=== PATIENT | male | born 1940 | race Caucasian/White ===

== ENCOUNTER → 2016-06-28 | Outpatient (CLI) | payer MEDICARE ==
--- NOTE | 2016-06-28 16:58 | MR ---
EXAMINATION TYPE: MR brain wo con DATE OF EXAM: 06/28/2016 4:06 PM COMPARISON: NONE HISTORY: memory loss, urinary incontinence, unsteady gate T1-weighted sagittal, T2, FLAIR, and diffusion axial, and T2 coronal coronal views of the brain are s ubmitted. Findings: There is no evidence of acute ischemia. There is moderate to severe dilation of the ventricular syste m. There is a degree of surrounding atrophic changes however there is a greater central component. Co rrelate for normal pressure hydrocephalus. No cerebellopontine angle mass. Partially empty sella turcica noted. Craniocervical junction maintain ed. Arthritic change involving the atlantoaxial joint suggested. WHITE MATTER: There is a faint periventricular confluent abnormal signal as well as approximately 20-25 areas of pu nctate abnormal signal throughout the white matter. No callosal lesions. No lesions perpendicular to the ventricular system. There are a couple subcortical lesions. Abnormal signal within the ion likel y in the basis of remote ischemia. IMPRESSION: 1. No acute intracranial process. 2. Degenerative change with a greater central ventricular dilation. This raises the question of neil l pressure hydrocephalus correlate clinically. 3. Nonspecific white matter changes. Differential diagnosis includes hypertension and remote microvas cular ischemia. Demyelinating process not excluded. 4 spot focal area of abnormal signal within the p ons suggestive of remote ischemia.
== END | disposition home or self-care (01) ==
LOC: RADMRIMAIN 15:32
PROVIDERS: ATTEND Psychiatry & Neurology Neurology
DX: R90.82 White matter disease, unspecified (principal)
CPT/HCPCS: 70551

== ENCOUNTER → 2016-07-11 | Outpatient (CLI) | payer MEDICARE ==
[2016-07-11 09:59] LABS: INR 1.3 (<1.1); Prothrombin Time 12.8 sec (9.0-12.0)
== END | disposition home or self-care (01) ==
LOC: LABWHC1 09:33
PROVIDERS: ATTEND Psychiatry & Neurology Neurology
DX: Z51.81 Encounter for therapeutic drug level monitoring (principal); Z79.01 Long term (current) use of anticoagulants
CPT/HCPCS: 36415; 85610

== ENCOUNTER → 2017-06-07 | Outpatient (CLI) | payer MEDICARE ==
--- NOTE | 2017-06-08 13:53 | MR ---
EXAMINATION TYPE: MR brain wo con DATE OF EXAM: 06/07/2017 COMPARISON: Prior MRI brain June 28, 2016 HISTORY: Normal pressure hydrocephalus, compare to prior MRI. Symptoms of bilateral hearing loss per patient. TECHNIQUE: Multiplanar, multisequence imaging of the brain and brainstem is performed without IV cont rast. FINDINGS: Diffusion weighted images demonstrate no evidence of a recent infarct or other diffusion abnormality. There is no worrisome extra-axial fluid collection. There is ventricular and sulcal prominence consis tent with diffuse cerebral atrophy. Similar to the prior study degree of ventricular dilatation sligh tly out of proportion to degree of sulcal effacement in the normal pressure hydrocephalus cannot be e xcluded. The Lott Ratio is calculated 4.6 cm/ 13.1 cm or 0.35 on current study axial image 19 versus 4.5 cm/ 13.0 cm or 0.35 on prior exam axial image 19. A few scattered foci of T2 hyperintensity thro ughout the white matter remain present. Midline structures demonstrate normal morphology. The craniocervical junction appears within normal limits. Normal vascular flow voids are present. The visualized sinuses are clear and the globes are i ntact. IMPRESSION: 1. There is moderate diffuse cerebral atrophy and mild to moderate chronic small vessel ischemic pepper ge. Normal pressure hydrocephalus is not excluded. No significant change from prior.
== END | disposition home or self-care (01) ==
LOC: RADMRIMAIN 14:34
PROVIDERS: ATTEND Internal Medicine
DX: G31.9 Degenerative disease of nervous system, unspecified (principal); I67.82 Cerebral ischemia
CPT/HCPCS: 70551

== ENCOUNTER → 2017-07-18 | Outpatient (CLI) | payer MEDICARE ==
[2017-07-18 15:41] LABS: T4, Free (Free Thyroxine) 0.89 ng/dL (0.78-2.19)
[2017-07-18 19:11] LABS: Protein, Total 6.6 g/dL (6.2-8.2)
[2017-07-19 12:15] LABS: Immunoglobulin M 61.6 mg/dL (40.0-280.0)
[2017-07-22 12:20] LABS: Gamma Globulin 0.73 g/dL (0.70-1.50)
== END | disposition home or self-care (01) ==
LOC: LABWHC1 14:38
PROVIDERS: ATTEND Psychiatry & Neurology Neurology
DX: E11.40 Type 2 diabetes mellitus with diabetic neuropathy, unspecified (principal)
CPT/HCPCS: 36415; 82140; 82784; 84165; 84439; 84443; 86780

== ENCOUNTER 2017-09-01 08:05 | Day surgery (SDC) | payer MEDICARE ==
[2017-09-01 08:56] LABS: Mean Platelet Volume 7.1; Platelet Count 228 k/uL (150-450)
[2017-09-01 09:04] LABS: INR 1.2 (<1.2); Prothrombin Time 11.4 sec (9.0-12.0)
[2017-09-01] MEDS ORDERED: Acetaminophen-Codeine 300-30mg TAB PO PRN (10:04)
[2017-09-01 10:42] VITALS: RESP 16
--- NOTE | 2017-09-01 11:08 | FL ---
EXAMINATION TYPE: FL guided lumbar puncture LP DATE OF EXAM: 09/01/2017 CLINICAL HISTORY: Concern for CSF leak and administration of 578 mCi of indium 111 DTPA for cisternog floridalma COMPLICATIONS: None TECHNIQUE: The procedure and potential risks were explained to patient and an informed consent was obtained with teach back. Preprocedural time out was performed. The patient was placed prone on the fluoroscopy table and the L4-L5 level was localized and the skin was marked and was prepped and draped in the usual sterile fashion. Lidocaine was used for local anesthesia (5 cc). Utilizing fluoroscopic guidance a 22-gauge spinal nee dle was placed through the skin and into the subarachnoid space. After clear colorless cerebrospinal fluid was identified 578 mCi of indium 111 DTPA was administered intrathecally for nuclear medicine cisternogram. The patient tolerated the procedure well and was sent back to a recovery room in satisfactory conditi on. The estimated blood loss was minimal. The patient's condition was unchanged following the procedure. Fluoroscopy time: 29 seconds with 1 image saved. IMPRESSION: Successful intrathecal administration of 578 mCi of indium 111 DTPA for nuclear medicine cisternogram .
[2017-09-01 12:48] VITALS: TEMP 98.1
[2017-09-01 14:55] VITALS: BP 143/93; PULSE 100
== END 2017-09-01 15:25 | disposition home or self-care (01) ==
LOC: RADPROMAIN 08:05 → EDSTATUS 14:00 → RADPROMAIN 15:25
PROVIDERS: ATTEND Psychiatry & Neurology Neurology
DX: R41.3 Other amnesia (principal)
CPT/HCPCS: 82947; 85049; 85610; 62270; 36415; J2001

== ENCOUNTER → 2017-09-18 | Outpatient (CLI) | payer MEDICARE ==
--- NOTE | 2017-09-18 17:01 | CONS ---
CONSULTATION DATE OF SERVICE: 09/18/2017 76-year-old gentleman who has been evaluated in the [facility] for obstructive sleep apnea-hypopnea syndrome. Recently patient was diagnosed with sleep apnea, according to him about 30 years ago, in different institution. Since that time he is on treatment with CPAP. He continued to use his BiPAP which was adjusted to CPAP according to patient every night for the whole night, but he still has problems with his sleep. He has problem with his mask. There is some in discomfort with the mask and probably leak. The patient does not feel that his CPAP worked well now. His sleep schedule fluctuating from 10 p.m. until morning. He sleeps until morning and then he will nap for long hours. The patient snores, has episodes of stopped breathing, awakenings with dry mouth, nocturia. Again, he does have problem with the falling asleep, has TV set in bedroom, sleeps in different positions. During the day, he feels sleepy, wakes up tired, has problem with memory, concentration, debility, depression. [place] Sleepiness Scale is 8. PAST MEDICAL HISTORY: Positive for hypertension, diabetes mellitus, atrial fibrillation, hyperlipidemia, depression. PAST SURGICAL HISTORY: Total left knee replacement, UPPP with tonsillectomy, status post nasal surgery for sinusitis and possible nasal septum deviation. MEDICATIONS: Atenolol, bupropion, digoxin, DuoNeb, doxazosin, furosemide, glimepiride, isosorbide, metformin, sertraline, simvastatin, warfarin, vitamins, vitamin D3, . SOCIAL HISTORY: Smoking, quit more than 40 years ago. Alcohol consumption very rarely. FAMILY HISTORY: Hypertension, heart problems, hyperlipidemia, stroke, arthritis, asthma, sleep apnea, cancer, insomnia, narcolepsy, ulcers, diabetes. REVIEW OF SYSTEMS: Difficulties to initiate sleep, awakenings from sleep, sleepiness during the day. PHYSICAL EXAM: GENERAL gentleman without distress. VITAL SIGNS BP 118/63, HR 94, RR 16, height 5 feet 10 inches, weight 240, BMI 34.4, temperature 97.3, oxygen saturation room air 97%. HEENT PERRLA, EOMI, evaluation of oropharynx showed moderately low position of soft palate. No uvula. No tonsils. Slight restriction of nasal breathing. Wide neck 17- 1/2 inches in circumference. NECK Supple, no JVD. Thyroid is not palpable. LUNGS Clear to percussion and to auscultation. Good air exchange. No wheezing or rhonchi. HEART S1, S2 irregularly irregular. ABDOMEN Obese. Soft and nontender. Bowel sounds are present. No organomegaly appreciated. EXTREMITIES 1+ ankle edema. No clubbing or cyanosis. GRINDER AND PLATER Awake, alert, and oriented X3. Cranial nerves 2 to 7 intact. There is no fasciculation or atrophy. noted. No focal deficits observed. IMPRESSION: 1. Obstructive sleep apnea-hypopnea syndrome for 30 years. Patient continued to use his BiPAP equipment. According to him, it is now on regimen of CPAP. He still wakes up from sleep, feels sleepy during the day and also has difficulties to initiate sleep. Wide neck, obstructive sleep apnea syndrome. 2. Obesity, BMI 34.4. 3. Diabetes mellitus. 4. Hypertension. 5. Atrial fibrillation. 6. Hyperlipidemia. 7. Depression. 8. Status post left knee replacement. 9. Status post uvulopalatopharyngoplasty, tonsillectomy and nasal surgery for possible nasal septum deviation and also for sinus problems. 10.History of peptic ulcer disease in the past. PLAN: 1. We will repeat CPAP titration if necessary BiPAP for evaluation of effective CPAP pressure at the present time. Also to check and fine corrected mask for treatment. The patient may need to get new CPAP or as necessary BiPAP equipment. 2. Sleep hygiene with regular time in bed for 8 hours. 3. Light exposure in the morning and less if possible light exposure in the evening. 4. No driving if feeling any sleepiness. 5. Losing weight. Thank you very much for referring this patient for consultations. Sincerely, Usman Jiménez MD, PhD, FAASM Diplomat of [employer] Reimbursement Coordinator of [facility] [place] MMODL / IJN: [id number] /
== END | disposition home or self-care (01) ==
LOC: SLEEP 14:44
PROVIDERS: ATTEND Internal Medicine
DX: G47.33 Obstructive sleep apnea (adult) (pediatric) (principal); E66.9 Obesity, unspecified; E11.9 Type 2 diabetes mellitus without complications; I10 Essential (primary) hypertension; I48.91 Unspecified atrial fibrillation; E78.5 Hyperlipidemia, unspecified; F32.9 Major depressive disorder, single episode, unspecified; Z96.652 Presence of left artificial knee joint; Z98.890 Other specified postprocedural states; Z87.11 Personal history of peptic ulcer disease; Z68.34 Body mass index [BMI] 34.0-34.9, adult; Z99.89 Dependence on other enabling machines and devices; Z87.891 Personal history of nicotine dependence; Z79.899 Other long term (current) drug therapy; Z79.84 Long term (current) use of oral hypoglycemic drugs; Z79.01 Long term (current) use of anticoagulants
CPT/HCPCS: 99211

== ENCOUNTER → 2017-12-11 | Outpatient (CLI) | payer MEDICARE ==
--- NOTE | 2017-12-11 15:57 | PN ---
PROGRESS NOTE . DATE OF SERVICE: 12/11/2017 77-year-old gentleman has been followed in [facility] Center for treatment of obstructive sleep apnea-hypopnea syndrome. Recently patient had CPAP titration and after that he received new CPAP unit. Today is his first visit with a new CPAP unit. I explained the results of the titration to the patient. He is able to use his new CPAP unit every night without significant problems. Usually he uses a nasal mask. Presently he is using nasal pillow mask and he likes it. Sometimes he may see an indication that possibly he may have some leak from his mask, but he sleeps well and [place] Sleepiness Scale today is in normal range 8. I checked patient's CPAP unit. Usage is 100% of the time more than 4 hours. Average usage is 7.2 hours per night. CPAP pressure is 9 cm of water. Leak is up to 40 L/minute average, which is above normal range, border usually around 35 L/minute. Apnea-hypopnea index for the last month 7.6 for the last night, 4.1. MEDICATIONS: Atenolol, Bupropion, digoxin, DuoNeb, , furosemide, glimepiride, isosorbide, Metformin, Sertraline, Simvastatin, Warfarin, Vitamin D3, other vitamin supplements. PHYSICAL EXAM: Patient in no distress. BP 91/75, HR 91, RR 18, weight is 239.4, temp is 98.1. Oropharynx extremely low position of soft palate. HEART: S1, S2. Irregular. ABDOMEN: Obese. Extremities 1+ ankle edema. Neck: Supple, no JVD. Thyroid is not palpable. LUNGS: Clear to percussion and to auscultation. Good air exchange. No wheezing or rhonchi. HEART S1, S2 irregular. No murmurs, gallops, or rubs. ABDOMEN: Obese. Soft and nontender. Bowel sounds are present. No organomegaly appreciated. EXTREMITIES: 1+ ankle edema. CATERPILLAR TRACTOR OPERATOR Awake, alert, and oriented X3. Cranial nerves 2 to 7 intact. There is no fasciculation or atrophy. noted. No focal deficits observed. IMPRESSION: 1. Obstructive sleep apnea-hypopnea syndrome. The patient demonstrated 100% compliance with treatment benefitting from treatment. 2. Some indication of leak from the mask. Possibly patient to open his mouth, although he usually does not feel that and does not feel dryness in the mouth. 3. Atrial fibrillation. 4. Hypertension. 5. Diabetes mellitus. 6. Obesity. 7. Depression. 8. Status post left knee replacement. 9. Status post Uvulopalatopharyngoplasty, tonsillectomy and nasal surgery for nasal septum deviation for sinus problem. 10.History of peptic ulcer disease in the past. PLAN: 1. Patient will continue to use CPAP equipment every night for the whole night. 2. Watching and losing weight. 3. Sleep hygiene with regular time in bed for at least 8 hours. 4. Prescription for chin strap. 5. We will follow with prescription for all necessary CPAP supplies. Thank you very much for allowing me to participate in management of your patient. Sincerely, Usman Jiménez MD, PhD, FAASM Diplomat of [place] [employer] [employer] Web Press Operator Helper Offset of [facility] [place] MMODL / PEGGYN: [id number] /
== END | disposition home or self-care (01) ==
LOC: SLEEP 14:37
PROVIDERS: ATTEND Internal Medicine
DX: G47.33 Obstructive sleep apnea (adult) (pediatric) (principal); J34.2 Deviated nasal septum; E66.9 Obesity, unspecified; I10 Essential (primary) hypertension; I48.91 Unspecified atrial fibrillation; E11.9 Type 2 diabetes mellitus without complications; F32.9 Major depressive disorder, single episode, unspecified; Z99.89 Dependence on other enabling machines and devices; Z79.899 Other long term (current) drug therapy; Z79.51 Long term (current) use of inhaled steroids; Z79.84 Long term (current) use of oral hypoglycemic drugs; Z96.651 Presence of right artificial knee joint; Z90.89 Acquired absence of other organs; Z87.11 Personal history of peptic ulcer disease; Z98.890 Other specified postprocedural states

== ENCOUNTER → 2018-03-23 | Outpatient (CLI) | payer MEDICARE ==
[2018-03-24 14:05] LABS: Alt. alternata IgE Class CLASS 0; Alternaria alternata IgE <0.35 kU/L (<0.35); Asperg. fumagatus IgE <0.35 kU/L (<0.35); Asperg. fumagatus IgE Class CLASS 0; Bermuda Grass IgE <0.35 kU/L (<0.35); Birch(Com.Silvr) IgE <0.35 kU/L (<0.35); Birch(Com.Silvr) IgE Class CLASS 0; Cat Epith & Dander IgE <0.35 kU/L (<0.35); Cat Epith & Dander IgE Class CLASS 0; Clad herbarum IgE <0.35 kU/L (<0.35); Cockroach IgE <0.35 kU/L (<0.35); Cottonwood IgE <0.35 kU/L (<0.35); Dermato. Pteronyssinus IgE <0.35 kU/L (<0.35); Dermato. farinae IgE <0.35 kU/L (<0.35); Dermato. farinae IgE Class CLASS 0; Dog Dander IgE <0.35 kU/L (<0.35); Elm IgE <0.35 kU/L (<0.35); Maple (Box Elder) IgE <0.35 kU/L (<0.35); Maple (Box Elder) IgE Class CLASS 0; Mountain Cedar IgE <0.35 kU/L (<0.35); Mountain Cedar IgE Class CLASS 0; Mouse Urine IgE Class CLASS 0; Nettle IgE <0.35 kU/L (<0.35); Nettle IgE Class CLASS 0; Oak IgE <0.35 kU/L (<0.35); Penicillium notatum IgE Class CLASS 0; Rough Marshelder IgE <0.35 kU/L (<0.35); Rough Marshelder IgE Class CLASS 0; Timothy Grass IgE <0.35 kU/L (<0.35); White Ash IgE Class CLASS 0
== END | disposition home or self-care (01) ==
LOC: LABWHC1 15:51
PROVIDERS: ATTEND Internal Medicine Sleep Medicine
DX: B44.1 Other pulmonary aspergillosis (principal)
CPT/HCPCS: 36415; 82785; 86001; 86003; 86606; 86609

== ENCOUNTER → 2018-03-26 | Outpatient (CLI) | payer MEDICARE ==
--- NOTE | 2018-03-26 16:30 | CT ---
EXAMINATION TYPE: CT chest wo con DATE OF EXAM: 03/26/2018 COMPARISON: None HISTORY: Interstitial lung disease. CT DLP: 506.[address] of the chest was performed with lung and mediastinal window settings submitted. The la ck of contrast limits evaluation of the vascular, mediastinal and parenchymal structures including th e upper abdomen. LUNGS: The lungs are clear and free of infiltrate. No atelectasis. No pulmonary nodule or mass is de tected. No pleural effusion. Mild scattered subpleural fibrosis noted. MEDIASTINUM/JOSE EDUARDO: Thoracic aorta is of normal caliber with limited evaluation given lack of contrast . The heart is enlarged. No evidence for mediastinal mass. No lymph nodes greater than 1cm. UPPER ABDOMEN: No significant abnormality is seen. OTHER: No significant other abnormality. IMPRESSION: 1. Mild scattered subpleural fibrosis.
== END | disposition home or self-care (01) ==
LOC: RADCTMAIN 15:16
PROVIDERS: ATTEND Internal Medicine Sleep Medicine
DX: J94.1 Fibrothorax (principal)
CPT/HCPCS: 71250

== ENCOUNTER 2018-05-19 22:18 | Inpatient (IN) | payer MEDICARE ==
[2018-05-19] MEDS ORDERED: DILTIAZEM DRIP BOLUS FROM BAG 1 MG SOLN IV ONE (22:36)
[2018-05-19] MEDS ORDERED: FUROSEMIDE 10 MG/ML 4 ML VIAL IV STA (22:36)
--- NOTE | 2018-05-19 22:42 | ED ---
General Adult HPI - General Chief complaint: Shortness of Breath Stated complaint: BELTRAN Time Seen by Provider: 05/19/18 22:20 Source: patient, RN notes reviewed Mode of arrival: wheelchair Limitations: physical limitation - History of Present Illness Initial comments: This is a 77-year-old male with a past medical history significant for atrial fibrillation at a heart failure. Patient states he's been battling intermittent episodes of atrial fibrillation however couple hours ago at home he started becoming very short of breath and felt as though his A. fib must be going really fast. Patient states she did not feel any palpitations patient denied any chest pain. Patient denied any lightheadedness or dizziness. Patient states he just becomes extremely short of breath when he tripped fibrillation kicks in and he believes that is what happened. Patient also has bilateral pedal edema but he has not noted it increasing lately. Patient denies any abdominal pain patient denies nausea vomiting diarrhea. Patient denies any recent fever chills or cough. Patient was recently started on some albuterol treatments and steroids but the albuterol treatments were stopped and he continues to be on the steroid. This was prescribed by his transport technician. - Related Data Home Medications Medication Instructions Recorded Confirmed Atenolol [Tenormin] 25 mg PO BID 06/24/14 09/01/17 Cholecalciferol [Vitamin D3] 2,000 unit PO DAILY 06/24/14 09/01/17 Digoxin [Lanoxin] 125 mcg PO SUTUTHSA 06/24/14 09/01/17 Digoxin [Lanoxin] 250 mcg PO MOWEFR 06/24/14 09/01/17 Donepezil HCl [Aricept Odt] 10 mg PO HS 06/24/14 09/01/17 Furosemide [Lasix] 20 mg PO QAM 06/24/14 09/01/17 Glimepiride [Amaryl] 4 mg PO HS 06/24/14 09/01/17 Glimepiride [Amaryl] 6 mg PO QAM 06/24/14 09/01/17 Isosorbide Mononitrate ER [Imdur] 30 mg PO HS 06/24/14 09/01/17 Lisinopril [Prinivil] 20 mg PO BID 06/24/14 09/01/17 Cardinal-3 Fatty Acids/Fish Oil [Fish 1,000 mg PO DAILY 06/24/14 09/01/17 Oil 1,000 mg Softgel] Sertraline HCl [Zoloft] 100 mg PO BID 06/24/14 09/01/17 Simvastatin [Zocor] 40 mg PO HS 06/24/14 09/01/17 Warfarin [Coumadin] 5 mg PO SUMOTUTHFR 06/24/14 07/15/17 Warfarin [Coumadin] 7.5 mg PO WESA 06/24/14 07/15/17 buPROPion [Wellbutrin] 100 mg PO HS 06/24/14 09/01/17 metFORMIN HCL [Glucophage] 500 mg PO DAILY 06/24/14 09/01/17 L.acidoph,Paracasei, B.lactis 1 each PO DAILY 07/20/15 09/01/17 [Probiotic] Multivitamins, Thera [Multivitamin] 1 tab PO DAILY 07/20/15 09/01/17 metFORMIN HCL 1,000 mg PO DAILY 07/15/17 09/01/17 Allergies Allergy/AdvReac Type Severity Reaction Status Date / Time No Known Allergies Allergy Verified 09/01/17 08:33 Review of Systems ROS Statement: Those systems with pertinent positive or pertinent negative responses have been documented in the HPI. ROS Other: All systems not noted in ROS Statement are negative. Past Medical History Past Medical History: Atrial Fibrillation, CVA/TIA, Diabetes Mellitus, Hyperlipidemia, Hypertension, Osteoarthritis (OA), Sleep Apnea/CPAP/BIPAP Additional Past Medical History / Comment(s): ?CVA IN THE PAST (NO WEAKNESS OR PARALYSIS) , USES C-PAP MACHINE, RENAL CYST, HX OF ULCER, ENVIRONMENTAL ALLERGIES, STATES HE HOLDS HIS BREATH AT TIMES WHICH CAUSES DIZZINESS AND HE IS UNAWARE HE IS DOING THIS., STATES HX OF A "HOLE IN HIS STOMACH " History of Any Multi-Drug Resistant Organisms: None Reported Past Surgical History: Appendectomy, Hernia Repair, Tonsillectomy Additional Past Surgical History / Comment(s): JAYY INGUINAL HERNIA REPAIR X2 Past Anesthesia/Blood Transfusion Reactions: No Reported Reaction Past Psychological History: Anxiety, Depression Smoking Status: Former smoker Past Alcohol Use History: Rare Past Drug Use History: None Reported - Past Family History Father Family Medical History: Cancer Additional Family Medical History / Comment(s): HODGKIN'S General Exam - General Exam Comments Initial Comments: GENERAL: Patient is well-developed and well-nourished. Patient is nontoxic and well- hydrated and is in mild distress. ENT: Neck is soft and supple. No significant lymphadenopathy is noted. Neck has full range of motion without eliciting any pain. EYES: The sclera were anicteric and conjunctiva were pink and moist. Extraocular movements were intact and pupils were equal round and reactive to light. Eyelids were unremarkable. PULMONARY: Patient has crackles in bilateral bases more on the right than the left. CARDIOVASCULAR: Patient has an irregular heartbeat it's states that about 120 -130 however when he sits up and moves up to 150 to 160s ABDOMEN: Soft and nontender with normal bowel sounds. No palpable organomegaly was noted. There is no palpable pulsatile mass. SKIN: Skin is clear with no lesions or rashes and otherwise unremarkable. NEUROLOGIC: Patient is alert and oriented 3 cranial nerves II through XII are grossly intact. MUSCULOSKELETAL: Normal extremities with adequate strength and full range of motion. Patient is 2+ pedal edema bilaterally. LYMPHATICS: No significant lymphadenopathy is noted PSYCHIATRIC: Normal psychiatric evaluation. Limitations: physical limitation Course Vital Signs 05/19/18 05/19/18 05/19/18 22:23 22:26 22:30 Temperature 98.4 F Pulse Rate 124 H 138 H Respiratory 28 H Rate Blood Pressure 172/102 O2 Sat by Pulse 88 L 94 L 94 L Oximetry 05/19/18 05/19/18 05/19/18 22:40 23:00 23:10 Temperature Pulse Rate 135 H 101 H 110 H Respiratory 20 Rate Blood Pressure 194/152 194/152 177/94 O2 Sat by Pulse 94 L 92 L 92 L Oximetry Medical Decision Making - Medical Decision Making EKG shows atrial fibrillation at a rate of 122 bpm with multiple PVCs. QRS 110 Q-T intervals 316 QTC is 450. Patient's EKG shows no significant ST segment elevation Chest x-ray shows pulmonary edema. I started the patient on a Cardizem drip after 5 mg Cardizem bolus. Patient's heart rate came down nicely into the 90s. I also gave the patient Lasix for the edema in the legs and the crackles in the bases of both lungs. I spoke with Dr. Chapa he agreed to admit the patient admitted the patient wrote admitting orders. I consult to cardiology. I continued Lasix and Cardizem drip on the floor. - Lab Data Result diagrams: 05/19/18 22:26 05/19/18 22:26 Lab Results 05/19/18 05/19/18 05/19/18 Range/Units 22:26 22:26 22:26 WBC 7.9 (3.8-10.6) k/uL RBC 4.30 (4.30-5.90) m/uL Hgb 12.3 L (13.0-17.5) gm/dL Hct 39.1 (39.0-53.0) % MCV 90.8 (80.0-100.0) fL MCH 28.7 (25.0-35.0) pg MCHC 31.6 (31.0-37.0) g/dL RDW 15.8 H (11.5-15.5) % Plt Count 198 (150-450) k/uL Neutrophils % 83 % Lymphocytes % 8 % Monocytes % 5 % Eosinophils % 3 % Basophils % 0 % Neutrophils # 6.6 (1.3-7.7) k/uL Lymphocytes # 0.6 L (1.0-4.8) k/uL Monocytes # 0.4 (0-1.0) k/uL Eosinophils # 0.2 (0-0.7) k/uL Basophils # 0.0 (0-0.2) k/uL PT (9.0-12.0) sec INR (<1.2) APTT (22.0-30.0) sec Sodium 138 (137-145) mmol/L Potassium 4.8 (3.5-5.1) mmol/L Chloride 108 H (98-107) mmol/L Carbon Dioxide 21 L (22-30) mmol/L Anion Gap 9 mmol/L BUN 34 H (9-20) mg/dL Creatinine 1.34 H (0.66-1.25) mg/dL Est GFR (CKD-EPI)AfAm 59 (>60 ml/min/1.73 sqM) Est GFR (CKD-EPI)NonAf 51 (>60 ml/min/1.73 sqM) Glucose 338 H (74-99) mg/dL Calcium 8.8 (8.4-10.2) mg/dL Magnesium 2.1 (1.6-2.3) mg/dL Total Bilirubin 0.7 (0.2-1.3) mg/dL AST 51 (17-59) U/L ALT 36 (21-72) U/L Alkaline Phosphatase 71 (38-126) U/L Total Creatine Kinase 83 (55-170) U/L CK-MB (CK-2) 1.4 (0.0-2.4) ng/mL CK-MB (CK-2) Rel Index 1.7 Troponin I 0.056 H* (0.000-0.034) ng/mL NT-Pro-B Natriuret Pep pg/mL Total Protein 6.2 L (6.3-8.2) g/dL Albumin 3.9 (3.5-5.0) g/dL 05/19/18 05/19/18 Range/Units 22:26 22:26 WBC (3.8-10.6) k/uL RBC (4.30-5.90) m/uL Hgb (13.0-17.5) gm/dL Hct (39.0-53.0) % MCV (80.0-100.0) fL MCH (25.0-35.0) pg MCHC (31.0-37.0) g/dL RDW (11.5-15.5) % Plt Count (150-450) k/uL Neutrophils % % Lymphocytes % % Monocytes % % Eosinophils % % Basophils % % Neutrophils # (1.3-7.7) k/uL Lymphocytes # (1.0-4.8) k/uL Monocytes # (0-1.0) k/uL Eosinophils # (0-0.7) k/uL Basophils # (0-0.2) k/uL PT 17.3 H (9.0-12.0) sec INR 1.7 H (<1.2) APTT 27.4 (22.0-30.0) sec Sodium (137-145) mmol/L Potassium (3.5-5.1) mmol/L Chloride (98-107) mmol/L Carbon Dioxide (22-30) mmol/L Anion Gap mmol/L BUN (9-20) mg/dL Creatinine (0.66-1.25) mg/dL Est GFR (CKD-EPI)AfAm (>60 ml/min/1.73 sqM) Est GFR (CKD-EPI)NonAf (>60 ml/min/1.73 sqM) Glucose (74-99) mg/dL Calcium (8.4-10.2) mg/dL Magnesium (1.6-2.3) mg/dL Total Bilirubin (0.2-1.3) mg/dL AST (17-59) U/L ALT (21-72) U/L Alkaline Phosphatase (38-126) U/L Total Creatine Kinase (55-170) U/L CK-MB (CK-2) (0.0-2.4) ng/mL CK-MB (CK-2) Rel Index Troponin I (0.000-0.034) ng/mL NT-Pro-B Natriuret Pep 1080 pg/mL Total Protein (6.3-8.2) g/dL Albumin (3.5-5.0) g/dL Critical Care Time Critical Care Time: Yes Total Critical Care Time: 35 Disposition Clinical Impression: Atrial fibrillation with rapid ventricular response, Pulmonary edema Disposition: ADMITTED IP TO THIS HOSP Referrals: Filipe Mckinney MD [Primary Care Provider] - 1-2 days Time of Disposition: 00:10
[2018-05-19] MEDS: DILTIAZEM 50 MG in SODIUM CHLORIDE 0.9% 40 ML IV SCH (22:51)
[2018-05-19 23:03] LABS: INR 1.7 (<1.2); Partial Thromboplastin Time 27.4 sec (22.0-30.0); Prothrombin Time 17.3 sec (9.0-12.0)
[2018-05-19 23:04] LABS: Basophils % (A) 0 %; Eosinophils # (A) 0.2 k/uL (0-0.7); Eosinophils % (A) 3 %; HCT 39.1 % (39.0-53.0); HGB 12.3 gm/dL (13.0-17.5); Lymphocytes # (A) 0.6 k/uL (1.0-4.8); Lymphocytes % (A) 8 %; MCH 28.7 pg (25.0-35.0); MCHC 31.6 g/dL (31.0-37.0); MCV 90.8 fL (80.0-100.0); Monocytes # (A) 0.4 k/uL (0-1.0); Monocytes % (A) 5 %; Neutrophils # (A) 6.6 k/uL (1.3-7.7); Neutrophils % (A) 83 %; Platelet Count 198 k/uL (150-450); RDW 15.8 % (11.5-15.5); WBC 7.9 k/uL (3.8-10.6)
[2018-05-19 23:09] LABS: Albumin 3.9 g/dL (3.5-5.0); Calcium 8.8 mg/dL (8.4-10.2); Magnesium 2.1 mg/dL (1.6-2.3); Potassium 4.8 mmol/L (3.5-5.1); Total Bilirubin 0.7 mg/dL (0.2-1.3); Total Protein 6.2 g/dL (6.3-8.2)
[2018-05-19 23:21] LABS: Creatine Kinase MB 1.4 ng/mL (0.0-2.4)
[2018-05-19 23:46] LABS: Troponin I 0.056 ng/mL (0.000-0.034)
--- NOTE | 2018-05-20 00:19 | XR ---
EXAMINATION TYPE: XR chest 2V DATE OF EXAM: 05/19/2018 COMPARISON: NONE HISTORY: Difficulty breathing TECHNIQUE: Frontal and lateral views of the chest are obtained. FINDINGS: There is pulmonary interstitial edema. Heart is enlarged. There is some blunting of costop hrenic angles. There is spurring in the thoracic spine. Thoracic aorta is atheromatous. There are lucretia st leads. IMPRESSION: Congestive heart failure. Small pleural effusions.
[2018-05-20] MEDS: FUROSEMIDE 10 MG/ML 4 ML VIAL IV SCH ×3 (01:03→17:33)
[2018-05-20 06:14] LABS: Glucose,Whole Blood 470 mg/dL (75-99)
[2018-05-20] MEDS: INSULIN ASPART 100 UNIT/ML 1 ML 10 ML VIAL SQ SCH ×4 (06:25→20:21)
[2018-05-20 06:51] LABS: HCT 35.5 % (39.0-53.0); HGB 10.9 gm/dL (13.0-17.5); MCH 27.9 pg (25.0-35.0); MCHC 30.7 g/dL (31.0-37.0); MCV 90.8 fL (80.0-100.0); Mean Platelet Volume 7.2; Platelet Count 178 k/uL (150-450); RBC 3.91 m/uL (4.30-5.90); RDW 15.7 % (11.5-15.5); WBC 6.7 k/uL (3.8-10.6)
[2018-05-20 06:54] LABS: INR 1.7 (<1.2); Prothrombin Time 17.2 sec (9.0-12.0)
[2018-05-20 07:03] LABS: Calcium 8.7 mg/dL (8.4-10.2); Potassium 4.1 mmol/L (3.5-5.1)
[2018-05-20 07:09] LABS: Glucose,Whole Blood 235 mg/dL (75-99)
[2018-05-20] MEDS: DILTIAZEM 50 MG in SODIUM CHLORIDE 0.9% 40 ML IV SCH (07:55)
[2018-05-20] MEDS ORDERED: LOPERAMIDE 2 MG CAP PO PRN (08:57)
[2018-05-20] MEDS ORDERED: diphenhydrAMINE 50 MG CAP PO PRN (08:57)
[2018-05-20] MEDS ORDERED: DIGOXIN 250 MCG TAB PO SCH (09:00)
[2018-05-20] MEDS: Dapagliflozin Propanediol [Farxiga] PO SCH (09:22)
[2018-05-20] MEDS: LISINOPRIL 20 MG TAB PO SCH ×2 (09:36→20:21)
[2018-05-20] MEDS: CHOLECALCIFEROL 1,000 UNIT TAB PO SCH (09:36)
[2018-05-20] MEDS: GLIMEPIRIDE 4 MG TAB PO SCH ×2 (09:36→20:20)
[2018-05-20] MEDS: DOXAZOSIN 4 MG TAB PO SCH (09:36)
[2018-05-20] MEDS: SERTRALINE 100 MG TAB PO SCH ×2 (09:36→20:22)
[2018-05-20] MEDS: hydrALAZINE HCL 25 MG TAB PO SCH ×2 (09:36→20:20)
[2018-05-20 11:59] LABS: Glucose,Whole Blood 158 mg/dL (75-99)
[2018-05-20] MEDS: MULTIVITAMINS, THERA 1 EACH TAB PO SCH (12:25)
[2018-05-20] MEDS: metFORMIN 500 MG TAB PO SCH ×2 (12:26→18:08)
--- NOTE | 2018-05-20 13:12 | P.CRDCN ---
History of Present Illness Consult date: 05/20/18 Requesting physician: Khanh Chapa Consult reason: atrial fibrillation Chief complaint: Palpitations and shortness of breath History of present illness: This is a 77-year-old gentleman who follows with Dr. Morales in the office. He has a past medical history significant for paroxysmal atrial fibrillation for which she takes Coumadin, prior CVA, diabetes, hypertension, hyperlipidemia, sleep apnea, osteoarthritis, he presented to the hospital with symptoms of feeling his heart racing fast and irregular with associated shortness of breath. He also states that over the past number of days he has noticed a significant increase in his peripheral edema. EKG on presentation here showed atrial fibrillation with a rapid ventricular response, occasional PVCs, left anterior fascicular block. Chest x-ray shows congestive heart failure with small bilateral pleural effusions. Blood pressure 137/80, heart rate in the 80s, 95% on 2 L of oxygen. White blood cell count 6.7, hemoglobin on admission 12.3, 10.9 this morning. Platelet count on admission 198, 178 this morning. INR 1.7. Sodium 142, potassium 4.1, BUN 32, creatinine 1.5, 1.3 on admission. BNP level 1080., troponin 0.056. Patient was initiated on Cardizem in the emergency room and continues to be on a Cardizem drip at 5 mg per hour, he is not on IV heparin at this time. Patient was also given IV Lasix 40 mg hourly. He continues to have 2+ bilateral peripheral edema with evidence of reddened areas on both of his bilateral lower legs. According to the patient these ulcerated areas are significantly improved from prior. He states that he had put on some copper socks and after that developed severe ulcerations to his lower extremities. Past Medical History Past Medical History: Atrial Fibrillation, Heart Failure, CVA/TIA, Diabetes Mellitus, Hearing Disorder / Deafness, Hyperlipidemia, Hypertension, Osteoarthritis (OA), Sleep Apnea/CPAP/BIPAP Additional Past Medical History / Comment(s): ?CVA IN THE PAST (NO WEAKNESS OR PARALYSIS) , USES C-PAP MACHINE, RENAL CYST, HX OF ULCER, ENVIRONMENTAL ALLERGIES, STATES HE HOLDS HIS BREATH AT TIMES WHICH CAUSES DIZZINESS AND HE IS UNAWARE HE IS DOING THIS., STATES HX OF A "HOLE IN HIS STOMACH " History of Any Multi-Drug Resistant Organisms: None Reported Past Surgical History: Appendectomy, Hernia Repair, Tonsillectomy Additional Past Surgical History / Comment(s): JAYY INGUINAL HERNIA REPAIR X2 Past Anesthesia/Blood Transfusion Reactions: No Reported Reaction Past Psychological History: Anxiety, Depression Additional Psychological History / Comment(s): MEMORY LOSS Smoking Status: Former smoker Past Alcohol Use History: Rare Additional Past Alcohol Use History / Comment(s): SMOKED FOR 14 YEARS OVER 1PPD. QUIT SMOKING 1972 Past Drug Use History: None Reported - Past Family History Father Family Medical History: Cancer Additional Family Medical History / Comment(s): HODGKIN'S Medications and Allergies Home Medications Medication Instructions Recorded Confirmed Type Cholecalciferol [Vitamin D3] 2,000 unit PO DAILY 06/24/14 05/20/18 History Furosemide [Lasix] 20 mg PO QAM 06/24/14 05/20/18 History Glimepiride [Amaryl] 4 mg PO BID 06/24/14 05/20/18 History Isosorbide Mononitrate ER [Imdur] 30 mg PO HS 06/24/14 05/20/18 History Lisinopril [Prinivil] 20 mg PO BID 06/24/14 05/20/18 History [place]-3 Fatty Acids/Fish Oil [Fish 1,000 mg PO DAILY 06/24/14 05/20/18 History Oil 1,000 mg Softgel] Sertraline HCl [Zoloft] 100 mg PO BID 06/24/14 05/20/18 History Simvastatin [Zocor] 40 mg PO HS 06/24/14 05/20/18 History Warfarin [Coumadin] 5 mg PO SUMOTUTHFR 06/24/14 05/20/18 History Warfarin [Coumadin] 7.5 mg PO WESA 06/24/14 05/20/18 History buPROPion [Wellbutrin] 100 mg PO HS 06/24/14 05/20/18 History Multivitamins, Thera [Multivitamin] 1 tab PO DAILY 07/20/15 05/20/18 History Albuterol Nebulized [Ventolin 2.5 mg INHALATION RT-Q4H PRN 05/20/18 05/20/18 History Nebulized] Budesonide [Pulmicort] 0.5 mg INHALATION RT-BID 05/20/18 05/20/18 History Dapagliflozin Propanediol [Farxiga] 5 mg PO DAILY 05/20/18 05/20/18 History Digoxin 125 mcg PO SUTUTHSA 05/20/18 05/20/18 History Digoxin 250 mcg PO MOWEFR 05/20/18 05/20/18 History Donepezil [Aricept] 10 mg PO HS 05/20/18 05/20/18 History Doxazosin Mesylate 8 mg PO DAILY 05/20/18 05/20/18 History Loperamide HCl [Imodium A-D] 2 mg PO Q2H PRN 05/20/18 05/20/18 History Mirtazapine [Remeron] 45 mg PO HS 05/20/18 05/20/18 History Montelukast [Singulair] 10 mg PO HS 05/20/18 05/20/18 History diphenhydrAMINE [Benadryl] 50 mg PO HS PRN 05/20/18 05/20/18 History hydrALAZINE HCL [Apresoline] 25 mg PO BID 05/20/18 05/20/18 History metFORMIN HCL [Glucophage] 500 mg PO TID 05/20/18 05/20/18 History Allergies Allergy/AdvReac Type Severity Reaction Status Date / Time No Known Allergies Allergy Verified 09/01/17 08:33 Physical Exam Vitals: Vital Signs Temp Pulse Pulse Resp BP BP Pulse Ox 05/20/18 11:09 94 L 05/20/18 08:00 98.4 F 80 22 137/82 95 05/20/18 04:00 87 22 132/73 96 05/20/18 01:18 111 H 22 153/106 95 05/20/18 00:50 105 H 110/68 94 L 05/20/18 00:20 92 137/88 94 L 05/20/18 00:10 94 16 137/88 94 L 05/19/18 23:10 110 H 20 177/94 92 L 05/19/18 23:00 101 H 194/152 92 L 05/19/18 22:40 135 H 194/152 94 L 05/19/18 22:30 138 H 94 L 05/19/18 22:26 94 L 05/19/18 22:23 98.4 F 124 H 28 H 172/102 88 L Intake and Output 05/19/18 05/20/18 05/20/18 22:59 06:59 14:59 Intake Total 45.333 Output Total 2350 800 Balance -0380 -903.708 Intake: Intake, IV Titration 45.333 Amount Diltiazem 50 mg In Sodium 45.333 Chloride 0.9% 40 ml @ 5 MG/HR 5 mls/hr IV .Q10H [facility] Rx#:[id number] Output: Urine 2350 800 Other: Weight 113.398 kg 113.398 kg PHYSICAL EXAMINATION: GENERAL: 77-year-old gentleman in no acute distress at the time of my examination HEENT: Head is atraumatic, normocephalic. Pupils equal, round. Sclera anicteric. Conjunctiva are clear. Mucous membranes of the mouth are moist. Neck is supple. There is elevated jugular venous pressure. No carotid bruit is heard. HEART EXAMINATION: Heart S1 and S2 irregularly irregular a systolic murmur is heard. CHEST EXAMINATION: Lungs reveal diminished air entry to bilateral bases. ABDOMEN: [ Soft, nontender. Bowel sounds are heard. No organomegaly noted]. EXTREMITIES:[ 2+ peripheral pulses with 2+ evidence of peripheral edema . Bilateral ground reddened areas noted to both bilateral lower extremities]. NEUROLOGIC [patient is awake, alert and oriented 3 .] . Results 05/20/18 06:19 05/20/18 06:19 Cardiac Enzymes 18 1818 Range/Units 22:26 22:26 AST 51 (17-59) U/L CK-MB (CK-2) 1.4 (0.0-2.4) ng/mL Troponin I 0.056 H* (0.000-0.034) ng/mL Coagulation 18 18 Range/Units 22:26 06:19 PT 17.3 H 17.2 H (9.0-12.0) sec APTT 27.4 (22.0-30.0) sec CBC 05/19/18 05/20/18 Range/Units 22:26 06:19 WBC 7.9 6.7 (3.8-10.6) k/uL RBC 4.30 3.91 L (4.30-5.90) m/uL Hgb 12.3 L 10.9 L (13.0-17.5) gm/dL Hct 39.1 35.5 L (39.0-53.0) % Plt Count 198 178 (150-450) k/uL Comprehensive Metabolic Panel 05/19/18 05/20/18 Range/Units 22:26 06:19 Sodium 138 142 (137-145) mmol/L Potassium 4.8 4.1 (3.5-5.1) mmol/L Chloride 108 H 107 (98-107) mmol/L Carbon Dioxide 21 L 27 (22-30) mmol/L BUN 34 H 32 H (9-20) mg/dL Creatinine 1.34 H 1.50 H (0.66-1.25) mg/dL Glucose 338 H 227 H (74-99) mg/dL Calcium 8.8 8.7 (8.4-10.2) mg/dL AST 51 (17-59) U/L ALT 36 (21-72) U/L Alkaline Phosphatase 71 (38-126) U/L Total Protein 6.2 L (6.3-8.2) g/dL Albumin 3.9 (3.5-5.0) g/dL Current Medications Generic Name Dose Route Start Last Admin Trade Name Freq PRN Reason Stop Dose Admin Albuterol Sulfate 2.5 mg 05/20/18 08:57 Ventolin Nebulized INHALATION RT-Q4H PRN Shortness Of Breath Atorvastatin Calcium 20 mg 05/20/18 21:00 Lipitor PO HS [facility] Budesonide 0.5 mg 05/20/18 20:00 Pulmicort INHALATION RT-BID TREVA Bupropion HCl 100 mg 05/20/18 21:00 Wellbutrin PO HS [facility] Cholecalciferol 2,000 unit 05/20/18 09:00 05/20/18 09:36 Vitamin D3 PO 2,000 unit DAILY [facility] Administration Digoxin 125 mcg 05/21/18 09:00 Lanoxin PO SUTUTHSA [facility] Digoxin 250 mcg 05/20/18 09:00 05/20/18 09:36 Lanoxin PO 250 mcg MOWEFR [facility] Administration Diphenhydramine HCl 50 mg 05/20/18 08:57 Benadryl PO HS PRN Insomnia Donepezil HCl 10 mg 05/20/18 21:00 Aricept PO HS [facility] Doxazosin Mesylate 8 mg 05/20/18 09:00 05/20/18 09:36 Cardura PO 8 mg DAILY TREAV Administration Furosemide 40 mg 05/20/18 00:15 12/19/18 07:55 Lasix IV 40 mg Q8H [facility] Administration Glimepiride 4 mg 05/20/18 09:00 05/20/18 09:36 Amaryl PO 4 mg BID [facility] Administration Hydralazine HCl 25 mg 05/20/18 09:00 05/20/18 09:36 Apresoline PO 25 mg BID [facility] Administration Diltiazem HCl 50 mg/ Sodium 50 mls @ 5 mls/hr 05/19/18 22:45 05/20/18 07:55 Chloride IV 5 mg/hr .Q10H [facility] 5 mls/hr Administration 5 MG/HR Insulin Aspart 0 unit 05/20/18 07:30 05/20/18 06:25 Novolog SQ 12 unit ACHS [facility] Administration Protocol Isosorbide Mononitrate 30 mg 05/20/18 21:00 Imdur PO HS [facility] Lisinopril 20 mg 05/20/18 09:00 05/20/18 09:36 Zestril PO 20 mg BID [facility] Administration Loperamide HCl 2 mg 05/20/18 08:57 Imodium PO Q2H PRN Loose Stool Metformin HCl 500 mg 05/20/18 12:30 Glucophage PO AC-TID [facility] Mirtazapine 45 mg 05/20/18 21:00 Remeron PO HS [facility] Montelukast Sodium 10 mg 05/20/18 21:00 Singulair PO HS [facility] Multivitamins 1 each 05/20/18 12:00 Theragran PO DAILY@1200 [facility] Dapagliflozin 5 mg 05/20/18 09:00 05/20/18 09:22 Propanediol [Farxiga PO Not Given ] DAILY [facility] Sertraline HCl 100 mg 05/20/18 09:00 05/20/18 09:36 Zoloft PO 100 mg BID [facility] Administration Warfarin Sodium 5 mg 05/21/18 18:00 Coumadin PO SuMoTuThFr@1800 [facility] Warfarin Sodium 7.5 mg 05/20/18 18:00 Coumadin PO WeSa@1800 [facility] Intake and Output 05/19/18 05/20/18 05/20/18 22:59 06:59 14:59 Intake Total 45.333 Output Total 2350 800 Balance -2350 -754.667 Intake: Intake, IV Titration 45.333 Amount Diltiazem 50 mg In Sodium 45.333 Chloride 0.9% 40 ml @ 5 MG/HR 5 mls/hr IV .Q10H [facility] Rx#:[id number] Output: Urine 2350 800 Other: Weight 113.398 kg 113.398 kg 05/20/18 06:19 18 06:19 EKG Interpretations (text) EKG shows atrial fibrillation with rapid ventricular response Assessment and Plan Plan: Assessment and plan #1 atrial fibrillation with rapid ventricular response, patient has history of chronic persistent A. fib, on Coumadin for anticoagulation #2 congestive heart failure, diastolic acute on chronic, could be secondary to A. fib with RVR. Most recent echo performed in the office in November 2017 revealed an ejection fraction of 50%, mild TR, mild MR. #3 chronic persistent atrial fibrillation, on Coumadin for anticoagulation #4 hyperlipidemia #5 nicotine dependence #6 hypertension #7 diabetes, blood sugar 338 on admission #8 anemia # 9 acute on chronic renal insufficiency Plan INR today is 1.7, we'll give the patient 10 mg of Coumadin today. Discontinue IV Cardizem and start the patient on a low-dose of beta ju. Check daily PT /INRs, daily lytes BUN and creatinine. Continue current dose of IV Lasix. Obtain echocardiogram with Doppler study. DNP note has been reviewed, I agree with a documented findings and plan of care. Patient was seen and examined.
[2018-05-20] MEDS: METOPROLOL TARTRATE 25 MG TAB PO SCH ×2 (13:35→20:24)
[2018-05-20 16:13] LABS: Hemoglobin A1C 9.8 % (4.0-6.0)
[2018-05-20 16:36] LABS: Glucose,Whole Blood 186 mg/dL (75-99)
[2018-05-20] MEDS ORDERED: WARFARIN 10 MG TAB PO ONE (18:00)
[2018-05-20 18:24] LABS: Glucose,Whole Blood 329 mg/dL (75-99)
[2018-05-20] MEDS: BUDESONIDE 0.5 MG/2 ML NEBU INHALATION SCH (19:28)
[2018-05-20 20:03] LABS: Glucose,Whole Blood 268 mg/dL (75-99)
[2018-05-20] MEDS: ATORVASTATIN 20 MG TAB PO SCH (20:19)
[2018-05-20] MEDS: DONEPEZIL 10 MG TAB PO SCH (20:20)
[2018-05-20] MEDS: buPROPion 100 MG TAB PO SCH (20:20)
[2018-05-20] MEDS: ISOSORBIDE MONONITRATE ER 30 MG TAB.ER.24H PO SCH (20:21)
[2018-05-20] MEDS: MIRTAZAPINE 45 MG TABLET PO SCH (20:22)
[2018-05-20] MEDS: MONTELUKAST 10 MG TAB PO SCH (20:22)
[2018-05-20 20:50] LABS: Glucose,Whole Blood 236 mg/dL (75-99)
--- NOTE | 2018-05-20 22:06 | HP ---
HISTORY AND PHYSICAL DATE OF ADMISSION: 05/20/2018 DATE OF SERVICE: 05/20/2018 PRESENTING COMPLAINT: Short of breath. HISTORY OF PRESENTING COMPLAINT: This is a pleasant 77-year-old patient of Dr. Mckinney with a rather extensive medical history. Chronic stable medical conditions include diabetes mellitus, type 2, hard of hearing, hyperlipidemia, hypertension, osteoarthritis, obstructive sleep apnea, does use CPAP, environmental allergies. The patient was here with his in the ER when I saw the patient. The patient has been progressively getting short of breath for close to 2 months. It was mild to start with but was progressively getting worse, especially in the last 10 days, getting much worse with minimal activities. Patient in the last few days also developed edema in the lower extremities and has been using one pillow at night. The patient has got a cough with very small hemoptysis sometimes. No fever. No chills. Appetite has been fair. Patient also when presented had atrial fibrillation; rate was rather high. Patient was put on IV Cardizem drip. He was also started on IV Lasix after the chest x-ray showed him to be in pulmonary edema. Patient feels rather tired and exhausted. REVIEW OF SYSTEMS: CONSTITUTIONAL: Tired. HEENT: Decreased hearing. RESPIRATORY: As above. CARDIOVASCULAR: As above. GASTROINTESTINAL: Constipation. GENITOURINARY: None. MUSCULOSKELETAL: Arthritis pain in joints. DERMATOLOGICAL: None. HEMATOLOGICAL: None. LYMPHATICS: None. PSYCHIATRY: None. NEUROLOGICAL: None. PAST MEDICAL HISTORY: 1. Atrial fibrillation. 2. Congestive heart failure. 3. Questionable stroke in remote past. 4. Diabetes, type 2. 5. Hard of hearing. 6. Hyperlipidemia. 7. Hypertension. 8. Osteoarthritis. 9. Obstructive sleep apnea. Uses CPAP. 10.History of ulcer. 11.Environmental allergies. PAST SURGICAL HISTORY: 1. Appendectomy. 2. Hernia repair. 3. Tonsillectomy. 4. Bilateral inguinal hernia repair. PSYCH HISTORY: Anxiety and depression. SOCIAL HISTORY: Smoked about a pack a day for 14 years, stopped in 1971. Alcohol rarely. . FAMILY HISTORY: Hodgkin's disease. HOME MEDICATIONS: 1. Glucophage 500 mg p.o. t.i.d. 2. Hydralazine 25 mg b.i.d. 3. Benadryl 50 mg at bedtime p.r.n. 4. Wellbutrin 100 mg at bedtime. 5. Coumadin 7.5 mg on Friday and Friday and 5 mg on Friday, Friday, Friday, , Friday. 6. Zocor 40 mg at bedtime. 7. Zoloft 100 mg b.i.d. 8. Fish oil 1000 mg p.o. daily. 9. Multivitamin 1 tablet p.o. daily. 10.Singulair 10 mg at bedtime. 11.Remeron 45 mg at bedtime. 12.Imodium A-D p.r.n. 13.Prinivil 20 mg b.i.d. 14.Imdur ER 30 mg at bedtime. 15.Amaryl 4 mg p.o. b.i.d. 16.Lasix 20 mg p.o. daily. 17.Doxazosin 8 mg p.o. daily. 18.Aricept 10 mg p.o. at bedtime. 19.Digoxin 125 mcg Friday, Friday, , Friday and 250 mcg Friday, Friday and Friday. 20.Farxiga 5 mg p.o. daily. 21.Vitamin D3 2000 units p.o. daily. 22.Pulmicort 0.5 mg inhalation b.i.d. 23.Ventolin 2.5 q.4 p.r.n. ALLERGIES: NONE. PHYSICAL EXAMINATION: VITAL SIGNS ON PRESENTATION: Temperature 98.4, pulse 124, respiration 28, blood pressure 172/102, pulse ox 88% on room air. GENERAL APPEARANCE: Well built; BMI 35.9. Lying in bed, tired, a bit short of breath. EYES: Pupils equal. Conjunctivae normal. HEENT: External appearance of nose and ears normal. Oral cavity normal. Decreased hearing. NECK: Neck veins are prominent. Mass not palpable. RESPIRATORY: Effort increased. LUNGS: Decreased breath sounds. Bilateral basal expiratory crackles. CARDIOVASCULAR: Heart sounds irregular. Edema present. ABDOMEN: Distended, soft. Liver and spleen not palpable. LYMPHATIC: No lymph node palpable in neck or axillae. PSYCHIATRY: Alert and oriented x3. Mood and affect normal. NEUROLOGICAL: Pupils equal. Cranial nerves grossly intact. Power and sensation grossly intact. MUSCULOSKELETAL: Evidence of osteoarthritis, especially in the hands and knees. INVESTIGATIONS: White count 7.9, hemoglobin 12.3, repeat 10.9. Potassium 4.8, BUN 34, creatinine 1.34. Troponin 0.056. ProBNP 1080. EKG tracing, personally reviewed by me, shows atrial fibrillation with PVCs with a rate up to 122. Chest x-ray film, personally reviewed by me, shows cardiomegaly with florid pulmonary edema. ASSESSMENT: 1. Acute on chronic congestive heart failure exacerbation, severe. EF not known. 2. Persistent atrial fibrillation. Patient is chronically on Coumadin. 3. Coumadin monitoring. 4. Diabetes mellitus, type 2, on oral hypoglycemic. 5. Hyperlipidemia. 6. Essential hypertension. 7. Primary osteoarthritis in multiple joints, bilateral. 8. Obstructive sleep apnea. Uses CPAP machine. 9. Obesity; body mass index 35.9. 10.Possibly chronic kidney disease from diabetic nephropathy and hypertensive nephrosclerosis. 11.Troponin leak in a setting of acute congestive heart failure. No obvious clinical evidence of acute coronary syndrome. PLAN: Cardiology was consulted. Patient initially was on IV Lasix. Will switch the patient to IV Lasix drip. Monitor electrolytes closely. Will send off a UA and a renal ultrasound to assess for chronic kidney disease. MMODL / IJN: [id number] /
[2018-05-21] MEDS: FUROSEMIDE 250 MG in SODIUM CHLORIDE 0.9% 225 ML IVP SCH ×2 (03:05→21:05)
[2018-05-21 05:52] LABS: Calcium 8.4 mg/dL (8.4-10.2); Potassium 4.1 mmol/L (3.5-5.1)
[2018-05-21 06:26] LABS: Glucose,Whole Blood 159 mg/dL (75-99)
[2018-05-21] MEDS: INSULIN ASPART 100 UNIT/ML 1 ML 10 ML VIAL SQ SCH ×4 (08:44→20:54)
[2018-05-21] MEDS: metFORMIN 500 MG TAB PO SCH ×3 (08:44→17:45)
[2018-05-21] MEDS: BUDESONIDE 0.5 MG/2 ML NEBU INHALATION SCH ×2 (08:50→22:27)
[2018-05-21] MEDS: ALBUTEROL NEBULIZED 2.5 MG/3 ML INHALATION PRN (08:50)
[2018-05-21] MEDS ORDERED: DIGOXIN 125 MCG TAB PO SCH (09:00)
[2018-05-21] MEDS: DOXAZOSIN 4 MG TAB PO SCH (09:57)
[2018-05-21] MEDS: hydrALAZINE HCL 25 MG TAB PO SCH ×2 (09:58→23:09)
[2018-05-21] MEDS: LISINOPRIL 20 MG TAB PO SCH ×2 (09:58→20:54)
[2018-05-21] MEDS: METOPROLOL TARTRATE 25 MG TAB PO SCH ×3 (09:58→23:07)
[2018-05-21] MEDS: GLIMEPIRIDE 4 MG TAB PO SCH ×2 (09:58→20:53)
[2018-05-21] MEDS: CHOLECALCIFEROL 1,000 UNIT TAB PO SCH (09:58)
[2018-05-21 10:40] VITALS: BMI 37.8
[2018-05-21] MEDS: Dapagliflozin Propanediol [Farxiga] PO SCH (11:18)
[2018-05-21] MEDS: SERTRALINE 100 MG TAB PO SCH ×2 (11:19→20:54)
[2018-05-21 11:23] LABS: INR 1.6 (<1.2); Prothrombin Time 15.6 sec (9.0-12.0)
--- NOTE | 2018-05-21 11:51 | CDI ---
Documentation Clarification Form Date: 05/21/2018 11:39:20 AM From: Caitlyn Diehl RN, CCDS Admit Date: 05/20/2018 12:13:00 AM Patient Name: Nabil Carpenter Visit Number: [id number] ATTENTION: The Clinical Documentation Specialists (CDI) and [facility] Coding Staff appreciate your assistance in clarifying documentation. Please respond to the clarification below the line at the bottom and electronically sign. The CDI & [facility] Coding staff will review the response and follow-up if needed. Please note: Queries are made part of the Legal Health Record. If you have any questions, please contact the author of this message via ITS. Dr. Khanh Chapa History/Risk Factors: Chronic paroxysmal Atrial fib, CHF, DM2, [place], hyperlipidemia, oa, CEM, hx of ulcer, environmental allergies Clinical Indicators: 05/20 Cardiology: A/C renal insufficiency 05/20 H&P: "Possibly chronic kidney disease from diabetic nephropathy and hypertensive nephrosclerosis. PLAN: Will send off a UA and a renal ultrasound to assess for chronic kidney disease." Current BUN: 34/32/31 CR: 1.34/1.5/1.38 GFR: 51/44/49 Patients Baseline 2/3/15 BUN/CR/GFR: 19/1.1/>60 Treatment: Lasix gtt No IVF Ordered In order to capture the severity of condition, please clarify if the condition signifies: CKD Stage 1 (GFR > 90) CKD Stage 2 (GFR 60-89) CKD Stage 3 (GFR 30-59) CKD Stage 4 (GFR 15-29) CKD Stage 5 (GFR <15) ESRD Other, please specify Unable to determine (Last Revision: August 2017) CKD stage 3 MTDD
[2018-05-21] MEDS ORDERED: WARFARIN 10 MG TAB PO ONE (12:00)
[2018-05-21] MEDS: MULTIVITAMINS, THERA 1 EACH TAB PO SCH (12:14)
[2018-05-21 12:58] LABS: Glucose,Whole Blood 217 mg/dL (75-99)
--- NOTE | 2018-05-21 13:08 | ECHOF ---
Referral Reason:chf, afib MEASUREMENTS -------- HEIGHT: 177.8 cm WEIGHT: 113.4 kg BP: 137/82 RVIDd: 3.4 cm (< 3.3) IVSd: 1.4 cm (0.6 - 1.1) LVIDd: 5.7 cm (3.9 - 5.3) LVPWd: 1.4 cm (0.6 - 1.1) IVSs: 1.6 cm LVIDs: 4.7 cm LVPWs: 2.0 cm LA Diam: 5.3 cm (2.7 - 3.8) LAESV Index (A-L): 50.48 ml/m Ao Diam: 3.8 cm (2.0 - 3.7) AV Cusp: 2.0 cm (1.5 - 2.6) EPSS: 1.6 cm AV maxP.68 mmHg AV meanP.65 mmHg RAP: 5.00 mmHg RVSP: 34.90 mmHg MV EF SLOPE: 67.06 mm/s (70 - 150) MV EXCURSION: 1.73 cm (> 18.000) FINDINGS -------- Atrial fibrillation. This was a technically good study. The left ventricular size is normal. There is moderate concentric left ventricular hypertrophy. O verall left ventricular systolic function is moderate-severely impaired with, an EF between 30 - 35 % . The right ventricle is mildly enlarged. LA is severely dilated >40 ml/m2 The right atrium is normal in size. There is mild aortic valve sclerosis. Peak/mean gradient across the Aortic Valve is 12.68mmHg / 7.6 5mmHg. The mitral valve leaflets are mildly thickened. Mild mitral regurgitation is present. Mild tricuspid regurgitation present. There is mild pulmonary hypertension. The right ventricular systolic pressure, as measured by Doppler, is 34.90mmHg. Trace/mild (physiologic) pulmonic regurgitation. The aortic root is dilated measuring 3.8cm. Normal inferior vena cava with normal inspiratory collapse consistent with estimated right atrial pre ssure of 5 mmHg. The inferior vena cava is mildly dilated. There is a trivial pericardial effusion present. CONCLUSIONS -------- 1. Atrial fibrillation. 2. This was a technically good study. 3. The left ventricular size is normal. 4. There is moderate concentric left ventricular hypertrophy. 5. Overall left ventricular systolic function is moderate-severely impaired with, an EF between 30 - 35 %. 6. The right ventricle is mildly enlarged. 7. LA is severely dilated >40 ml/m2 8. The right atrium is normal in size. 9. There is mild aortic valve sclerosis. 10. Peak/mean gradient across the Aortic Valve is 12.68mmHg / 7.65mmHg. 11. The mitral valve leaflets are mildly thickened. 12. Mild mitral regurgitation is present. 13. Mild tricuspid regurgitation present. 14. There is mild pulmonary hypertension. 15. The right ventricular systolic pressure, as measured by Doppler, is 34.90mmHg. 16. Trace/mild (physiologic) pulmonic regurgitation. 17. The aortic root is dilated measuring 3.8cm. 18. Normal inferior vena cava with normal inspiratory collapse consistent with estimated right atrial pressure of 5 mmHg. 19. The inferior vena cava is mildly dilated. 20. There is a trivial pericardial effusion present. HOME SERVICE CONSULTANT: KWASI Vargas
--- NOTE | 2018-05-21 14:40 | PN ---
PROGRESS NOTE Mr. Carpenter is breathing much better. He has history of chronic atrial fibrillation and came in with exacerbation of congestive heart failure. He is breathing much easier. His weight is down. He has a negative fluid balance, although weight was not recorded correctly. His INR is 1.6. I am giving a 10 mg of Coumadin p.o. now and we should keep the INR in the therapeutic range. Will discontinue Lasix drip and place him on IV push Lasix at q.12 hours 40 mg. I will also discontinue the digoxin and increase the Lopressor to 25 mg t.i.d. Vitals are stable. There is no JVD. S1-S2 heard normally. Irregular rhythm noted. Short systolic murmur noted. Lungs reveal improved air entry. Abdomen is soft and lower extremity reveals improved edema. Pulses are diminished. Rest of physical examination is unchanged. MMODL / IJN: [id number] /
[2018-05-21 16:43] LABS: Glucose,Whole Blood 270 mg/dL (75-99)
[2018-05-21 20:15] LABS: Glucose,Whole Blood 185 mg/dL (75-99)
[2018-05-21] MEDS: ATORVASTATIN 20 MG TAB PO SCH (20:52)
[2018-05-21] MEDS: buPROPion 100 MG TAB PO SCH (20:53)
[2018-05-21] MEDS: DONEPEZIL 10 MG TAB PO SCH (20:53)
[2018-05-21] MEDS: ISOSORBIDE MONONITRATE ER 30 MG TAB.ER.24H PO SCH (20:54)
[2018-05-21] MEDS: MONTELUKAST 10 MG TAB PO SCH (20:54)
[2018-05-21] MEDS: MIRTAZAPINE 45 MG TABLET PO SCH (20:54)
[2018-05-21] MEDS ORDERED: FUROSEMIDE 10 MG/ML 4 ML VIAL IV SCH (21:00)
--- NOTE | 2018-05-21 23:55 | PN ---
PROGRESS NOTE DATE OF SERVICE: 05/21/2018. PRESENTING COMPLAINT: Short of breath. INTERVAL HISTORY: This patient presented with CHF exacerbation and also in atrial fibrillation. The patient had been put on a Lasix drip. The patient put out close to 3 liters. Breathing is better this afternoon. Sitting up in a chair. No more shortness of breath. Did tolerate some diet. REVIEW OF SYSTEMS: Done for constitutional, cardiovascular, GI, pulmonary; relevant findings as above. CURRENT MEDICATIONS: Reviewed, that include IV push 40 mg twice a day, started by Cardiology. PHYSICAL EXAMINATION: Temperature 97.7, pulse 52, respiratory rate 18, blood pressure 140/73, pulse ox 94 percent on room air. GENERAL APPEARANCE: Sitting up on a chair, tired, more awake. EYES: Pupils equal. Conjunctivae normal. NECK: Neck veins are prominent. Mass not palpable. Respiratory effort increased. LUNGS: Decreased breath sounds, some basilar crackles but improved. CARDIOVASCULAR: Heart is irregular. Edema present. ABDOMEN: Distended, soft. Liver and spleen not palpable. PSYCHIATRY: Alert and oriented x3. Mood and affect normal. INVESTIGATIONS: Potassium 4.1, BUN 31, creatinine 1.38. ASSESSMENT: 1. Acute on chronic congestive heart failure exacerbation from systolic dysfunction, ejection fraction 30% to 35%, slow to respond. 2. Persistent atrial fibrillation. Patient chronically on Coumadin. 3. Coumadin monitoring. 4. Diabetes mellitus type 2 on oral hypoglycemic. 5. Hyperlipidemia. 6. Essential hypertension. 7. Primary osteoarthritis of multiple joints bilateral. 8. Obstructive sleep apnea uses CPAP machine. 9. Obesity; BMI 35. 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 11.Troponin leak in setting of acute congestive heart failure. No evidence of acute coronary syndrome. PLAN: Care was discussed with the patient. The patient was switched to IV Lasix bolus. Follow electrolytes closely. Care was discussed with the patient. Will follow. MMODL / IJN: [id number] /
[2018-05-22 06:06] LABS: Glucose,Whole Blood 148 mg/dL (75-99)
[2018-05-22 06:26] LABS: INR 2.2 (<1.2); Prothrombin Time 21.9 sec (9.0-12.0)
[2018-05-22 06:39] LABS: Calcium 8.5 mg/dL (8.4-10.2); Potassium 3.7 mmol/L (3.5-5.1)
[2018-05-22] MEDS: INSULIN ASPART 100 UNIT/ML 1 ML 10 ML VIAL SQ SCH ×3 (06:56→17:40)
[2018-05-22] MEDS: metFORMIN 500 MG TAB PO SCH ×3 (06:57→17:40)
[2018-05-22] MEDS ORDERED: POTASSIUM CHLORIDE ER 20 MEQ TAB.ER PO STA (08:20)
[2018-05-22] MEDS: CHOLECALCIFEROL 1,000 UNIT TAB PO SCH (08:51)
[2018-05-22] MEDS: Dapagliflozin Propanediol [Farxiga] PO SCH (08:52)
[2018-05-22] MEDS: DOXAZOSIN 4 MG TAB PO SCH (08:52)
[2018-05-22] MEDS: hydrALAZINE HCL 25 MG TAB PO SCH (08:53)
[2018-05-22] MEDS: GLIMEPIRIDE 4 MG TAB PO SCH (08:53)
[2018-05-22] MEDS: LISINOPRIL 20 MG TAB PO SCH (08:53)
[2018-05-22] MEDS: SERTRALINE 100 MG TAB PO SCH (08:54)
[2018-05-22] MEDS: METOPROLOL TARTRATE 25 MG TAB PO SCH ×2 (08:54→17:15)
[2018-05-22] MEDS: MULTIVITAMINS, THERA 1 EACH TAB PO SCH (08:54)
[2018-05-22] MEDS: BUDESONIDE 0.5 MG/2 ML NEBU INHALATION SCH (08:55)
[2018-05-22] MEDS: ALBUTEROL NEBULIZED 2.5 MG/3 ML INHALATION PRN (08:55)
[2018-05-22] MEDS ORDERED: SPIRONOLACTONE 25 MG TAB PO SCH (09:00)
[2018-05-22] MEDS ORDERED: FUROSEMIDE 40 MG TAB PO SCH (09:00)
[2018-05-22 12:00] LABS: Glucose,Whole Blood 245 mg/dL (75-99)
--- NOTE | 2018-05-22 15:05 | P.CNPUL ---
History of Present Illness Consult date: 05/20/18 (late entry note) Reason for consult: dyspnea, cough, COPD, hypoxemia, obstructive sleep apnea Chief complaint: Shortness of breath and palpitation History of present illness: 77-year-old morbidly obese male history of sleep disorder breathing and sleep apnea also has a history of COPD recently evaluated in the office for his problems associated with ongoing shortness of breath patient has been placed on nebulizer therapy was seems to be helping however when he uses more than 3 or 4 times a day and developed anxiety palpitation and soreness in throat would recommended to stop the nebulizer machine and use as needed patient cannot do MDIs very well, patient has been using his CPAP machine a regular basis, does have a history of paroxysmal atrial fibrillation has been on anticoagulation with Coumadin, on the day admission patient has a" with increasing shortness of breath was found to be in A. fib with rapid ventricular response and some PVCs, patient admitted into the ICU where he was seen evaluated examined patient initially treated with continuation of Coumadin heparin as well as Cardizem and subsequently Cardizem has been stopped at time of evaluation, Review of Systems All systems: negative Past Medical History Past Medical History: Atrial Fibrillation, Heart Failure, CVA/TIA, Diabetes Mellitus, Hearing Disorder / Deafness, Hyperlipidemia, Hypertension, Osteoarthritis (OA), Sleep Apnea/CPAP/BIPAP Additional Past Medical History / Comment(s): ?CVA IN THE PAST (NO WEAKNESS OR PARALYSIS) , USES C-PAP MACHINE, RENAL CYST, HX OF ULCER, ENVIRONMENTAL ALLERGIES, STATES HE HOLDS HIS BREATH AT TIMES WHICH CAUSES DIZZINESS AND HE IS UNAWARE HE IS DOING THIS., STATES HX OF A "HOLE IN HIS STOMACH " History of Any Multi-Drug Resistant Organisms: None Reported Past Surgical History: Appendectomy, Hernia Repair, Tonsillectomy Additional Past Surgical History / Comment(s): JAYY INGUINAL HERNIA REPAIR X2 Past Anesthesia/Blood Transfusion Reactions: No Reported Reaction Past Psychological History: Anxiety, Depression Additional Psychological History / Comment(s): MEMORY LOSS Smoking Status: Former smoker Past Alcohol Use History: Rare Additional Past Alcohol Use History / Comment(s): SMOKED FOR 14 YEARS OVER 1PPD. QUIT SMOKING 1971 Past Drug Use History: None Reported - Past Family History Father Family Medical History: Cancer Additional Family Medical History / Comment(s): HODGKIN'S Medications and Allergies Home Medications Medication Instructions Recorded Confirmed Type Cholecalciferol [Vitamin D3] 2,000 unit PO DAILY 06/24/14 05/20/18 History Furosemide [Lasix] 20 mg PO QAM 06/24/14 05/20/18 History Glimepiride [Amaryl] 4 mg PO BID 06/24/14 05/20/18 History Isosorbide Mononitrate ER [Imdur] 30 mg PO HS 06/24/14 05/20/18 History Lisinopril [Prinivil] 20 mg PO BID 06/24/14 05/20/18 History [place]-3 Fatty Acids/Fish Oil [Fish 1,000 mg PO DAILY 06/24/14 05/20/18 History Oil 1,000 mg Softgel] Sertraline HCl [Zoloft] 100 mg PO BID 06/24/14 05/20/18 History Simvastatin [Zocor] 40 mg PO HS 06/24/14 05/20/18 History Warfarin [Coumadin] 5 mg PO SUMOTUTHFR 06/24/14 05/20/18 History Warfarin [Coumadin] 7.5 mg PO WESA 06/24/14 05/20/18 History buPROPion [Wellbutrin] 100 mg PO HS 06/24/14 05/20/18 History Multivitamins, Thera [Multivitamin] 1 tab PO DAILY 07/20/15 05/20/18 History Albuterol Nebulized [Ventolin 2.5 mg INHALATION RT-Q4H PRN 05/20/18 05/20/18 History Nebulized] Budesonide [Pulmicort] 0.5 mg INHALATION RT-BID 05/20/18 05/20/18 History Dapagliflozin Propanediol [Farxiga] 5 mg PO DAILY 05/20/18 05/20/18 History Digoxin 125 mcg PO SUTUTHSA 05/20/18 05/20/18 History Digoxin 250 mcg PO MOWEFR 05/20/18 05/20/18 History Donepezil [Aricept] 10 mg PO HS 05/20/18 05/20/18 History Doxazosin Mesylate 8 mg PO DAILY 05/20/18 05/20/18 History Loperamide HCl [Imodium A-D] 2 mg PO Q2H PRN 05/20/18 05/20/18 History Mirtazapine [Remeron] 45 mg PO HS 05/20/18 05/20/18 History Montelukast [Singulair] 10 mg PO HS 05/20/18 05/20/18 History diphenhydrAMINE [Benadryl] 50 mg PO HS PRN 05/20/18 05/20/18 History hydrALAZINE HCL [Apresoline] 25 mg PO BID 05/20/18 05/20/18 History metFORMIN HCL [Glucophage] 500 mg PO TID 05/20/18 05/20/18 History Allergies Allergy/AdvReac Type Severity Reaction Status Date / Time No Known Allergies Allergy Verified 09/01/17 08:33 Physical Exam Vitals: Vitals include blood pressure is 150/106, heart rate in 110 temperature is 90.8 respiratory rate 22 GENERAL: 77-year-old gentleman in no acute distress at the time of my examination HEENT: Head is atraumatic, normocephalic. Pupils equal, round. Sclera anicteric. Conjunctiva are clear. Mucous membranes of the mouth are moist. Neck is supple. There is elevated jugular venous pressure. No carotid bruit is heard. HEART EXAMINATION: Heart S1 and S2 irregularly irregular a systolic murmur is heard. CHEST EXAMINATION: Lungs reveal diminished air entry to bilateral bases. ABDOMEN: [ Soft, nontender. Bowel sounds are heard. No organomegaly noted]. EXTREMITIES:[ 2+ peripheral pulses with 2+ evidence of peripheral edema . Bilateral ground reddened areas noted to both bilateral lower extremities]. NEUROLOGIC [patient is awake, alert and oriented 3 .] Results - Laboratory Findings CBC and BMP: 05/20/18 06:19 05/22/18 05:35 PT/INR, D-dimer PT 21.9 sec (9.0-12.0) H 05/22/18 05:35 INR 2.2 (<1.2) H 05/22/18 05:35 Abnormal lab findings: Abnormal Labs 05/19/18 05/19/18 05/19/18 22:26 22:26 22:26 RBC Hgb 12.3 L Hct MCHC RDW 15.8 H Lymphocytes # 0.6 L PT INR Chloride 108 H Carbon Dioxide 21 L BUN 34 H Creatinine 1.34 H Glucose 338 H POC Glucose (mg/dL) Hemoglobin A1c Troponin I 0.056 H* Total Protein 6.2 L TSH 05/19/18 05/20/18 05/20/18 22:26 06:09 06:19 RBC 3.91 L Hgb 10.9 L Hct 35.5 L MCHC 30.7 L RDW 15.7 H Lymphocytes # PT 17.3 H INR 1.7 H Chloride Carbon Dioxide BUN Creatinine Glucose POC Glucose (mg/dL) 470 H Hemoglobin A1c Troponin I Total Protein TSH 05/20/18 05/20/18 05/20/18 06:19 06:19 06:19 RBC Hgb Hct MCHC RDW Lymphocytes # PT 17.2 H INR 1.7 H Chloride Carbon Dioxide BUN 32 H Creatinine 1.50 H Glucose 227 H POC Glucose (mg/dL) Hemoglobin A1c 9.8 H Troponin I Total Protein TSH 05/20/18 05/20/18 05/20/18 06:19 07:03 11:36 RBC Hgb Hct MCHC RDW Lymphocytes # PT INR Chloride Carbon Dioxide BUN Creatinine Glucose POC Glucose (mg/dL) 235 H 158 H Hemoglobin A1c Troponin I Total Protein TSH 7.730 H 05/20/18 05/20/18 05/20/18 16:32 18:20 20:01 RBC Hgb Hct MCHC RDW Lymphocytes # PT INR Chloride Carbon Dioxide BUN Creatinine Glucose POC Glucose (mg/dL) 186 H 329 H 268 H Hemoglobin A1c Troponin I Total Protein TSH 05/20/18 05/21/18 05/21/18 20:47 05:00 06:13 RBC Hgb Hct MCHC RDW Lymphocytes # PT INR Chloride Carbon Dioxide BUN 31 H Creatinine 1.38 H Glucose 174 H POC Glucose (mg/dL) 236 H 159 H Hemoglobin A1c Troponin I Total Protein TSH 05/21/18 05/21/18 05/21/18 10:57 10:57 12:09 RBC Hgb Hct MCHC RDW Lymphocytes # PT 15.6 H INR 1.6 H Chloride Carbon Dioxide BUN Creatinine Glucose POC Glucose (mg/dL) 217 H Hemoglobin A1c Troponin I 0.057 H* Total Protein TSH 05/21/18 05/21/18 05/22/18 16:41 20:14 05:35 RBC Hgb Hct MCHC RDW Lymphocytes # PT INR Chloride Carbon Dioxide BUN 38 H Creatinine 1.73 H Glucose 156 H POC Glucose (mg/dL) 270 H 185 H Hemoglobin A1c Troponin I Total Protein TSH 12/05/22/18 05/22/18 05:35 06:05 11:33 RBC Hgb Hct MCHC RDW Lymphocytes # PT 21.9 H INR 2.2 H Chloride Carbon Dioxide BUN Creatinine Glucose POC Glucose (mg/dL) 148 H 245 H Hemoglobin A1c Troponin I Total Protein TSH - Diagnostic Findings Chest x-ray: report reviewed, image reviewed Assessment and Plan Assessment: Atrial fibrillation with rapid ventricular response Hypertensive urgency in emergency Pulmonary edema related to above Acute exacerbation of CHF likely acute on chronic diastolic heart failure related to above Severe degree of sleep disorder breathing and sleep apnea COPD Orbit obesity Plan: Continue anticoagulation Continue meds to control heart rate bronchodilator as needed Continue CPAP machine each night and when necessary during the day Gentle diuresis, patient has been placed on Lasix drip Time with Patient: Greater than 30
--- NOTE | 2018-05-22 15:09 | P.PN ---
Subjective Progress Note Date: 05/21/18 (late entry note) Principal diagnosis: Acute exacerbation of CHF related to acute on chronic diastolic heart failure related to atrial fibrillation and rapid ventricular response, pulmonary edema, hypertensive urgency in emergency, sleep disorder breathing and sleep apnea, morbid obesity 05/21/2018 patient seen eval examined during rounds clinically slightly better more awake and alert sitting upright in chair breathing comfortably, labs reviewed medications reviewed care plan discussed with the RN at bedside at length, respiratory status stable heart rate is better under control, we'll continue bronchodilators and inhaled steroid Ammann continue anticoagulation and INR around 2 77-year-old morbidly obese male history of sleep disorder breathing and sleep apnea also has a history of COPD recently evaluated in the office for his problems associated with ongoing shortness of breath patient has been placed on nebulizer therapy was seems to be helping however when he uses more than 3 or 4 times a day and developed anxiety palpitation and soreness in throat would recommended to stop the nebulizer machine and use as needed patient cannot do MDIs very well, patient has been using his CPAP machine a regular basis, does have a history of paroxysmal atrial fibrillation has been on anticoagulation with Coumadin, on the day admission patient has a" with increasing shortness of breath was found to be in A. fib with rapid ventricular response and some PVCs, patient admitted into the ICU where he was seen evaluated examined patient initially treated with continuation of Coumadin heparin as well as Cardizem and subsequently Cardizem has been stopped at time of evaluation, Objective - Vital Signs Vital signs: Vital Signs Temp 97.8 F 05/22/18 08:00 Pulse 96 05/22/18 12:00 Resp 19 05/22/18 12:00 BP 106/55 05/22/18 12:00 Pulse Ox 97 05/22/18 12:00 Intake & Output 05/21/18 05/22/18 05/22/18 18:59 06:59 18:59 Intake Total 240 240 480 Output Total 1100 Balance 240 -860 480 Weight 119.6 kg 109.2 kg Intake: Oral 240 240 480 Output: Urine 1100 Other: Voiding Method Toilet Toilet Toilet Urinal Urinal Urinal - Exam GENERAL: 77-year-old gentleman in no acute distress at the time of my examination HEENT: Head is atraumatic, normocephalic. Pupils equal, round. Sclera anicteric. Conjunctiva are clear. Mucous membranes of the mouth are moist. Neck is supple. There is elevated jugular venous pressure. No carotid bruit is heard. HEART EXAMINATION: Heart S1 and S2 irregularly irregular a systolic murmur is heard. CHEST EXAMINATION: Lungs reveal diminished air entry to bilateral bases. ABDOMEN: [ Soft, nontender. Bowel sounds are heard. No organomegaly noted]. EXTREMITIES:[ 2+ peripheral pulses with 2+ evidence of peripheral edema . Bilateral ground reddened areas noted to both bilateral lower extremities]. NEUROLOGIC [patient is awake, alert and oriented 3 .] - Labs CBC & Chem 7: 05/20/18 06:19 05/22/18 05:35 Labs: Abnormal Lab Results - Last 24 Hours (Table) 05/21/18 05/21/18 05/22/18 Range/Units 16:41 20:14 05:35 PT (9.0-12.0) sec INR (<1.2) BUN 38 H (9-20) mg/dL Creatinine 1.73 H (0.66-1.25) mg/dL Glucose 156 H (74-99) mg/dL POC Glucose (mg/dL) 270 H 185 H (75-99) mg/dL 05/22/18 05/22/18 05/22/18 Range/Units 05:35 06:05 11:33 PT 21.9 H (9.0-12.0) sec INR 2.2 H (<1.2) BUN (9-20) mg/dL Creatinine (0.66-1.25) mg/dL Glucose (74-99) mg/dL POC Glucose (mg/dL) 148 H 245 H (75-99) mg/dL Assessment and Plan Assessment: Atrial fibrillation with rapid ventricular response Hypertensive urgency in emergency Pulmonary edema related to above Acute exacerbation of CHF likely acute on chronic diastolic heart failure related to above Severe degree of sleep disorder breathing and sleep apnea COPD Orbit obesity Plan: Continue anticoagulation Continue bronchodilator in the form of inhaled steroid as well as b2 agonist Continue meds to control heart rate bronchodilator as needed Continue CPAP machine each night and when necessary during the day Gentle diuresis, patient has been placed on Lasix drip Time with Patient: Greater than 30
[2018-05-22 16:49] LABS: Glucose,Whole Blood 177 mg/dL (75-99)
[2018-05-22 16:52] VITALS: BP 116/75; PULSE 62; RESP 18; TEMP 98
--- NOTE | 2018-05-22 17:07 | PN ---
PROGRESS NOTE Mr. Carpenter came in with atrial fibrillation, rapid ventricular rate. He is doing much better. He is resting comfortably. The rate, in fact, has been slow, and I have discontinued the digoxin, reduced the beta ju. His vitals are stable, his breathing better. His weight is down. There is JVD of 1 cm. No carotid bruit. S1-S2 heard normally. Short systolic murmur noted. Irregular rate and rhythm noted. Lungs reveal improved air entry. Abdomen is soft. Lower extremity edema has improved. This gentleman had what seems to be a heart failure related with atrial fibrillation, rapid ventricular rate, and he has shown improvement. This was a combination of systolic and diastolic heart failure. I am recommending that we switch him from IV to oral Lasix, supplement potassium 20 mEq daily, and he will take 40 mg of Lasix every morning along with Aldactone. Discussed my thoughts in detail with the patient. MMODL / IJN: [id number] /
[2018-05-22] MEDS ORDERED: WARFARIN 5 MG TAB PO SCH (18:00)
[2018-05-23] MEDS ORDERED: WARFARIN 7.5 MG TAB PO SCH (18:00)
--- NOTE | 2018-05-27 10:36 | DS ---
DISCHARGE SUMMARY DATE OF ADMISSION: May 20, 2018. DATE OF DISCHARGE: May 22, 2018. FINAL DIAGNOSES: 1. Acute on chronic congestive heart failure exacerbation from systolic dysfunction, ejection fraction 30 to 35%. 2. Persistent atrial fibrillation chronically on Coumadin. 3. Coumadin monitoring. 4. Diabetes mellitus type 2 on oral hypoglycemics. 5. Hyperlipidemia. 6. Essential hypertension. 7. Primary osteoarthritis of multiple joints bilateral. 8. Obstructive sleep apnea uses CPAP machine. 9. Obesity; BMI 35. 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 11.Troponin leak in the setting of acute congestive heart failure. No evidence of acute coronary syndrome. HOSPITAL COURSE: The patient presented with shortness of breath progressively coming on for some time, swelling, orthopnea. He was put on a Cardizem drip and IV Lasix drip. Did diurese rather well. Doing much better at the time of discharge. On examination temperature, pulse 62, respiratory 18, blood pressure 116/75, pulse ox 96 percent on room air. Lungs improved air entry. Edema greatly gone down. Labs: BUN 38, creatinine 1.73. INR 2.2. A 2D echocardiogram showed moderate concentric left ventricular hypertrophy. EF was 30 to 35%. CONSULTATION: Dr. Brooke Melara from Pulmonary; Dr. Karen Dubose from cardiology. DISCHARGE MEDICATIONS: 1. Vitamin D3 2000 units p.o. daily. 2. Amaryl 4 mg b.i.d. 3. Imdur ER 30 mg q.h.s. 4. Prinivil 20 mg b.i.d. 5. Fish oil 1000 mg daily. 6. Zoloft 100 mg p.o. b.i.d. 7. Zocor 40 mg q.h.s. 8. Coumadin 5 mg daily except 7.5 on Friday and Friday. 9. Wellbutrin 100 mg q.h.s. 10.Multivitamin 1 tablet p.o. daily. 11.Ventolin 2.5 q.4h p.r.n. 12.Pulmicort 0.5 mg nebulizer b.i.d. 13.Farxiga 5 mg p.o. daily. 14.Digoxin 125 mcg Friday, Friday, , Friday and 250 mcg on Friday, Friday and Friday. 15.Aricept 10 mg q.h.s. 16.Doxazosin 8 mg p.o. daily. 17.Imodium AD 2 mg q.2h p.r.n. 18.Remeron 45 mg p.o. q.h.s. 19.Singulair 10 mg q.h.s. 20.Hydralazine 25 mg b.i.d. 21.Glucophage 100 mg p.o. t.i.d. 22.Lasix 40 mg p.o. daily. 23.Lopressor 25 mg b.i.d. 24.Aldactone 25 mg p.o. daily. FOLLOWUP: Follow up with Dr. Morales 06/03/2018. Follow with Dr. Mckinney in 3 days. [facility] for home care. BMP on May 25, 2018. Copy to Dr. Mckinney. MMMERCYL / IJN: [id number] /
== END 2018-05-22 19:00 | disposition home health service (06) | DRG 291 ==
LOC: EC 22:18 → 3SCARD 05-20 00:13 → 2SICU 05-20 17:17 → 3SCARD 05-21 12:26
PROVIDERS: ADMIT Hospitalist; ATTEND Hospitalist
DX: I13.0 Hypertensive heart and chronic kidney disease with heart failure and stage 1 through stage 4 chronic kidney disease, or unspecified chronic kidney disease (principal); I50.43 Acute on chronic combined systolic (congestive) and diastolic (congestive) heart failure; I48.1 Persistent atrial fibrillation; F17.200 Nicotine dependence, unspecified, uncomplicated; G47.33 Obstructive sleep apnea (adult) (pediatric); H91.90 Unspecified hearing loss, unspecified ear; I16.0 Hypertensive urgency; I44.4 Left anterior fascicular block; I48.0 Paroxysmal atrial fibrillation; I48.2 Chronic atrial fibrillation; J44.9 Chronic obstructive pulmonary disease, unspecified; M15.9 Polyosteoarthritis, unspecified; E78.5 Hyperlipidemia, unspecified; D64.9 Anemia, unspecified; E11.21 Type 2 diabetes mellitus with diabetic nephropathy; E11.22 Type 2 diabetes mellitus with diabetic chronic kidney disease; E66.01 Morbid (severe) obesity due to excess calories; R09.02 Hypoxemia; Z68.35 Body mass index [BMI] 35.0-35.9, adult; Z79.01 Long term (current) use of anticoagulants; Z79.84 Long term (current) use of oral hypoglycemic drugs; Z79.899 Other long term (current) drug therapy; Z80.7 Family history of other malignant neoplasms of lymphoid, hematopoietic and related tissues; Z86.73 Personal history of transient ischemic attack (TIA), and cerebral infarction without residual deficits; N18.3 Chronic kidney disease, stage 3 (moderate); F32.9 Major depressive disorder, single episode, unspecified; F41.9 Anxiety disorder, unspecified
CPT/HCPCS: 36415; 71046; 80048; 80053; 82550; 82553; 83036; 83735; 83880; 84443; 84484; 85025; 85027; 85610; 85730; 93005; 93306; 94640; 96365; 96366; 96375; 96376; 99291

== ENCOUNTER 2019-02-05 07:35 | Inpatient (IN) | payer MEDICARE ==
[2019-02-05] MEDS ORDERED: DILTIAZEM DRIP BOLUS FROM BAG 1 MG SOLN IV ONE ×2 (07:55→10:38)
[2019-02-05] MEDS ORDERED: FUROSEMIDE 10 MG/ML 4 ML VIAL IV STA (07:55)
[2019-02-05] MEDS ORDERED: DILTIAZEM 125 MG in SODIUM CHLORIDE 0.9% 100 ML IV SCH ×2 (08:00→10:45)
--- NOTE | 2019-02-05 08:01 | ED ---
General Adult HPI - General Chief complaint: Shortness of Breath Stated complaint: BELTRAN Time Seen by Provider: 02/05/19 07:35 Source: patient, RN notes reviewed Mode of arrival: wheelchair Limitations: no limitations - History of Present Illness Initial comments: This is a 78-year-old male who presents emergency Department with a past medical history significant for hypertension diabetes atrial fibrillation for which she is on Coumadin. Patient comes in today because he noted throughout the night that has been very short of breath. Patient states he is much more short of breath with exertion. Patient denies any chest pain. Patient denies feeling any palpitations. Patient denies any recent fever chills or cough. Patient denies any back pain. Patient denies abdominal pain. Patient has nausea vomiting diarrhea. Patient denies any headache patient denies lightheadedness dizziness or near syncopal episode. Patient states he has swelling in his legs but he always has swelling is likely hasn't noticed to be any worse. Patient denies any calf tenderness. - Related Data Home Medications Medication Instructions Recorded Confirmed Glimepiride [Amaryl] 4 mg PO BID 06/24/14 02/05/19 Isosorbide Mononitrate ER [Imdur] 30 mg PO HS 06/24/14 02/05/19 Lisinopril [Prinivil] 20 mg PO BID 06/24/14 02/05/19 [place]-3 Fatty Acids/Fish Oil [Fish 1 cap PO DAILY 06/24/14 02/05/19 Oil 1,000 mg Softgel] Sertraline HCl [Zoloft] 100 mg PO BID 06/24/14 02/05/19 Simvastatin [Zocor] 40 mg PO HS 06/24/14 02/05/19 Warfarin [Coumadin] 5 mg PO SUMOTUTHFR 06/24/14 02/05/19 Warfarin [Coumadin] 7.5 mg PO WESA 06/24/14 02/05/19 buPROPion [Wellbutrin] 100 mg PO HS 06/24/14 02/05/19 Multivitamins, Thera [Multivitamin 1 tab PO DAILY 07/20/15 02/05/19 (formulary)] Albuterol Nebulized [Ventolin 2.5 mg INHALATION RT-TID 05/20/18 02/05/19 Nebulized] Digoxin 125 mcg PO SUTUTHSA 05/20/18 02/05/19 Digoxin 250 mcg PO MOWEFR 05/20/18 02/05/19 Donepezil [Aricept] 10 mg PO HS 05/20/18 02/05/19 Doxazosin Mesylate 8 mg PO DAILY 05/20/18 02/05/19 Loperamide HCl [Imodium A-D] 2 mg PO Q2H PRN 05/20/18 02/05/19 Mirtazapine [Remeron] 45 mg PO HS 05/20/18 02/05/19 Montelukast [Singulair] 10 mg PO HS 05/20/18 02/05/19 hydrALAZINE HCL [Apresoline] 25 mg PO BID 05/20/18 02/05/19 Amantadine HCl [Amantadine] 100 mg PO BID 02/05/19 02/05/19 Cholecalciferol (Vitamin D3) 2,000 unit PO DAILY 02/05/19 02/05/19 [Vitamin D3] diphenhydrAMINE [Benadryl] 50 mg PO HS PRN 02/05/19 02/05/19 metFORMIN HCL ER [Glucophage Xr] 1,000 mg PO BID 02/05/19 02/05/19 Previous Rx's Medication Instructions Recorded Furosemide [Lasix] 40 mg PO DAILY #30 tab 05/22/18 Metoprolol Tartrate [Lopressor] 25 mg PO BID #60 tab 05/22/18 Spironolactone [Aldactone] 25 mg PO DAILY #30 tab 05/22/18 Allergies Allergy/AdvReac Type Severity Reaction Status Date / Time No Known Allergies Allergy Verified 02/05/19 08:43 Review of Systems ROS Statement: Those systems with pertinent positive or pertinent negative responses have been documented in the HPI. ROS Other: All systems not noted in ROS Statement are negative. Past Medical History Past Medical History: Atrial Fibrillation, Heart Failure, CVA/TIA, Diabetes Mellitus, Hearing Disorder / Deafness, Hyperlipidemia, Hypertension, Osteoarthritis (OA), Sleep Apnea/CPAP/BIPAP Additional Past Medical History / Comment(s): ?CVA IN THE PAST (NO WEAKNESS OR PARALYSIS) , USES C-PAP MACHINE, RENAL CYST, HX OF ULCER, ENVIRONMENTAL ALLERGIES, STATES HE HOLDS HIS BREATH AT TIMES WHICH CAUSES DIZZINESS AND HE IS UNAWARE HE IS DOING THIS., STATES HX OF A "HOLE IN HIS STOMACH " History of Any Multi-Drug Resistant Organisms: None Reported Past Surgical History: Appendectomy, Hernia Repair, Tonsillectomy Additional Past Surgical History / Comment(s): JAYY INGUINAL HERNIA REPAIR X2 Past Anesthesia/Blood Transfusion Reactions: No Reported Reaction Past Psychological History: Anxiety, Depression Smoking Status: Former smoker Past Alcohol Use History: Rare Past Drug Use History: None Reported - Past Family History Father Family Medical History: Cancer Additional Family Medical History / Comment(s): HODGKIN'S General Exam - General Exam Comments Initial Comments: GENERAL: Patient is well-developed and well-nourished. Patient is nontoxic and well- hydrated and is in mild distress. ENT: Neck is soft and supple. No significant lymphadenopathy is noted. Oropharynx is clear. Moist mucous membranes. Neck has full range of motion without eliciting any pain. EYES: The sclera were anicteric and conjunctiva were pink and moist. Extraocular movements were intact and pupils were equal round and reactive to light. Eyelids were unremarkable. PULMONARY: Unlabored respirations. Good breath sounds bilaterally. Crackles bilateral bases CARDIOVASCULAR: There is a regular rate and rhythm without any murmurs gallops or rubs. ABDOMEN: Soft and nontender with normal bowel sounds. SKIN: Skin is clear with no lesions or rashes and otherwise unremarkable. NEUROLOGIC: Patient is alert and oriented x3. Cranial nerves II through XII are grossly intact. Motor and sensory are also intact. Normal speech, volume and content. Symmetrical smile. MUSCULOSKELETAL: Normal extremities with adequate strength and full range of motion. 2+ edema bilaterally LYMPHATICS: No significant lymphadenopathy is noted PSYCHIATRIC: Normal psychiatric evaluation. Limitations: no limitations Course Vital Signs 02/05/19 07:40 Temperature 98 F Pulse Rate 131 H Respiratory 20 Rate Blood Pressure 145/81 O2 Sat by Pulse 90 L Oximetry Medical Decision Making - Medical Decision Making EKG shows atrial fibrillation with rapid ventricular response at 127 bpm QRS is 124 QT interval 3:30 QTC is 491. Patient had a rate of up to 160 at times. I started the patient on Cardizem after Cardizem bolus. I also gave the patient 40 of Lasix because of crackles in the edema on the legs. Chest x-ray shows pulmonary edema. I talked to Dr. Chapa agreed to admit the patient admitted the patient I wrote admitting orders. I continued Lasix and Cardizem on the floor. Patient did not get heparin because he is oriented Coumadin. I consult to cardiology. - Lab Data Result diagrams: 02/05/19 08:05 02/05/19 08:05 Lab Results 02/05/19 02/05/19 02/05/19 Range/Units 08:05 08:05 08:05 WBC 8.9 (3.8-10.6) k/uL RBC 4.23 L (4.30-5.90) m/uL Hgb 12.5 L (13.0-17.5) gm/dL Hct 37.9 L (39.0-53.0) % MCV 89.6 (80.0-100.0) fL MCH 29.5 (25.0-35.0) pg MCHC 33.0 (31.0-37.0) g/dL RDW 16.1 H (11.5-15.5) % Plt Count 236 (150-450) k/uL Neutrophils % 85 % Lymphocytes % 5 % Monocytes % 5 % Eosinophils % 4 % Basophils % 1 % Neutrophils # 7.5 (1.3-7.7) k/uL Lymphocytes # 0.5 L (1.0-4.8) k/uL Monocytes # 0.4 (0-1.0) k/uL Eosinophils # 0.3 (0-0.7) k/uL Basophils # 0.1 (0-0.2) k/uL Anisocytosis Slight PT (9.0-12.0) sec INR (<1.2) APTT (22.0-30.0) sec Sodium 143 (137-145) mmol/L Potassium 4.1 (3.5-5.1) mmol/L Chloride 110 H (98-107) mmol/L Carbon Dioxide 21 L (22-30) mmol/L Anion Gap 12 mmol/L BUN 30 H (9-20) mg/dL Creatinine 1.48 H (0.66-1.25) mg/dL Est GFR (CKD-EPI)AfAm 51 (>60 ml/min/1.73 sqM) Est GFR (CKD-EPI)NonAf 45 (>60 ml/min/1.73 sqM) Glucose 181 H (74-99) mg/dL Calcium 8.7 (8.4-10.2) mg/dL Magnesium 2.1 (1.6-2.3) mg/dL Total Bilirubin 0.9 (0.2-1.3) mg/dL AST 27 (17-59) U/L ALT 19 L (21-72) U/L Alkaline Phosphatase 96 (38-126) U/L Troponin I (0.000-0.034) ng/mL NT-Pro-B Natriuret Pep 2050 pg/mL Total Protein 6.9 (6.3-8.2) g/dL Albumin 4.4 (3.5-5.0) g/dL 02/05/19 02/05/19 Range/Units 08:05 08:05 WBC (3.8-10.6) k/uL RBC (4.30-5.90) m/uL Hgb (13.0-17.5) gm/dL Hct (39.0-53.0) % MCV (80.0-100.0) fL MCH (25.0-35.0) pg MCHC (31.0-37.0) g/dL RDW (11.5-15.5) % Plt Count (150-450) k/uL Neutrophils % % Lymphocytes % % Monocytes % % Eosinophils % % Basophils % % Neutrophils # (1.3-7.7) k/uL Lymphocytes # (1.0-4.8) k/uL Monocytes # (0-1.0) k/uL Eosinophils # (0-0.7) k/uL Basophils # (0-0.2) k/uL Anisocytosis PT 19.5 H (9.0-12.0) sec INR 2.0 H (<1.2) APTT 30.9 H (22.0-30.0) sec Sodium (137-145) mmol/L Potassium (3.5-5.1) mmol/L Chloride (98-107) mmol/L Carbon Dioxide (22-30) mmol/L Anion Gap mmol/L BUN (9-20) mg/dL Creatinine (0.66-1.25) mg/dL Est GFR (CKD-EPI)AfAm (>60 ml/min/1.73 sqM) Est GFR (CKD-EPI)NonAf (>60 ml/min/1.73 sqM) Glucose (74-99) mg/dL Calcium (8.4-10.2) mg/dL Magnesium (1.6-2.3) mg/dL Total Bilirubin (0.2-1.3) mg/dL AST (17-59) U/L ALT (21-72) U/L Alkaline Phosphatase (38-126) U/L Troponin I 0.043 H* (0.000-0.034) ng/mL NT-Pro-B Natriuret Pep pg/mL Total Protein (6.3-8.2) g/dL Albumin (3.5-5.0) g/dL Critical Care Time Critical Care Time: Yes Total Critical Care Time: 35 Disposition Clinical Impression: Acute pulmonary edema, Atrial fibrillation with rapid ventricular response Disposition: ADMITTED IP TO THIS HOSP Referrals: Filipe Mckinney MD [Primary Care Provider] - 1-2 days Time of Disposition: 09:21
[2019-02-05 08:24] LABS: Anisocytosis Slight; Basophils # (A) 0.1 k/uL (0-0.2); Basophils % (A) 1 %; Eosinophils # (A) 0.3 k/uL (0-0.7); Eosinophils % (A) 4 %; HCT 37.9 % (39.0-53.0); HGB 12.5 gm/dL (13.0-17.5); Lymphocytes # (A) 0.5 k/uL (1.0-4.8); Lymphocytes % (A) 5 %; MCH 29.5 pg (25.0-35.0); MCV 89.6 fL (80.0-100.0); Mean Platelet Volume 7.5; Monocytes # (A) 0.4 k/uL (0-1.0); Monocytes % (A) 5 %; Neutrophils # (A) 7.5 k/uL (1.3-7.7); Neutrophils % (A) 85 %; Platelet Count 236 k/uL (150-450); RBC 4.23 m/uL (4.30-5.90); RDW 16.1 % (11.5-15.5); WBC 8.9 k/uL (3.8-10.6)
[2019-02-05 08:33] LABS: Albumin 4.4 g/dL (3.5-5.0); Calcium 8.7 mg/dL (8.4-10.2); Magnesium 2.1 mg/dL (1.6-2.3); Potassium 4.1 mmol/L (3.5-5.1); Total Bilirubin 0.9 mg/dL (0.2-1.3); Total Protein 6.9 g/dL (6.3-8.2)
[2019-02-05 08:34] LABS: Partial Thromboplastin Time 30.9 sec (22.0-30.0); Prothrombin Time 19.5 sec (9.0-12.0)
[2019-02-05] MEDS ORDERED: DIGOXIN 250 MCG TAB PO SCH (09:00)
--- NOTE | 2019-02-05 09:03 | XR ---
EXAMINATION TYPE: XR chest 2V DATE OF EXAM: 02/05/2019 COMPARISON: 05/19/2018 HISTORY: Difficulty breathing TECHNIQUE: Frontal and lateral views of the chest are obtained. FINDINGS: There are confluent multifocal opacities most pronounced in the lung bases with moderate i nterstitial pulmonary edema and enlarged cardiomediastinal silhouette is seen on the prior. Mild dege nerative changes of the spine. Trace pleural effusion blunts the costophrenic angle on the left. Find ings are similar to the prior. IMPRESSION: Stable findings of fluid overload, likely cardiogenic with moderate interstitial pulmona ry edema, bibasilar opacities and trace left pleural effusion.
[2019-02-05] MEDS ORDERED: ASPIRIN 81 MG PO STA (09:21)
[2019-02-05] MEDS ORDERED: NITROGLYCERIN SL TABS 0.4 MG TAB SUBLINGUAL PRN (09:21)
[2019-02-05] MEDS ORDERED: GLIMEPIRIDE 4 MG TAB PO SCH (10:45)
[2019-02-05] MEDS ORDERED: LISINOPRIL 20 MG TAB PO SCH (10:45)
[2019-02-05] MEDS ORDERED: METOPROLOL TARTRATE 25 MG TAB PO SCH (10:45)
[2019-02-05 11:39] LABS: Glucose,Whole Blood 252 mg/dL (75-99)
[2019-02-05] MEDS ORDERED: METOPROLOL TARTRATE 25 MG TAB PO STA (11:56)
[2019-02-05] MEDS: DOXAZOSIN 4 MG TAB PO SCH (12:01)
[2019-02-05] MEDS: metFORMIN 500 MG TAB PO SCH ×2 (12:01→16:55)
[2019-02-05] MEDS: NITROGLYCERIN OINT 1 INCH/GM PACKET TOPICAL SCH ×3 (12:01→16:55)
[2019-02-05] MEDS: AMANTADINE HCL 100 MG CAP PO SCH ×2 (12:01→20:08)
[2019-02-05] MEDS: SERTRALINE 100 MG TAB PO SCH ×2 (12:02→20:08)
[2019-02-05] MEDS: hydrALAZINE HCL 25 MG TAB PO SCH ×2 (12:02→20:08)
[2019-02-05] MEDS: ALBUTEROL NEBULIZED 2.5 MG/3 ML INHALATION SCH ×2 (12:10→19:42)
--- NOTE | 2019-02-05 12:45 | ECHOF ---
Referral Reason:Lv fxn MEASUREMENTS -------- HEIGHT: 177.8 cm WEIGHT: 108.9 kg BP: 112/95 RVIDd: 3.9 cm (< 3.3) IVSd: 1.3 cm (0.6 - 1.1) LVIDd: 5.2 cm (3.9 - 5.3) LVPWd: 1.2 cm (0.6 - 1.1) IVSs: 1.6 cm LVIDs: 4.8 cm LVPWs: 1.6 cm LA Diam: 4.7 cm (2.7 - 3.8) LAESV Index (A-L): 47.28 ml/m Ao Diam: 3.8 cm (2.0 - 3.7) AV Cusp: 2.1 cm (1.5 - 2.6) MV EXCURSION: 20.130 mm (> 18.000) MV EF SLOPE: 148 mm/s (70 - 150) EPSS: 1.6 cm RAP: 15.00 mmHg RVSP: 39.15 mmHg FINDINGS -------- Atrial fibrillation. This was a technically good study. The left ventricular size is normal. There is mild concentric left ventricular hypertrophy. Overa ll left ventricular systolic function is severely impaired with, an EF < 20%. The right ventricle is moderately enlarged. LA is severely dilated >40 ml/m2 The right atrium is normal in size. Interatrial and interventricular septum intact. The aortic valve is trileaflet and appears structurally normal. Moderate mitral regurgitation is present. Mild tricuspid regurgitation present. There is mild pulmonary hypertension. The right ventricular systolic pressure, as measured by Doppler, is 39.15mmHg. Trace/mild (physiologic) pulmonic regurgitation. The aortic root is dilated measuring 3.8cm. The inferior vena cava is dilated with poor inspiratory collapse which is consistent with estimated r ight atrial pressure of 15 mmHg. There is no pericardial effusion. CONCLUSIONS -------- 1. Atrial fibrillation. 2. This was a technically good study. 3. The left ventricular size is normal. 4. There is mild concentric left ventricular hypertrophy. 5. Overall left ventricular systolic function is severely impaired with, an EF < 20%. 6. The right ventricle is moderately enlarged. 7. LA is severely dilated >40 ml/m2 8. The right atrium is normal in size. 9. Interatrial and interventricular septum intact. 10. The aortic valve is trileaflet and appears structurally normal. 11. Moderate mitral regurgitation is present. 12. Mild tricuspid regurgitation present. 13. There is mild pulmonary hypertension. 14. The right ventricular systolic pressure, as measured by Doppler, is 39.15mmHg. 15. Trace/mild (physiologic) pulmonic regurgitation. 16. The aortic root is dilated measuring 3.8cm. 17. The inferior vena cava is dilated with poor inspiratory collapse which is consistent with estimat ed right atrial pressure of 15 mmHg. 18. There is no pericardial effusion. SCRAP CRUSHER: Taylor Juárez RDCS
[2019-02-05 13:11] LABS: T4, Free (Free Thyroxine) 1.36 ng/dL (0.78-2.19)
--- NOTE | 2019-02-05 13:19 | P.CRDCN ---
History of Present Illness Consult date: 02/05/19 Requesting physician: Khanh Chapa Consult reason: shortness of breath Chief complaint: Shortness of breath History of present illness: This is a pleasant 78-year-old gentleman who follows regularly with Dr. Morales in the office. He has a past medical history significant for paroxysmal atrial fibrillation for which he is anticoagulated with Coumadin, history of prior CVA, diabetes, hypertension, hyperlipidemia, sleep apnea, osteoarthritis, he presented to the hospital on this occasion with symptoms of shortness of breath. Patient states when the symptoms started he felt as though he may , he was having extreme difficulty in catching his breath. His most recent hospitalization was in May of last year, prior to that he states it had been several years before he was admitted to the hospital with any difficulty and is breathing. Chest x-ray on presentation here showed fluid overload, likely cardiogenic with moderate interstitial pulmonary edema. EKG on presentation here showed atrial fibrillation with a rapid ventricular response. Echocardiogram with Doppler study was performed which revealed an ejection fraction of less than 20%, moderate mitral regurgitation was present, patient's most recent echocardiogram with Doppler study was performed in May 2018, at that time his LV function was documented to be 30-35%. Blood pressure 112/90, heart rate in the 140 range, 95% on 2 L of oxygen. Patient was initiated on IV Cardizem in the emergency room, he is now up on the cardiac unit continues to feel short of breath but he states his breathing is already significantly improved from presentation here. Blood cell count 8.9, hemoglobin 12.5, platelet count 236. INR is 2.0, sodium 143, potassium 4.1, BUN 30 and creatinine 1.4. BNP level 2050, troponin 0.043, TSH level 9.1. Past Medical History Past Medical History: Atrial Fibrillation, Heart Failure, CVA/TIA, Diabetes Mellitus, Hearing Disorder / Deafness, Hyperlipidemia, Hypertension, Osteoarthritis (OA), Sleep Apnea/CPAP/BIPAP Additional Past Medical History / Comment(s): ?CVA IN THE PAST (NO WEAKNESS OR PARALYSIS) , USES C-PAP MACHINE, RENAL CYST, HX OF ULCER, ENVIRONMENTAL ALLERGIES, STATES HE HOLDS HIS BREATH AT TIMES WHICH CAUSES DIZZINESS AND HE IS UNAWARE HE IS DOING THIS., STATES HX OF A "HOLE IN HIS STOMACH " History of Any Multi-Drug Resistant Organisms: None Reported Past Surgical History: Appendectomy, Hernia Repair, Tonsillectomy Additional Past Surgical History / Comment(s): JAYY INGUINAL HERNIA REPAIR X2 Past Anesthesia/Blood Transfusion Reactions: No Reported Reaction Past Psychological History: Anxiety, Depression Additional Psychological History / Comment(s): MEMORY LOSS Smoking Status: Former smoker Past Alcohol Use History: Rare Additional Past Alcohol Use History / Comment(s): SMOKED FOR 14 YEARS OVER 1PPD. QUIT SMOKING 1972 Past Drug Use History: None Reported - Past Family History Father Family Medical History: Cancer Additional Family Medical History / Comment(s): HODGKIN'S Medications and Allergies Home Medications Medication Instructions Recorded Confirmed Type Glimepiride [Amaryl] 4 mg PO BID 06/24/14 02/05/19 History Isosorbide Mononitrate ER [Imdur] 30 mg PO HS 06/24/14 02/05/19 History Lisinopril [Prinivil] 20 mg PO BID 06/24/14 02/05/19 History [place]-3 Fatty Acids/Fish Oil [Fish 1 cap PO DAILY 06/24/14 02/05/19 History Oil 1,000 mg Softgel] Sertraline HCl [Zoloft] 100 mg PO BID 06/24/14 02/05/19 History Simvastatin [Zocor] 40 mg PO HS 06/24/14 02/05/19 History Warfarin [Coumadin] 5 mg PO SUMOTUTHFR 06/24/14 02/05/19 History Warfarin [Coumadin] 7.5 mg PO WESA 06/24/14 02/05/19 History buPROPion [Wellbutrin] 100 mg PO HS 06/24/14 02/05/19 History Multivitamins, Thera [Multivitamin 1 tab PO DAILY 07/20/15 02/05/19 History (formulary)] Albuterol Nebulized [Ventolin 2.5 mg INHALATION RT-TID 05/20/18 02/05/19 History Nebulized] Digoxin 125 mcg PO SUTUTHSA 05/20/18 02/05/19 History Digoxin 250 mcg PO MOWEFR 05/20/18 02/05/19 History Donepezil [Aricept] 10 mg PO HS 05/20/18 02/05/19 History Doxazosin Mesylate 8 mg PO DAILY 05/20/18 02/05/19 History Loperamide HCl [Imodium A-D] 2 mg PO Q2H PRN 05/20/18 02/05/19 History Mirtazapine [Remeron] 45 mg PO HS 05/20/18 02/05/19 History Montelukast [Singulair] 10 mg PO HS 05/20/18 02/05/19 History hydrALAZINE HCL [Apresoline] 25 mg PO BID 05/20/18 02/05/19 History Furosemide [Lasix] 40 mg PO DAILY #30 tab 05/22/18 02/05/19 Rx Metoprolol Tartrate [Lopressor] 25 mg PO BID #60 tab 05/22/18 02/05/19 Rx Spironolactone [Aldactone] 25 mg PO DAILY #30 tab 05/22/18 02/05/19 Rx Amantadine HCl [Amantadine] 100 mg PO BID 02/05/19 02/05/19 History Cholecalciferol (Vitamin D3) 2,000 unit PO DAILY 02/05/19 02/05/19 History [Vitamin D3] diphenhydrAMINE [Benadryl] 50 mg PO HS PRN 02/05/19 02/05/19 History metFORMIN HCL ER [Glucophage Xr] 1,000 mg PO BID 02/05/19 02/05/19 History Allergies Allergy/AdvReac Type Severity Reaction Status Date / Time No Known Allergies Allergy Verified 02/05/19 08:43 Physical Exam Vitals: Vital Signs Temp Pulse Pulse Resp BP Pulse Ox 02/05/19 12:21 88 02/05/19 12:10 84 02/05/19 09:50 144 H 16 112/95 95 02/05/19 09:38 85 20 95 02/05/19 07:40 98 F 131 H 20 145/81 90 L Intake and Output 02/04/19 02/05/19 02/05/19 22:59 06:59 14:59 Output Total 0 Balance 0 Output: Urine 0 Other: Weight 108.862 kg PHYSICAL EXAMINATION: GENERAL: 78-year-old gentleman in no acute distress at the time of my examination HEENT: Head is atraumatic, normocephalic. Pupils equal, round. Sclera anicteric. Conjunctiva are clear. Mucous membranes of the mouth are moist. Neck is supple. There is elevated jugular venous pressure. No carotid bruit is heard. HEART EXAMINATION: Heart S1 and S2 irregularly irregular a systolic murmur is heard CHEST EXAMINATION: Lungs reveal diminished air entry bilaterally to the bases ABDOMEN: Soft, nontender. Bowel sounds are heard. No organomegaly noted. EXTREMITIES: 2+ peripheral pulses with 2+ evidence of peripheral edema, bilateral reddened areas suggesting erythema noted to lower extremities . NEUROLOGIC patient is awake, alert and oriented 3 . . Results 02/05/19 08:05 02/05/19 08:05 Cardiac Enzymes 02/05/19 02/05/19 Range/Units 08:05 08:05 AST 27 (17-59) U/L Troponin I 0.043 H* (0.000-0.034) ng/mL Coagulation 02/05/19 Range/Units 08:05 PT 19.5 H (9.0-12.0) sec APTT 30.9 H (22.0-30.0) sec CBC 02/05/19 Range/Units 08:05 WBC 8.9 (3.8-10.6) k/uL RBC 4.23 L (4.30-5.90) m/uL Hgb 12.5 L (13.0-17.5) gm/dL Hct 37.9 L (39.0-53.0) % Plt Count 236 (150-450) k/uL Comprehensive Metabolic Panel 02/05/19 Range/Units 08:05 Sodium 143 (137-145) mmol/L Potassium 4.1 (3.5-5.1) mmol/L Chloride 110 H (98-107) mmol/L Carbon Dioxide 21 L (22-30) mmol/L BUN 30 H (9-20) mg/dL Creatinine 1.48 H (0.66-1.25) mg/dL Glucose 181 H (74-99) mg/dL Calcium 8.7 (8.4-10.2) mg/dL AST 27 (17-59) U/L ALT 19 L (21-72) U/L Alkaline Phosphatase 96 (38-126) U/L Total Protein 6.9 (6.3-8.2) g/dL Albumin 4.4 (3.5-5.0) g/dL Current Medications Generic Name Dose Route Start Last Admin Trade Name Freq PRN Reason Stop Dose Admin Albuterol Sulfate 2.5 mg 02/05/19 13:00 02/05/19 12:10 Ventolin Nebulized INHALATION 2.5 mg RT-TID TREVA Administration Amantadine HCl 100 mg 02/05/19 10:45 02/05/19 12:01 Symmetrel PO 100 mg BID TREVA Administration Aspirin 81 mg 02/06/19 09:00 Aspirin PO DAILY [facility] Atorvastatin Calcium 20 mg 02/05/19 21:00 Lipitor PO HS [facility] Bupropion HCl 100 mg 02/05/19 21:00 Wellbutrin PO HS [facility] Digoxin 125 mcg 02/06/19 09:00 Lanoxin PO SUTUTHSA [facility] Digoxin 250 mcg 02/05/19 09:00 02/05/19 12:01 Lanoxin PO 250 mcg MOWEFR TREVA Administration Donepezil HCl 10 mg 02/05/19 21:00 Aricept PO HS [facility] Doxazosin Mesylate 8 mg 02/05/19 10:45 02/05/19 12:01 Cardura PO 8 mg DAILY TREVA Administration Furosemide 40 mg 02/05/19 16:00 Lasix IV Q8HR [facility] Glimepiride 4 mg 02/05/19 10:45 02/05/19 12:02 Amaryl PO 4 mg BID TREVA Administration Hydralazine HCl 25 mg 02/05/19 10:45 02/05/19 12:02 Apresoline PO 25 mg BID [facility] Administration Isosorbide Mononitrate 30 mg 02/05/19 21:00 Imdur PO HS [facility] Lisinopril 20 mg 02/05/19 10:45 02/05/19 12:02 Zestril PO 20 mg BID TREVA Administration Loperamide HCl 2 mg 02/05/19 10:36 Imodium PO Q2H PRN Loose Stool Metformin HCl 1,000 mg 02/05/19 10:45 02/05/19 12:01 Glucophage PO 1,000 mg BID-W/MEALS [facility] Administration Metoprolol Tartrate 50 mg 02/05/19 21:00 Lopressor PO BID [facility] Mirtazapine 45 mg 02/05/19 21:00 Remeron PO HS [facility] Montelukast Sodium 10 mg 02/05/19 21:00 Singulair PO HS [facility] Multivitamins 1 each 02/06/19 09:00 Theragran PO DAILY [facility] Nitroglycerin 0.4 mg 02/05/19 09:21 Nitrostat SUBLINGUAL Q5M PRN Chest Pain Nitroglycerin 1 inch 02/05/19 12:00 02/05/19 12:07 Nitro-Bid Oint TOPICAL Not Given Q6HR [facility] Sertraline HCl 100 mg 02/05/19 10:45 02/05/19 12:02 Zoloft PO 100 mg BID TREVA Administration Spironolactone 25 mg 02/06/19 09:00 Aldactone PO DAILY TREVA Warfarin Sodium 7.5 mg 02/06/19 18:00 Coumadin PO WESA TREVA Warfarin Sodium 5 mg 02/05/19 18:00 Coumadin PO SUMOTUTHFR [facility] Intake and Output 02/04/19 02/05/19 02/05/19 22:59 06:59 14:59 Output Total 0 Balance 0 Output: Urine 0 Other: Weight 108.862 kg Patient Weight 02/06/19 06:59 Weight 108.862 kg 02/05/19 08:05 02/05/19 08:05 EKG Interpretations (text) EKG shows atrial fibrillation with moderately rapid ventricular response Assessment and Plan Plan: Assessment and plan #1 atrial fibrillation with rapid ventricular response, paroxysmal, on Coumadin for anticoagulation, INR 2.0. #2 systolic congestive heart failure acute on chronic, echocardiogram with Doppler study revealed an ejection fraction of less than 20% #3 prior CVA #4 diabetes #5 hyperlipidemia #6 hypertension #7 sleep apnea Plan We will discontinue the IV Cardizem. Increase beta ju to 50 mg by mouth twice a day, continue current dose of IV Lasix. Continue Lanoxin, Lipitor. We will discontinue the lisinopril, and initiate Entresto 48 hours. Discontinue Nitropaste, continue Aldactone. Continue to monitor intake and output along with daily weights and daily lytes BUN and creatinine. DNP note has been reviewed, I agree with a documented findings and plan of care. Patient was seen and examined.
[2019-02-05] MEDS ORDERED: FUROSEMIDE 10 MG/ML 4 ML VIAL IV SCH (16:00)
[2019-02-05 16:51] LABS: Glucose,Whole Blood 148 mg/dL (75-99)
[2019-02-05] MEDS ORDERED: WARFARIN 5 MG TAB PO SCH (18:00)
[2019-02-05] MEDS: ISOSORBIDE MONONITRATE ER 30 MG TAB.ER.24H PO SCH (20:07)
[2019-02-05] MEDS: MONTELUKAST 10 MG TAB PO SCH (20:07)
[2019-02-05] MEDS: DONEPEZIL 10 MG TAB PO SCH (20:07)
[2019-02-05] MEDS: buPROPion 100 MG TAB PO SCH (20:07)
[2019-02-05] MEDS: ATORVASTATIN 20 MG TAB PO SCH (20:08)
[2019-02-05] MEDS: METOPROLOL TARTRATE 50 MG TAB PO SCH (20:08)
[2019-02-05] MEDS: MIRTAZAPINE 45 MG TABLET PO SCH (20:08)
[2019-02-05 20:24] LABS: Glucose,Whole Blood 101 mg/dL (75-99)
--- NOTE | 2019-02-05 22:06 | P.HPIM ---
History of Present Illness H&P Date: 02/05/19 Chief Complaint: Short of breath History of presenting complaint: This is a 78-year-old patient of Dr. Mckinney. Chronic stable medical conditions include atrial fibrillation, diabetes, hard of hearing, hypertension, hyperlipidemia, osteoarthritis, CPAP uses for sleep apnea. Patient presents with one-day of increasing shortness of breath. Very slight cough. Increasing edema. Patient uses one to 2 pillows at night. No chest pain or pressure. No fever no chills. Admitting diagnoses CHF was made.'s started on Lasix. Patient does feel tired at baseline uses a walker. Review of systems: GEN.: Tired EYES: None HEENT: Decreased hearing NECK: None RESPIRATORY: As above CARDIOVASCULAR: [As above GASTROINTESTINAL: None GENITOURINARY: None MUSCULOSKELETAL: Pain in joints LYMPHATICS: None HEMATOLOGICAL: None PSYCHIATRY: Slightly forgetful NEUROLOGICAL: Uses a cane Social history: Lives with his . Patient stopped smoking in 1971 was. Smoked a pack a day for 14 years. Alcohol rarely. Family history: Hodgkin's lymphoma Physical examination: VITAL SIGNS: 98, 131, 20, 1 4581, 90% room air GENERAL: BMI 34.4, laying in bed, short of breath tired. EYES: [Pupils equal. Conjunctiva pale l. HEENT: External appearance of nose and ears normal, oral cavity grossly normal, decreased hearing. NECK: JVD unable to assess; masses not palpable. HEART: Heart sounds irregular, significant edema. LUNGS: Respiratory rate increased, accessory muscles are working, not able to speak in full sentences bilateral basal crackles. ABDOMEN: Soft, nontender, liver spleen not palpable, no masses palpable. PSYCH: Alert and oriented x3; mood and affect normal. NEUROLOGICAL: Cranial nerves grossly intact; no facial asymmetry, power and sensation grossly intact. LYMPHATICS: No lymph nodes palpable in the axilla and neck MUSCULAR schedule: Evidence of OA especially in the hands INVESTIGATIONS, reviewed in the clinical context: White count 8.9 kg discharged on 5 platelets 236 INR 2 potassium 4.1 UA and 30 creatinine 1.48 Troponin I 0.04, 0.05, 0.06 TSH 9.1 free T4 1 0.36 to BNP 2050 2-D echo EF less than 20%, moderate mitral regurgitation EKG tracing personally reviewed by me shows atrial fibrillation rate uncontrolled Chest x-ray film personally reviewed by me-pulmonary edema, cardiomegaly Assessment: -Acute on chronic congestive heart failure from systolic dysfunction EF less than 20% -Possible acute non-Q-wave CT with chest pain and positive troponin -Persistent atrial fibrillation now with heart rate uncontrolled -Coronary artery disease -Diabetes mellitus type 2 -Essential hypertension -Hyperlipidemia -Primary osteoarthritis -Obstructive sleep apnea uses CPAP -Mild cognitive impairment Plan: We'll switch the patient to Lasix drip. Follow strict I's and O's. Electrolytes closely. Currently has been consulted. Home medications resumed. Care was discussed with the patient. Questions were answered. Prognosis guarded Past Medical History Past Medical History: Atrial Fibrillation, Heart Failure, CVA/TIA, Diabetes Mellitus, Hearing Disorder / Deafness, Hyperlipidemia, Hypertension, Oste oarthritis (OA), Sleep Apnea/CPAP/BIPAP Additional Past Medical History / Comment(s): ?CVA IN THE PAST (NO WEAKNESS OR PARALYSIS) , USES C-PAP MACHINE, RENAL CYST, HX OF ULCER, ENVIRONMENTAL ALLERGIES, STATES HE HOLDS HIS BREATH AT TIMES WHICH CAUSES DIZZINESS AND HE IS UNAWARE HE IS DOING THIS., STATES HX OF A "HOLE IN HIS STOMACH " History of Any Multi-Drug Resistant Organisms: None Reported Past Surgical History: Appendectomy, Hernia Repair, Tonsillectomy Additional Past Surgical History / Comment(s): JAYY INGUINAL HERNIA REPAIR X2 Past Anesthesia/Blood Transfusion Reactions: No Reported Reaction Past Psychological History: Anxiety, Depression Additional Psychological History / Comment(s): MEMORY LOSS Smoking Status: Former smoker Past Alcohol Use History: Rare Additional Past Alcohol Use History / Comment(s): SMOKED FOR 14 YEARS OVER 1PPD. QUIT SMOKING 1972 Past Drug Use History: None Reported - Past Family History Father Family Medical History: Cancer Additional Family Medical History / Comment(s): HODGKIN'S Medications and Allergies Home Medications Medication Instructions Recorded Confirmed Type Glimepiride [Amaryl] 4 mg PO BID 06/24/14 02/05/19 History Isosorbide Mononitrate ER [Imdur] 30 mg PO HS 06/24/14 02/05/19 History Lisinopril [Prinivil] 20 mg PO BID 06/24/14 02/05/19 History [place]-3 Fatty Acids/Fish Oil [Fish 1 cap PO DAILY 06/24/14 02/05/19 History Oil 1,000 mg Softgel] Sertraline HCl [Zoloft] 100 mg PO BID 06/24/14 02/05/19 History Simvastatin [Zocor] 40 mg PO HS 06/24/14 02/05/19 History Warfarin [Coumadin] 5 mg PO SUMOTUTHFR 06/24/14 02/05/19 History Warfarin [Coumadin] 7.5 mg PO WESA 06/24/14 02/05/19 History buPROPion [Wellbutrin] 100 mg PO HS 06/24/14 02/05/19 History Multivitamins, Thera [Multivitamin 1 tab PO DAILY 07/20/15 02/05/19 History (formulary)] Albuterol Nebulized [Ventolin 2.5 mg INHALATION RT-TID 05/20/18 02/05/19 History Nebulized] Digoxin 125 mcg PO SUTUTHSA 05/20/18 02/05/19 History Digoxin 250 mcg PO MOWEFR 05/20/18 02/05/19 History Donepezil [Aricept] 10 mg PO HS 05/20/18 02/05/19 History Doxazosin Mesylate 8 mg PO DAILY 05/20/18 02/05/19 History Loperamide HCl [Imodium A-D] 2 mg PO Q2H PRN 05/20/18 02/05/19 History Mirtazapine [Remeron] 45 mg PO HS 05/20/18 02/05/19 History Montelukast [Singulair] 10 mg PO HS 05/20/18 02/05/19 History hydrALAZINE HCL [Apresoline] 25 mg PO BID 05/20/18 02/05/19 History Furosemide [Lasix] 40 mg PO DAILY #30 tab 05/22/18 02/05/19 Rx Metoprolol Tartrate [Lopressor] 25 mg PO BID #60 tab 05/22/18 02/05/19 Rx Spironolactone [Aldactone] 25 mg PO DAILY #30 tab 05/22/18 02/05/19 Rx Amantadine HCl [Amantadine] 100 mg PO BID 02/05/19 02/05/19 History Cholecalciferol (Vitamin D3) 2,000 unit PO DAILY 02/05/19 02/05/19 History [Vitamin D3] diphenhydrAMINE [Benadryl] 50 mg PO HS PRN 02/05/19 02/05/19 History metFORMIN HCL ER [Glucophage Xr] 1,000 mg PO BID 02/05/19 02/05/19 History Allergies Allergy/AdvReac Type Severity Reaction Status Date / Time No Known Allergies Allergy Verified 02/05/19 08:43 Physical Exam Vitals: Vital Signs Temp Pulse Pulse Resp BP BP Pulse Ox 02/05/19 19:53 86 02/05/19 19:43 85 02/05/19 19:10 20 02/05/19 19:00 98.4 F 80 20 111/77 92 L 02/05/19 15:10 97.6 F 68 20 102/70 94 L 02/05/19 12:21 88 02/05/19 12:10 84 02/05/19 09:50 144 H 16 112/95 95 02/05/19 09:38 85 20 95 02/05/19 07:40 98 F 131 H 20 145/81 90 L Intake and Output 02/05/19 02/05/19 02/05/19 06:59 14:59 22:59 Intake Total 400 Output Total 0 Balance 400 Intake: Oral 400 Output: Urine 0 Other: Voiding Method Urinal Weight 108.862 kg Results CBC & Chem 7: 02/05/19 08:05 02/05/19 08:05 Labs: Abnormal Lab Results - Last 24 Hours (Table) 02/05/19 02/05/19 02/05/19 Range/Units 08:05 08:05 08:05 RBC 4.23 L (4.30-5.90) m/uL Hgb 12.5 L (13.0-17.5) gm/dL Hct 37.9 L (39.0-53.0) % RDW 16.1 H (11.5-15.5) % Lymphocytes # 0.5 L (1.0-4.8) k/uL PT 19.5 H (9.0-12.0) sec INR 2.0 H (<1.2) APTT 30.9 H (22.0-30.0) sec Chloride 110 H (98-107) mmol/L Carbon Dioxide 21 L (22-30) mmol/L BUN 30 H (9-20) mg/dL Creatinine 1.48 H (0.66-1.25) mg/dL Glucose 181 H (74-99) mg/dL POC Glucose (mg/dL) (75-99) mg/dL ALT 19 L (21-72) U/L Troponin I (0.000-0.034) ng/mL TSH (0.465-4.680) mIU/L 02/05/19 02/05/19 02/05/19 Range/Units 08:05 08:05 11:37 RBC (4.30-5.90) m/uL Hgb (13.0-17.5) gm/dL Hct (39.0-53.0) % RDW (11.5-15.5) % Lymphocytes # (1.0-4.8) k/uL PT (9.0-12.0) sec INR (<1.2) APTT (22.0-30.0) sec Chloride (98-107) mmol/L Carbon Dioxide (22-30) mmol/L BUN (9-20) mg/dL Creatinine (0.66-1.25) mg/dL Glucose (74-99) mg/dL POC Glucose (mg/dL) 252 H (75-99) mg/dL ALT (21-72) U/L Troponin I 0.043 H* (0.000-0.034) ng/mL TSH 9.120 H (0.465-4.680) mIU/L 02/05/19 02/05/19 02/05/19 Range/Units 13:58 16:50 20:10 RBC (4.30-5.90) m/uL Hgb (13.0-17.5) gm/dL Hct (39.0-53.0) % RDW (11.5-15.5) % Lymphocytes # (1.0-4.8) k/uL PT (9.0-12.0) sec INR (<1.2) APTT (22.0-30.0) sec Chloride (98-107) mmol/L Carbon Dioxide (22-30) mmol/L BUN (9-20) mg/dL Creatinine (0.66-1.25) mg/dL Glucose (74-99) mg/dL POC Glucose (mg/dL) 148 H (75-99) mg/dL ALT (21-72) U/L Troponin I 0.052 H* 0.063 H* (0.000-0.034) ng/mL TSH (0.465-4.680) mIU/L 02/05/19 Range/Units 20:22 RBC (4.30-5.90) m/uL Hgb (13.0-17.5) gm/dL Hct (39.0-53.0) % RDW (11.5-15.5) % Lymphocytes # (1.0-4.8) k/uL PT (9.0-12.0) sec INR (<1.2) APTT (22.0-30.0) sec Chloride (98-107) mmol/L Carbon Dioxide (22-30) mmol/L BUN (9-20) mg/dL Creatinine (0.66-1.25) mg/dL Glucose (74-99) mg/dL POC Glucose (mg/dL) 101 H (75-99) mg/dL ALT (21-72) U/L Troponin I (0.000-0.034) ng/mL TSH (0.465-4.680) mIU/L Thrombosis Risk Factor Assmnt - Choose All That Apply Each Factor Represents 1 point: Heart failure (<1month), Swollen legs (current) Each Risk Factor Represents 3 Points: Age 75 years or older Other congenital or acquired thrombophilia - If yes, enter type in comment: No Thrombosis Risk Factor Assessment Total Risk Factor Score: 5 Thrombosis Risk Factor Assessment Level: High Risk
[2019-02-05] MEDS: FUROSEMIDE 100 MG in SODIUM CHLORIDE 0.9% 90 ML IV SCH (22:27)
[2019-02-06 06:20] LABS: Glucose,Whole Blood 128 mg/dL (75-99)
[2019-02-06] MEDS: metFORMIN 500 MG TAB PO SCH ×2 (06:47→17:53)
[2019-02-06] MEDS: GLIMEPIRIDE 4 MG TAB PO SCH ×2 (06:47→17:53)
[2019-02-06 06:58] LABS: INR 2.4 (<1.2)
[2019-02-06 06:59] LABS: Prothrombin Time 23.5 sec (9.0-12.0)
[2019-02-06 07:00] LABS: Calcium 8.6 mg/dL (8.4-10.2); Potassium 3.9 mmol/L (3.5-5.1)
[2019-02-06] MEDS: FUROSEMIDE 100 MG in SODIUM CHLORIDE 0.9% 90 ML IV SCH (07:30)
[2019-02-06] MEDS: AMANTADINE HCL 100 MG CAP PO SCH ×2 (07:36→20:18)
[2019-02-06] MEDS: DOXAZOSIN 4 MG TAB PO SCH (07:36)
[2019-02-06] MEDS: SPIRONOLACTONE 25 MG TAB PO SCH (07:37)
[2019-02-06] MEDS: METOPROLOL TARTRATE 50 MG TAB PO SCH ×2 (07:37→20:17)
[2019-02-06] MEDS: SERTRALINE 100 MG TAB PO SCH ×2 (07:37→20:18)
[2019-02-06] MEDS: hydrALAZINE HCL 25 MG TAB PO SCH ×2 (07:37→20:17)
[2019-02-06] MEDS: MULTIVITAMINS, THERA 1 EACH TAB PO SCH (07:37)
[2019-02-06] MEDS: ALBUTEROL NEBULIZED 2.5 MG/3 ML INHALATION SCH ×3 (07:52→20:14)
[2019-02-06] MEDS: LOPERAMIDE 2 MG CAP PO PRN ×2 (07:53→12:03)
[2019-02-06] MEDS ORDERED: ASPIRIN 81 MG PO SCH (09:00)
[2019-02-06] MEDS ORDERED: ASPIRIN 325 MG TAB PO SCH (09:00)
[2019-02-06] MEDS ORDERED: DIGOXIN 125 MCG TAB PO SCH (09:00)
[2019-02-06 12:35] LABS: Glucose,Whole Blood 148 mg/dL (75-99)
--- NOTE | 2019-02-06 13:12 | P.PN ---
Subjective Progress Note Date: 02/06/19 This is a pleasant 78-year-old gentleman who follows regularly with Dr. Morales in the office. He has a past medical history significant for paroxysmal atrial fibrillation for which he is anticoagulated with Coumadin, history of prior CVA, diabetes, hypertension, hyperlipidemia, sleep apnea, ost eoarthritis, he presented to the hospital on this occasion with symptoms of shortness of breath. Patient states when the symptoms started he felt as though he may , he was having extreme difficulty in catching his breath. His most recent hospitalization was in May of last year, prior to that he states it had been several years before he was admitted to the hospital with any difficulty and is breathing. Chest x-ray on presentation here showed fluid overload, likely cardiogenic with moderate interstitial pulmonary edema. EKG on presentation here showed atrial fibrillation with a rapid ventricular response. Echocardiogram with Doppler study was performed which revealed an ejection fraction of less than 20%, moderate mitral regurgitation was present, patient's most recent echocardiogram with Doppler study was performed in May 2018, at that time his LV function was documented to be 30-35%. Blood pressure 112/90, heart rate in the 140 range, 95% on 2 L of oxygen. Patient was initiated on IV Cardizem in the emergency room, he is now up on the cardiac unit continues to fe el short of breath but he states his breathing is already significantly improved from presentation here. Blood cell count 8.9, hemoglobin 12.5, platelet count 236. INR is 2.0, sodium 143, potassium 4.1, BUN 30 and creatinine 1.4. BNP level 2050, troponin 0.043, TSH level 9.1. 02/06/2019 Patient was seen and examined this morning, he states his breathing is improving significantly, heart rate under much better control staining in the 80s today, blood pressure 108/70 94% on 2 L of oxygen. I did have a lengthy discussion with the patient as well as his today regarding anticoagulation, they wish to start taking Eliquis, we did check into coverage for Eliquis it will cost the patient $40 a month and he is okay with that. We will also discontinue his Lanoxin. Patient had been initiated on IV Lasix drip yesterday, his weight is down 3 kg today, BUN 38 and creatinine 1.2. We will hold the Coumadin today and once the INR is 2 we will initiate Eliquis. We will discontinue the IV Lasix drip, give the patient one day of IV push Lasix and then changed to oral. Objective - Vital Signs Vital signs: Vital Signs Temp 97.8 F 02/06/19 11:17 Pulse 84 02/06/19 12:31 Resp 18 02/06/19 11:17 BP 108/70 02/06/19 11:17 Pulse Ox 94 L 02/06/19 11:17 Intake & Output 02/05/19 02/06/19 02/06/19 18:59 06:59 18:59 Intake Total 400 250.5 Output Total 0 2100 500 Balance 400 -2100 -249.5 Weight 108.862 kg 105.6 kg Intake: Intake, IV Titration 90.5 Amount Furosemide 100 mg In 90.5 Sodium Chloride 0.9% 90 ml @ 10 MG/HR 10 mls/hr IV .Q10H TREVA Rx#: [id number] Oral 400 160 Output: Urine 0 2100 500 Other: Voiding Method Urinal Toilet Urinal - Exam PHYSICAL EXAMINATION: GENERAL: 78-year-old gentleman in no acute distress at the time of my examination HEENT: Head is atraumatic, normocephalic. Pupils equal, round. Sclera anicteric. Conjunctiva are clear. Mucous membranes of the mouth are moist. Neck is supple. There is elevated jugular venous pressure. No carotid bruit is heard. HEART EXAMINATION: Heart S1 and S2 irregularly irregular a systolic murmur is heard CHEST EXAMINATION: Lungs reveal diminished air entry bilaterally to the bases ABDOMEN: Soft, nontender. Bowel sounds are heard. No organomegaly noted. EXTREMITIES: 2+ peripheral pulses with 1+ evidence of peripheral edema, bilateral reddened areas suggesting erythema noted to lower extremities . NEUROLOGIC patient is awake, alert and oriented 3 . - Labs CBC & Chem 7: 02/05/19 08:05 02/06/19 06:08 Labs: Abnormal Lab Results - Last 24 Hours (Table) 02/05/19 02/05/19 02/05/19 Range/Units 13:58 16:50 20:10 PT (9.0-12.0) sec INR (<1.2) BUN (9-20) mg/dL Creatinine (0.66-1.25) mg/dL Glucose (74-99) mg/dL POC Glucose (mg/dL) 148 H (75-99) mg/dL Troponin I 0.052 H* 0.063 H* (0.000-0.034) ng/mL HDL Cholesterol (40-60) mg/dL 02/05/19 02/06/19 02/06/19 Range/Units 20:22 06:08 06:08 PT 23.5 H (9.0-12.0) sec INR 2.4 H (<1.2) BUN 38 H (9-20) mg/dL Creatinine 1.84 H (0.66-1.25) mg/dL Glucose 126 H (74-99) mg/dL POC Glucose (mg/dL) 101 H (75-99) mg/dL Troponin I (0.000-0.034) ng/mL HDL Cholesterol 35 L (40-60) mg/dL 02/06/19 02/06/19 Range/Units 06:18 11:29 PT (9.0-12.0) sec INR (<1.2) BUN (9-20) mg/dL Creatinine (0.66-1.25) mg/dL Glucose (74-99) mg/dL POC Glucose (mg/dL) 128 H 148 H (75-99) mg/dL Troponin I (0.000-0.034) ng/mL HDL Cholesterol (40-60) mg/dL Assessment and Plan Plan: Assessment and plan #1 atrial fibrillation with rapid ventricular response, paroxysmal, on Coumadin for anticoagulation, INR 2.0. #2 systolic congestive heart failure acute on chronic, echocardiogram with Doppler study revealed an ejection fraction of less than 20% #3 prior CVA #4 diabetes #5 hyperlipidemia #6 hypertension #7 sleep apnea Plan Echocardiogram with Doppler study revealed an ejection fraction of less than 20%. We will discontinue the Coumadin and once the INR is 2 we will start the patient on Eliquis 5 mg one tablet by mouth twice a day. Discontinue Lasix drip and for one day give the patient IV push, and then we'll pack changer to oral. DNP note has been reviewed, I agree with a documented findings and plan of care. Patient was seen and examined.
--- NOTE | 2019-02-06 15:36 | P.PN ---
Progress Note - Text Progress Note Date: 02/06/19 Chief Complaint: Short of breath History of presenting complaint: This is a 78-year-old patient of Dr. Mckinney. Chronic stable medical conditions include atrial fibrillation, diabetes, hard of hearing, hypertension, hyperlipidemia, osteoarthritis, CPAP uses for sleep apnea. Patient presents with one-day of increasing shortness of breath. Very slight cough. Increasing edema. Patient uses one to 2 pillows at night. No chest pain or pressure. No fever no chills. Admitting diagnoses CHF was made.'s started on Lasix. Patient does feel tired at baseline uses a walker. Admitted with CHF exacerbation. Was started on Lasix drip. Today-Breathing improved. On Lasix drip. Close to 2 L in negative fluid balance. Breathing better. Review of systems: Was done for constitutional, cardiovascular, GI, pulmonary. relevant finding as above Active Medications Albuterol Sulfate (Ventolin Nebulized) 2.5 mg INHALATION RT-TID [facility] Last Admin: 02/06/19 12:22 Dose: 2.5 mg Documented by: Amantadine HCl (Symmetrel) 100 mg PO BID [facility] Last Admin: 02/06/19 07:36 Dose: 100 mg Documented by: Atorvastatin Calcium (Lipitor) 20 mg PO [facility] Last Admin: 02/05/19 20:08 Dose: 20 mg Documented by: Bupropion HCl (Wellbutrin) 100 mg PO [facility] Last Admin: 02/05/19 20:07 Dose: 100 mg Documented by: Donepezil HCl (Aricept) 10 mg PO [facility] Last Admin: 02/05/19 20:07 Dose: 10 mg Documented by: Doxazosin Mesylate (Cardura) 8 mg PO DAILY [facility] Last Admin: 02/06/19 07:36 Dose: 8 mg Documented by: Furosemide (Lasix) 40 mg IV DAILY [facility] Glimepiride (Amaryl) 4 mg PO BID-W/MEALS [facility] Last Admin: 02/06/19 06:47 Dose: 4 mg Documented by: Hydralazine HCl (Apresoline) 25 mg PO BID [facility] Last Admin: 02/06/19 07:37 Dose: 25 mg Documented by: Isosorbide Mononitrate (Imdur) 30 mg PO [facility] Last Admin: 02/05/19 20:07 Dose: 30 mg Documented by: Loperamide HCl (Imodium) 2 mg PO Q2H PRN PRN Reason: Loose Stool Last Admin: 02/06/19 12:03 Dose: 2 mg Documented by: Metformin HCl (Glucophage) 1,000 mg PO BID-W/MEALS [facility] Last Admin: 02/06/19 06:47 Dose: 1,000 mg Documented by: Metoprolol Tartrate (Lopressor) 50 mg PO BID [facility] Last Admin: 02/06/19 07:37 Dose: 50 mg Documented by: Mirtazapine (Remeron) 45 mg PO [facility] Last Admin: 02/05/19 20:08 Dose: 45 mg Documented by: Montelukast Sodium (Singulair) 10 mg PO [facility] Last Admin: 02/05/19 20:07 Dose: 10 mg Documented by: Multivitamins (Theragran) 1 each PO DAILY [facility] Last Admin: 02/06/19 07:37 Dose: 1 each Documented by: Nitroglycerin (Nitrostat) 0.4 mg SUBLINGUAL Q5M PRN PRN Reason: Chest Pain Sacubitril/Valsartan (Entresto 24 Mg-26 Mg Tablet) 1 each PO BID [facility] Sertraline HCl (Zoloft) 100 mg PO BID [facility] Last Admin: 02/06/19 07:37 Dose: 100 mg Documented by: Spironolactone (Aldactone) 25 mg PO DAILY [facility] Last Admin: 02/06/19 07:37 Dose: 25 mg Documented by: Physical examination: VITAL SIGNS: 97.8, 84, 18, 108/70, 94% on 2 L GENERAL: Propped up in bed, short of breath EYES: [Pupils equal. Conjunctiva pale . HEENT: External appearance of nose and ears normal, oral cavity grossly normal, decreased hearing. NECK: JVD unable to assess; masses not palpable. HEART: Heart sounds irregular, significant edema. LUNGS: Respiratory rate increased,, bilateral basal crackles. ABDOMEN: Soft, nontender, liver spleen not palpable, no masses palpable. PSYCH: Alert and oriented x3; mood and affect normal. INVESTIGATIONS, reviewed in the clinical context: Sodium 143 bun 38 creatinine 1.84 Previous testing: Troponin I 0.04, 0.05, 0.06 TSH 9.1 free T4 1 0.36 to BNP 2050 2-D echo EF less than 20%, moderate mitral regurgitation EKG tracing personally reviewed by me shows atrial fibrillation rate uncontrolled Chest x-ray film personally reviewed by me-pulmonary edema, cardiomegaly Assessment: -Acute on chronic congestive heart failure from systolic dysfunction EF less than 20%, improving -Possible acute non-Q-wave [place] with chest pain and positive troponin -Persistent atrial fibrillation now with heart rate uncontrolled -Coronary artery disease -Diabetes mellitus type 2 -Essential hypertension -Hyperlipidemia -Primary osteoarthritis -Obstructive sleep apnea uses CPAP -Mild cognitive impairment Plan: Patient been making good urine. Improvement from before. Seen by cardiology earlier today. Switch to Lasix IV push. Follow closely
[2019-02-06 16:37] LABS: Glucose,Whole Blood 127 mg/dL (75-99)
[2019-02-06] MEDS ORDERED: WARFARIN 7.5 MG TAB PO SCH (18:00)
[2019-02-06 20:05] LABS: Glucose,Whole Blood 144 mg/dL (75-99)
[2019-02-06] MEDS: LOPERAMIDE 2 MG CAP PO SCH (20:17)
[2019-02-06] MEDS: buPROPion 100 MG TAB PO SCH (20:18)
[2019-02-06] MEDS: DONEPEZIL 10 MG TAB PO SCH (20:18)
[2019-02-06] MEDS: MONTELUKAST 10 MG TAB PO SCH (20:18)
[2019-02-06] MEDS: ATORVASTATIN 20 MG TAB PO SCH (20:18)
[2019-02-06] MEDS: MIRTAZAPINE 45 MG TABLET PO SCH (20:18)
[2019-02-06] MEDS: ISOSORBIDE MONONITRATE ER 30 MG TAB.ER.24H PO SCH (20:18)
[2019-02-07 06:13] LABS: Glucose,Whole Blood 215 mg/dL (75-99)
[2019-02-07] MEDS: metFORMIN 500 MG TAB PO SCH ×2 (06:21→17:18)
[2019-02-07] MEDS: GLIMEPIRIDE 4 MG TAB PO SCH ×2 (06:21→17:19)
[2019-02-07 07:15] LABS: INR 1.9 (<1.2); Prothrombin Time 18.9 sec (9.0-12.0)
[2019-02-07 07:18] LABS: Calcium 8.6 mg/dL (8.4-10.2)
[2019-02-07] MEDS: MULTIVITAMINS, THERA 1 EACH TAB PO SCH (08:08)
[2019-02-07] MEDS: SERTRALINE 100 MG TAB PO SCH ×2 (08:08→20:10)
[2019-02-07] MEDS: hydrALAZINE HCL 25 MG TAB PO SCH ×2 (08:08→20:10)
[2019-02-07] MEDS: METOPROLOL TARTRATE 50 MG TAB PO SCH ×2 (08:08→20:12)
[2019-02-07] MEDS: ALBUTEROL NEBULIZED 2.5 MG/3 ML INHALATION SCH ×3 (08:09→16:03)
[2019-02-07] MEDS: DOXAZOSIN 4 MG TAB PO SCH (08:09)
[2019-02-07] MEDS: SPIRONOLACTONE 25 MG TAB PO SCH (08:09)
[2019-02-07] MEDS: FUROSEMIDE 10 MG/ML 4 ML VIAL IV SCH (08:09)
[2019-02-07] MEDS: AMANTADINE HCL 100 MG CAP PO SCH ×2 (08:09→20:13)
[2019-02-07 11:43] LABS: Glucose,Whole Blood 109 mg/dL (75-99)
[2019-02-07] MEDS: APIXABAN 5 MG TAB PO SCH ×2 (12:07→20:10)
--- NOTE | 2019-02-07 13:25 | P.PN ---
Subjective Progress Note Date: 02/07/19 This is a pleasant 78-year-old gentleman who follows regularly with Dr. Morales in the office. He has a past medical history significant for paroxysmal atrial fibrillation for which he is anticoagulated with Coumadin, history of prior CVA, diabetes, hypertension, hyperlipidemia, sleep apnea, ost eoarthritis, he presented to the hospital on this occasion with symptoms of shortness of breath. Patient states when the symptoms started he felt as though he may , he was having extreme difficulty in catching his breath. His most recent hospitalization was in May of last year, prior to that he states it had been several years before he was admitted to the hospital with any difficulty and is breathing. Chest x-ray on presentation here showed fluid overload, likely cardiogenic with moderate interstitial pulmonary edema. EKG on presentation here showed atrial fibrillation with a rapid ventricular response. Echocardiogram with Doppler study was performed which revealed an ejection fraction of less than 20%, moderate mitral regurgitation was present, patient's most recent echocardiogram with Doppler study was performed in May 2018, at that time his LV function was documented to be 30-35%. Blood pressure 112/90, heart rate in the 140 range, 95% on 2 L of oxygen. Patient was initiated on IV Cardizem in the emergency room, he is now up on the cardiac unit continues to fe el short of breath but he states his breathing is already significantly improved from presentation here. Blood cell count 8.9, hemoglobin 12.5, platelet count 236. INR is 2.0, sodium 143, potassium 4.1, BUN 30 and creatinine 1.4. BNP level 2050, troponin 0.043, TSH level 9.1. 02/06/2019 Patient was seen and examined this morning, he states his breathing is improving significantly, heart rate under much better control staining in the 80s today, blood pressure 108/70 94% on 2 L of oxygen. I did have a lengthy discussion with the patient as well as his today regarding anticoagulation, they wish to start taking Eliquis, we did check into coverage for Eliquis it will cost the patient $40 a month and he is okay with that. We will also discontinue his Lanoxin. Patient had been initiated on IV Lasix drip yesterday, his weight is down 3 kg today, BUN 38 and creatinine 1.2. We will hold the Coumadin today and once the INR is 2 we will initiate Eliquis. We will discontinue the IV Lasix drip, give the patient one day of IV push Lasix and then changed to oral. 02/07/2019 Patient was seen and examined this morning, he didn't sleep well through the night last night and feels a little tired today. His breathing is stable, denies any chest discomfort dizziness or palpitations. He did cough up some sputum earlier today that was clear with slight blood tinge to it. His heart rate is controlled today, weight is down 2 kg creatinine is 1.6. INR 1.9. Objective - Vital Signs Vital signs: Vital Signs Temp 98.8 F 02/07/19 11:44 Pulse 86 02/07/19 12:03 Resp 18 02/07/19 11:44 BP 131/75 02/07/19 11:44 Pulse Ox 92 L 02/07/19 11:44 Intake & Output 02/06/19 02/07/19 02/07/19 18:59 06:59 18:59 Intake Total 490.5 Output Total 800 450 200 Balance -309.5 -450 -200 Weight 103.8 kg Intake: Intake, IV Titration 90.5 Amount Furosemide 100 mg In 90.5 Sodium Chloride 0.9% 90 ml @ 10 MG/HR 10 mls/hr IV .Q10H [facility] Rx#: [id number] Oral 400 Output: Urine 800 450 200 Other: Voiding Method Diaper Urinal Urinal Diaper Diaper - Exam PHYSICAL EXAMINATION: GENERAL: 78-year-old gentleman in no acute distress at the time of my examination HEENT: Head is atraumatic, normocephalic. Pupils equal, round. Sclera anicteric. Conjunctiva are clear. Mucous membranes of the mouth are moist. Neck is supple. There is elevated jugular venous pressure. No carotid bruit is heard. HEART EXAMINATION: Heart S1 and S2 irregularly irregular a systolic murmur is heard CHEST EXAMINATION: Lungs reveal diminished air entry bilaterally to the bases ABDOMEN: Soft, nontender. Bowel sounds are heard. No organomegaly noted. EXTREMITIES: 2+ peripheral pulses with 1+ evidence of peripheral edema, bilateral reddened areas suggesting erythema noted to lower extremities . NEUROLOGIC patient is awake, alert and oriented 3 . - Labs CBC & Chem 7: 02/05/19 08:05 02/07/19 06:13 Labs: Abnormal Lab Results - Last 24 Hours (Table) 02/06/19 02/06/19 02/07/19 Range/Units 16:36 20:01 06:11 PT (9.0-12.0) sec INR (<1.2) BUN (9-20) mg/dL Creatinine (0.66-1.25) mg/dL Glucose (74-99) mg/dL POC Glucose (mg/dL) 127 H 144 H 215 H (75-99) mg/dL 02/07/19 02/07/19 02/07/19 Range/Units 06:13 06:13 11:42 PT 18.9 H (9.0-12.0) sec INR 1.9 H (<1.2) BUN 42 H (9-20) mg/dL Creatinine 1.69 H (0.66-1.25) mg/dL Glucose 212 H (74-99) mg/dL POC Glucose (mg/dL) 109 H (75-99) mg/dL Assessment and Plan Plan: Assessment and plan #1 atrial fibrillation with rapid ventricular response, paroxysmal, on Coumadin for anticoagulation, INR 2.0. #2 systolic congestive heart failure acute on chronic, echocardiogram with Doppler study revealed an ejection fraction of less than 20% #3 prior CVA #4 diabetes #5 hyperlipidemia #6 hypertension #7 sleep apnea Plan We will continue current dose of IV Lasix. Start the patient on Eliquis 5 mg one tablet by mouth twice a day today , repeat chest x-ray in the morning. DNP note has been reviewed, I agree with a documented findings and plan of care. Patient was seen and examined.
--- NOTE | 2019-02-07 14:09 | XR ---
EXAMINATION TYPE: XR chest 2V DATE OF EXAM: 02/07/2019 COMPARISON: 02/05/2019 HISTORY: Heart failure TECHNIQUE: Frontal and lateral views of the chest are obtained. FINDINGS: Heart is enlarged. There is blunting of costophrenic angles. Thoracic aorta is atheromatou s. There are chest leads. There is some pulmonary vascular congestion. IMPRESSION: Mild congestive heart failure improved compared to last exam. Small pleural effusions.
[2019-02-07 16:50] LABS: Glucose,Whole Blood 178 mg/dL (75-99)
[2019-02-07] MEDS: DONEPEZIL 10 MG TAB PO SCH (20:10)
[2019-02-07] MEDS: ISOSORBIDE MONONITRATE ER 30 MG TAB.ER.24H PO SCH (20:10)
[2019-02-07] MEDS: LOPERAMIDE 2 MG CAP PO SCH (20:10)
[2019-02-07] MEDS: MONTELUKAST 10 MG TAB PO SCH (20:10)
[2019-02-07] MEDS: ATORVASTATIN 20 MG TAB PO SCH (20:10)
[2019-02-07] MEDS: MIRTAZAPINE 45 MG TABLET PO SCH (20:13)
[2019-02-07] MEDS: buPROPion 100 MG TAB PO SCH (20:13)
--- NOTE | 2019-02-07 20:13 | P.PN ---
Progress Note - Text Progress Note Date: 02/07/19 Chief Complaint: Short of breath Interval history: This is a 78-year-old patient of Dr. Mckinney. Chronic stable medical conditions include atrial fibrillation, diabetes, hard of hearing, hypertension, hyperlipidemia, osteoarthritis, CPAP uses for sleep apnea. Patient presents with one-day of increasing shortness of breath. Very slight cough. Increasing edema. Patient uses one to 2 pillows at night. No chest pain or pressure. No fever no chills. Admitting diagnoses CHF was made.'s started on Lasix. Patient does feel tired at baseline uses a walker. Admitted with CHF exacerbation. Was started on Lasix drip. Today-breathing getting better. Patient was switched to IV Lasix bolus 40 mg daily. Edema coming down. Feeling better. Review of systems: Was done for constitutional, cardiovascular, GI, pulmonary. relevant finding as above Active Medications Albuterol Sulfate (Ventolin Nebulized) 2.5 mg INHALATION RT-TID [facility] Last Admin: 02/07/19 16:03 Dose: 2.5 mg Documented by: Amantadine HCl (Symmetrel) 100 mg PO BID [facility] Last Admin: 02/07/19 08:09 Dose: 100 mg Documented by: Apixaban (Eliquis) 5 mg PO BID [facility] Last Admin: 02/07/19 12:07 Dose: 5 mg Documented by: Atorvastatin Calcium (Lipitor) 20 mg PO [facility] Last Admin: 02/06/19 20:18 Dose: 20 mg Documented by: Bupropion HCl (Wellbutrin) 100 mg PO [facility] Last Admin: 02/06/19 20:18 Dose: 100 mg Documented by: Donepezil HCl (Aricept) 10 mg PO [facility] Last Admin: 02/06/19 20:18 Dose: 10 mg Documented by: Doxazosin Mesylate (Cardura) 8 mg PO DAILY [facility] Last Admin: 02/07/19 08:09 Dose: 8 mg Documented by: Furosemide (Lasix) 40 mg IV DAILY [facility] Last Admin: 02/07/19 08:09 Dose: 40 mg Documented by: Glimepiride (Amaryl) 4 mg PO BID-W/MEALS [facility] Last Admin: 02/07/19 17:19 Dose: 4 mg Documented by: Hydralazine HCl (Apresoline) 25 mg PO BID [facility] Last Admin: 02/07/19 08:08 Dose: 25 mg Documented by: Isosorbide Mononitrate (Imdur) 30 mg PO [facility] Last Admin: 02/06/19 20:18 Dose: 30 mg Documented by: Loperamide HCl (Imodium) 2 mg PO Q2H PRN PRN Reason: Loose Stool Last Admin: 02/06/19 12:03 Dose: 2 mg Documented by: Loperamide HCl (Imodium) 4 mg PO [facility] Last Admin: 02/06/19 20:17 Dose: 4 mg Documented by: Metformin HCl (Glucophage) 1,000 mg PO BID-W/MEALS [facility] Last Admin: 02/07/19 17:18 Dose: 1,000 mg Documented by: Metoprolol Tartrate (Lopressor) 50 mg PO BID [facility] Last Admin: 02/07/19 08:08 Dose: 50 mg Documented by: Mirtazapine (Remeron) 45 mg PO [facility] Last Admin: 02/06/19 20:18 Dose: 45 mg Documented by: Montelukast Sodium (Singulair) 10 mg PO [facility] Last Admin: 02/06/19 20:18 Dose: 10 mg Documented by: Multivitamins (Theragran) 1 each PO DAILY [facility] Last Admin: 02/07/19 08:08 Dose: 1 each Documented by: Nitroglycerin (Nitrostat) 0.4 mg SUBLINGUAL Q5M PRN PRN Reason: Chest Pain Razadyne 4mg 1 each PO [facility] Sacubitril/Valsartan (Entresto 24 Mg-26 Mg Tablet) 1 each PO BID [facility] Sertraline HCl (Zoloft) 100 mg PO BID [facility] Last Admin: 02/07/19 08:08 Dose: 100 mg Documented by: Spironolactone (Aldactone) 25 mg PO DAILY [facility] Last Admin: 02/07/19 08:09 Dose: 25 mg Documented by: Physical examination: VITAL SIGNS: 97.8, 79, 16, 06/26/1982, 95% room air GENERAL: Propped up in bed, less short of breath EYES: [Pupils equal. Conjunctiva pale . HEENT: External appearance of nose and ears normal, oral cavity grossly normal, decreased hearing. NECK: JVD unable to assess; masses not palpable. HEART: Heart sounds irregular, significant edema. LUNGS: Respiratory rate increased,, bilateral basal crackles. ABDOMEN: Soft, nontender, liver spleen not palpable, no masses palpable. PSYCH: Alert and oriented x3; mood and affect normal. INVESTIGATIONS, reviewed in the clinical context: INR 1.9 bun 42 creatinine 1.69 Previous testing: Troponin I 0.04, 0.05, 0.06 TSH 9.1 free T4 1 0.36 to BNP 2049 2-D echo EF less than 20%, moderate mitral regurgitation EKG tracing personally reviewed by me shows atrial fibrillation rate uncontrolled Chest x-ray film personally reviewed by me-pulmonary edema, cardiomegaly Assessment: -Acute on chronic congestive heart failure from systolic dysfunction EF less than 20%, improving -Possible acute non-Q-wave SD with chest pain and positive troponin -Persistent atrial fibrillation now with heart rate uncontrolled -Coronary artery disease -Diabetes mellitus type 2 -Essential hypertension -Hyperlipidemia -Primary osteoarthritis -Obstructive sleep apnea uses CPAP -Mild cognitive impairment Plan: Patient been making good urine. Improvement from before. Seen by cardiology earlier today. On Lasix IV push. Follow closely. Improving
[2019-02-07 20:39] LABS: Glucose,Whole Blood 166 mg/dL (75-99)
[2019-02-07] MEDS ORDERED: RAZADYNE PO SCH (21:00)
[2019-02-08 06:00] LABS: Glucose,Whole Blood 214 mg/dL (75-99)
[2019-02-08] MEDS: metFORMIN 500 MG TAB PO SCH (06:17)
[2019-02-08] MEDS: GLIMEPIRIDE 4 MG TAB PO SCH (06:17)
[2019-02-08 06:40] LABS: INR 1.6 (<1.2); Prothrombin Time 15.7 sec (9.0-12.0)
[2019-02-08 07:07] LABS: Calcium 8.8 mg/dL (8.4-10.2); Potassium 4.3 mmol/L (3.5-5.1)
[2019-02-08] MEDS: ALBUTEROL NEBULIZED 2.5 MG/3 ML INHALATION SCH ×2 (08:40→13:06)
[2019-02-08] MEDS: MULTIVITAMINS, THERA 1 EACH TAB PO SCH (08:50)
[2019-02-08] MEDS: SERTRALINE 100 MG TAB PO SCH (08:50)
[2019-02-08] MEDS: hydrALAZINE HCL 25 MG TAB PO SCH (08:50)
[2019-02-08] MEDS: METOPROLOL TARTRATE 50 MG TAB PO SCH (08:50)
[2019-02-08] MEDS: SPIRONOLACTONE 25 MG TAB PO SCH (08:50)
[2019-02-08] MEDS: APIXABAN 5 MG TAB PO SCH (08:51)
[2019-02-08] MEDS: FUROSEMIDE 10 MG/ML 4 ML VIAL IV SCH (08:51)
[2019-02-08] MEDS: DOXAZOSIN 4 MG TAB PO SCH (08:51)
[2019-02-08] MEDS: AMANTADINE HCL 100 MG CAP PO SCH ×2 (08:52→08:57)
[2019-02-08] MEDS ORDERED: SACUBITRIL/VALSARTAN 24 MG-26 MG TABLET PO SCH (09:00)
[2019-02-08 10:08] VITALS: RESP 20
--- NOTE | 2019-02-08 10:46 | CDI ---
Documentation Clarification Form Date: 02/08/2019 10:24:22 AM From: Cynthia Galvan RN CCDS Admit Date: 02/05/2019 9:21:00 AM Patient Name: Nabil Carpenter Visit Number: [id number] Discharge Date: ATTENTION: The Clinical Documentation Specialists (CDI) and [facility] Coding Staff appreciate your assistance in clarifying documentation. Please respond to the clarification below the line at the bottom and electronically sign. The CDI & [facility] Coding staff will review the response and follow-up if needed. Please note: Queries are made part of the Legal Health Record. If you have any questions, please contact the author of this message via ITS. Dr. Khanh Chapa "Possible acute Non Q wave VT with chest pain and positive Troponin " is documented in your progress note Patient History/Risk Factors: 78 year old male presents to the ED with difficulty catching his breath. Medical Hx of Atrial fibrillation ; Heart Failure DM; HTN Clinical Indicators: Troponin: 0.043 ; 0.052 ; 0.063 EKG Results: atrial fibrillation with RVR response. Left anterior fascicular block . Septal infract, age undetermined. Treatment: Nitrostat Consult: Cardiology for Atrial Fib In order to capture the severity of condition and necessary documentation specificity, please clarify: Type of Infarction: VT Type 1 VT Type 2 VT Ruled Out Unable to determine Other Condition, please specify (Last Revision: March 2017) VT type 1 MTDD
[2019-02-08 11:31] VITALS: TEMP 98.3
[2019-02-08 12:18] LABS: Glucose,Whole Blood 137 mg/dL (75-99)
--- NOTE | 2019-02-08 13:18 | P.PN ---
Subjective Progress Note Date: 02/08/19 This is a pleasant 78-year-old gentleman who follows regularly with Dr. Morales in the office. He has a past medical history significant for paroxysmal atrial fibrillation for which he is anticoagulated with Coumadin, history of prior CVA, diabetes, hypertension, hyperlipidemia, sleep apnea, ost eoarthritis, he presented to the hospital on this occasion with symptoms of shortness of breath. Patient states when the symptoms started he felt as though he may , he was having extreme difficulty in catching his breath. His most recent hospitalization was in May of last year, prior to that he states it had been several years before he was admitted to the hospital with any difficulty and is breathing. Chest x-ray on presentation here showed fluid overload, likely cardiogenic with moderate interstitial pulmonary edema. EKG on presentation here showed atrial fibrillation with a rapid ventricular response. Echocardiogram with Doppler study was performed which revealed an ejection fraction of less than 20%, moderate mitral regurgitation was present, patient's most recent echocardiogram with Doppler study was performed in May 2018, at that time his LV function was documented to be 30-35%. Blood pressure 112/90, heart rate in the 140 range, 95% on 2 L of oxygen. Patient was initiated on IV Cardizem in the emergency room, he is now up on the cardiac unit continues to fe el short of breath but he states his breathing is already significantly improved from presentation here. Blood cell count 8.9, hemoglobin 12.5, platelet count 236. INR is 2.0, sodium 143, potassium 4.1, BUN 30 and creatinine 1.4. BNP level 2050, troponin 0.043, TSH level 9.1. 02/06/2019 Patient was seen and examined this morning, he states his breathing is improving significantly, heart rate under much better control staining in the 80s today, blood pressure 108/70 94% on 2 L of oxygen. I did have a lengthy discussion with the patient as well as his today regarding anticoagulation, they wish to start taking Eliquis, we did check into coverage for Eliquis it will cost the patient $40 a month and he is okay with that. We will also discontinue his Lanoxin. Patient had been initiated on IV Lasix drip yesterday, his weight is down 3 kg today, BUN 38 and creatinine 1.2. We will hold the Coumadin today and once the INR is 2 we will initiate Eliquis. We will discontinue the IV Lasix drip, give the patient one day of IV push Lasix and then changed to oral. 02/07/2019 Patient was seen and examined this morning, he didn't sleep well through the night last night and feels a little tired today. His breathing is stable, denies any chest discomfort dizziness or palpitations. He did cough up some sputum earlier today that was clear with slight blood tinge to it. His heart rate is controlled today, weight is down 2 kg creatinine is 1.6. INR 1.9. 02/08/2019 A shunt seen and examined this morning, sitting up in the chair at bedside. Blood pressure 107/70 with a heart rate in the 70s, creatinine remains stable. Good urine output through the night. Chest x-ray was reviewed and showed significant improvement. Objective - Vital Signs Vital signs: Vital Signs Temp 98.3 F 02/08/19 11:30 Pulse 72 02/08/19 13:08 Resp 20 02/08/19 11:30 BP 107/70 02/08/19 11:30 Pulse Ox 95 02/08/19 11:30 Intake & Output 02/07/19 02/08/19 02/08/19 18:59 06:59 18:59 Intake Total 240 Output Total 597 500 9529 Balance -739 -326 -707 Weight 103.9 kg Intake: Oral 240 Output: Urine 534 569 8034 Other: Voiding Method Urinal Urinal Diaper Diaper - Exam PHYSICAL EXAMINATION: GENERAL: 78-year-old gentleman in no acute distress at the time of my examination HEENT: Head is atraumatic, normocephalic. Pupils equal, round. Sclera anicteric. Conjunctiva are clear. Mucous membranes of the mouth are moist. Neck is supple. There is elevated jugular venous pressure. No carotid bruit is heard. HEART EXAMINATION: Heart S1 and S2 irregularly irregular a systolic murmur is heard CHEST EXAMINATION: Lungs clear to auscultation ABDOMEN: Soft, nontender. Bowel sounds are heard. No organomegaly noted. EXTREMITIES: 2+ peripheral pulses with trace evidence of peripheral edema, bilateral reddened areas suggesting erythema noted to lower extremities . NEUROLOGIC patient is awake, alert and oriented 3 . - Labs CBC & Chem 7: 02/05/19 08:05 02/08/19 05:54 Labs: Abnormal Lab Results - Last 24 Hours (Table) 02/07/19 02/07/19 02/08/19 Range/Units 16:49 20:38 05:54 PT 15.7 H (9.0-12.0) sec INR 1.6 H (<1.2) BUN (9-20) mg/dL Creatinine (0.66-1.25) mg/dL Glucose (74-99) mg/dL POC Glucose (mg/dL) 178 H 166 H (75-99) mg/dL 02/08/19 02/08/19 02/08/19 Range/Units 05:54 05:59 11:50 PT (9.0-12.0) sec INR (<1.2) BUN 39 H (9-20) mg/dL Creatinine 1.65 H (0.66-1.25) mg/dL Glucose 214 H (74-99) mg/dL POC Glucose (mg/dL) 214 H 137 H (75-99) mg/dL Assessment and Plan Plan: Assessment and plan #1 atrial fibrillation with rapid ventricular response, paroxysmal, on Coumadin for anticoagulation, INR 2.0. #2 systolic congestive heart failure acute on chronic, echocardiogram with Doppler study revealed an ejection fraction of less than 20% #3 prior CVA #4 diabetes #5 hyperlipidemia #6 hypertension #7 sleep apnea Plan Discontinue the IV Lasix today and start the patient on Lasix 40 mg one tablet by mouth twice a day. He may be able to be discharged home from our perspective to follow-up in the office post discharge. He will be discharged home on the current medications he is on here at this time. DNP note has been reviewed, I agree with a documented findings and plan of care. Patient was seen and examined.
[2019-02-08 15:48] VITALS: BP 139/70; PULSE 52
[2019-02-08] MEDS ORDERED: FUROSEMIDE 40 MG TAB PO SCH (16:00)
--- NOTE | 2019-02-12 09:35 | P.DS ---
Providers Date of admission: 02/05/19 09:21 Expected date of discharge: 02/08/19 Attending physician: Khanh Chapa Consults: 02/05/19 09:21 Consult Physician Urgent Consulting Provider: [facility] Consult Reason/Comments: A. fib with rapid ventricular response, pulmonary edema Do you want consulting provider notified?: Yes Primary care physician: Johnson Mckinney [facility] Course: Chief Complaint: Short of breath Hospital course: This is a 78-year-old patient of Dr. Mckinney. Chronic stable medical conditions include atrial fibrillation, diabetes, hard of hearing, hypertension, hyperlipidemia, osteoarthritis, CPAP uses for sleep apnea. Patient presents with one-day of increasing shortness of breath. Very slight cough. Increasing edema. Patient uses one to 2 pillows at night. No chest pain or pressure. No fever no chills. Admitting diagnoses CHF was made. started on Lasix. Patient does feel tired at baseline uses a walker. Admitted with CHF exacerbation. Was started on Lasix drip. Doing much better by the time of discharge. Breathing better. Consultation: Dr. VC Ortiz from cardiology. Physical examination: VITAL SIGNS: 98.3, 73, 20, 139/70, 92% room air GENERAL: Sitting up, breathing better EYES: Pupils equal. Conjunctiva pale . HEENT: External appearance of nose and ears normal, oral cavity grossly normal, decreased hearing. NECK: JVD unable to assess; masses not palpable. HEART: Heart sounds irregular, significant edema. LUNGS: Respiratory rate increased,, bilateral basal crackles. ABDOMEN: Soft, nontender, liver spleen not palpable, no masses palpable. PSYCH: Alert and oriented x3; mood and affect normal. INVESTIGATIONS, reviewed in the clinical context: INR 1.6 bun 39 creatinine 1.65 Previous testing: Troponin I 0.04, 0.05, 0.06 TSH 9.1 free T4 1 0.36 to BNP 2049 2-D echo EF less than 20%, moderate mitral regurgitation EKG tracing personally reviewed by me shows atrial fibrillation rate uncontrol led Chest x-ray film personally reviewed by me-pulmonary edema, cardiomegaly Assessment: -Acute on chronic congestive heart failure from systolic dysfunction EF less than 20% -Possible acute non-Q-wave NE-type I -Persistent atrial fibrillation now with heart rate uncontrolled -Coronary artery disease -Diabetes mellitus type 2, on oral hypoglycemics -Essential hypertension -Hyperlipidemia -Primary osteoarthritis -Obstructive sleep apnea uses CPAP -Mild cognitive impairment Disposition: Home Patient Condition at Discharge: Stable Plan - Discharge Summary Discharge Rx Participant: Yes New Discharge Prescriptions: New Donepezil [Aricept] 10 mg PO HS tab Apixaban [Eliquis] 5 mg PO BID #60 tab Sacubitril/Valsartan [Entresto 24 mg-26 mg Tablet] 1 each PO BID #60 tablet Metoprolol Tartrate [Lopressor] 50 mg PO BID #60 tab Melatonin 3 mg PO HS #1 tablet Nitroglycerin Sl Tabs [Nitrostat] 0.4 mg SUBLINGUAL Q5M PRN tab PRN Reason: Chest Pain Continue Glimepiride [Amaryl] 4 mg PO BID Simvastatin [Zocor] 40 mg PO HS Sertraline HCl [Zoloft] 100 mg PO BID [place]-3 Fatty Acids/Fish Oil [Fish Oil 1,000 mg Softgel] 1 cap PO DAILY buPROPion [Wellbutrin] 100 mg PO HS Isosorbide Mononitrate ER [Imdur] 30 mg PO HS Multivitamins, Thera [Multivitamin (formulary)] 1 tab PO DAILY hydrALAZINE HCL [Apresoline] 25 mg PO BID Loperamide HCl [Imodium A-D] 2 mg PO Q2H PRN PRN Reason: Loose Stool Montelukast [Singulair] 10 mg PO HS Mirtazapine [Remeron] 45 mg PO HS Doxazosin Mesylate 8 mg PO DAILY Albuterol Nebulized [Ventolin Nebulized] 2.5 mg INHALATION RT-TID Spironolactone [Aldactone] 25 mg PO DAILY #30 tab Cholecalciferol (Vitamin D3) [Vitamin D3] 2,000 unit PO DAILY metFORMIN HCL ER [Glucophage Xr] 1,000 mg PO BID Amantadine HCl [Amantadine] 100 mg PO BID Galantamine [Razadyne] 4 mg PO HS Changed Furosemide [Lasix] 40 mg PO BID #60 tab Discontinued Warfarin [Coumadin] 5 mg PO SUMOTUTHFR Warfarin [Coumadin] 7.5 mg PO WESA Lisinopril [Prinivil] 20 mg PO BID Digoxin 250 mcg PO MOWEFR Digoxin 125 mcg PO SUTUTHSA Metoprolol Tartrate [Lopressor] 25 mg PO BID #60 tab diphenhydrAMINE [Benadryl] 50 mg PO HS PRN PRN Reason: Insomnia Discharge Medication List Glimepiride [Amaryl] 4 mg PO BID 06/24/14 [History] Isosorbide Mononitrate ER [Imdur] 30 mg PO HS 06/24/14 [History] [place]-3 Fatty Acids/Fish Oil [Fish Oil 1,000 mg Softgel] 1 cap PO DAILY 06/24/14 [History] Sertraline HCl [Zoloft] 100 mg PO BID 06/24/14 [History] Simvastatin [Zocor] 40 mg PO HS 06/24/14 [History] buPROPion [Wellbutrin] 100 mg PO HS 06/24/14 [History] Multivitamins, Thera [Multivitamin (formulary)] 1 tab PO DAILY 07/20/15 [History] Albuterol Nebulized [Ventolin Nebulized] 2.5 mg INHALATION RT-TID 05/20/18 [H istory] Doxazosin Mesylate 8 mg PO DAILY 05/20/18 [History] Loperamide HCl [Imodium A-D] 2 mg PO Q2H PRN 05/20/18 [History] Mirtazapine [Remeron] 45 mg PO HS 05/20/18 [History] Montelukast [Singulair] 10 mg PO HS 05/20/18 [History] hydrALAZINE HCL [Apresoline] 25 mg PO BID 05/20/18 [History] Spironolactone [Aldactone] 25 mg PO DAILY #30 tab 05/22/18 [Rx] Amantadine HCl [Amantadine] 100 mg PO BID 02/05/19 [History] Cholecalciferol (Vitamin D3) [Vitamin D3] 2,000 unit PO DAILY 02/05/19 [History] metFORMIN HCL ER [Glucophage Xr] 1,000 mg PO BID 02/05/19 [History] Galantamine [Razadyne] 4 mg PO HS 02/06/19 [History] Apixaban [Eliquis] 5 mg PO BID #60 tab 02/08/19 [Rx] Donepezil [Aricept] 10 mg PO HS tab 02/08/19 [Rx] Furosemide [Lasix] 40 mg PO BID #60 tab 02/08/19 [Rx] Melatonin 3 mg PO HS #1 tablet 02/08/19 [Rx] Metoprolol Tartrate [Lopressor] 50 mg PO BID #60 tab 02/08/19 [Rx] Nitroglycerin Sl Tabs [Nitrostat] 0.4 mg SUBLINGUAL Q5M PRN tab 02/08/19 [Rx] Sacubitril/Valsartan [Entresto 24 mg-26 mg Tablet] 1 each PO BID #60 tablet 02/08/19 [Rx] Follow up Appointment(s)/Referral(s): Meghana Morales MD [STAFF PHYSICIAN] - 02/22/19 9:00 am (Friday with [facility] [employer]) Filipe Mckinney MD [Primary Care Provider] - 02/19/19 1:00 pm (Friday -previously scheduled appointment. Earlier appointment is not available) [facility], [NON-STAFF] - Patient Instructions/Handouts: Heart Failure (DC), A-fib (Atrial Fibrillation) (DC), Safe Use of Anticoagulants (DC) Activity/Diet/Wound Care/Special Instructions: bmp - 1 week Discharge Disposition: HOME WITH HOME HEALTH SERVICES
== END 2019-02-08 17:04 | disposition home health service (06) | DRG 280 ==
LOC: EC 07:35 → 3SCARD 09:21
PROVIDERS: ADMIT Hospitalist; ATTEND Hospitalist
DX: I48.0 Paroxysmal atrial fibrillation (principal); I21.4 Non-ST elevation (NSTEMI) myocardial infarction; I50.23 Acute on chronic systolic (congestive) heart failure; I11.0 Hypertensive heart disease with heart failure; E11.9 Type 2 diabetes mellitus without complications; I34.0 Nonrheumatic mitral (valve) insufficiency; E78.5 Hyperlipidemia, unspecified; F32.9 Major depressive disorder, single episode, unspecified; F41.9 Anxiety disorder, unspecified; G31.84 Mild cognitive impairment of uncertain or unknown etiology; G47.33 Obstructive sleep apnea (adult) (pediatric); H91.90 Unspecified hearing loss, unspecified ear; I25.10 Atherosclerotic heart disease of native coronary artery without angina pectoris; M19.91 Primary osteoarthritis, unspecified site; Z86.73 Personal history of transient ischemic attack (TIA), and cerebral infarction without residual deficits; Z79.01 Long term (current) use of anticoagulants; Z79.84 Long term (current) use of oral hypoglycemic drugs; Z79.899 Other long term (current) drug therapy; Z87.891 Personal history of nicotine dependence; Z90.49 Acquired absence of other specified parts of digestive tract; Z80.7 Family history of other malignant neoplasms of lymphoid, hematopoietic and related tissues
CPT/HCPCS: 36415; 71046; 80048; 80053; 80061; 83735; 83880; 84439; 84443; 84484; 85025; 85610; 85730; 93005; 93306; 94640; 94760; 96365; 96366; 96375; 96376; 99291

== ENCOUNTER → 2019-02-24 | Outpatient (CLI) | payer MEDICARE ==
[2019-02-25 05:21] LABS: African American GFR (CKD) 33.7 (60.0-200.0); Anion Gap 13.8 mmol/L (4.00-12.00); BUN/Creat Ratio 23.33 Ratio (12.00-20.00); Calcium 8.8 mg/dL (8.7-10.3); Carbon Dioxide 20.2 mmol/L (21.6-31.8); Potassium 4.4 mmol/L (3.5-5.5)
== END | disposition home or self-care (01) ==
LOC: LABWHC1 17:27
PROVIDERS: ATTEND Nurse Practitioner Adult Health
DX: I42.8 Other cardiomyopathies (principal); N18.9 Chronic kidney disease, unspecified
CPT/HCPCS: 36415; 80048

== ENCOUNTER → 2019-03-08 | Outpatient (CLI) | payer MEDICARE ==
[2019-03-08 20:09] LABS: African American GFR (CKD) 35.7 (60.0-200.0); Anion Gap 14.5 mmol/L (4.00-12.00); BUN/Creat Ratio 17.5 Ratio (12.00-20.00); Calcium 8.7 mg/dL (8.7-10.3); Carbon Dioxide 21.5 mmol/L (21.6-31.8); Potassium 4.2 mmol/L (3.5-5.5)
== END ==
LOC: LABWHC1 14:42
PROVIDERS: ATTEND Nurse Practitioner Adult Health
DX: N18.9 Chronic kidney disease, unspecified (principal)
CPT/HCPCS: 36415; 80048

== ENCOUNTER → 2019-06-07 | Outpatient (CLI) | payer MEDICARE ==
[2019-06-07 17:06] LABS: HCT 41.5 % (39.0-53.0); HGB 13.3 gm/dL (13.0-17.5); MCH 29.2 pg (25.0-35.0); MCV 91.4 fL (80.0-100.0); Mean Platelet Volume 7.6; Platelet Count 203 k/uL (150-450); RBC 4.54 m/uL (4.30-5.90); RDW 15.2 % (11.5-15.5); WBC 5.8 k/uL (3.8-10.6)
[2019-06-07 17:21] LABS: Potassium 4.3 mmol/L (3.5-5.1)
== END | disposition home or self-care (01) ==
LOC: LABPAT 15:10
PROVIDERS: ATTEND Internal Medicine Clinical Cardiac Electrophysiology
DX: Z01.812 Encounter for preprocedural laboratory examination (principal); I25.10 Atherosclerotic heart disease of native coronary artery without angina pectoris; I48.19 Other persistent atrial fibrillation
CPT/HCPCS: 80051; 82565; 82947; 84520; 85027

== ENCOUNTER 2019-06-15 14:48 | Day surgery (SDC) | payer MEDICARE ==
[2019-06-10 13:56] VITALS: BMI 32.7
[~2019-06-15 14:48] MED LIST: SODIUM CHLORIDE 0.9% 1,000 ML IV SCH; ceFAZolin 1,000 MG in SODIUM CHLORIDE 0.9% IRRIGATIO 250 ML IRRIGATION ONE
[2019-06-15 15:26] LABS: Glucose,Whole Blood 139 mg/dL (75-99)
[2019-06-15] MEDS ORDERED: MIDAZOLAM 2 MG/2 ML VIAL ONE (18:21)
[2019-06-15] MEDS ORDERED: PROPOFOL 10 MG/ML 20 ML VIAL IV ONE (18:21)
[2019-06-15] MEDS ORDERED: LIDOCAINE 1% INJ 10MG/ML (20 ML MDV) ONE (18:21)
[2019-06-15] MEDS ORDERED: IOPAMIDOL-370 50ML BTL INJ ONE (18:37)
[2019-06-15] MEDS ORDERED: LIDOCAINE 1% INJ 10MG/ML (20 ML MDV) SQ ONE ×3 (19:01→19:35)
[2019-06-15] MEDS ORDERED: ACETAMINOPHEN TAB 325 MG TAB PO PRN (20:12)
[2019-06-15] MEDS ORDERED: HYDROcodone/APAP 5-325MG 1 EACH TAB PO PRN (20:12)
[2019-06-15] MEDS ORDERED: ISOSORBIDE MONONITRATE ER 30 MG TAB.ER.24H PO SCH (21:00)
[2019-06-15] MEDS ORDERED: LOPERAMIDE 2 MG CAP PO SCH (21:00)
[2019-06-15] MEDS ORDERED: ATORVASTATIN 20 MG TAB PO SCH (21:00)
[2019-06-15] MEDS ORDERED: MONTELUKAST 10 MG TAB PO SCH (21:00)
[2019-06-15] MEDS ORDERED: MELATONIN 5 MG TABLET PO SCH (21:00)
[2019-06-15] MEDS ORDERED: MIRTAZAPINE 45 MG TABLET PO SCH (21:00)
[2019-06-15] MEDS ORDERED: ACETAMINOPHEN IV (For NPO) 1,000 MG in EMPTY BAG 1 BAG IVPB ONE (21:00)
[2019-06-15] MEDS: ALBUTEROL NEBULIZED 2.5 MG/3 ML INHALATION SCH (21:20)
[2019-06-15] MEDS: APIXABAN 5 MG TAB PO SCH (21:54)
[2019-06-15] MEDS: GLIMEPIRIDE 4 MG TAB PO SCH (21:55)
[2019-06-15] MEDS: buPROPion 100 MG TAB PO SCH (21:55)
[2019-06-15] MEDS: hydrALAZINE HCL 50 MG TAB PO SCH (21:56)
[2019-06-15] MEDS: METOPROLOL TARTRATE 50 MG TAB PO SCH (21:58)
[2019-06-15] MEDS: SACUBITRIL/VALSARTAN 24 MG-26 MG TABLET PO SCH (21:59)
[2019-06-15] MEDS: SERTRALINE 100 MG TAB PO SCH (21:59)
--- NOTE | 2019-06-16 05:49 | CE ---
CARDIAC ELECTROPHYSIOLOGY REPORT A 78-year-old male patient who nonischemic cardiomyopathy with progressive cardiomyopathy despite medical treatment and progressive heart failure symptoms, class 2 to 3 heart failure symptoms, QRS and severe LV dysfunction, EF reduced to 25%, chronic LV dysfunction, permanent atrial fibrillation, who was brought in for single- chamber ICD implantation. Patient was brought to the EP lab in a fasting state. Written informed consent was obtained prior to the procedure. The left shoulder area was prepped and draped as per protocol and 1% lidocaine was used for local anesthesia. A 4 cm incision was made parallel to the deltopectoral groove, about 1.5 cm medial to it. The incision was carried down to the level of the pectoralis muscle. A subfascial pocket was made. Hemostasis was assured. The left axillary vein was accessed at one point via an appropriately-sized introducer sheath. A single coil RV lead was positioned. This was a [employer] model #7122 Q, 58 cm in length and serial number [id number]. This was positioned and screwed in the RV septum. R-waves 9.1 mV, pacing impedance 640 ohms, pacing threshold 0.5 V at 0.5 milliseconds. Ten volt test was negative. The lead was secured to the underlying pectoralis fascia using 2 nonabsorbable sutures. Pocket was irrigated with antibiotic solution. Lead was connected to the generator ([employer] model [id number], serial #[id number]. Lead and generator were then placed in subfascial pocket. The wound was closed in 3 layers and dressed per protocol. RESULT: Successful single-chamber ICD implantation for primary prevention of sudden cardiac in this gentleman with progressive nonischemic cardiomyopathy despite medical treatment with progressive heart failure symptoms. PLAN: Plan is IV antibiotics and chest x-ray and device interrogation tomorrow. MMODL / IJN: [id number] /
--- NOTE | 2019-06-16 05:55 | LTR ---
June 15, 2019 Re: Nabil Carpenter Dear Daryl: I had the pleasure of seeing Nabil Carpenter in electrophysiology followup. Mr. Carpenter underwent single-chamber ICD implantation for primary prevention of sudden cardiac . He will continue to follow up with you and Dr. Morales as before and his medications remain unchanged. Thank you for entrusting us in the care of your patient. Warm regards. Sincerely, Bryon Madrid MD. LUIS E / MARI: [id number] /
[2019-06-16 06:49] LABS: Glucose,Whole Blood 96 mg/dL (75-99)
--- NOTE | 2019-06-16 07:00 | XR ---
EXAMINATION TYPE: XR chest 2V DATE OF EXAM: 06/16/2019 COMPARISON: 02/07/2019 INDICATION: Lead placement check TECHNIQUE: Frontal and lateral views of the chest are obtained. FINDINGS: The heart size is mildly prominent. The pulmonary vasculature is normal. Mild infiltrate may be at the right base. There is a single lead pacemaker over the left chest with the tip directed towards the left ventricul ar region. No pneumothorax is evident.. IMPRESSION: 1. No pneumothorax post pacemaker placement. 2. Mild developing right lower lobe infiltrate may be present.
[2019-06-16] MEDS: ALBUTEROL NEBULIZED 2.5 MG/3 ML INHALATION SCH (07:19)
--- NOTE | 2019-06-16 08:08 | P.DS ---
Providers Attending physician: Bryon Madrid Primary care physician: [facility] Course: Patient is resting comfortably in bed. He did get to the bathroom His ICD site is healed well there is no hematoma no swelling no bruising He has no chest discomfort dizziness lightheadedness he looks very comfortable On examination afebrile 90F pulse rate in the 60s blood pressure 120 707 5 mmHg normal respirations Breath sounds are clear no rhonchi no crackles Lungs sounds are clear no rhonchi no crackles Heart sounds S1 and S2 are normal no murmurs no gallops but rhythm is irregular Abdomen soft 70s warm ICD site is healing well no hematoma Impression Predominate nonischemic cardio myopathy Underlying CAD Progressive cardio myopathy despite medical treatment Class 2-3 CHF with chronic RV systolic dysfunction Permanent atrial fibrillation Plan Go home after completion of IV antibiotics and device interrogation follow-up in the device clinic No changes in medications Plan - Discharge Summary Discharge Rx Participant: Yes New Discharge Prescriptions: Continue Glimepiride [Amaryl] 4 mg PO BID Simvastatin [Zocor] 40 mg PO HS Sertraline HCl [Zoloft] 100 mg PO BID [place]-3 Fatty Acids/Fish Oil [Fish Oil 1,000 mg Softgel] 1 cap PO DAILY buPROPion [Wellbutrin] 100 mg PO BID Isosorbide Mononitrate ER [Imdur] 30 mg PO HS Multivitamins, Thera [Multivitamin (formulary)] 1 tab PO DAILY Loperamide HCl [Imodium A-D] 2 mg PO HS Montelukast [Singulair] 10 mg PO HS Mirtazapine [Remeron] 45 mg PO HS Doxazosin Mesylate 8 mg PO DAILY Albuterol Nebulized [Ventolin Nebulized] 2.5 mg INHALATION BID Cholecalciferol (Vitamin D3) [Vitamin D3] 5,000 unit PO DAILY metFORMIN HCL ER [Glucophage Xr] 1,000 mg PO BID Amantadine HCl [Amantadine] 100 mg PO QAM Galantamine [Razadyne] 8 mg PO HS Apixaban [Eliquis] 5 mg PO BID #60 tab Sacubitril/Valsartan [Entresto 24 mg-26 mg Tablet] 1 each PO BID #60 tablet Metoprolol Tartrate [Lopressor] 50 mg PO BID #60 tab Opti Fiber 1 tab PO QAM diphenhydrAMINE [Benadryl] 50 mg PO HS Furosemide [Lasix] 20 mg PO 1500 Furosemide [Lasix] 40 mg PO QAM hydrALAZINE HCL [Apresoline] 50 mg PO BID Melatonin 10 mg PO HS Discharge Medication List Glimepiride [Amaryl] 4 mg PO BID 06/24/14 [History] Isosorbide Mononitrate ER [Imdur] 30 mg PO HS 06/24/14 [History] [place]-3 Fatty Acids/Fish Oil [Fish Oil 1,000 mg Softgel] 1 cap PO DAILY 06/24/14 [History] Sertraline HCl [Zoloft] 100 mg PO BID 06/24/14 [History] Simvastatin [Zocor] 40 mg PO HS 06/24/14 [History] buPROPion [Wellbutrin] 100 mg PO BID 06/24/14 [History] Multivitamins, Thera [Multivitamin (formulary)] 1 tab PO DAILY 07/20/15 [History] Albuterol Nebulized [Ventolin Nebulized] 2.5 mg INHALATION BID 05/20/18 [History] Doxazosin Mesylate 8 mg PO DAILY 05/20/18 [History] Loperamide HCl [Imodium A-D] 2 mg PO HS 05/20/18 [History] Mirtazapine [Remeron] 45 mg PO HS 05/20/18 [History] Montelukast [Singulair] 10 mg PO HS 05/20/18 [History] Amantadine HCl [Amantadine] 100 mg PO QAM 02/05/19 [History] Cholecalciferol (Vitamin D3) [Vitamin D3] 5,000 unit PO DAILY 02/05/19 [History] metFORMIN HCL ER [Glucophage Xr] 1,000 mg PO BID 02/05/19 [History] Galantamine [Razadyne] 8 mg PO HS 02/06/19 [History] Apixaban [Eliquis] 5 mg PO BID #60 tab 02/08/19 [Rx] Metoprolol Tartrate [Lopressor] 50 mg PO BID #60 tab 02/08/19 [Rx] Sacubitril/Valsartan [Entresto 24 mg-26 mg Tablet] 1 each PO BID #60 tablet 02/08/19 [Rx] Furosemide [Lasix] 20 mg PO 1500 06/10/19 [History] Furosemide [Lasix] 40 mg PO QAM 06/10/19 [History] Melatonin 10 mg PO HS 06/10/19 [History] Opti Fiber 1 tab PO QAM 06/10/19 [History] diphenhydrAMINE [Benadryl] 50 mg PO HS 06/10/19 [History] hydrALAZINE HCL [Apresoline] 50 mg PO BID 06/10/19 [History] Follow up Appointment(s)/Referral(s): Meghana Morales MD [STAFF PHYSICIAN] - 1 Week (Device clinic follow-up within 1 week Follow-up Dr. Morales as previously scheduled) Activity/Diet/Wound Care/Special Instructions: PATIENT EDUCATION MATERIAL Instructions following a heart rhythm device implant. 1. Keep dressing DRY for 5 DAYS. You may cover the area with Saran or Cling Wrap, prior to a shower. 2. The dressing will be removed in the Device Clinic at [facility]. Absorbable sutures were used to close the wound. 3. Avoid raising the left arm above the shoulder level. 4 week restriction 4. Avoid arm movements, like backscratching, rubbing the head, or pulling on a cord. 4 weeks restriction 5. Gentle range of motion movements of the shoulder, closest to the incision should be performed to avoid a frozen shoulder. (Pendulum exercises of the shoulder) 6. The opposite arm may be used freely. 7. Avoid driving for 7 days. 8. Avoid activities such as golfing, swimming, weed whacking, lifting more than 10 pounds weight, bowling, gymnastics and weight training/lifting. (6 weeks restriction) 9. Activities such as wood chopping with an axe, pull-ups in the gymnasium, power lifting, arc-welding, being close to home induction cooktops will always be a problem. 10. Arm sling is only a reminder not to raise the arm above the head. You do not need to keep the arm completely immobilized. Your free to move the arm and use it and for normal activities. In case of any problems, please call [facility], Antoine Whyte, @ [phone], Attention: Device Clinic Device clinic follow-up in 5 days Follow-up with primary rectifying attendant in 2-3 months Discharge Disposition: HOME SELF-CARE
[2019-06-16] MEDS: buPROPion 100 MG TAB PO SCH (08:58)
[2019-06-16] MEDS: APIXABAN 5 MG TAB PO SCH (08:58)
[2019-06-16] MEDS: GLIMEPIRIDE 4 MG TAB PO SCH ×2 (08:58→16:56)
[2019-06-16] MEDS: SERTRALINE 100 MG TAB PO SCH (08:59)
[2019-06-16] MEDS: SACUBITRIL/VALSARTAN 24 MG-26 MG TABLET PO SCH (08:59)
[2019-06-16] MEDS: METOPROLOL TARTRATE 50 MG TAB PO SCH (08:59)
[2019-06-16] MEDS: hydrALAZINE HCL 50 MG TAB PO SCH (08:59)
[2019-06-16] MEDS ORDERED: DOXAZOSIN 4 MG TAB PO SCH (09:00)
[2019-06-16] MEDS ORDERED: AMANTADINE HCL 100 MG CAP PO SCH (09:00)
[2019-06-16 11:35] VITALS: BP 122/79; PULSE 87; RESP 18; TEMP 97.9
[2019-06-16 12:11] LABS: Glucose,Whole Blood 114 mg/dL (75-99)
[2019-06-16] MEDS ORDERED: FUROSEMIDE 40 MG TAB PO SCH (15:00)
[2019-06-16 16:55] LABS: Glucose,Whole Blood 169 mg/dL (75-99)
[2019-06-17] MEDS ORDERED: metFORMIN 500 MG TAB PO SCH (07:30)
== END 2019-06-16 18:50 | disposition home or self-care (01) ==
LOC: CATHEP 14:48 → 1SOBS 20:21 → CATHEP 06-16 18:50
PROVIDERS: ATTEND Internal Medicine Clinical Cardiac Electrophysiology
DX: I42.0 Dilated cardiomyopathy (principal); I25.10 Atherosclerotic heart disease of native coronary artery without angina pectoris; I11.0 Hypertensive heart disease with heart failure; I50.22 Chronic systolic (congestive) heart failure; I48.21 Permanent atrial fibrillation; E78.5 Hyperlipidemia, unspecified; E11.9 Type 2 diabetes mellitus without complications; Z87.891 Personal history of nicotine dependence; G47.33 Obstructive sleep apnea (adult) (pediatric); F41.9 Anxiety disorder, unspecified; F32.9 Major depressive disorder, single episode, unspecified; Z86.73 Personal history of transient ischemic attack (TIA), and cerebral infarction without residual deficits; Z87.19 Personal history of other diseases of the digestive system; Z79.01 Long term (current) use of anticoagulants; Z79.84 Long term (current) use of oral hypoglycemic drugs; Z79.899 Other long term (current) drug therapy
CPT/HCPCS: 94640 ×2; 33249; 71046; C1730; C1769; C1777; C1722; J2250; J0690 ×2; J2001; J2704; Q9967

== ENCOUNTER → 2019-12-03 | Outpatient (CLI) | payer MEDICARE ==
--- NOTE | 2019-12-03 14:28 | CT ---
EXAMINATION TYPE: CT brain wo con DATE OF EXAM: 12/03/2019 COMPARISON: MRI 06/21/1716 HISTORY: Abnormal gait. possible parkinsons disease CT DLP: 1317 mGycm Automated exposure control for dose reduction was used. FINDINGS: There is moderate to severe generalized degenerative change of the greater central component. Low-attenuation seen in the white matter is nonspecific but most typical remote microvascular ischemi a inconsistent with previous MRI. No acute hemorrhage or mass effect. Calvarium intact. Intracranial atherosclerotic changes are noted. Changes of chronic sinusitis are seen. Craniocervical junction maintained. Changes of partially empty sella turcica noted. IMPRESSION: DEGENERATIVE AND NONSPECIFIC WHITE MATTER CHANGES MOST TYPICAL REMOTE WHITE MATTER ISCHEMIA. SLIGHTLY GREATER COMPONENT TO THE VENTRICULAR DILATION CENTRALLY NOTED. A COMPONENT OF NORMAL PRESSURE HYDROC EPHALUS IN THE DIFFERENTIAL DIAGNOSIS. CORRELATE CLINICALLY.
== END | disposition home or self-care (01) ==
LOC: RADCTMAIN 13:58
PROVIDERS: ATTEND Psychiatry & Neurology Neurology
DX: G91.2 (Idiopathic) normal pressure hydrocephalus (principal); R26.9 Unspecified abnormalities of gait and mobility; I51.7 Cardiomegaly; R90.82 White matter disease, unspecified
CPT/HCPCS: 70450

== ENCOUNTER 2019-12-16 19:28 | Inpatient (IN) | payer MEDICARE ==
[2019-12-16] MEDS ORDERED: SODIUM CHLORIDE 0.9% 500 ML 500 ML IV STA (19:50)
--- NOTE | 2019-12-16 19:58 | ED ---
Weakness HPI - General Chief complaint: Weakness Stated complaint: Weakness,hallucinations Time Seen by Provider: 12/16/19 19:39 Source: patient, family Mode of arrival: wheelchair - History of Present Illness Initial comments: 79-year-old male patient with past medical history significant for A. fib, heart failure with defibrillator placement, CVA, diabetes, hyperlipidemia, hyp ertension presents to the emergency department today for evaluation of generalized weakness, unsteady gait, and hallucinations. Patient also is reporting frequent falls especially over the last couple of days. and patient state that his symptoms have been gradually worsening over the course of the last 5 years. States he has been seeing a neurologist and they are unable to figure out what is going on with him. They state they're coming in today due to an increase in the frequency of hallucinations. Examples are this morning he felt there were 100s of ants beneath his bed and wanted to spray them with bug spray, states nothing was there. On the drive over here that patient saw a man in the street that they ran over and then also children in the street which also states were not present. Patient states that his legs are very weak and he is having a lot of difficulty with ambulation. Patient denies headaches, blurred vision, or double vision. Denies chest pain, shortness of breath, abdominal pain, nausea, or vomiting. Denies any constipation or diarrhea. Denies any new medications. Patient does have some scrapes from his falls but denies any head injury. Denies any neck, back, or extremity pain. Denies any hip or pelvic pain. Patient denies any recent rash, fever, chills, cough, shortness of breath, chest pain, hematuria, dysuria, urinary urgency, or urinary frequency. - Related Data Home Medications Medication Instructions Recorded Confirmed Glimepiride [Amaryl] 4 mg PO BID 06/24/14 12/16/19 [place]-3 Fatty Acids/Fish Oil [Fish 1 cap PO DAILY 06/24/14 12/16/19 Oil 1,000 mg Softgel] Sertraline HCl [Zoloft] 100 mg PO BID 06/24/14 12/16/19 Simvastatin [Zocor] 40 mg PO HS 06/24/14 12/16/19 buPROPion [Wellbutrin] 100 mg PO BID@0900,1500 06/24/14 12/16/19 Multivitamins, Thera [Multivitamin 1 tab PO DAILY 07/20/15 12/16/19 (formulary)] Albuterol Nebulized [Ventolin 2.5 mg INHALATION RT-BID 05/20/18 12/16/19 Nebulized] Doxazosin Mesylate 8 mg PO DAILY 05/20/18 12/16/19 Loperamide HCl [Imodium A-D] 4 mg PO HS 05/20/18 12/16/19 Mirtazapine [Remeron] 45 mg PO HS 05/20/18 12/16/19 Montelukast [Singulair] 10 mg PO HS 05/20/18 12/16/19 Amantadine HCl [Amantadine] 200 mg PO DAILY@1500 02/05/19 12/16/19 Cholecalciferol (Vitamin D3) 2,000 unit PO DAILY 02/05/19 12/16/19 [Vitamin D3] Galantamine [Razadyne] 8 mg PO HS 02/06/19 12/16/19 Furosemide [Lasix] 40 mg PO DAILY 06/10/19 12/16/19 Melatonin 10 mg PO HS PRN 06/10/19 12/16/19 Opti Fiber 1 tab PO DAILY 06/10/19 12/16/19 Apixaban [Eliquis] 2.5 mg PO BID 12/16/19 12/16/19 Metoprolol Tartrate [Lopressor] 75 mg PO TID 12/16/19 12/16/19 Sacubitril/Valsartan [Entresto 24 1 tab PO BID 12/16/19 12/16/19 mg-26 mg Tablet] metFORMIN HCL [metFORMIN HCL ER 1,000 mg PO BID 12/16/19 12/16/19 Osmotic] Allergies Allergy/AdvReac Type Severity Reaction Status Date / Time No Known Allergies Allergy Verified 12/16/19 22:12 Review of Systems ROS Statement: Those systems with pertinent positive or pertinent negative responses have been documented in the HPI. ROS Other: All systems not noted in ROS Statement are negative. Past Medical History Past Medical History: Atrial Fibrillation, Heart Failure, CVA/TIA, Diabetes Mellitus, Hearing Disorder / Deafness, Hyperlipidemia, Hypertension, Osteoarthritis (OA), Sleep Apnea/CPAP/BIPAP Additional Past Medical History / Comment(s): see Dr Krishen H&P, ?CVA IN THE PAST (NO WEAKNESS OR PARALYSIS) , has unsteady gait but no assistive divice used, HX OF bleeding ULCER, dizziness-cause unknown, STATES HX OF A "HOLE IN HIS STOMACH ", diarrhea, "problem with liver-not sure what", Single chamber AICD 06/15/19 History of Any Multi-Drug Resistant Organisms: None Reported Past Surgical History: Appendectomy, Hernia Repair, Tonsillectomy Additional Past Surgical History / Comment(s): JAYY INGUINAL HERNIA REPAIR X2 Past Anesthesia/Blood Transfusion Reactions: No Reported Reaction Past Psychological History: Anxiety, Depression Smoking Status: Never smoker Past Alcohol Use History: Rare Past Drug Use History: None Reported - Past Family History Father Family Medical History: Cancer Additional Family Medical History / Comment(s): HODGKIN'S General Exam General appearance: alert, in no apparent distress, other (This is a well- developed, well-nourished elderly male patient in no acute distress. Vital signs upon presentation are temperature 98.3F, pulse 120, respirations 17, blood pressure 111/82, pulse ox 99% on room air.) Eye exam: Present: normal appearance, PERRL, EOMI. Absent: scleral icterus, conjunctival injection, periorbital swelling ENT exam: Present: normal exam, normal oropharynx, mucous membranes moist Respiratory exam: Present: normal lung sounds bilaterally. Absent: respiratory distress, wheezes, rales, rhonchi, stridor Cardiovascular Exam: Present: normal rhythm, tachycardia, normal heart sounds. Absent: systolic murmur, diastolic murmur, rubs, gallop, clicks GI/Abdominal exam: Present: soft, normal bowel sounds. Absent: distended, tenderness, guarding, rebound, rigid Neurological exam: Present: alert, oriented X3, CN II-XII intact, abnormal gait (weak gait) Expanded Speech: Present: fluid speech Cranial nerves: EOM's Intact: Normal, Tongue Deviation: Normal, Nystagmus: Normal Motor strength exam: RUE: 5, LUE: 5, RLE: 5, LLE: 5 Psychiatric exam: Present: normal affect, normal mood Skin exam: Present: warm, dry, intact, normal color. Absent: rash Course Vital Signs 12/16/19 12/16/19 19:31 20:00 Temperature 98.3 F Pulse Rate 120 H 110 H Respiratory 17 18 Rate Blood Pressure 111/82 132/96 O2 Sat by Pulse 99 96 Oximetry EKG Findings - EKG Comments: EKG Findings:: EKG obtained in 195 shows atrial fibrillation with a ventricular rate of 96, QRS duration 122, QT 358, QTC 452. No evidence of ST elevation or d epression. Medical Decision Making - Medical Decision Making 79-year-old male patient presents to the emergency department today for evaluation of weakness, hallucinations, and disturbed gait. states symptoms haven't present for the last several years, evaluated by neurology with no significant findings to account for his symptoms. She states hallucinations weakness of increased over the last few days. States that he has had multiple f alls. Physical examination did reveal good strength to the upper and lower extremities. Had no neurologic deficits. He is answering questions appropriately. Labs reviewed and did reveal increased BUN and creatinine mildly increased from baseline. No sign of urinary tract infection. Patient did have a CT of the brain at the beginning of November which showed some white matter changes. Given increase in symptoms we will admit patient to the hospital for evaluation by psychiatry and neurology. I did discuss findings, results, and plan with the patient and his , they are agreeable. - Lab Data Result diagrams: 12/16/19 19:58 12/16/19 19:58 Lab Results 12/16/19 12/16/19 12/16/19 Range/Units 19:58 19:58 19:58 WBC 5.9 (3.8-10.6) k/uL RBC 3.96 L (4.30-5.90) m/uL Hgb 12.4 L (13.0-17.5) gm/dL Hct 37.2 L (39.0-53.0) % MCV 94.1 (80.0-100.0) fL MCH 31.3 (25.0-35.0) pg MCHC 33.2 (31.0-37.0) g/dL RDW 14.1 (11.5-15.5) % Plt Count 180 (150-450) k/uL Neutrophils % 78 % Lymphocytes % 10 % Monocytes % 7 % Eosinophils % 3 % Basophils % 1 % Neutrophils # 4.7 (1.3-7.7) k/uL Lymphocytes # 0.6 L (1.0-4.8) k/uL Monocytes # 0.4 (0-1.0) k/uL Eosinophils # 0.2 (0-0.7) k/uL Basophils # 0.0 (0-0.2) k/uL PT 12.7 H (9.0-12.0) sec INR 1.3 H (<1.2) APTT 26.8 (22.0-30.0) sec Sodium 142 (137-145) mmol/L Potassium 4.2 (3.5-5.1) mmol/L Chloride 107 (98-107) mmol/L Carbon Dioxide 22 (22-30) mmol/L Anion Gap 13 mmol/L BUN 49 H (9-20) mg/dL Creatinine 3.03 H (0.66-1.25) mg/dL Est GFR (CKD-EPI)AfAm 21 (>60 ml/min/1.73 sqM) Est GFR (CKD-EPI)NonAf 19 (>60 ml/min/1.73 sqM) Glucose 169 H (74-99) mg/dL Lactic Ac Sepsis Rflx Plasma Lactic Acid Quique (0.7-2.0) mmol/L Calcium 9.4 (8.4-10.2) mg/dL Magnesium 1.9 (1.6-2.3) mg/dL Total Bilirubin 0.7 (0.2-1.3) mg/dL AST 41 (17-59) U/L ALT 22 (4-49) U/L Alkaline Phosphatase 80 (38-126) U/L Troponin I (0.000-0.034) ng/mL Total Protein 6.6 (6.3-8.2) g/dL Albumin 4.6 (3.5-5.0) g/dL TSH 4.200 (0.465-4.680) mIU/L Urine Color Urine Appearance (Clear) Urine pH (5.0-8.0) Ur Specific [place] (1.001-1.035) Urine Protein (Negative) Urine Glucose (UA) (Negative) Urine Ketones (Negative) Urine Blood (Negative) Urine Nitrite (Negative) Urine Bilirubin (Negative) Urine Urobilinogen (<2.0) mg/dL Ur Leukocyte Esterase (Negative) Urine RBC (0-5) /hpf Urine WBC (0-5) /hpf Ur Squamous Epith Cells (0-4) /hpf Hyaline Casts (0-2) /lpf Urine Mucus (None) /hpf 12/16/19 12/16/19 12/16/19 Range/Units 19:58 19:58 20:36 WBC (3.8-10.6) k/uL RBC (4.30-5.90) m/uL Hgb (13.0-17.5) gm/dL Hct (39.0-53.0) % MCV (80.0-100.0) fL MCH (25.0-35.0) pg MCHC (31.0-37.0) g/dL RDW (11.5-15.5) % Plt Count (150-450) k/uL Neutrophils % % Lymphocytes % % Monocytes % % Eosinophils % % Basophils % % Neutrophils # (1.3-7.7) k/uL Lymphocytes # (1.0-4.8) k/uL Monocytes # (0-1.0) k/uL Eosinophils # (0-0.7) k/uL Basophils # (0-0.2) k/uL PT (9.0-12.0) sec INR (<1.2) APTT (22.0-30.0) sec Sodium (137-145) mmol/L Potassium (3.5-5.1) mmol/L Chloride (98-107) mmol/L Carbon Dioxide (22-30) mmol/L Anion Gap mmol/L BUN (9-20) mg/dL Creatinine (0.66-1.25) mg/dL Est GFR (CKD-EPI)AfAm (>60 ml/min/1.73 sqM) Est GFR (CKD-EPI)NonAf (>60 ml/min/1.73 sqM) Glucose (74-99) mg/dL Lactic Ac Sepsis Rflx Y Plasma Lactic Acid Quique 2.2 H* (0.7-2.0) mmol/L Calcium (8.4-10.2) mg/dL Magnesium (1.6-2.3) mg/dL Total Bilirubin (0.2-1.3) mg/dL AST (17-59) U/L ALT (4-49) U/L Alkaline Phosphatase (38-126) U/L Troponin I 0.025 (0.000-0.034) ng/mL Total Protein (6.3-8.2) g/dL Albumin (3.5-5.0) g/dL TSH (0.465-4.680) mIU/L Urine Color Urine Appearance (Clear) Urine pH (5.0-8.0) Ur Specific [place] (1.001-1.035) Urine Protein (Negative) Urine Glucose (UA) (Negative) Urine Ketones (Negative) Urine Blood (Negative) Urine Nitrite (Negative) Urine Bilirubin (Negative) Urine Urobilinogen (<2.0) mg/dL Ur Leukocyte Esterase (Negative) Urine RBC (0-5) /hpf Urine WBC (0-5) /hpf Ur Squamous Epith Cells (0-4) /hpf Hyaline Casts (0-2) /lpf Urine Mucus (None) /hpf 12/16/19 Range/Units 21:25 WBC (3.8-10.6) k/uL RBC (4.30-5.90) m/uL Hgb (13.0-17.5) gm/dL Hct (39.0-53.0) % MCV (80.0-100.0) fL MCH (25.0-35.0) pg MCHC (31.0-37.0) g/dL RDW (11.5-15.5) % Plt Count (150-450) k/uL Neutrophils % % Lymphocytes % % Monocytes % % Eosinophils % % Basophils % % Neutrophils # (1.3-7.7) k/uL Lymphocytes # (1.0-4.8) k/uL Monocytes # (0-1.0) k/uL Eosinophils # (0-0.7) k/uL Basophils # (0-0.2) k/uL PT (9.0-12.0) sec INR (<1.2) APTT (22.0-30.0) sec Sodium (137-145) mmol/L Potassium (3.5-5.1) mmol/L Chloride (98-107) mmol/L Carbon Dioxide (22-30) mmol/L Anion Gap mmol/L BUN (9-20) mg/dL Creatinine (0.66-1.25) mg/dL Est GFR (CKD-EPI)AfAm (>60 ml/min/1.73 sqM) Est GFR (CKD-EPI)NonAf (>60 ml/min/1.73 sqM) Glucose (74-99) mg/dL Lactic Ac Sepsis Rflx Plasma Lactic Acid Quique (0.7-2.0) mmol/L Calcium (8.4-10.2) mg/dL Magnesium (1.6-2.3) mg/dL Total Bilirubin (0.2-1.3) mg/dL AST (17-59) U/L ALT (4-49) U/L Alkaline Phosphatase (38-126) U/L Troponin I (0.000-0.034) ng/mL Total Protein (6.3-8.2) g/dL Albumin (3.5-5.0) g/dL TSH (0.465-4.680) mIU/L Urine Color Yellow Urine Appearance Clear (Clear) Urine pH 5.0 (5.0-8.0) Ur Specific [place] 1.014 (1.001-1.035) Urine Protein Negative (Negative) Urine Glucose (UA) Negative (Negative) Urine Ketones Negative (Negative) Urine Blood Negative (Negative) Urine Nitrite Negative (Negative) Urine Bilirubin Negative (Negative) Urine Urobilinogen <2.0 (<2.0) mg/dL Ur Leukocyte Esterase Moderate H (Negative) Urine RBC 1 (0-5) /hpf Urine WBC 5 (0-5) /hpf Ur Squamous Epith Cells <1 (0-4) /hpf Hyaline Casts 12 H (0-2) /lpf Urine Mucus Rare H (None) /hpf - Radiology Data Radiology results: report reviewed, image reviewed Two-view x-ray of the chest is obtained. Report was reviewed in its entirety. Impression by Dr. Lynne shows no acute cardiopulmonary process. Disposition Clinical Impression: Hallucinations, Falls, Leg weakness Disposition: ADMITTED IP TO THIS [facility] Condition: Serious Decision to Admit Reason: Admit from EC Decision Date: 12/16/19 Decision Time: 22:01
[2019-12-16 20:09] LABS: Basophils % (A) 1 %; Eosinophils # (A) 0.2 k/uL (0-0.7); Eosinophils % (A) 3 %; HCT 37.2 % (39.0-53.0); HGB 12.4 gm/dL (13.0-17.5); Lymphocytes # (A) 0.6 k/uL (1.0-4.8); Lymphocytes % (A) 10 %; MCH 31.3 pg (25.0-35.0); MCHC 33.2 g/dL (31.0-37.0); MCV 94.1 fL (80.0-100.0); Mean Platelet Volume 8.7; Monocytes # (A) 0.4 k/uL (0-1.0); Monocytes % (A) 7 %; Neutrophils # (A) 4.7 k/uL (1.3-7.7); Neutrophils % (A) 78 %; Platelet Count 180 k/uL (150-450); RBC 3.96 m/uL (4.30-5.90); RDW 14.1 % (11.5-15.5); WBC 5.9 k/uL (3.8-10.6)
[2019-12-16 20:20] LABS: Albumin 4.6 g/dL (3.5-5.0); Calcium 9.4 mg/dL (8.4-10.2); Magnesium 1.9 mg/dL (1.6-2.3); Potassium 4.2 mmol/L (3.5-5.1); Total Bilirubin 0.7 mg/dL (0.2-1.3); Total Protein 6.6 g/dL (6.3-8.2)
[2019-12-16 20:23] LABS: INR 1.3 (<1.2); Partial Thromboplastin Time 26.8 sec (22.0-30.0); Prothrombin Time 12.7 sec (9.0-12.0)
--- NOTE | 2019-12-16 21:01 | XR ---
EXAMINATION TYPE: XR chest 2V DATE OF EXAM: 12/16/2019 COMPARISON: 2 view chest x-ray 06/16/2019 HISTORY: Weakness TECHNIQUE: Frontal and lateral views of the chest are obtained. FINDINGS: Similar to prior exam. No pneumothorax or pleural effusion. Heart is enlarged and stable. Generators present in the left pectoral region, there are is a lead in the right ventricle. No eviden t airspace disease. No focal pneumonia. IMPRESSION: No acute cardiopulmonary process.
[2019-12-16 21:39] LABS: Appearance,Urine Clear (Clear); Bilirubin,Urine Negative (Negative); Blood,Urine Negative (Negative); Color,Urine Yellow; Glucose,Urine (UA) Negative (Negative); Hyaline Casts,Urine 12 /lpf (0-2); Ketones,Urine Negative (Negative); Leukocyte Esterase,Urine Moderate (Negative); Mucus,Urine Rare /hpf; Nitrite,Urine Negative (Negative); Protein,Urine Negative (Negative); RBC,Urine 1 /hpf (0-5); Specific Gravity,Urine 1.014 (1.001-1.035); Squamous Epithelial Cell,Urine <1 /hpf (0-4); Urobilinogen,Urine <2.0 mg/dL (<2.0); WBC,Urine 5 /hpf (0-5)
[2019-12-16] MEDS ORDERED: NALOXONE 0.4 MG/ML 1 ML VIAL IV PRN (21:58)
[2019-12-16] MEDS: SODIUM CHLORIDE 0.9% 1,000 ML IV SCH (22:32)
--- NOTE | 2019-12-17 11:14 | P.CNNES ---
History of Present Illness Consult date: 12/17/19 Requesting physician: Sera Rider Reason for Consult: weakness and frequent falls History of Present Illness: This is an 79-year-old gentleman with a medical history of atrial fibrillation, heart failure on defibrillator, diabetes, hyperlipidemia, hypertension who presented emergency department on 12/16/2019 for generalized weakness, and unsteady gait and hallucination. He is reporting frequent falls the last couple days. Per the . She states that the patient's symptoms are gradually worsening over the course of last 5 years. He has been followed up with a neurologist as an outpatient but unable to carry out what's going on with him. So they are coming into the emergency department because of the hallucination. Example of visual hallucination is at the he was seeing 100 ants beneath his bed and wants spray them with the look spray and in reality there is no and stair. While in the car with , he felt he ran over someone and there were children in the street which the denies. Spoke with the over the phone and she states that the patient problem started about 5 years ago. She states that started with his gait she feels like shuffling gait. He also has been having Visual hallucination he had multiple episodes in the last 3 months. The first episode was about 2-3 month ago where he stated that chipmunk was in the house and the did not see anything. And then he had a few other episodes but the does not recall. And the last events of visual hallucination was yesterday stated earlier in the previous paragraph. The patient does not have any resting tremor. Patient does have tremor onto grabbing things. Regarding his memory the states that she does not feel his that he has a drastic memory loss. He is a good with numbers and he wasn't at a verbal person throughout his life. He still remembers long-term events remembers his the names of his kids grandchildren. During his ADLs: He is the one that taking care of the bills and for the most part the states that he does a good job with that. He feeds himself uses the restroom on his own without any assistance. He did he does have minimal urinary incontinence but very minimal ants usually at nighttime. It's been going on the last couple years. He uses a walker at home and he does have episodes of falls as follows 2 days ago and that he was going up the stairs and his felt like he fell backwards she's not sure if he hit his head or not she believes she did. Again the patient is on Eliquis. Mother had history of vascular dementia in her 80s. He as I stated he did see a neurologist and had workup by about 5 years ago, for the patient as well as he did have a lumbar puncture to take some of the CS fluid out of for consideration of normal pressure hydrocephalus but there is no improvement. He was told that he does not have Parkinson's. Patient is seeing and new neurologist at [facility] and next Friday he has an appointment. Patient is on melatonin but not sure of the dose. He uses CPAP machine for sleep apnea and that he's been using for 25 years sleep fluctuates. Patient denies headache, blurry vision, double vision, being on new medication. In the hospital the patient had EKG which is reported as left anterior fascicular block, septal infarct age undetermined. The ventricular rate was 96. Chest x-ray was done and was no acute cardiopulmonary process reported. Patient had a CT of the head last in our system on 12/03/2019 and shows degenera tive and nonspecific white matter changes most typical remote white matter ischemia slightly greater component to the ventricular dilation centrally noted. Component of normal pressure hydrocephalus is a differential diagnosis coronary clinically. I I personally reviewed the image and I do see atrophy but I agree that there is bilateral lateral ventricle third ventricle and fourth ventricle dilation that is a greater proportion to his atrophy. He had a prior MRI of the brain and the last was done on 06/07/2017 our system and the report as there is moderate diffuse cervical atrophy and mild to moderate chronic small vessel ischemic change. Normal pressure hydrocephalus is not excluded. No significant change from prior (as 06/28/2016). He had a vitamin B12 which was 708 (normal and the (on 05/09/2017). Last hemoglobin A1c was 9.8 on 05/20/2018. Per medical records Patient is on melatonin 10 mg as needed., He is on galantamine 8 mg daily amantadine 200 mg at 1500. Zoloft 100 mg twice a day. as well Eliques than 2.5 mg twice a day Review of Systems Review of system: The 12 point system was reviewed and apparent positive and negative per HPI. Past Medical History Past Medical History: Atrial Fibrillation, Heart Failure, CVA/TIA, Diabetes Mellitus, Hearing Disorder / Deafness, Hyperlipidemia, Hypertension, Osteoarthritis (OA), Sleep Apnea/CPAP/BIPAP Additional Past Medical History / Comment(s): see Dr Madrid H&P, ?CVA IN THE PAST (NO WEAKNESS OR PARALYSIS) , has unsteady gait but no assistive divice used, HX OF bleeding ULCER, dizziness-cause unknown, STATES HX OF A "HOLE IN HIS STOMACH ", diarrhea, "problem with liver-not sure what", Single chamber AICD 06/15/19 History of Any Multi-Drug Resistant Organisms: None Reported Past Surgical History: Appendectomy, Hernia Repair, Tonsillectomy Additional Past Surgical History / Comment(s): JAYY INGUINAL HERNIA REPAIR X2 Past Anesthesia/Blood Transfusion Reactions: No Reported Reaction Past Psychological History: Anxiety, Depression Additional Psychological History / Comment(s): MEMORY LOSS Smoking Status: Former smoker Past Alcohol Use History: Rare Additional Past Alcohol Use History / Comment(s): SMOKED FOR 14 YEARS OVER 1PPD. QUIT SMOKING 1972 Past Drug Use History: None Reported - Past Family History Father Family Medical History: Cancer Additional Family Medical History / Comment(s): HODGKIN'S Medications and Allergies Home Medications Medication Instructions Recorded Confirmed Type Glimepiride [Amaryl] 4 mg PO BID 06/24/14 12/16/19 History [place]-3 Fatty Acids/Fish Oil [Fish 1 cap PO DAILY 06/24/14 12/16/19 History Oil 1,000 mg Softgel] Sertraline HCl [Zoloft] 100 mg PO BID 06/24/14 12/16/19 History Simvastatin [Zocor] 40 mg PO HS 06/24/14 12/16/19 History buPROPion [Wellbutrin] 100 mg PO BID@0900,1500 06/24/14 12/16/19 History Multivitamins, Thera [Multivitamin 1 tab PO DAILY 07/20/15 12/16/19 History (formulary)] Albuterol Nebulized [Ventolin 2.5 mg INHALATION RT-BID 05/20/18 12/16/19 History Nebulized] Doxazosin Mesylate 8 mg PO DAILY 05/20/18 12/16/19 History Loperamide HCl [Imodium A-D] 4 mg PO HS 05/20/18 12/16/19 History Mirtazapine [Remeron] 45 mg PO HS 05/20/18 12/16/19 History Montelukast [Singulair] 10 mg PO HS 05/20/18 12/16/19 History Amantadine HCl [Amantadine] 200 mg PO DAILY@1500 02/05/19 12/16/19 History Cholecalciferol (Vitamin D3) 2,000 unit PO DAILY 02/05/19 12/16/19 History [Vitamin D3] Galantamine [Razadyne] 8 mg PO HS 02/06/19 12/16/19 History Furosemide [Lasix] 40 mg PO DAILY 06/10/19 12/16/19 History Melatonin 10 mg PO HS PRN 06/10/19 12/16/19 History Opti Fiber 1 tab PO DAILY 06/10/19 12/16/19 History Apixaban [Eliquis] 2.5 mg PO BID 12/16/19 12/16/19 History Metoprolol Tartrate [Lopressor] 75 mg PO TID 12/16/19 12/16/19 History Sacubitril/Valsartan [Entresto 24 1 tab PO BID 12/16/19 12/16/19 History mg-26 mg Tablet] metFORMIN HCL [metFORMIN HCL ER 1,000 mg PO BID 12/16/19 12/16/19 History Osmotic] Allergies Allergy/AdvReac Type Severity Reaction Status Date / Time No Known Allergies Allergy Verified 12/16/19 22:12 Physical Examination - Vital Signs Vital Signs: Vital Signs Temp Pulse Pulse Resp BP BP Pulse Ox 12/17/19 08:21 97.6 F 92 20 139/73 95 12/17/19 00:03 98.3 F 90 16 135/91 98 12/16/19 23:15 90 16 12/16/19 22:30 93 18 127/85 95 12/16/19 21:30 96 20 118/92 97 12/16/19 20:30 103 H 20 127/75 97 12/16/19 20:00 110 H 18 132/96 96 12/16/19 19:31 98.3 F 120 H 17 111/82 99 Intake and Output 12/16/19 12/17/19 12/17/19 22:59 06:59 14:59 Intake Total 2000 Output Total 200 Balance -200 2000 Intake: Oral 2000 Output: Urine 200 Other: Voiding Method Urinal Weight 95.254 kg 96 kg GENERAL: The patient is lying in bed and is not in acute distress. CHEST: The heart rate is regular rate rhythm. No murmurs to auscultation. LUNG: Clear to auscultation bilaterally no wheezing noted throughout. Not labored breathing. ABDOMEN/GI: Bowel sounds present in all 4 quadrants. No tenderness to palpation throughout. NEUROLOGICAL: Higher mental function: The patient is awake, alert, oriented to self, place and time. Patient is following commands. No aphasia and no neglect. Cranial nerves: The pupils are round, equal and reactive to light and accommodation. Visual whitehead are full to confrontation throughout. Extraocular movement is intact no nystagmus is noted. Facial sensation is normal to touch throughout. The facial strength is normal throughout. Hearing is normal bi laterally to hand rub. Tongue is midline and moved [id number] without any difficulty. No dysarthria is noted. Shoulder shrug is normal bilaterally. Motor: Gait: Using a walker he was caustious walking and not picking up his feet and had hard time turning. The strength is 5 over 5 throughout. Normal tone and bulk. Cerebellum: Normal finger to nose bilaterally. Sensation: Sensation is normal to touch throughout. Reflexes (right/left): 2+ in bilateral upper extremities and 1+ at bilatera patellar but 0 at ankle Plantars are downgoing bilaterally. Results - Laboratory Findings CBC and BMP: 12/16/19 19:58 12/16/19 19:58 Abnormal Lab Findings: Abnormal Labs 12/16/19 12/16/19 12/16/19 19:58 19:58 19:58 RBC 3.96 L Hgb 12.4 L Hct 37.2 L Lymphocytes # 0.6 L PT 12.7 H INR 1.3 H BUN 49 H Creatinine 3.03 H Glucose 169 H Plasma Lactic Acid Quique Ur Leukocyte Esterase Hyaline Casts Urine Mucus 12/16/19 12/16/19 19:58 21:25 RBC Hgb Hct Lymphocytes # PT INR BUN Creatinine Glucose Plasma Lactic Acid Quique 2.2 H* Ur Leukocyte Esterase Moderate H Hyaline Casts 12 H Urine Mucus Rare H Assessment and Plan Assessment: This is an 79-year-old gentleman with a medical history of atrial fibrillation, heart failure on defibrillator, diabetes, hyperlipidemia and hypertension who presented emergency department on 12/16/2019 for generalized weakness, and unsteady gait and visual hallucination and frequent falls the last couple days. Symptoms are gradually worsening over the course of last 5 years and has foll owed-up with a neurologist as an outpatient but unable to carry out what's going on with him. Previous CT head (12/03/2019) and MRI Brain (06/07/2017) showed dilated ventricles and there is suspicion of normal pressure hydrocephalus. Generalized weakness, unsteady gait and visual hallucination Diabetes Hypertension Atrial fibrillation Heart failure on defibrillator Plan: From the description and reviewing images I felt patient has possibly normal pressure hydrocephalus. -He has an appointment with a neurologist at [place] and will defer management to them. -Receommend detailed neuropsych test as outpatient. Regarding his visual hallucination not sure if related to possibly dementia vs REM sleep disorder -Recommend outpatient work-up with neurologist and notified to have his a repeat of sleep study again since last was about 2 years ago. -Consider adjustment of melatonin but will defer to his neurologist. Regarding to his recent fall and generalized weakness: -Ordered vitamin B12, methylmalonic acid, folic acid -Recommend PT/OT and possible rehab. Recommend strict control of his medical problems such as diabetes hypertension. Given the consultation Ulises Johnson MD Neurohospitalist Time with Patient: Greater than 30
--- NOTE | 2019-12-17 12:41 | P.HPIM ---
History of Present Illness this is a pleasant 7 years old male with past medical history of heart failure, atrial fibrillation, CVA/TIA, diabetes mellitus, hypertension, hyperlipidemia, osteoarthritis, sleep apnea on CPAP/BiPAP, anxiety and depression. He presents because he had unsteady gait and he fell. Patient states that he has an unsteady gait for about a year however get worse over the last 2 weeks, yesterday he was trying to get out of chair using his walker but he forgot the lock of the walker AND he tripped and fell on his back, he hit his back but not his head, he denies dizziness or syncope. No chest pain or dyspnea. No nausea vomiting. No abdominal pain. Patient states that he has alternating diarrhea and constipation for about 3-4 years, he would have no bowel movement for 3 days followed by a big bowel movement which he thinks is the area, however he had 1 week bowel movement with formed stool Patient denies dysuria however her bladder scan showed 600 mL of urinary retention also patient is complaining of from visual hallucination for 2 months, however he denies depression or suicidal ideation vital signs stable. Labs reviewed showing unremarkable CBC, INR,creatinine is elevated at 3.03, with baseline 1.6-2.0, elevated lactic acid at 2.2 came back to normal 1.6. Urinalysisshowing no blood or nitrites, no WBC some moderate leukocyte esterase. it is doubtful if patient has UTI EKG showing A. fib with a rate of 96, QTC 452chest x-ray showing no acute process. patient states that he follow-up with Dr. Mckinney his PCP. And Dr. Cali (! unknown spelling) neurologist at [facility] for minor things,patient states that he has an appointment with his neurologist in 2 weeks Review of Systems CONSTITUTIONAL: No fever, no malaise, no fatigue. HEENT: No recent visual problems or hearing problems. Denied any sore throat. CARDIOVASCULAR: No orthopnea, PND, no palpitations, no syncope. PULMONARY: No shortness of breath, no cough, no hemoptysis. GASTROINTESTINAL: No diarrhea, no nausea, no vomiting, no abdominal pain. Normoactive bowel sounds. NEUROLOGICAL: No headaches, no weakness, no numbness. HEMATOLOGICAL: Denies any bleeding or petechiae. GENITOURINARY: Denies any burning micturition, frequency, or urgency. MUSCULOSKELETAL/RHEUMATOLOGICAL: Denies any joint pain, swelling, or any muscle pain. ENDOCRINE: Denies any polyuria or polydipsia. Past Medical History Past Medical History: Atrial Fibrillation, Heart Failure, CVA/TIA, Diabetes Mellitus, Hearing Disorder / Deafness, Hyperlipidemia, Hypertension, Osteoarthritis (OA), Sleep Apnea/CPAP/BIPAP Additional Past Medical History / Comment(s): see Dr Madrid H&P, ?CVA IN THE PAST (NO WEAKNESS OR PARALYSIS) , has unsteady gait but no assistive divice used, HX OF bleeding ULCER, dizziness-cause unknown, STATES HX OF A "HOLE IN HIS STOMACH ", diarrhea, "problem with liver-not sure what", Single chamber AICD 06/15/19 History of Any Multi-Drug Resistant Organisms: None Reported Past Surgical History: Appendectomy, Hernia Repair, Tonsillectomy Additional Past Surgical History / Comment(s): JAYY INGUINAL HERNIA REPAIR X2 Past Anesthesia/Blood Transfusion Reactions: No Reported Reaction Past Psychological History: Anxiety, Depression Additional Psychological History / Comment(s): MEMORY LOSS Smoking Status: Former smoker Past Alcohol Use History: Rare Additional Past Alcohol Use History / Comment(s): SMOKED FOR 14 YEARS OVER 1PPD. QUIT SMOKING 1972 Past Drug Use History: None Reported - Past Family History Father Family Medical History: Cancer Additional Family Medical History / Comment(s): HODGKIN'S Medications and Allergies Home Medications Medication Instructions Recorded Confirmed Type Glimepiride [Amaryl] 4 mg PO BID 06/24/14 12/16/19 History [place]-3 Fatty Acids/Fish Oil [Fish 1 cap PO DAILY 06/24/14 12/16/19 History Oil 1,000 mg Softgel] Sertraline HCl [Zoloft] 100 mg PO BID 06/24/14 12/16/19 History Simvastatin [Zocor] 40 mg PO HS 06/24/14 12/16/19 History buPROPion [Wellbutrin] 100 mg PO BID@0900,1500 06/24/14 12/16/19 History Multivitamins, Thera [Multivitamin 1 tab PO DAILY 07/20/15 12/16/19 History (formulary)] Albuterol Nebulized [Ventolin 2.5 mg INHALATION RT-BID 05/20/18 12/16/19 History Nebulized] Doxazosin Mesylate 8 mg PO DAILY 05/20/18 12/16/19 History Loperamide HCl [Imodium A-D] 4 mg PO HS 05/20/18 12/16/19 History Mirtazapine [Remeron] 45 mg PO HS 05/20/18 12/16/19 History Montelukast [Singulair] 10 mg PO HS 05/20/18 12/16/19 History Amantadine HCl [Amantadine] 200 mg PO DAILY@1500 02/05/19 12/16/19 History Cholecalciferol (Vitamin D3) 2,000 unit PO DAILY 02/05/19 12/16/19 History [Vitamin D3] Galantamine [Razadyne] 8 mg PO HS 02/06/19 12/16/19 History Furosemide [Lasix] 40 mg PO DAILY 06/10/19 12/16/19 History Melatonin 10 mg PO HS PRN 06/10/19 12/16/19 History Opti Fiber 1 tab PO DAILY 06/10/19 12/16/19 History Apixaban [Eliquis] 2.5 mg PO BID 12/16/19 12/16/19 History Metoprolol Tartrate [Lopressor] 75 mg PO TID 12/16/19 12/16/19 History Sacubitril/Valsartan [Entresto 24 1 tab PO BID 12/16/19 12/16/19 History mg-26 mg Tablet] metFORMIN HCL [metFORMIN HCL ER 1,000 mg PO BID 12/16/19 12/16/19 History Osmotic] Allergies Allergy/AdvReac Type Severity Reaction Status Date / Time No Known Allergies Allergy Verified 12/16/19 22:12 Physical Exam Vitals: Vital Signs Temp Pulse Pulse Resp BP BP Pulse Ox 12/17/19 08:21 97.6 F 92 20 139/73 95 12/17/19 00:03 98.3 F 90 16 135/91 98 12/16/19 23:15 90 16 12/16/19 22:30 93 18 127/85 95 12/16/19 21:30 96 20 118/92 97 12/16/19 20:30 103 H 20 127/75 97 12/16/19 20:00 110 H 18 132/96 96 12/16/19 19:31 98.3 F 120 H 17 111/82 99 Intake and Output 12/16/19 12/17/19 12/17/19 22:59 06:59 14:59 Intake Total 200 Output Total 200 Balance -200 200 Intake: Oral 200 Output: Urine 200 Other: Voiding Method Urinal Weight 95.254 kg 96 kg -GENERAL: The patient is alert and oriented x3, not in any acute distress. Well developed, well nourished. generally weak HEENT: Pupils are round and equally reacting to light. EOMI. No scleral icterus. No conjunctival pallor. Normocephalic, atraumatic. No pharyngeal erythema. No thyromegaly. CARDIOVASCULAR: S1 and S2 present. No murmurs, rubs, or gallops. PULMONARY: Chest is clear to auscultation, no wheezing or crackles. ABDOMEN: Soft, nontender, nondistended, normoactive bowel sounds. No palpable organomegaly. MUSCULOSKELETAL: No joint swelling or deformity. EXTREMITIES: No cyanosis, clubbing, or pedal edema. -NEUROLOGICAL: Gross neurological examination did not reveal any focal deficits. tremor SKIN: No rashes. No petechiae Results CBC & Chem 7: 12/16/19 19:58 12/16/19 19:58 Labs: Abnormal Lab Results - Last 24 Hours (Table) 12/16/19 12/16/19 12/16/19 Range/Units 19:58 19:58 19:58 RBC 3.96 L (4.30-5.90) m/uL Hgb 12.4 L (13.0-17.5) gm/dL Hct 37.2 L (39.0-53.0) % Lymphocytes # 0.6 L (1.0-4.8) k/uL PT 12.7 H (9.0-12.0) sec INR 1.3 H (<1.2) BUN 49 H (9-20) mg/dL Creatinine 3.03 H (0.66-1.25) mg/dL Glucose 169 H (74-99) mg/dL Plasma Lactic Acid Quique (0.7-2.0) mmol/L Ur Leukocyte Esterase (Negative) Hyaline Casts (0-2) /lpf Urine Mucus (None) /hpf 12/16/19 12/16/19 Range/Units 19:58 21:25 RBC (4.30-5.90) m/uL Hgb (13.0-17.5) gm/dL Hct (39.0-53.0) % Lymphocytes # (1.0-4.8) k/uL PT (9.0-12.0) sec INR (<1.2) BUN (9-20) mg/dL Creatinine (0.66-1.25) mg/dL Glucose (74-99) mg/dL Plasma Lactic Acid Quique 2.2 H* (0.7-2.0) mmol/L Ur Leukocyte Esterase Moderate H (Negative) Hyaline Casts 12 H (0-2) /lpf Urine Mucus Rare H (None) /hpf Thrombosis Risk Factor Assmnt - Choose All That Apply Each Factor Represents 1 point: Obesity (BMI >25) Each Risk Factor Represents 3 Points: Age 75 years or older Thrombosis Risk Factor Assessment Total Risk Factor Score: 4 Thrombosis Risk Factor Assessment Level: Moderate Risk Assessment and Plan Assessment: fall, associated with generalized weakness unsteady gait Urinary retention acute kidney injury on chronic kidney disease elevated lactic acid, came back to normal chronic heart failure Atrial fibrillation on Eliquis History of CVA/TIA Diabetes mellitus Hypertension chronic kidney disease, stage III, mostly secondary to diabetic nephropathy Hyperlipidemia Primary osteoarthritis Sleep apnea on CPAP/BiPAP Anxiety and depression Plan: this is a pleasant 79 years old male who presents with fall, and hallucination associated with acute kidney injury from dehydration.continue with gentle hydration, check bladder scan. we will ask for neurology and psychiatry consult Labs and medication were reviewed.. Continue same treatment. Continue with symptomatic treatment. Resume home medication. Monitor lytes and vitals. DVT and GI prophylaxis. Further recommendations of the clinical course of the patient DVT prophylaxis: Subcutaneous heparin GI Prophylaxis: Pepcid PT/OT: Pending Prognosis is guarded
--- NOTE | 2019-12-17 13:06 | CT ---
EXAMINATION TYPE: CT brain wo con DATE OF EXAM: 12/17/2019 COMPARISON: 12/03/2019 HISTORY: Fall, head injury, on blood thinners. CT DLP: 1182.[address] of the brain was performed. The ventricles, basal cisterns and sulci overlying the cerebral convexities demonstrate mild enlargem ent. There is no evidence for intracranial hemorrhage or sulcal effacement. There is decreased attenuation about the periventricular white matter and deep white matter of both c erebral hemispheres, compatible with chronic small vessel ischemia. Differential diagnosis does inclu de demyelination. No mass effects are seen.No midline shift. Osseous calvarium is intact. Chronic maxillary sinusitis. If symptoms persist consider MRI. IMPRESSION: 1. Age related atrophic and chronic small vessel ischemic change without acute intracranial process s een at this time.
[2019-12-17 17:25] LABS: Folate, Serum >24.0 ng/mL
[2019-12-17] MEDS: SODIUM CHLORIDE 0.9% 1,000 ML IV SCH ×2 (18:27→21:51)
--- NOTE | 2019-12-17 18:44 | CONS ---
CONSULTATION DATE OF SERVICE: 12/17/2019 REASON FOR CONSULTATION: Visual hallucinations. HISTORY OF PRESENT ILLNESS: The patient is an 79-year-old male living with his of 55 years. He presented to the emergency room with weakness and frequent falls. The patient has a medical history of atrial fibrillation, diabetes, hyperlipidemia, hypertension. The patient stated that recently he has started having vivid dreams and visual hallucinations, as he was seeing people or ants and animals in the house. His visual hallucinations have been getting worse over the last 3 months. The patient stated that he had a complete neurological workup 5 years ago to rule out dementia, as his mother did have Alzheimer's dementia, but the neurologist did not find anything regarding dementia. PAST PSYCHIATRIC HISTORY: Patient denied any psychiatric hospitalization or outpatient treatment for mental illness. His current psychotropic medication has been prescribed by his primary care physician, and this is including Zoloft 100 mg twice a day, Wellbutrin SR 100 mg twice a day, and mirtazapine 45 mg at bedtime. According to him, he has been on this combination for the last 5 or 6 years. He stated that he started on this as he got very depressed after he invested a lot of money in the stock market and he lost most of his money. SUBSTANCE USE HISTORY: Patient denied any alcohol or illicit drug use. SOCIAL HISTORY: Patient is for 55 years and they have 3 grown-up children. 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 MENTAL STATUS EXAMINATION: The patient is a male dressed in [facility]. He looks his stated age. He made good eye contact. He was awake, alert and oriented to place, self and time. He stated that it is December 19, 2019. He was able to mention and recall the current president and the president before. He seems anxious when he is talking about the visual hallucinations that he did experience yesterday. However, he stated that today he did not have any visual hallucinations, but he did have a vivid dream, and he felt that the dream was like reality. His speech was spontaneous with normal rate and rhythm. He had no articulation difficulty. He denied suicidal ideation, denied homicidal ideation. He denied any paranoia or suspicious feeling. Denied auditory hallucinations or ideas of reference. His global impression of intellectual function is average. His insight and judgment are fair. DIAGNOSES: 1. Anxiety disorder. 2. Visual hallucinations that might be related to anticholinergic effect of Remeron or mirtazapine or it might be related to possible dementia. 3. Rule out neurocognitive disorder. PLAN: Please consult healthcare social worker to coordinate the referral to outpatient psychiatrist in addition to neurological referral. I do recommend discontinuing mirtazapine or Remeron to avoid the anticholinergic effect. Patient can continue on Zoloft 100 mg twice a day. Also I recommend cutting down the Wellbutrin; instead of 100 mg twice a day at only 100 mg daily, but I consider his adjustment of this medication to be done by his primary care physician who has been prescribing this medication for the last 8 years. Thank you for this consultation. LUIS E / MARI: [phone] /
[2019-12-17 20:37] LABS: Glucose,Whole Blood 167 mg/dL (75-99)
[2019-12-17] MEDS ORDERED: MELATONIN 5 MG TABLET PO PRN (20:49)
[2019-12-17] MEDS: MONTELUKAST 10 MG TAB PO SCH (21:44)
[2019-12-17] MEDS: ATORVASTATIN 20 MG TAB PO SCH (21:44)
[2019-12-17] MEDS: METOPROLOL TARTRATE 25 MG TAB PO SCH (21:44)
[2019-12-17] MEDS: APIXABAN 2.5 MG TABLET PO SCH (21:44)
[2019-12-17] MEDS: INSULIN ASPART (NovoLOG) 100 UNIT/ML VIAL SQ SCH (21:46)
[2019-12-17] MEDS: MIRTAZAPINE 45 MG TABLET PO SCH (21:57)
[2019-12-17] MEDS: SACUBITRIL/VALSARTAN 24 MG-26 MG TABLET PO SCH (21:57)
[2019-12-18 06:53] LABS: Glucose,Whole Blood 145 mg/dL (75-99)
[2019-12-18] MEDS: SACUBITRIL/VALSARTAN 24 MG-26 MG TABLET PO SCH ×2 (07:05→22:12)
[2019-12-18] MEDS: METOPROLOL TARTRATE 25 MG TAB PO SCH ×3 (07:05→21:28)
[2019-12-18] MEDS: APIXABAN 2.5 MG TABLET PO SCH ×2 (07:05→21:28)
[2019-12-18] MEDS: MULTIVITAMINS, THERA 1 EACH TAB PO SCH (07:05)
[2019-12-18] MEDS: INSULIN ASPART (NovoLOG) 100 UNIT/ML VIAL SQ SCH ×4 (07:06→20:40)
[2019-12-18] MEDS: ALBUTEROL NEBULIZED 2.5 MG/3 ML INHALATION SCH ×2 (07:10→20:44)
[2019-12-18] MEDS ORDERED: NON FORMULARY DRUG (Omega-3 Fatty Acids/Fish Oil [Fish Oil 1,000 Mg Softgel] 1 CAP) PO SCH (09:00)
[2019-12-18] MEDS: DOXAZOSIN 4 MG TAB PO SCH (09:45)
[2019-12-18 11:36] LABS: Glucose,Whole Blood 234 mg/dL (75-99)
[2019-12-18 16:42] LABS: Glucose,Whole Blood 154 mg/dL (75-99)
[2019-12-18] MEDS: SODIUM CHLORIDE 0.9% 1,000 ML IV SCH ×2 (17:20→21:29)
--- NOTE | 2019-12-18 18:06 | P.PN ---
Subjective Progress Note Date: 12/18/19 Principal diagnosis: Mr. Carpenter is an 79-year-old male with a past medical history of congestive heart failure, initially fibrillation, CVA/TIA, diverticulitis, hypertension, Osteopo rosis, obstructive sleep apnea, Anxiety and depression coming in for unsteady gait and frequent falls. Patient was also having hallucinations that have been going on for the past 2 months. Patient's states that his symptoms of unsteady gait and generalized weakness along with falls have been worse over the past couple of years. He was seen by neurologist as outpatient and they were unable to figure out what was going on with him. Patient was found to have elevated creatinine at the time of admission. Eventually he is admitted to the hospital with neurology and psychiatric consultants on board. he was evaluated by neurology, and possible etiologies normal pressure hydrocephalus. He was evaluated by psychiatric for visual hallucinations, and they suggested to stop mirtazapine and continued Zoloft and Wellbutrin. On 12/18/2019 - patient is lying in bed comfortably. His is at the bedside. As per nursing staff report patient has been having difficulty urinating. He has been retaining more than 350 mL couple of times today. Patient still continues to have visual hallucinations. On reviewing his vitals blood pressure is within normal limits, no fever over the past 24 hours. Heart rate is irregularly irregular. Patient states that he does not have any headaches or blurring of vision. Denies having any chest pain or palpitations. No cough or difficulty in breathing. No abdominal pain nausea vomiting or diarrhea. His only complaint is that he is not able to empty his bladder. He also complains of generalized weakness. No new labs from the past couple of days. Urine is showing leukocyte esterase but no nitrites and 5 wbc's. Coronavirus is negative. Active Medications Albuterol Sulfate (Ventolin Nebulized) 2.5 mg INHALATION RT-BID [facility] Last Admin: 12/18/19 07:10 Dose: 2.5 mg Documented by: Apixaban (Eliquis) 2.5 mg PO BID [facility] Last Admin: 12/18/19 07:05 Dose: 2.5 mg Documented by: Atorvastatin Calcium (Lipitor) 20 mg PO HS [facility] Last Admin: 12/17/19 21:44 Dose: 20 mg Documented by: Doxazosin Mesylate (Cardura) 8 mg PO DAILY [facility] Last Admin: 12/18/19 09:45 Dose: 8 mg Documented by: Sodium Chloride (Saline 0.9%) 1,000 mls @ 50 mls/hr IV .Q20H [facility] Last Admin: 12/18/19 17:20 Dose: 50 mls/hr Documented by: Insulin Aspart (Novolog) 0 unit SQ ACHS [facility]; Protocol Last Admin: 12/18/19 17:20 Dose: 1 unit Documented by: Melatonin (Melatonin) 10 mg PO HS PRN PRN Reason: Insomnia Metoprolol Tartrate (Lopressor) 75 mg PO TID [facility] Last Admin: 12/18/19 15:50 Dose: 75 mg Documented by: Mirtazapine (Remeron) 45 mg PO HS [facility] Last Admin: 12/17/19 21:57 Dose: 45 mg Documented by: Montelukast Sodium (Singulair) 10 mg PO HS [facility] Last Admin: 12/17/19 21:44 Dose: 10 mg Documented by: Multivitamins (Theragran) 1 each PO DAILY [facility] Last Admin: 12/18/19 07:05 Dose: 1 each Documented by: Naloxone HCl (Narcan) 0.2 mg IV Q2M PRN PRN Reason: Opioid Reversal Sacubitril/Valsartan (Entresto 24 Mg-26 Mg Tablet) 1 each PO BID [facility] Last Admin: 12/18/19 07:05 Dose: 1 each Documented by: Objective - Vital Signs Vital signs: Vital Signs Temp 97.8 F 12/18/19 15:00 Pulse 75 12/18/19 15:00 Resp 17 12/18/19 15:00 BP 136/79 12/18/19 15:00 Pulse Ox 98 12/18/19 15:00 Intake & Output 12/17/19 12/18/19 12/18/19 18:59 06:59 18:59 Intake Total 200 400 Output Total 700 2500 Balance -500 -2500 400 Weight 96 kg 96.5 kg Intake: IV 400 Sodium Chloride 0.9% 1, 400 000 ml @ 50 mls/hr IV . Q20H [facility] Rx#:[id number] Oral 200 Output: Urine 700 1900 Straight 700 600 Post Void Residual 600 Other: Voiding Method Urinal # Voids 1 1 1 # Bowel Movements 1 1 1 - Exam GENERAL: Patient appears to be no acute distress. Resting comfortably in bed. HEENT: Pupils are round and equally reacting to light. EOMI. No scleral icterus. No conjunctival pallor. Normocephalic, atraumatic. No pharyngeal erythema. No thyromegaly. CARDIOVASCULAR: Irregularly irregular. S1 and S2 heard. PULMONARY: Chest is clear to auscultation, no wheezing or crackles. ABDOMEN: Soft, nontender, nondistended, normoactive bowel sounds. No palpable organomegaly. No suprapubic tenderness MUSCULOSKELETAL: No joint swelling or deformity. EXTREMITIES: No cyanosis, clubbing, or pedal edema. NEUROLOGICAL: Gross neurological examination did not reveal any focal deficits. Gait could not be checked due to generalized weakness SKIN: No rashes. No petechiae - Labs CBC & Chem 7: 12/16/19 19:58 12/16/19 19:58 Labs: Abnormal Lab Results - Last 24 Hours (Table) 12/17/19 12/18/19 12/18/19 Range/Units 20:37 06:49 11:34 POC Glucose (mg/dL) 167 H 145 H 234 H (75-99) mg/dL 12/18/19 Range/Units 16:39 POC Glucose (mg/dL) 154 H (75-99) mg/dL Assessment and Plan Assessment: ASSESSMENT Acute kidney injury and CKD Recurrent falls with generalized weakness Urinary retention Chronic congestive heart failure not in exacerbation Atrial fibrillation, persistent History of CVA/TIA Type 2 diabetes mellitus Hypertension Hyperlipidemia Primary osteoarthritis Obstructive sleep apnea on CPAP/BiPAP Anxiety depression PLAN : Acute kidney injury could be due to urinary retention, Will Pl[address] Potts's catheter. Will repeat BMP. Will order a renal ultrasound. Neurology on board and thinking of possibility of normal pressure hydrocephalus. We'll discontinue Remeron as per psychiatric recommendations. Will get urine culture. Consult urology. Continue with the rest of his current medication regimen. The treatment plan was discussed in detail with the patient and at bedside today. Further recommendations to follow depending on the progress of the patient. Time with Patient: Greater than 30 (explaining the treatment plan)
[2019-12-18 18:48] LABS: Appearance,Urine Clear (Clear); Bacteria,Urine Occasional /hpf; Bilirubin,Urine Negative (Negative); Blood,Urine Trace (Negative); Color,Urine Yellow; Glucose,Urine (UA) 1+ (Negative); Ketones,Urine Negative (Negative); Leukocyte Esterase,Urine Negative (Negative); Mucus,Urine Rare /hpf; Nitrite,Urine Negative (Negative); PH, Urine 5.5 (5.0-8.0); Protein,Urine Trace (Negative); RBC,Urine 16 /hpf (0-5); Specific Gravity,Urine 1.017 (1.001-1.035); Squamous Epithelial Cell,Urine <1 /hpf (0-4); Urobilinogen,Urine <2.0 mg/dL (<2.0); WBC,Urine 2 /hpf (0-5)
[2019-12-18 20:14] LABS: Glucose,Whole Blood 119 mg/dL (75-99)
[2019-12-18] MEDS: MONTELUKAST 10 MG TAB PO SCH (21:28)
[2019-12-18] MEDS: ATORVASTATIN 20 MG TAB PO SCH (21:28)
[2019-12-18] MEDS: MIRTAZAPINE 45 MG TABLET PO SCH (21:28)
--- NOTE | 2019-12-18 22:22 | US ---
EXAMINATION TYPE: US kidneys/renal and bladder DATE OF EXAM: 12/18/2019 COMPARISON: NONE CLINICAL HISTORY: retention. EXAM MEASUREMENTS: Right Kidney: 11.1 x 5.0 x 5.1 cm Left Kidney: 8.1 x 5.6 x 5.1 cm Right Kidney: No hydronephrosis or focal lesion. Trace perinephric free fluid. Left Kidney: No hydronephrosis. Large unilocular simple appearing cyst of the lower measuring 12.5 x 10.0 x 12.6 cm. Bladder: Urinary bladder is decompressed with Potts catheter. IMPRESSION: 1. No evidence of hydronephrosis bilaterally. 2. Urinary bladder decompressed with Potts catheter. 3. 12.6 cm unilocular simple appearing cyst of the left renal lower pole.
[2019-12-19 07:05] LABS: Glucose,Whole Blood 196 mg/dL (75-99)
[2019-12-19] MEDS: METOPROLOL TARTRATE 25 MG TAB PO SCH (07:23)
[2019-12-19] MEDS: MULTIVITAMINS, THERA 1 EACH TAB PO SCH (07:23)
[2019-12-19] MEDS: APIXABAN 2.5 MG TABLET PO SCH ×2 (07:23→20:35)
[2019-12-19] MEDS: DOXAZOSIN 4 MG TAB PO SCH (07:24)
[2019-12-19] MEDS: SACUBITRIL/VALSARTAN 24 MG-26 MG TABLET PO SCH ×2 (07:25→20:35)
[2019-12-19] MEDS: INSULIN ASPART (NovoLOG) 100 UNIT/ML VIAL SQ SCH ×4 (07:26→20:36)
[2019-12-19] MEDS: ALBUTEROL NEBULIZED 2.5 MG/3 ML INHALATION SCH ×2 (09:41→20:41)
[2019-12-19 10:51] LABS: Basophils % (A) 0 %; Eosinophils # (A) 0.1 k/uL (0-0.7); Eosinophils % (A) 1 %; HCT 38.3 % (39.0-53.0); HGB 11.9 gm/dL (13.0-17.5); Lymphocytes # (A) 0.3 k/uL (1.0-4.8); Lymphocytes % (A) 3 %; MCH 29.8 pg (25.0-35.0); Mean Platelet Volume 8.9; Monocytes # (A) 0.5 k/uL (0-1.0); Monocytes % (A) 6 %; Neutrophils # (A) 8.1 k/uL (1.3-7.7); Neutrophils % (A) 90 %; Platelet Count 152 k/uL (150-450); RBC 3.99 m/uL (4.30-5.90); RDW 14.4 % (11.5-15.5)
[2019-12-19 10:59] LABS: Calcium 8.9 mg/dL (8.4-10.2); Potassium 4.4 mmol/L (3.5-5.1)
[2019-12-19 11:23] LABS: Glucose,Whole Blood 238 mg/dL (75-99)
--- NOTE | 2019-12-19 13:44 | P.GSCN ---
History of Present Illness Consult date: 12/19/19 Reason for Consult: Urinary retention History of present illness: The patient is an 79-year-old male admitted on 12/15 for evaluation of generali zed weakness coupled with intermittent falls and recent hallucinations. Some of his symptoms date back several years and he has been evaluated by several neurologists but the cause remains unclear. The patient says that approximately one week ago he began to experience increased urinary frequency and urgency. He says that he normally voids every 2-3 hours during the day and 0-1 times at night. He has taken doxazosin 8 mg daily for at least 8 or 10 years and rates his urine flow as a 5 out of 10. He says that he has had sensations of incomplete bladder emptying for several months. He denies any urinary incontinence but does have occasional episodes of fecal incontinence related to diarrhea. The patient had difficulty emptying his bladder at the time of admission and has been in and out cath'd several times for amounts anywhere between 400 and 700 cc. He currently has a Potts catheter in place which is draining clear urine. BUN/creatinine were 49/3.03 on 12/15. BUN/creatinine are 31/1.67 today. Creatinine had been 1 in 06/2019. Renal ultrasound on 12/17 showed no hydronephrosis. Review of Systems - Constitutional Reports fatigue, Denies chills, Denies fever - Cardiovascular Denies shortness of breath, Denies syncope - Respiratory Denies cough, Denies wheezing - Gastrointestinal Reports constipation, Reports diarrhea, Denies abdominal pain - Genitourinary Reports as per HPI Past Medical History Past Medical History: Atrial Fibrillation, Heart Failure, CVA/TIA, Diabetes Mellitus, Hearing Disorder / Deafness, Hyperlipidemia, Hypertension, Osteoarthritis (OA), Sleep Apnea/CPAP/BIPAP Additional Past Medical History / Comment(s): see Dr Madrid H&P, ?CVA IN THE PAST (NO WEAKNESS OR PARALYSIS) , has unsteady gait but no assistive divice used, HX OF bleeding ULCER, dizziness-cause unknown, STATES HX OF A "HOLE IN HIS STOMACH ", diarrhea, "problem with liver-not sure what", Single chamber AICD 06/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 QUIT SMOKING 1972 Past Drug Use History: None Reported - Past Family History Father Family Medical History: Cancer Additional Family Medical History / Comment(s): HODGKIN'S Medications and Allergies Home Medications Medication Instructions Recorded Confirmed Type Glimepiride [Amaryl] 4 mg PO BID 06/24/14 12/16/19 History [place]-3 Fatty Acids/Fish Oil [Fish 1 cap PO DAILY 06/24/14 12/16/19 History Oil 1,000 mg Softgel] Sertraline HCl [Zoloft] 100 mg PO BID 06/24/14 12/16/19 History Simvastatin [Zocor] 40 mg PO HS 06/24/14 12/16/19 History buPROPion [Wellbutrin] 100 mg PO BID@0900,1500 06/24/14 12/16/19 History Multivitamins, Thera [Multivitamin 1 tab PO DAILY 07/20/15 12/16/19 History (formulary)] Albuterol Nebulized [Ventolin 2.5 mg INHALATION RT-BID 05/20/18 12/16/19 History Nebulized] Doxazosin Mesylate 8 mg PO DAILY 05/20/18 12/16/19 History Loperamide HCl [Imodium A-D] 4 mg PO HS 05/20/18 12/16/19 History Mirtazapine [Remeron] 45 mg PO HS 05/20/18 12/16/19 History Montelukast [Singulair] 10 mg PO HS 05/20/18 12/16/19 History Amantadine HCl [Amantadine] 200 mg PO DAILY@1500 02/05/19 12/16/19 History Cholecalciferol (Vitamin D3) 2,000 unit PO DAILY 02/05/19 12/16/19 History [Vitamin D3] Galantamine [Razadyne] 8 mg PO HS 02/06/19 12/16/19 History Furosemide [Lasix] 40 mg PO DAILY 06/10/19 12/16/19 History Melatonin 10 mg PO HS PRN 06/10/19 12/16/19 History Opti Fiber 1 tab PO DAILY 06/10/19 12/16/19 History Apixaban [Eliquis] 2.5 mg PO BID 12/16/19 12/16/19 History Metoprolol Tartrate [Lopressor] 75 mg PO TID 12/16/19 12/16/19 History Sacubitril/Valsartan [Entresto 24 1 tab PO BID 12/16/19 12/16/19 History mg-26 mg Tablet] metFORMIN HCL [metFORMIN HCL ER 1,000 mg PO BID 12/16/19 12/16/19 History Osmotic] Allergies Allergy/AdvReac Type Severity Reaction Status Date / Time No Known Allergies Allergy Verified 12/16/19 22:12 Surgical - Exam Vital Signs Temp Pulse Resp BP Pulse Ox 98.3 F 120 H 17 111/82 99 12/16/19 19:31 12/16/19 19:31 12/16/19 19:31 12/16/19 19:31 12/16/19 19:31 - General well developed, well nourished, no distress, obese - ENT no hearing loss - Neck no masses, no lymphadectomy - Respiratory normal respiratory effort - Abdomen Abdomen: soft, non tender, no organomegaly Hernia: none - Genitourinary normal penis with no external lesions, testicles non-tender, other (Potts catheter is in place and is draining clear urine) - Rectum Rectum: normal sphincter tone, no masses, other (Prostate is 1-2+ and benign to palpation) - Psychiatric oriented to time, oriented to person, oriented to place, speech is normal, memor y intact Results - Labs 12/19/19 09:02 12/19/19 09:02 Abnormal Lab Results - Last 24 Hours (Table) 12/17/19 12/18/19 12/18/19 Range/Units 18:12 16:39 20:12 RBC (4.30-5.90) m/uL Hgb (13.0-17.5) gm/dL Hct (39.0-53.0) % Neutrophils # (1.3-7.7) k/uL Lymphocytes # (1.0-4.8) k/uL Chloride (98-107) mmol/L Carbon Dioxide (22-30) mmol/L BUN (9-20) mg/dL Creatinine (0.66-1.25) mg/dL Glucose (74-99) mg/dL POC Glucose (mg/dL) 154 H 119 H (75-99) mg/dL Urine Protein Trace H (Negative) Urine Glucose (UA) 1+ H (Negative) Urine Blood Trace H (Negative) Urine RBC 16 H (0-5) /hpf Urine Bacteria Occasional H (None) /hpf Urine Mucus Rare H (None) /hpf 12/19/19 12/19/19 12/19/19 Range/Units 07:01 09:02 09:02 RBC 3.99 L (4.30-5.90) m/uL Hgb 11.9 L (13.0-17.5) gm/dL Hct 38.3 L (39.0-53.0) % Neutrophils # 8.1 H (1.3-7.7) k/uL Lymphocytes # 0.3 L (1.0-4.8) k/uL Chloride 112 H (98-107) mmol/L Carbon Dioxide 21 L (22-30) mmol/L BUN 31 H (9-20) mg/dL Creatinine 1.67 H (0.66-1.25) mg/dL Glucose 226 H (74-99) mg/dL POC Glucose (mg/dL) 196 H (75-99) mg/dL Urine Protein (Negative) Urine Glucose (UA) (Negative) Urine Blood (Negative) Urine RBC (0-5) /hpf Urine Bacteria (None) /hpf Urine Mucus (None) /hpf 12/19/19 Range/Units 11:20 RBC (4.30-5.90) m/uL Hgb (13.0-17.5) gm/dL Hct (39.0-53.0) % Neutrophils # (1.3-7.7) k/uL Lymphocytes # (1.0-4.8) k/uL Chloride (98-107) mmol/L Carbon Dioxide (22-30) mmol/L BUN (9-20) mg/dL Creatinine (0.66-1.25) mg/dL Glucose (74-99) mg/dL POC Glucose (mg/dL) 238 H (75-99) mg/dL Urine Protein (Negative) Urine Glucose (UA) (Negative) Urine Blood (Negative) Urine RBC (0-5) /hpf Urine Bacteria (None) /hpf Urine Mucus (None) /hpf Microbiology - Last 24 Hours (Table) 12/18/19 18:12 Urine Culture - Preliminary Urine,Catheterized Diabetes panel 12/19/19 Range/Units 09:02 Sodium 142 (137-145) mmol/L Potassium 4.4 (3.5-5.1) mmol/L Chloride 112 H (98-107) mmol/L Carbon Dioxide 21 L (22-30) mmol/L BUN 31 H (9-20) mg/dL Creatinine 1.67 H (0.66-1.25) mg/dL Glucose 226 H (74-99) mg/dL Calcium 8.9 (8.4-10.2) mg/dL Calcium panel 12/19/19 Range/Units 09:02 Calcium 8.9 (8.4-10.2) mg/dL Pituitary panel 12/19/19 Range/Units 09:02 Sodium 142 (137-145) mmol/L Potassium 4.4 (3.5-5.1) mmol/L Chloride 112 H (98-107) mmol/L Carbon Dioxide 21 L (22-30) mmol/L BUN 31 H (9-20) mg/dL Creatinine 1.67 H (0.66-1.25) mg/dL Glucose 226 H (74-99) mg/dL Calcium 8.9 (8.4-10.2) mg/dL Adrenal panel 12/19/19 Range/Units 09:02 Sodium 142 (137-145) mmol/L Potassium 4.4 (3.5-5.1) mmol/L Chloride 112 H (98-107) mmol/L Carbon Dioxide 21 L (22-30) mmol/L BUN 31 H (9-20) mg/dL Creatinine 1.67 H (0.66-1.25) mg/dL Glucose 226 H (74-99) mg/dL Calcium 8.9 (8.4-10.2) mg/dL Assessment and Plan (1) Urinary retention with incomplete bladder emptying Current Visit: Yes Status: Acute Code(s): R33.9 - RETENTION OF URINE, UNSPECIFIED SNOMED Code(s): 553152558 Plan: The patient's incomplete bladder emptying and urinary retention are most likely related to long-standing bladder outlet obstruction from prostatic enlargement. He is already taking doxazosin 8 mg daily and I do not feel that at his age increasing the dose to twice a day would be safe, especially since he already has had episodes of falling. I discussed adding finasteride to his doxazosin but this would be unlikely to result in any immediate improvement as finasteride typically takes months to cause prostate shrinkage. I discussed TURP as a treatment option but the patient says that he is not interested in this at the present time and would prefer a trial of doxazosin plus finasteride. I would suggest leaving the patient's Potts catheter in place for 5-7 days prior to another voiding trial.
[2019-12-19] MEDS: METOPROLOL TARTRATE 50 MG TAB PO SCH ×2 (15:40→20:36)
--- NOTE | 2019-12-19 15:44 | P.PN ---
Subjective Progress Note Date: 12/19/19 Principal diagnosis: Acute kidney injury on CKD Recurrent falls with generalized weakness Mr. Carpenter is an 79-year-old male with a past medical history of congestive heart failure, initially fibrillation, CVA/TIA, diverticulitis, hypertension, Osteoporosis, obstructive sleep apnea, Anxiety and depression coming in for unsteady gait and frequent falls. Patient was also having hallucinations that have been going on for the past 2 months. Patient's states that his symptoms of unsteady gait and generalized weakness along with falls have been worse over the past couple of years. He was seen by neurologist as outpatient and they were unable to figure out what was going on with him. Patient was found to have elevated creatinine at the time of admission. Eventually he is admitted to the hospital with neurology and psychiatric consultants on board. he was evaluated by neurology, and possible etiologies normal pressure hydrocephalus. He was evaluated by psychiatric for visual hallucinations, and they suggested to stop mirtazapine and continued Zoloft and Wellbutrin. On 12/18/2019 - patient is lying in bed comfortably. His is at the bedside. As per nursing staff report patient has been having difficulty urinating. He has been retaining more than 350 mL couple of times today. Patient still continues to have visual hallucinations. On reviewing his vitals blood pressure is within normal limits, no fever over the past 24 hours. Heart rate is irregularly irregular. Patient states that he does not have any headaches or blurring of vision. Denies having any chest pain or palpitations. No cough or difficulty in breathing. No abdominal pain nausea vomiting or diarrhea. His only complaint is that he is not able to empty his bladder. He also complains of generalized weakness. No new labs from the past couple of days. Urine is showing leukocyte esterase but no nitrites and 5 wbc's. Coronavirus is negative. On 12/19/2019 - patient is lying in bed comfortably. He is currently being fed by the nursing services manager. Patient is still confused, thinking that he is at home. Since having the Potts's catheter in place, he had good urinary output. Patient's Remeron has been discontinued yesterday. Urology was consulted, and they suggested that he be continued on Potts's catheter. On reviewing the patient's vitals, he has been slightly tachycardic in the 100s to 110s, blood pressure 116/72, saturating at 95% on room air. His labs from this morning show hemoglobin 11.9, white count of 9, sodium 142, potassium 4.4, chloride 112, bicarbonate 21. BUN 31, creatinine decreased from 3 to 1.67. Active Medications Albuterol Sulfate (Ventolin Nebulized) 2.5 mg INHALATION RT-BID [facility] Last Admin: 12/19/19 09:41 Dose: 2.5 mg Documented by: Apixaban (Eliquis) 2.5 mg PO BID [facility] Last Admin: 12/19/19 07:23 Dose: 2.5 mg Documented by: Atorvastatin Calcium (Lipitor) 20 mg PO HS [facility] Last Admin: 12/18/19 21:28 Dose: 20 mg Documented by: Doxazosin Mesylate (Cardura) 8 mg PO DAILY [facility] Last Admin: 12/19/19 07:24 Dose: 8 mg Documented by: Sodium Chloride (Saline 0.9%) 1,000 mls @ 50 mls/hr IV .Q20H [facility] Last Admin: 12/18/19 21:29 Dose: 50 mls/hr Documented by: Insulin Aspart (Novolog) 0 unit SQ ACHS [facility]; Protocol Last Admin: 12/19/19 11:43 Dose: 3 unit Documented by: Melatonin (Melatonin) 10 mg PO HS PRN PRN Reason: Insomnia Metoprolol Tartrate (Lopressor) 100 mg PO TID [facility] Last Admin: 12/19/19 15:40 Dose: 100 mg Documented by: Montelukast Sodium (Singulair) 10 mg PO HS [facility] Last Admin: 12/18/19 21:28 Dose: 10 mg Documented by: Multivitamins (Theragran) 1 each PO DAILY [facility] Last Admin: 12/19/19 07:23 Dose: 1 each Documented by: Naloxone HCl (Narcan) 0.2 mg IV Q2M PRN PRN Reason: Opioid Reversal Sacubitril/Valsartan (Entresto 24 Mg-26 Mg Tablet) 1 each PO BID [facility] Last Admin: 12/19/19 07:25 Dose: 1 each Documented by: Objective - Vital Signs Vital signs: Vital Signs Temp 98.4 F 12/19/19 14:35 Pulse 88 12/19/19 14:35 Resp 18 12/19/19 14:35 BP 116/72 12/19/19 14:35 Pulse Ox 95 12/19/19 14:35 Intake & Output 12/18/19 12/19/19 12/19/19 18:59 06:59 18:59 Intake Total 400 400 Output Total 400 775 450 Balance 0 -375 -450 Weight 97.3 kg Intake: IV 400 400 Sodium Chloride 0.9% 1, 400 400 000 ml @ 50 mls/hr IV . Q20H [facility] Rx#:[id number] Output: Urine 400 775 Stool 450 Other: Voiding Method Indwelling Catheter Indwelling Catheter # Voids 1 # Bowel Movements 1 - Exam GENERAL: Patient appears to be no acute distress. Resting comfortably in bed. HEENT: Pupils are round and equally reacting to light. No pallor. No icterus. CARDIOVASCULAR: Irregularly irregular. S1 and S2 heard. PULMONARY: Chest is clear to auscultation, no wheezing or crackles. ABDOMEN: Soft, nontender, nondistended, normoactive bowel sounds. No palpable organomegaly. No suprapubic tenderness MUSCULOSKELETAL: No joint swelling or deformity. EXTREMITIES: No cyanosis, clubbing, or pedal edema. NEUROLOGICAL: Gross neurological examination did not reveal any focal deficits. Gait could not be checked due to generalized weakness SKIN: No rashes. No petechiae - Labs CBC & Chem 7: 12/19/19 09:02 12/19/19 09:02 Labs: Abnormal Lab Results - Last 24 Hours (Table) 12/17/19 12/18/19 12/18/19 Range/Units 18:12 16:39 20:12 RBC (4.30-5.90) m/uL Hgb (13.0-17.5) gm/dL Hct (39.0-53.0) % Neutrophils # (1.3-7.7) k/uL Lymphocytes # (1.0-4.8) k/uL Chloride (98-107) mmol/L Carbon Dioxide (22-30) mmol/L BUN (9-20) mg/dL Creatinine (0.66-1.25) mg/dL Glucose (74-99) mg/dL POC Glucose (mg/dL) 154 H 119 H (75-99) mg/dL Urine Protein Trace H (Negative) Urine Glucose (UA) 1+ H (Negative) Urine Blood Trace H (Negative) Urine RBC 16 H (0-5) /hpf Urine Bacteria Occasional H (None) /hpf Urine Mucus Rare H (None) /hpf 12/19/19 12/19/19 12/19/19 Range/Units 07:01 09:02 09:02 RBC 3.99 L (4.30-5.90) m/uL Hgb 11.9 L (13.0-17.5) gm/dL Hct 38.3 L (39.0-53.0) % Neutrophils # 8.1 H (1.3-7.7) k/uL Lymphocytes # 0.3 L (1.0-4.8) k/uL Chloride 112 H (98-107) mmol/L Carbon Dioxide 21 L (22-30) mmol/L BUN 31 H (9-20) mg/dL Creatinine 1.67 H (0.66-1.25) mg/dL Glucose 226 H (74-99) mg/dL POC Glucose (mg/dL) 196 H (75-99) mg/dL Urine Protein (Negative) Urine Glucose (UA) (Negative) Urine Blood (Negative) Urine RBC (0-5) /hpf Urine Bacteria (None) /hpf Urine Mucus (None) /hpf 12/19/19 Range/Units 11:20 RBC (4.30-5.90) m/uL Hgb (13.0-17.5) gm/dL Hct (39.0-53.0) % Neutrophils # (1.3-7.7) k/uL Lymphocytes # (1.0-4.8) k/uL Chloride (98-107) mmol/L Carbon Dioxide (22-30) mmol/L BUN (9-20) mg/dL Creatinine (0.66-1.25) mg/dL Glucose (74-99) mg/dL POC Glucose (mg/dL) 238 H (75-99) mg/dL Urine Protein (Negative) Urine Glucose (UA) (Negative) Urine Blood (Negative) Urine RBC (0-5) /hpf Urine Bacteria (None) /hpf Urine Mucus (None) /hpf Microbiology - Last 24 Hours (Table) 12/18/19 18:12 Urine Culture - Preliminary Urine,Catheterized Assessment and Plan Assessment: ASSESSMENT Acute kidney injury and CKD Recurrent falls with generalized weakness Urinary retention Chronic congestive heart failure not in exacerbation Atrial fibrillation, persistent History of CVA/TIA Type 2 diabetes mellitus Hypertension Hyperlipidemia Primary osteoarthritis Obstructive sleep apnea on CPAP/BiPAP Anxiety depression PLAN : Patient's repeat creatinine from today is 1.67. Renal ultrasound done showing no evidence of hydronephrosis, urology suggested that the patient be continued on Potts's catheter for 5-7 days. Neurology on board and thinking of possibility of normal pressure hydrocephalus. Patient's Remeron has been discontinued since yesterday . Awaiting urine cultures . Continue with the rest of his current medication regimen. Further recommendations to follow depending on the progress of the patient.
[2019-12-19 16:34] LABS: Glucose,Whole Blood 155 mg/dL (75-99)
[2019-12-19 20:07] LABS: Glucose,Whole Blood 209 mg/dL (75-99)
[2019-12-19] MEDS: MONTELUKAST 10 MG TAB PO SCH (20:35)
[2019-12-19] MEDS: ATORVASTATIN 20 MG TAB PO SCH (20:36)
[2019-12-20 07:05] LABS: Glucose,Whole Blood 153 mg/dL (75-99)
[2019-12-20] MEDS: MULTIVITAMINS, THERA 1 EACH TAB PO SCH (07:25)
[2019-12-20] MEDS: METOPROLOL TARTRATE 50 MG TAB PO SCH ×3 (07:25→20:55)
[2019-12-20] MEDS: INSULIN ASPART (NovoLOG) 100 UNIT/ML VIAL SQ SCH ×4 (07:25→20:54)
[2019-12-20] MEDS: APIXABAN 2.5 MG TABLET PO SCH ×2 (07:26→20:55)
[2019-12-20] MEDS: DOXAZOSIN 4 MG TAB PO SCH (07:26)
[2019-12-20] MEDS: SACUBITRIL/VALSARTAN 24 MG-26 MG TABLET PO SCH ×2 (07:26→20:55)
[2019-12-20 07:56] LABS: Calcium 8.4 mg/dL (8.4-10.2); Potassium 4.1 mmol/L (3.5-5.1)
[2019-12-20] MEDS: ALBUTEROL NEBULIZED 2.5 MG/3 ML INHALATION SCH ×2 (08:05→20:34)
[2019-12-20] MEDS: FINASTERIDE 5 MG TAB PO SCH (10:05)
[2019-12-20 12:00] LABS: Glucose,Whole Blood 155 mg/dL (75-99)
--- NOTE | 2019-12-20 15:13 | P.CN ---
Psychiatric Consult - . Consult date: 12/20/19 Consult:: IDENTIFYING DATA: The patient's 79-year-old male admitted to medicine service for evaluation of of progressive weakness, unsteady gait and a recent fall. In addition, he complained of vivid visual hallucinations. The hospitalist consult to psychiatry for evaluation of the visual hallucinations. HISTORY OF PRESENT ILLNESS: The medical record, interviewed the patient and spoke with his was also present in his room. He also completed the Geriatric Depression Rating Scale at the Mini-Mental State Exam. He described the hallucinatory experiences occurred while he was on his way to the hospital yesterday. He described seeing man and believing that they had hit the man with their care. He also described children playing in the street and his telling him that there were no children on the street. He talked about having these visual experiences "4 or 5 times over the last couple months" but was unable to describe other experiences. Some of the hallucinations appear to occurred upon awakening but others during the day. He denied experiencing auditory or olfactory hallucinations, he denied feeling persistently frightened or scared. He denied experiencing ideas reference, thought insertion, thought broadcasting or thought control. When I asked about his mood he replied that it is "not as good as it used to be." He talked about his primary treating him for her depressive disorder and his outpatient medication list includes sertraline, Wellbutrin and Remeron. He described decreased energy and decreased involvement in past activities. He denied complete loss of ability to enjoy herself and talked about the enjoyment time with grandchildren and family. On the Geriatric Depression Scale his total score was 6 consistent with mild depression. He denied having thoughts of or suicide. He denied a history of suicide attempts or gestures. He denied use of alcohol or other drugs to get high, help him sleep or changes mood. PAST PSYCHIATRIC HISTORY: He has no history of mental health or psychiatric treatment. He denied history of depression and depression treatment. He denied history of elevated mood or sustained irritability consistent with popeye or hypomania. PAST MEDICAL HISTORY: He has multiple medical problems but the most outstanding with regard to her psychiatric presentation is the neuro imaging that is suggestive of a normal pressure hydrocephalus. ALLERGIES: NO KNOWN DRUG ALLERGIES SUBSTANCE USE HISTORY: Denied FAMILY PSYCHIATRIC/SUBSTANCE USE HISTORY: The youngest son has a history of a depressive disorder and has received psychiatric treatment. SOCIAL HISTORY: He received a Masters of [employer] administration. 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 He has has 3 children and 6 grandchildren. MENTAL STATUS EXAM: He presented as a well-developed and well-nourished pale appearing elderly male who is laying comfortably in bed. He quickly became short of breath during interview and had audible expiratory wheezing. He made eye contact and attempted to interview. He had no prominent physical abnormalities. He had a anxious facial expression. He was alert and oriented to person, place and time. He showed psychomotor retardation. He had a fine intention tremor. His speech was spontaneous, halting and occasionally dysarthric. His affect was anxious but stable and appropriate. He denied suicidal ideation or wishes. He denied homicidal ideation. He denied feeling hopeless or worthless but feels helpless regarding his medical infirmity. He did not express phobias, ideas reference, paranoid ideation, magical ideation or delusions. His thinking was abstract and associations were coherent and logical. He denied that he is currently experiencing auditory and visual or olfactory hallucinations. On the Mini-Mental State Exam is total score was 29/30. He was fully oriented and had no impairment registration, attention and concentration, recall and language. IMPRESSIONS: He is an 79-year-old male with multiple medical problems including past diagnosis of depression and dementia. [facility] with progressive weakness and falling. Neuroimaging is suggestive of normal pressure hydrocephalus. The hospitalist consult to psychiatry for evaluation of visual hallucinations. The hallucinations at present recently and not accompanied by other psychotic symptoms or symptoms suggestive of severe depression. They hallucinatory experiences are not related to a primary psychotic condition. Even his performance on the Mini-Mental State Exam is not suggestive of a Major Neurocognitive Disorder. DIAGNOSIS: Visual hallucinations due to unspecified medical condition, rule out normal pressure hydrocephalus. RECOMMENDATION: There is no indication for transfer to psychiatric unit. There is no indication to refer him for outpatient mental health services. I concur with the decision to discontinue his outpatient psychotropic medications including Wellbutrin, sertraline and Remeron. I also agree with a plan to hold galantamine. Consider further evaluation of possible normal pressure hydrocephalus. Thank you for this consult. Psychiatry will sign off the case. 12/20/19 14:54
--- NOTE | 2019-12-20 16:00 | CDI ---
Documentation Clarification Form Date: 12/20/2019 03:53:00 PM From: Marissa Angulo RN, CCDS Admit Date: 12/19/2019 02:35:00 PM Patient Name: Nabil Carpenter Visit Number: [id number] Discharge Date: ATTENTION: The Clinical Documentation Specialists (CDI) and [facility] Coding Staff appreciate your assistance in clarifying documentation. Please respond to the clarification below the line at the bottom and electronically sign. The CDI & [facility] Coding staff will review the response and follow-up if needed. Please note: Queries are made part of the Legal Health Record. If you have any questions, please contact the author of this message via ITS. Dr. Debbie Barnes Chronic congestive heart failure not in exacerbation is documented in your progress note on 12/18. Request further specificity for the type of CHF. History/Risk Factors: Diabetes mellitus, Hypertension, Hyperlipidemia, Chronic CHF, CKD stage III Clinical Indicators: 79-year-old male who has past medical history of congestive hear failure, present to ED for unsteady gait and frequent falls. On presentation 12/15 at 19:31 VS/Pulse OX: 111/82 120 17 98.3 99 % RA 02/05/19 Echocardiogram Results: Overall left ventricular systolic function is severely impaired with, an EF <20 % 12/15 Chest X Ray: No acute cardiopulmonary process Treatment: Lopressor 100 mg po tid Lipitor 20 mg po hs In your professional opinion, can you please clarify the type of CHF if known? Chronic Systolic Heart Failure: Unable to Determine Other, please specify (Last Revision: August 2017) Chronic Systolic Heart Failure MTDD
[2019-12-20 17:16] LABS: Glucose,Whole Blood 187 mg/dL (75-99)
[2019-12-20 20:41] LABS: Glucose,Whole Blood 216 mg/dL (75-99)
[2019-12-20] MEDS: MONTELUKAST 10 MG TAB PO SCH (20:55)
[2019-12-20] MEDS: ATORVASTATIN 20 MG TAB PO SCH (20:55)
--- NOTE | 2019-12-20 23:10 | P.PN ---
Subjective Progress Note Date: 12/20/19 Principal diagnosis: Acute kidney injury on CKD Recurrent falls with generalized weakness Mr. Carpenter is an 79-year-old male with a past medical history of congestive heart failure, initially fibrillation, CVA/TIA, diverticulitis, hypertension, Osteoporosis, obstructive sleep apnea, Anxiety and depression coming in for unsteady gait and frequent falls. Patient was also having hallucinations that have been going on for the past 2 months. Patient's states that his symptoms of unsteady gait and generalized weakness along with falls have been worse over the past couple of years. He was seen by neurologist as outpatient and they were unable to figure out what was going on with him. Patient was found to have elevated creatinine at the time of admission. Eventually he is admitted to the hospital with neurology and psychiatric consultants on board. he was evaluated by neurology, and possible etiologies normal pressure hydrocephalus. He was evaluated by psychiatric for visual hallucinations, and they suggested to stop mirtazapine and continued Zoloft and Wellbutrin. On 12/18/2019 - patient is lying in bed comfortably. His is at the bedside. As per nursing staff report patient has been having difficulty urinating. He has been retaining more than 350 mL couple of times today. Patient still continues to have visual hallucinations. On reviewing his vitals blood pressure is within normal limits, no fever over the past 24 hours. Heart rate is irregularly irregular. Patient states that he does not have any headaches or blurring of vision. Denies having any chest pain or palpitations. No cough or difficulty in breathing. No abdominal pain nausea vomiting or diarrhea. His only complaint is that he is not able to empty his bladder. He also complains of generalized weakness. No new labs from the past couple of days. Urine is showing leukocyte esterase but no nitrites and 5 wbc's. Coronavirus is negative. On 12/19/2019 - patient is lying in bed comfortably. He is currently being fed by the professional nursing assistant. Patient is still confused, thinking that he is at home. Since having the Potts's catheter in place, he had good urinary output. Patient's Remeron has been discontinued yesterday. Urology was consulted, and they suggested that he be continued on Potts's catheter. On reviewing the patient's vitals, he has been slightly tachycardic in the 100s to 110s, blood pressure 116/72, saturating at 95% on room air. His labs from this morning show hemoglobin 11.9, white count of 9, sodium 142, potassium 4.4, chloride 112, bicarbonate 21. BUN 31, creatinine decreased from 3 to 1.67. On 12/20/2019 -patient is sitting up in a chair by the bedside. His is also present in the room. He is much more alert and coherent today. He understands that he is in the hospital on the fourth floor. His states that when he gets a good night sleep the next morning his mentation is better compared to the days when he does not sleep well at night. Patient still has Potts's catheter in place with good urinary output. On reviewing the vitals patient's blood pressure 98.3, heart rate 110s, blood pressure 129/78, saturating at 93% on room air. Patient had labs done this morning sodium 140, potassium 4.1, chloride 114 , bicarb 19, BUN 27, creatinine 1.44. Active Medications Albuterol Sulfate (Ventolin Nebulized) 2.5 mg INHALATION RT-BID [facility] Last Admin: 12/20/19 20:34 Dose: 2.5 mg Documented by: Apixaban (Eliquis) 2.5 mg PO BID [facility] Last Admin: 12/20/19 20:55 Dose: 2.5 mg Documented by: Atorvastatin Calcium (Lipitor) 20 mg PO HS [facility] Last Admin: 12/20/19 20:55 Dose: 20 mg Documented by: Doxazosin Mesylate (Cardura) 8 mg PO DAILY [facility] Last Admin: 12/20/19 07:26 Dose: 8 mg Documented by: Finasteride (Proscar) 5 mg PO DAILY [facility] Last Admin: 12/20/19 10:05 Dose: 5 mg Documented by: Sodium Chloride (Saline 0.9%) 1,000 mls @ 50 mls/hr IV .Q20H [facility] Last Admin: 12/18/19 21:29 Dose: 50 mls/hr Documented by: Insulin Aspart (Novolog) 0 unit SQ ACHS [facility]; Protocol Last Admin: 12/20/19 20:54 Dose: 3 unit Documented by: Melatonin (Melatonin) 10 mg PO HS PRN PRN Reason: Insomnia Metoprolol Tartrate (Lopressor) 100 mg PO TID [facility] Last Admin: 07/20/20 20:55 Dose: 100 mg Documented by: Montelukast Sodium (Singulair) 10 mg PO HS [facility] Last Admin: 12/20/19 20:55 Dose: 10 mg Documented by: Multivitamins (Theragran) 1 each PO DAILY [facility] Last Admin: 12/20/19 07:25 Dose: 1 each Documented by: Naloxone HCl (Narcan) 0.2 mg IV Q2M PRN PRN Reason: Opioid Reversal Sacubitril/Valsartan (Entresto 24 Mg-26 Mg Tablet) 1 each PO BID [facility] Last Admin: 12/20/19 20:55 Dose: 1 each Documented by: Objective - Vital Signs Vital signs: Vital Signs Temp 98.1 F 12/20/19 07:05 Pulse 96 12/20/19 08:17 Resp 18 12/20/19 07:05 BP 139/76 12/20/19 07:05 Pulse Ox 92 L 12/20/19 07:05 Intake & Output 12/19/19 12/20/19 12/20/19 18:59 06:59 18:59 Output Total 450 1300 Balance -450 -1300 Weight 97.4 kg Output: Urine 1300 Stool 450 Other: Voiding Method Indwelling Catheter Indwelling Catheter - Exam GENERAL: Patient appears to be no acute distress. HEENT: Pupils are round and equally reacting to light. No pallor. No icterus. CARDIOVASCULAR: Irregularly irregular. S1 and S2 heard. PULMONARY: Chest is clear to auscultation, no wheezing or crackles. ABDOMEN: Soft, nontender, nondistended, normoactive bowel sounds. MUSCULOSKELETAL: No joint swelling or deformity. EXTREMITIES: No cyanosis, clubbing, or pedal edema. NEUROLOGICAL: Gross neurological examination did not reveal any focal deficits. SKIN: No rashes. No petechiae - Labs CBC & Chem 7: 12/19/19 09:02 12/20/19 07:00 Labs: Abnormal Lab Results - Last 24 Hours (Table) 12/19/19 12/19/19 12/20/19 Range/Units 16:32 20:04 07:00 Chloride 114 H (98-107) mmol/L Carbon Dioxide 19 L (22-30) mmol/L BUN 27 H (9-20) mg/dL Creatinine 1.44 H (0.66-1.25) mg/dL Glucose 146 H (74-99) mg/dL POC Glucose (mg/dL) 155 H 209 H (75-99) mg/dL 12/20/19 12/20/19 Range/Units 07:02 11:50 Chloride (98-107) mmol/L Carbon Dioxide (22-30) mmol/L BUN (9-20) mg/dL Creatinine (0.66-1.25) mg/dL Glucose (74-99) mg/dL POC Glucose (mg/dL) 153 H 155 H (75-99) mg/dL Microbiology - Last 24 Hours (Table) 12/18/19 18:12 Urine Culture - Preliminary Urine,Catheterized Group D Enterococcus Assessment and Plan Assessment: ASSESSMENT Acute kidney injury on CKD Recurrent falls with generalized weakness CKD stage 2 UTI secondary to enterococcus Urinary retention Chronic congestive heart failure not in exacerbation Atrial fibrillation, persistent History of CVA/TIA Type 2 diabetes mellitus Hypertension Hyperlipidemia Primary osteoarthritis Obstructive sleep apnea on CPAP/BiPAP Anxiety depression PLAN : Patient's repeat creatinine from today is 1.47. Renal ultrasound done showing no evidence of hydronephrosis, urology suggested that the patient be continued on Potts's catheter for 5-7 days. Neurology on board and thinking of possibility of normal pressure hydrocephalus. Patient's Remeron has been discontinued. Urine culture is positive for group D enterococcus, patient has been started on Unasyn and awaiting susceptibilities. As per discussion with his , patient has been weak and has gait instability, she mentions that it would be difficult for her to take care of him all by herself. So possible subacute rehab placement, hospice social worker to follow-up. Continue with the rest of his current medication regimen. Further recommendations to follow depending on the progress of the patient.
[2019-12-21] MEDS: AMPICILLIN-SULBACTAM 3 GM in SODIUM CHLORIDE 0.9% 100 ML IVPB SCH ×4 (00:13→22:54)
[2019-12-21] MEDS: SODIUM CHLORIDE 0.9% 1,000 ML IV SCH ×2 (03:19→22:13)
[2019-12-21 06:45] LABS: Glucose,Whole Blood 159 mg/dL (75-99)
[2019-12-21] MEDS: MULTIVITAMINS, THERA 1 EACH TAB PO SCH (07:05)
[2019-12-21] MEDS: SACUBITRIL/VALSARTAN 24 MG-26 MG TABLET PO SCH ×2 (07:05→20:17)
[2019-12-21] MEDS: DOXAZOSIN 4 MG TAB PO SCH (07:06)
[2019-12-21] MEDS: FINASTERIDE 5 MG TAB PO SCH (07:06)
[2019-12-21] MEDS: METOPROLOL TARTRATE 50 MG TAB PO SCH ×3 (07:06→20:17)
[2019-12-21] MEDS: INSULIN ASPART (NovoLOG) 100 UNIT/ML VIAL SQ SCH ×4 (07:06→20:16)
[2019-12-21] MEDS: APIXABAN 2.5 MG TABLET PO SCH ×2 (07:06→20:17)
[2019-12-21 08:17] LABS: Calcium 8.4 mg/dL (8.4-10.2); Potassium 4.4 mmol/L (3.5-5.1)
[2019-12-21] MEDS: ALBUTEROL NEBULIZED 2.5 MG/3 ML INHALATION SCH ×2 (09:00→18:45)
--- NOTE | 2019-12-21 09:38 | P.PN ---
Subjective Mr. Carpenter is an 79-year-old male with a past medical history of congestive heart failure, initially fibrillation, CVA/TIA, diverticulitis, hypertension, Osteoporosis, obstructive sleep apnea, Anxiety and depression coming in for unsteady gait and frequent falls. Previous CT head (12/03/2019) and MRI Brain (06/07/2017) showed dilated ventricles and there is suspicion of normal pressure hydrocephalus. Patient evaluated by in-house neurologist who recommended patient follow up with his neurologist as an outpatient. Informed with the patient and his over the phone, he follows up with There was a suspicion of acute urinary tract infection, urine culture, and group D enterococcus, he was treated with antibiotic Unasyn Urologist evaluated the patient for urinary retention, Renal ultrasound done showing no evidence of hydronephrosis, urology suggested that the patient be continued on Potts's catheter for 5-7 days. Patient was treated with IV fluids and his creatinine came back to baseline, and patient with Mrs. Castillo improving over physical therapy recommended subacute rehab patient agrees However patient's is still a bit queasy this morning with little dyspnea and has some cough with phlegm, not sure about the color, he is saturating 92% on 2 L oxygen via nasal cannula, repeat chest x-ray Review of systems CONSTITUTIONAL: No fever, no malaise, no fatigue. HEENT: No recent visual problems or hearing problems. Denied any sore throat. CARDIOVASCULAR: No orthopnea, PND, no palpitations, no syncope. PULMONARY: No shortness of breath, no cough, no hemoptysis. NEUROLOGICAL: No headaches, no weakness, no numbness. HEMATOLOGICAL: Denies any bleeding or petechiae. GENITOURINARY: Denies any burning micturition, frequency, or urgency. MUSCULOSKELETAL/RHEUMATOLOGICAL: Denies any joint pain, swelling, or any muscle pain. ENDOCRINE: Denies any polyuria or polydipsia. Active Medications Generic Name Dose Route Start Last Admin Trade Name Freq PRN Reason Stop Dose Admin Albuterol Sulfate 2.5 mg 12/18/19 08:00 12/21/19 09:00 Ventolin Nebulized INHALATION 2.5 mg RT-BID TREVA Administration Apixaban 2.5 mg 12/17/19 21:00 12/21/19 07:06 Eliquis PO 2.5 mg BID TREVA Administration Atorvastatin Calcium 20 mg 12/17/19 21:00 12/20/19 20:55 Lipitor PO 20 mg HS TREVA Administration Doxazosin Mesylate 8 mg 12/18/19 09:00 12/21/19 07:06 Cardura PO 8 mg DAILY TREVA Administration Finasteride 5 mg 12/20/19 09:00 12/21/19 07:06 Proscar PO 5 mg DAILY TREVA Administration Sodium Chloride 1,000 mls @ 50 mls/hr 12/16/19 22:00 12/21/19 03:19 Saline 0.9% IV Not Given .Q20H TREVA Ampicillin Sodium/Sulbactam 100 mls @ 200 mls/hr 12/21/19 00:00 12/21/19 07:06 Sodium 3 gm/ Sodium Chloride IVPB 200 mls/hr Q8HR TREVA Administration Insulin Aspart 0 unit 12/17/19 21:00 12/21/19 07:06 Novolog SQ 1 unit ACHS TREVA Administration Protocol Melatonin 10 mg 12/17/19 20:49 Melatonin PO HS PRN Insomnia Metoprolol Tartrate 100 mg 12/19/19 16:00 12/21/19 07:06 Lopressor PO 100 mg TID TREVA Administration Montelukast Sodium 10 mg 12/17/19 21:00 12/20/19 20:55 Singulair PO 10 mg HS TREVA Administration Multivitamins 1 each 12/18/19 09:00 12/21/19 07:05 Theragran PO 1 each DAILY TREVA Administration Naloxone HCl 0.2 mg 12/16/19 21:58 Narcan IV Q2M PRN Opioid Reversal Sacubitril/Valsartan 1 each 12/17/19 21:00 12/21/19 07:05 Entresto 24 Mg-26 Mg Tablet PO 1 each BID TREVA Administration Objective - Vital Signs Vital signs: Vital Signs Temp 98.5 F 12/21/19 06:44 Pulse 92 12/21/19 09:14 Resp 20 12/21/19 06:44 BP 156/82 12/21/19 06:44 Pulse Ox 92 L 12/21/19 06:44 Intake & Output 12/20/19 12/21/19 12/21/19 18:59 06:59 18:59 Intake Total 150 Output Total 500 500 Balance -500 -350 Weight 102 kg Intake: Intake, IV Titration 150 Amount Sodium Chloride 0.9% 1, 150 000 ml @ 50 mls/hr IV . Q20H [facility] Rx#:[id number] Output: Urine 500 500 Other: Voiding Method Indwelling Catheter Indwelling Catheter - Exam -GENERAL: The patient is alert and oriented x3, slightly drowsy, not in any acute distress. Well developed, well nourished. HEENT: Pupils are round and equally reacting to light. EOMI. No scleral icterus. No conjunctival pallor. Normocephalic, atraumatic. No pharyngeal erythema. No thyromegaly. CARDIOVASCULAR: S1 and S2 present. No murmurs, rubs, or gallops. PULMONARY: Chest is clear to auscultation, no wheezing or crackles. -ABDOMEN: Soft, nontender, nondistended, normoactive bowel sounds. No palpable organomegaly. Potts catheter is in place with pink urine MUSCULOSKELETAL: No joint swelling or deformity. EXTREMITIES: No cyanosis, clubbing, or pedal edema. -NEUROLOGICAL: Gross neurological examination did not reveal any focal deficits. However patient feels generally weak with tremors SKIN: No rashes. no petechiae. - Labs CBC & Chem 7: 12/19/19 09:02 12/21/19 07:06 Labs: Abnormal Lab Results - Last 24 Hours (Table) 12/16/19 12/16/19 12/20/19 Range/Units 19:58 19:58 11:50 Chloride (98-107) mmol/L BUN (9-20) mg/dL Creatinine (0.66-1.25) mg/dL Glucose (74-99) mg/dL POC Glucose (mg/dL) 155 H (75-99) mg/dL Methylmalonic Acid 0.50 H (<0.40) umol/L RBC Folate >1,400 H (280 - 791) ng/mL 12/20/19 12/20/19 12/21/19 Range/Units 17:04 20:39 06:42 Chloride (98-107) mmol/L BUN (9-20) mg/dL Creatinine (0.66-1.25) mg/dL Glucose (74-99) mg/dL POC Glucose (mg/dL) 187 H 216 H 159 H (75-99) mg/dL Methylmalonic Acid (<0.40) umol/L RBC Folate (280 - 791) ng/mL 12/21/19 Range/Units 07:06 Chloride 113 H (98-107) mmol/L BUN 26 H (9-20) mg/dL Creatinine 1.29 H (0.66-1.25) mg/dL Glucose 147 H (74-99) mg/dL POC Glucose (mg/dL) (75-99) mg/dL Methylmalonic Acid (<0.40) umol/L RBC Folate (280 - 791) ng/mL Microbiology - Last 24 Hours (Table) 12/18/19 18:12 Urine Culture - Final Urine,Catheterized Enterococcus faecalis Assessment and Plan Assessment: fall, associated with generalized weakness unsteady gait, secondary to normal pressure hydrocephalus Urinary retention acute urinary tract infection with enterococci acute kidney injury on chronic kidney disease elevated lactic acid, came back to normal chronic heart failure Atrial fibrillation on Eliquis History of CVA/TIA Diabetes mellitus Hypertension chronic kidney disease, stage III, mostly secondary to diabetic nephropathy Hyperlipidemia Primary osteoarthritis Sleep apnea on CPAP/BiPAP Anxiety and depression Plan: this is a pleasant 79 years old male who presents with fall, and hallucination associated with acute kidney injury from dehydration.continue with gentle hydration, check bladder scan. we will ask for neurology and psychiatry consult Labs and medication were reviewed.. Continue same treatment. Continue with symptomatic treatment. Resume home medication. Monitor lytes and vitals. DVT and GI prophylaxis. Further recommendations of the clinical course of the patient DVT prophylaxis: Subcutaneous heparin GI Prophylaxis: Pepcid PT/OT: Pending Prognosis is guarded
[2019-12-21 09:45] LABS: Appearance,Urine Cloudy (Clear); Bilirubin,Urine Negative (Negative); Blood,Urine Large (Negative); Color,Urine Dark Brown; Glucose,Urine (UA) Trace (Negative); Ketones,Urine Negative (Negative); Leukocyte Esterase,Urine Large (Negative); Mucus,Urine Few /hpf; Nitrite,Urine Negative (Negative); PH, Urine 5.5 (5.0-8.0); Protein,Urine 1+ (Negative); RBC,Urine >182 /hpf (0-5); Specific Gravity,Urine 1.021 (1.001-1.035); Urobilinogen,Urine <2.0 mg/dL (<2.0); WBC,Urine 158 /hpf (0-5)
[2019-12-21 11:37] LABS: Glucose,Whole Blood 162 mg/dL (75-99)
--- NOTE | 2019-12-21 11:53 | XR ---
EXAMINATION TYPE: XR chest 1V portable DATE OF EXAM: 12/21/2019 Comparison: 12/16/2019 Clinical History: 79-year-old male shortness of breath Findings: Left anterior chest wall ICD generator with right ventricular lead. Heart upper limits of normal in s ize. Increasing diffuse interstitial patchy opacities bilaterally. No sizable pleural effusion on fro ntal view. Impression: Increasing diffuse bilateral interstitial infiltrates. Correlate for developing pulmonary edema or at ypical pneumonias.
[2019-12-21 17:25] LABS: Glucose,Whole Blood 164 mg/dL (75-99)
[2019-12-21] MEDS: MONTELUKAST 10 MG TAB PO SCH (20:17)
[2019-12-21] MEDS: ATORVASTATIN 20 MG TAB PO SCH (20:17)
[2019-12-21 20:22] LABS: Glucose,Whole Blood 167 mg/dL (75-99)
[2019-12-21] MEDS ORDERED: FUROSEMIDE 10 MG/ML 4 ML VIAL IV SCH (22:45)
[2019-12-22 07:10] LABS: Glucose,Whole Blood 147 mg/dL (75-99)
[2019-12-22] MEDS: IPRATROPIUM-ALBUTEROL 3 ML NEB INHALATION SCH ×4 (07:22→20:15)
[2019-12-22] MEDS: AMPICILLIN-SULBACTAM 3 GM in SODIUM CHLORIDE 0.9% 100 ML IVPB SCH ×3 (07:26→23:57)
[2019-12-22] MEDS: FUROSEMIDE 10 MG/ML 4 ML VIAL IV SCH ×3 (07:26→23:48)
[2019-12-22] MEDS: APIXABAN 2.5 MG TABLET PO SCH ×2 (07:26→21:15)
[2019-12-22] MEDS: FINASTERIDE 5 MG TAB PO SCH (07:26)
[2019-12-22] MEDS: SACUBITRIL/VALSARTAN 24 MG-26 MG TABLET PO SCH ×2 (07:27→21:14)
[2019-12-22] MEDS: DOXAZOSIN 4 MG TAB PO SCH (07:27)
[2019-12-22] MEDS: INSULIN ASPART (NovoLOG) 100 UNIT/ML VIAL SQ SCH ×4 (07:28→21:11)
[2019-12-22] MEDS: MULTIVITAMINS, THERA 1 EACH TAB PO SCH (07:38)
[2019-12-22] MEDS: METOPROLOL TARTRATE 50 MG TAB PO SCH ×3 (07:38→21:15)
--- NOTE | 2019-12-22 08:13 | P.PN ---
Subjective Mr. Carpenter is an 79-year-old male with a past medical history of congestive heart failure, initially fibrillation, CVA/TIA, diverticulitis, hypertension, Osteoporosis, obstructive sleep apnea, Anxiety and depression coming in for unsteady gait and frequent falls. Previous CT head (12/03/2019) and MRI Brain (06/07/2017) showed dilated ventricles and there is suspicion of normal pressure hydrocephalus. Patient evaluated by in-house neurologist who recommended patient follow up with his neurologist as an outpatient. Informed with the patient and his over the phone, he follows up with There was a suspicion of acute urinary tract infection, urine culture, and group D enterococcus, he was treated with antibiotic Unasyn Urologist evaluated the patient for urinary retention, Renal ultrasound done showing no evidence of hydronephrosis, urology suggested that the patient be continued on Potts's catheter for 5-7 days. Patient was treated with IV fluids and his creatinine came back to baseline, and patient with Mrs. Castillo improving over physical therapy recommended subacute rehab patient agrees However patient's is still a bit queasy this morning with little dyspnea and has some cough with phlegm, not sure about the color, he is saturating 92% on 2 L oxygen via nasal cannula, repeat chest x-ray 12/22/2019 Patient is awake and alert, is still have some shortness of breath with dyspnea and his wheezing on examination, yesterday was stopped IV fluids and he got 1 dose of Lasix, continue with IV Lasix today Start breathing treatment with duonebs he is hemodynamically stable. Labs from this morning are pending, sugar is controlled He remains on Unasyn for enterococcus faecalis in his urine culture, however no suprapubic tenderness. Potts catheter in place with yellow urine Urologist already evaluated the patient and recommended prostatic surgery for his obstructive uropathy, however patient declined and wants to continue with finasteride and doxazosin Patient may benefit from ECF upon discharge Patient is not ready for discharge today Objective - Vital Signs Vital signs: Vital Signs Temp 98.4 F 12/22/19 00:24 Pulse 92 12/22/19 07:48 Resp 16 12/22/19 00:24 BP 136/81 12/22/19 00:24 Pulse Ox 94 L 12/22/19 00:24 Intake & Output 12/21/19 12/22/19 12/22/19 18:59 06:59 18:59 Intake Total 1080 175 Output Total 300 3300 Balance 780 -3125 Weight 103.5 kg Intake: Intake, IV Titration 175 Amount Sodium Chloride 0.9% 1, 175 000 ml @ 50 mls/hr IV . Q20H [facility] Rx#:[id number] Oral 1080 Output: Urine 300 3300 Other: Voiding Method Indwelling Catheter # Voids 3 - Exam -GENERAL: The patient is alert and oriented x3, slightly drowsy, not in any acute distress. Well developed, well nourished. HEENT: Pupils are round and equally reacting to light. EOMI. No scleral icterus. No conjunctival pallor. Normocephalic, atraumatic. No pharyngeal erythema. No thyromegaly. CARDIOVASCULAR: S1 and S2 present. No murmurs, rubs, or gallops. PULMONARY: Chest is clear to auscultation, no wheezing or crackles. -ABDOMEN: Soft, nontender, nondistended, normoactive bowel sounds. No palpable organomegaly. Potts catheter is in place with pink urine MUSCULOSKELETAL: No joint swelling or deformity. EXTREMITIES: No cyanosis, clubbing, or pedal edema. -NEUROLOGICAL: Gross neurological examination did not reveal any focal deficits. However patient feels generally weak with tremors SKIN: No rashes. no petechiae. - Labs CBC & Chem 7: 12/19/19 09:02 12/21/19 07:06 Labs: Abnormal Lab Results - Last 24 Hours (Table) 12/21/19 12/21/19 12/21/19 Range/Units 07:06 09:04 11:33 Chloride 113 H (98-107) mmol/L BUN 26 H (9-20) mg/dL Creatinine 1.29 H (0.66-1.25) mg/dL Glucose 147 H (74-99) mg/dL POC Glucose (mg/dL) 162 H (75-99) mg/dL Urine Protein 1+ H (Negative) Urine Glucose (UA) Trace H (Negative) Urine Blood Large H (Negative) Ur Leukocyte Esterase Large H (Negative) Urine RBC >182 H (0-5) /hpf Urine WBC 158 H (0-5) /hpf Urine Mucus Few H (None) /hpf 07/21/20 07/21/20 07/22/20 Range/Units 17:00 20:11 07:09 Chloride (98-107) mmol/L BUN (9-20) mg/dL Creatinine (0.66-1.25) mg/dL Glucose (74-99) mg/dL POC Glucose (mg/dL) 164 H 167 H 147 H (75-99) mg/dL Urine Protein (Negative) Urine Glucose (UA) (Negative) Urine Blood (Negative) Ur Leukocyte Esterase (Negative) Urine RBC (0-5) /hpf Urine WBC (0-5) /hpf Urine Mucus (None) /hpf Assessment and Plan Assessment: fall, associated with generalized weakness unsteady gait, secondary to normal pressure hydrocephalus Urinary retention acute urinary tract infection with enterococci acute kidney injury on chronic kidney disease elevated lactic acid, came back to normal chronic heart failure Atrial fibrillation on Eliquis History of CVA/TIA Diabetes mellitus Hypertension chronic kidney disease, stage III, mostly secondary to diabetic nephropathy Hyperlipidemia Primary osteoarthritis Sleep apnea on CPAP/BiPAP Anxiety and depression Plan: this is a pleasant 79 years old male who presents with fall, and hallucination associated with acute kidney injury from dehydration.continue with gentle hydration, check bladder scan. we will ask for neurology and psychiatry consult Labs and medication were reviewed.. Continue same treatment. Continue with symptomatic treatment. Resume home medication. Monitor lytes and vitals. DVT and GI prophylaxis. Further recommendations of the clinical course of the p atient DVT prophylaxis: Subcutaneous heparin GI Prophylaxis: Pepcid PT/OT: Pending Prognosis is guarded
[2019-12-22 11:38] LABS: Glucose,Whole Blood 215 mg/dL (75-99)
[2019-12-22 16:40] LABS: Glucose,Whole Blood 194 mg/dL (75-99)
[2019-12-22 20:33] LABS: Glucose,Whole Blood 204 mg/dL (75-99)
[2019-12-22 21:13] LABS: Calcium 8.1 mg/dL (8.4-10.2); Magnesium 1.8 mg/dL (1.6-2.3); Potassium 3.7 mmol/L (3.5-5.1)
[2019-12-22] MEDS: ATORVASTATIN 20 MG TAB PO SCH (21:15)
[2019-12-22] MEDS: MONTELUKAST 10 MG TAB PO SCH (21:15)
[2019-12-22] MEDS ORDERED: ACETAMINOPHEN TAB 325 MG TAB PO PRN (23:42)
[2019-12-23] MEDS: IPRATROPIUM-ALBUTEROL 3 ML NEB INHALATION SCH ×4 (00:27→12:55)
[2019-12-23 03:24] VITALS: RESP 18
[2019-12-23] MEDS: AMPICILLIN-SULBACTAM 3 GM in SODIUM CHLORIDE 0.9% 100 ML IVPB SCH ×2 (05:46→12:33)
[2019-12-23 07:16] LABS: Glucose,Whole Blood 240 mg/dL (75-99)
--- NOTE | 2019-12-23 07:59 | XR ---
EXAMINATION TYPE: XR chest 1V DATE OF EXAM: 12/23/2019 COMPARISON: 12/21/2019 HISTORY: Abnormal x-ray TECHNIQUE: Single frontal view of the chest is obtained. FINDINGS: Left anterior chest wall ICD generator with right ventricular lead. Heart upper limits of normal in size. Increasing diffuse interstitial patchy opacities bilaterally. No sizable pleural effu homer on frontal view. IMPRESSION: Diffuse bilateral infiltrates with small effusion are stable. Correlate for CHF versus i nterstitial pneumonia or pneumonitis.
[2019-12-23 08:13] LABS: Calcium 7.9 mg/dL (8.4-10.2); Magnesium 1.7 mg/dL (1.6-2.3); Potassium 3.3 mmol/L (3.5-5.1)
[2019-12-23 09:05] VITALS: PULSE 92
[2019-12-23 09:08] VITALS: BP 141/65; TEMP 98.7
[2019-12-23] MEDS: DOXAZOSIN 4 MG TAB PO SCH (09:15)
[2019-12-23] MEDS: SACUBITRIL/VALSARTAN 24 MG-26 MG TABLET PO SCH (09:15)
[2019-12-23] MEDS: INSULIN ASPART (NovoLOG) 100 UNIT/ML VIAL SQ SCH ×2 (09:16→12:32)
[2019-12-23] MEDS: APIXABAN 2.5 MG TABLET PO SCH (09:16)
[2019-12-23] MEDS: FUROSEMIDE 10 MG/ML 4 ML VIAL IV SCH (09:16)
[2019-12-23] MEDS: MULTIVITAMINS, THERA 1 EACH TAB PO SCH (09:16)
[2019-12-23] MEDS: FINASTERIDE 5 MG TAB PO SCH (09:16)
[2019-12-23] MEDS: METOPROLOL TARTRATE 50 MG TAB PO SCH (09:16)
[2019-12-23 11:33] LABS: Glucose,Whole Blood 239 mg/dL (75-99)
[2019-12-23 13:02] VITALS: BMI 32.4
[2019-12-23] MEDS ORDERED: POTASSIUM CHLORIDE ER 20 MEQ TAB.ER PO STA (13:09)
--- NOTE | 2019-12-23 13:09 | P.DS ---
Providers Date of admission: 12/19/19 14:35 Attending physician: Raymon Ramey Consults: 12/16/19 21:59 Consult Physician Routine Consulting Provider: Ulises Johnson Consult Reason/Comments: Hallucinations; Weakness; Frequent falls Do you want consulting provider notified?: Yes Consult Physician Routine Consulting Provider: Soto Campo Consult Reason/Comments: Hallucinations Do you want consulting provider notified?: Yes 12/18/19 17:55 Consult Physician Routine Consulting Provider: Kip Roth Consult Reason/Comments: urinary retention Do you want consulting provider notified?: Yes Primary care physician: [facility] [place] Course: Diagnoses: Anesthetic gait with recurrent falls secondary to normal pressure hydrocephalus, evaluated by neurologist Acute kidney injury and CKD, back to baseline and normal Recurrent falls with generalized weakness Enterococcal acute urinary tract infection Urinary retention, status post Potts catheter. Follow up with urology as an outpatient Visual hallucinations secondary to medical problem, evaluated by psychiatrist, resolved Chronic congestive heart failure not in exacerbation Atrial fibrillation, persistent History of CVA/TIA Type 2 diabetes mellitus Hypertension Hyperlipidemia Primary osteoarthritis Obstructive sleep apnea on CPAP/BiPAP Anxiety depression Hospital course: Mr. Carpenter is an 79-year-old male with a past medical history of congestive heart failure, initially fibrillation, CVA/TIA, diverticulitis, hypertension, Osteoporosis, obstructive sleep apnea, Anxiety and depression coming in for unsteady gait and frequent falls. Previous CT head (12/03/2019) and MRI Brain (06/07/2017) showed dilated ventricles and there is suspicion of normal pressure hydrocephalus. Patient evaluated by in-house neurologist who recommended patient follow up with his neurologist as an outpatient. There was a suspicion of acute urinary tract infection, urine culture, and group D enterococcus, he was treated with antibiotic Unasyn and switched to Augmentin upon discharge Urologist evaluated the patient for urinary retention, Renal ultrasound done showing no evidence of hydronephrosis, urology suggested that the patient be continued on Potts's catheter for 5-7 days. Follow-up with urologist as an outpatient Patient got some pulmonary condition from IV fluid, it was stopped and placed on IV Lasix, patient showed interval improvement and his breathing is much better his with some minimal exertional dyspnea on walking, he could walk the hallway prior to discharge. She'll be discharged on Lasix twice a day for 7 days followed by daily for 3 weeks and then to be reassessed by his doctor Patient was treated with IV fluids and his creatinine came back to baseline, and patient with Mrs. Castillo improving over physical therapy recommended subacute rehab patient agrees On the day of discharge she denies chest pain or dyspnea, no change in urine or bowel habits. No nausea vomiting. He is tolerating that well. No fever Patient was cleared for discharge by all consultants including urology, psychiatry and urology Problems and management plan were discussed with the patient and his and they verbalized understanding and acceptance Patient was found stable and can be discharged home however he needs follow-up as an outpatient. Patient was instructed to follow up with PCP within one week and patient agrees. I spoke with pt and his and they agree with appointments made for him with his neurologist , and his pcp , and they will follow up. Physical exam Gen: patient is a AAOx3, no distress CVS: S1-S2, RRR, no murmur Lungs: B/L CTA, no wheezing Abdomen: soft, no distention, no tenderness, positive bowel sounds. Potts catheter is in place Extremity: no leg edema or induration Discharge instructions: We recommend repeat chest x-ray in Time spent more than 35 minutes Patient Condition at Discharge: Serious Plan - Discharge Summary Discharge Rx Participant: No New Discharge Prescriptions: New Amoxicillin/Potassium Clav [Augmentin 875-125 Tablet] 1 tab PO Q12HR 10 Days #20 tab Furosemide [Lasix] 40 mg PO HS 8 Days #8 tablet Metoprolol Tartrate [Lopressor] 100 mg PO TID tab Finasteride [Proscar] 5 mg PO DAILY tab Acetaminophen Tab [Tylenol] 325 mg PO Q6HR PRN tab PRN Reason: Fever And/ Or Pain Continue Glimepiride [Amaryl] 4 mg PO BID Simvastatin [Zocor] 40 mg PO HS [place]-3 Fatty Acids/Fish Oil [Fish Oil 1,000 mg Softgel] 1 cap PO DAILY Multivitamins, Thera [Multivitamin (formulary)] 1 tab PO DAILY Montelukast [Singulair] 10 mg PO HS Doxazosin Mesylate 8 mg PO DAILY Albuterol Nebulized [Ventolin Nebulized] 2.5 mg INHALATION RT-BID Cholecalciferol (Vitamin D3) [Vitamin D3] 2,000 unit PO DAILY amantadine HCL [Amantadine] 200 mg PO DAILY@1500 Opti Fiber 1 tab PO DAILY Furosemide [Lasix] 40 mg PO DAILY Melatonin 10 mg PO HS PRN PRN Reason: Insomnia Apixaban [Eliquis] 2.5 mg PO BID metFORMIN HCL [metFORMIN HCL ER Osmotic] 1,000 mg PO BID Sacubitril/Valsartan [Entresto 24 mg-26 mg Tablet] 1 tab PO BID Discontinued Sertraline HCl [Zoloft] 100 mg PO BID buPROPion [Wellbutrin] 100 mg PO BID@0900,1500 Loperamide HCl [Imodium A-D] 4 mg PO HS Mirtazapine [Remeron] 45 mg PO HS Galantamine [Razadyne] 8 mg PO HS Metoprolol Tartrate [Lopressor] 75 mg PO TID Discharge Medication List Glimepiride [Amaryl] 4 mg PO BID 06/24/14 [History] [place]-3 Fatty Acids/Fish Oil [Fish Oil 1,000 mg Softgel] 1 cap PO DAILY 06/24/14 [History] Simvastatin [Zocor] 40 mg PO HS 06/24/14 [History] Multivitamins, Thera [Multivitamin (formulary)] 1 tab PO DAILY 07/20/15 [History] Albuterol Nebulized [Ventolin Nebulized] 2.5 mg INHALATION RT-BID 05/20/18 [History] Doxazosin Mesylate 8 mg PO DAILY 05/20/18 [History] Montelukast [Singulair] 10 mg PO HS 05/20/18 [History] Cholecalciferol (Vitamin D3) [Vitamin D3] 2,000 unit PO DAILY 02/05/19 [History] amantadine HCL [Amantadine] 200 mg PO DAILY@1500 02/05/19 [History] Furosemide [Lasix] 40 mg PO DAILY 06/10/19 [History] Melatonin 10 mg PO HS PRN 06/10/19 [History] Opti Fiber 1 tab PO DAILY 06/10/19 [History] Apixaban [Eliquis] 2.5 mg PO BID 12/16/19 [History] Sacubitril/Valsartan [Entresto 24 mg-26 mg Tablet] 1 tab PO BID 12/16/19 [History] metFORMIN HCL [metFORMIN HCL ER Osmotic] 1,000 mg PO BID 12/16/19 [History] Acetaminophen Tab [Tylenol] 325 mg PO Q6HR PRN tab 12/23/19 [Rx] Amoxicillin/Potassium Clav [Augmentin 875-125 Tablet] 1 tab PO Q12HR 10 Days #20 tab 12/23/19 [Rx] Finasteride [Proscar] 5 mg PO DAILY tab 12/23/19 [Rx] Furosemide [Lasix] 40 mg PO HS 8 Days #8 tablet 12/23/19 [Rx] Metoprolol Tartrate [Lopressor] 100 mg PO TID tab 12/23/19 [Rx] Follow up Appointment(s)/Referral(s): [facility] [Other] - 12/31/19 10:30 am (Please call to make an appointment within 1 week) Filipe Mckinney MD [Primary Care Provider] - 12/30/19 1:40 pm Kip Roth MD [STAFF PHYSICIAN] - 10 Days (Office will call patient with follow-up appointment. Dr. Roth will be out of the office until the end of December. )
== END 2019-12-23 15:58 | DRG 57 ==
LOC: EC 19:28 → 4SSUR 21:53 → OBSVTOIN 12-19 14:35 → 4SSUR 12-22 21:03
PROVIDERS: ADMIT Hospitalist; ATTEND Hospitalist
DX: G91.2 (Idiopathic) normal pressure hydrocephalus (principal); N39.0 Urinary tract infection, site not specified; I13.0 Hypertensive heart and chronic kidney disease with heart failure and stage 1 through stage 4 chronic kidney disease, or unspecified chronic kidney disease; I48.19 Other persistent atrial fibrillation; I50.22 Chronic systolic (congestive) heart failure; N17.9 Acute kidney failure, unspecified; E87.2 Acidosis; B95.2 Enterococcus as the cause of diseases classified elsewhere; E11.22 Type 2 diabetes mellitus with diabetic chronic kidney disease; E78.5 Hyperlipidemia, unspecified; E86.0 Dehydration; F03.90 Unspecified dementia, unspecified severity, without behavioral disturbance, psychotic disturbance, mood disturbance, and anxiety; F41.8 Other specified anxiety disorders; G47.00 Insomnia, unspecified; G47.33 Obstructive sleep apnea (adult) (pediatric); Z99.89 Dependence on other enabling machines and devices; H91.90 Unspecified hearing loss, unspecified ear; I44.4 Left anterior fascicular block; Z79.01 Long term (current) use of anticoagulants; K59.00 Constipation, unspecified; Z11.59 Encounter for screening for other viral diseases; R19.7 Diarrhea, unspecified; M19.91 Primary osteoarthritis, unspecified site; M81.0 Age-related osteoporosis without current pathological fracture; N13.9 Obstructive and reflux uropathy, unspecified; R33.9 Retention of urine, unspecified; R44.1 Visual hallucinations; N18.3 Chronic kidney disease, stage 3 (moderate); R29.6 Repeated falls; W19.XXXA Unspecified fall, initial encounter; Z79.84 Long term (current) use of oral hypoglycemic drugs; Z79.899 Other long term (current) drug therapy; Z80.7 Family history of other malignant neoplasms of lymphoid, hematopoietic and related tissues; Z86.73 Personal history of transient ischemic attack (TIA), and cerebral infarction without residual deficits; Z87.891 Personal history of nicotine dependence; Z81.8 Family history of other mental and behavioral disorders; Z87.11 Personal history of peptic ulcer disease; Z95.810 Presence of automatic (implantable) cardiac defibrillator; R26.81 Unsteadiness on feet
CPT/HCPCS: 36415; 70450; 71045; 71046; 76770; 80048; 80053; 81001; 82607; 82746; 82747; 83605; 83735; 83921; 84443; 84484; 85025; 85610; 85730; 87077; 87086; 87186; 93005; 94640; 99285

== ENCOUNTER 2020-02-17 12:36 | Inpatient (IN) | payer MEDICARE ==
--- NOTE | 2020-02-17 13:01 | ED ---
Altered Mental Status HPI - General Chief Complaint: Altered Mental Status Stated Complaint: confused/weakness Time Seen by Provider: 02/17/20 12:45 Source: patient Mode of arrival: ambulatory Limitations: no limitations - History of Present Illness Initial Comments: Patient is an 79-year-old male with past medical history of A. fib, diabetes, hypertension presents to the emergency department with reported weakness and confusion for the past 3 days. Patient was seen in November for similar complaints and found to have a UTI and acute kidney injury. Patient denies any changes in his urination. Admits to decreased dexterity in his fingers however this has been chronic and he currently follows with Dr. Valiente out of [place]. He went to see an EP doctor yesterday to see if he could have his ICD turned off for MRI. He took him off of his amiodarone and put him on Coreg as the patient has had 3 episodes which is ICD has gone off in the past 3 weeks. He did not seek evaluation for this. Patient denies any current chest pain or shortness of breath. No headache or visual changes. No unilateral numbness or weakness. Denies abdominal pain. No fevers or chills. Patient states he felt well after his last hospitalization and symptoms only reoccurred 2 weeks ago. - Related Data Home Medications Medication Instructions Recorded Confirmed Glimepiride [Amaryl] 4 mg PO DAILY 06/24/14 02/17/20 Simvastatin [Zocor] 40 mg PO HS 06/24/14 02/17/20 Multivitamins, Thera [Multivitamin 1 tab PO DAILY 07/20/15 02/17/20 (formulary)] Albuterol Nebulized [Ventolin 2.5 mg INHALATION RT-BID 05/20/18 02/17/20 Nebulized] Montelukast [Singulair] 10 mg PO HS 05/20/18 02/17/20 Cholecalciferol (Vitamin D3) 2,000 unit PO DAILY 02/05/19 02/17/20 [Vitamin D3] amantadine HCL [Amantadine] 200 mg PO DAILY@1200 02/05/19 02/17/20 Furosemide [Lasix] 20 mg PO DAILY 06/10/19 02/17/20 Melatonin 10 mg PO HS PRN 06/10/19 02/17/20 Opti Fiber 1 tab PO DAILY 06/10/19 02/17/20 Apixaban [Eliquis] 2.5 mg PO BID 12/16/19 02/17/20 Sacubitril/Valsartan [Entresto 24 1 tab PO BID 12/16/19 02/17/20 mg-26 mg Tablet] metFORMIN HCL [metFORMIN HCL ER 1,000 mg PO AC-BID@0900,1200 12/16/19 02/17/20 Osmotic] Amiodarone [Cordarone] 200 mg PO BID 02/17/20 02/17/20 Finasteride [Proscar] 5 mg PO HS 02/17/20 02/17/20 Loperamide HCl [Imodium A-D] 4 - 6 mg PO HS 02/17/20 02/17/20 Metoprolol Tartrate [Lopressor] 100 mg PO BID 02/17/20 02/17/20 [place]-3 Epa/Dha 2126mg 1 cap PO DAILY 02/17/20 02/17/20 Tamsulosin [Flomax] 0.4 mg PO DAILY 02/17/20 02/17/20 Allergies Allergy/AdvReac Type Severity Reaction Status Date / Time No Known Allergies Allergy Verified 02/17/20 16:15 Review of Systems ROS Statement: Those systems with pertinent positive or pertinent negative responses have been documented in the HPI. ROS Other: All systems not noted in ROS Statement are negative. Past Medical History Past Medical History: Atrial Fibrillation, Heart Failure, CVA/TIA, Diabetes Mellitus, Hearing Disorder / Deafness, Hyperlipidemia, Hypertension, Osteoarthritis (OA), Sleep Apnea/CPAP/BIPAP Additional Past Medical History / Comment(s): see Dr Madrid H&P, ?CVA IN THE PAST (NO WEAKNESS OR PARALYSIS) , has unsteady gait but no assistive divice used, HX OF bleeding ULCER, dizziness-cause unknown, STATES HX OF A "HOLE IN HIS STOMACH ", diarrhea, "problem with liver-not sure what", Single chamber AICD 06/15/19 History of Any Multi-Drug Resistant Organisms: None Reported Past Surgical History: Appendectomy, Hernia Repair, Pacemaker, Tonsillectomy Additional Past Surgical History / Comment(s): JAYY INGUINAL HERNIA REPAIR X2 Past Anesthesia/Blood Transfusion Reactions: No Reported Reaction Past Psychological History: Anxiety, Depression Smoking Status: Former smoker Past Alcohol Use History: Rare Past Drug Use History: None Reported - Past Family History Father Family Medical History: Cancer Additional Family Medical History / Comment(s): HODGKIN'S General Exam Limitations: no limitations General appearance: alert, in no apparent distress Head exam: Present: atraumatic, normocephalic, normal inspection Eye exam: Present: normal appearance, PERRL, EOMI. Absent: scleral icterus, conjunctival injection, periorbital swelling Respiratory exam: Present: normal lung sounds bilaterally. Absent: respiratory distress, wheezes, rales, rhonchi, stridor Cardiovascular Exam: Present: normal rhythm, irregular rhythm GI/Abdominal exam: Present: soft, normal bowel sounds. Absent: distended, tenderness, guarding, rebound, rigid Extremities exam: Present: other (resting tremor. No rigidity) Neurological exam: Present: alert, oriented X3, CN II-XII intact Skin exam: Present: warm, dry, intact, normal color. Absent: rash Course Vital Signs 02/17/20 02/17/20 02/17/20 12:44 13:00 14:15 Temperature 98.2 F Pulse Rate 115 H 92 93 Respiratory 18 18 18 Rate Blood Pressure 146/75 120/92 121/84 O2 Sat by Pulse 98 97 96 Oximetry 02/17/20 02/17/20 02/17/20 15:00 16:55 18:00 Temperature 98.0 F 98.0 F Pulse Rate 85 103 H 102 H Respiratory 18 18 18 Rate Blood Pressure 127/85 139/92 146/95 O2 Sat by Pulse 98 98 97 Oximetry 02/17/20 19:11 Temperature 98.0 F Pulse Rate 109 H Respiratory 18 Rate Blood Pressure 130/89 O2 Sat by Pulse 97 Oximetry Medical Decision Making - Medical Decision Making Upon arrival the patient is placed into room 4. A thorough history and physical exam is performed. patient does answer questions appropriately. He does have a resting tremor. He is hooked up to continuous pulse ox and cardiac monitoring. 12-lead EKG was performed. Laboratory studies were conducted. Patient went for CT of his head as well as a chest x-ray. X-ray studies are remarkable for creatinine of 2.0. Patient's previous baseline was around 1.69. BNP elevated at 3860. I did do a bladder scan which demonstrates 450 cc in his bladder. Because of this Potts is placed. We did interrogate the patient's device which is [facility]. I did recommend hospital admission for cardiology and neurology evaluation for which the patient did agree to. A call discuss case with Dr. Chapa who accepted admission. We are currently waiting the [facility] report. Patient is awaiting a bed on the floor - Lab Data Result diagrams: 02/18/20 08:25 02/18/20 08:25 Lab Results 02/17/20 02/17/20 02/17/20 Range/Units 13:22 13:22 13:22 WBC 6.4 (3.8-10.6) k/uL RBC 4.09 L (4.30-5.90) m/uL Hgb 12.0 L (13.0-17.5) gm/dL Hct 37.2 L (39.0-53.0) % MCV 91.1 (80.0-100.0) fL MCH 29.4 (25.0-35.0) pg MCHC 32.2 (31.0-37.0) g/dL RDW 13.9 (11.5-15.5) % Plt Count 192 (150-450) k/uL Neutrophils % 83 % Lymphocytes % 8 % Monocytes % 5 % Eosinophils % 4 % Basophils % 0 % Neutrophils # 5.3 (1.3-7.7) k/uL Lymphocytes # 0.5 L (1.0-4.8) k/uL Monocytes # 0.3 (0-1.0) k/uL Eosinophils # 0.2 (0-0.7) k/uL Basophils # 0.0 (0-0.2) k/uL PT 12.8 H (9.0-12.0) sec INR 1.3 H (<1.2) APTT 30.4 H (22.0-30.0) sec Sodium (137-145) mmol/L Potassium (3.5-5.1) mmol/L Chloride (98-107) mmol/L Carbon Dioxide (22-30) mmol/L Anion Gap mmol/L BUN (9-20) mg/dL Creatinine (0.66-1.25) mg/dL Est GFR (CKD-EPI)AfAm (>60 ml/min/1.73 sqM) Est GFR (CKD-EPI)NonAf (>60 ml/min/1.73 sqM) Glucose (74-99) mg/dL Calcium (8.4-10.2) mg/dL Total Bilirubin (0.2-1.3) mg/dL AST (17-59) U/L ALT (4-49) U/L Alkaline Phosphatase (38-126) U/L Ammonia (<30) umol/L Creatine Kinase (55-170) U/L Troponin I (0.000-0.034) ng/mL NT-Pro-B Natriuret Pep pg/mL Total Protein (6.3-8.2) g/dL Albumin (3.5-5.0) g/dL Urine Color Yellow Urine Appearance Clear (Clear) Urine pH 6.5 (5.0-8.0) Ur Specific [place] 1.017 (1.001-1.035) Urine Protein Trace H (Negative) Urine Glucose (UA) Negative (Negative) Urine Ketones Negative (Negative) Urine Blood Negative (Negative) Urine Nitrite Negative (Negative) Urine Bilirubin Negative (Negative) Urine Urobilinogen 2.0 (<2.0) mg/dL Ur Leukocyte Esterase Small H (Negative) Urine RBC <1 (0-5) /hpf Urine WBC 2 (0-5) /hpf Hyaline Casts 3 H (0-2) /lpf Urine Mucus Rare H (None) /hpf Salicylates mg/dL Acetaminophen ug/mL Serum Alcohol mg/dL 02/17/20 02/17/20 02/17/20 Range/Units 13:22 13:22 13:22 WBC (3.8-10.6) k/uL RBC (4.30-5.90) m/uL Hgb (13.0-17.5) gm/dL Hct (39.0-53.0) % MCV (80.0-100.0) fL MCH (25.0-35.0) pg MCHC (31.0-37.0) g/dL RDW (11.5-15.5) % Plt Count (150-450) k/uL Neutrophils % % Lymphocytes % % Monocytes % % Eosinophils % % Basophils % % Neutrophils # (1.3-7.7) k/uL Lymphocytes # (1.0-4.8) k/uL Monocytes # (0-1.0) k/uL Eosinophils # (0-0.7) k/uL Basophils # (0-0.2) k/uL PT (9.0-12.0) sec INR (<1.2) APTT (22.0-30.0) sec Sodium 142 (137-145) mmol/L Potassium 3.9 (3.5-5.1) mmol/L Chloride 106 (98-107) mmol/L Carbon Dioxide 23 (22-30) mmol/L Anion Gap 13 mmol/L BUN 25 H (9-20) mg/dL Creatinine 2.05 H (0.66-1.25) mg/dL Est GFR (CKD-EPI)AfAm 34 (>60 ml/min/1.73 sqM) Est GFR (CKD-EPI)NonAf 30 (>60 ml/min/1.73 sqM) Glucose 152 H (74-99) mg/dL Calcium 9.1 (8.4-10.2) mg/dL Total Bilirubin 1.6 H (0.2-1.3) mg/dL AST 29 (17-59) U/L ALT 15 (4-49) U/L Alkaline Phosphatase 63 (38-126) U/L Ammonia 12 (<30) umol/L Creatine Kinase 86 (55-170) U/L Troponin I <0.012 (0.000-0.034) ng/mL NT-Pro-B Natriuret Pep pg/mL Total Protein 6.4 (6.3-8.2) g/dL Albumin 4.2 (3.5-5.0) g/dL Urine Color Urine Appearance (Clear) Urine pH (5.0-8.0) Ur Specific [place] (1.001-1.035) Urine Protein (Negative) Urine Glucose (UA) (Negative) Urine Ketones (Negative) Urine Blood (Negative) Urine Nitrite (Negative) Urine Bilirubin (Negative) Urine Urobilinogen (<2.0) mg/dL Ur Leukocyte Esterase (Negative) Urine RBC (0-5) /hpf Urine WBC (0-5) /hpf Hyaline Casts (0-2) /lpf Urine Mucus (None) /hpf Salicylates <1.0 mg/dL Acetaminophen <10.0 ug/mL Serum Alcohol <10 mg/dL 02/17/20 Range/Units 13:22 WBC (3.8-10.6) k/uL RBC (4.30-5.90) m/uL Hgb (13.0-17.5) gm/dL Hct (39.0-53.0) % MCV (80.0-100.0) fL MCH (25.0-35.0) pg MCHC (31.0-37.0) g/dL RDW (11.5-15.5) % Plt Count (150-450) k/uL Neutrophils % % Lymphocytes % % Monocytes % % Eosinophils % % Basophils % % Neutrophils # (1.3-7.7) k/uL Lymphocytes # (1.0-4.8) k/uL Monocytes # (0-1.0) k/uL Eosinophils # (0-0.7) k/uL Basophils # (0-0.2) k/uL PT (9.0-12.0) sec INR (<1.2) APTT (22.0-30.0) sec Sodium (137-145) mmol/L Potassium (3.5-5.1) mmol/L Chloride (98-107) mmol/L Carbon Dioxide (22-30) mmol/L Anion Gap mmol/L BUN (9-20) mg/dL Creatinine (0.66-1.25) mg/dL Est GFR (CKD-EPI)AfAm (>60 ml/min/1.73 sqM) Est GFR (CKD-EPI)NonAf (>60 ml/min/1.73 sqM) Glucose (74-99) mg/dL Calcium (8.4-10.2) mg/dL Total Bilirubin (0.2-1.3) mg/dL AST (17-59) U/L ALT (4-49) U/L Alkaline Phosphatase (38-126) U/L Ammonia (<30) umol/L Creatine Kinase (55-170) U/L Troponin I (0.000-0.034) ng/mL NT-Pro-B Natriuret Pep 3860 pg/mL Total Protein (6.3-8.2) g/dL Albumin (3.5-5.0) g/dL Urine Color Urine Appearance (Clear) Urine pH (5.0-8.0) Ur Specific [place] (1.001-1.035) Urine Protein (Negative) Urine Glucose (UA) (Negative) Urine Ketones (Negative) Urine Blood (Negative) Urine Nitrite (Negative) Urine Bilirubin (Negative) Urine Urobilinogen (<2.0) mg/dL Ur Leukocyte Esterase (Negative) Urine RBC (0-5) /hpf Urine WBC (0-5) /hpf Hyaline Casts (0-2) /lpf Urine Mucus (None) /hpf Salicylates mg/dL Acetaminophen ug/mL Serum Alcohol mg/dL - EKG Data EKG Comments: EKG demonstrates atrial ablation with a rate of 95. QRS 128. QTC of 500. Intraventricular block present. No acute ST segment elevations Disposition Clinical Impression: Falls, LEX (acute kidney injury), Acute encephalopathy, Ataxia, Afib, Defibrillator discharge Disposition: ADMITTED IP TO THIS HOSP Condition: Stable Is patient prescribed a controlled substance at d/c from ED?: No Decision to Admit Reason: Admit from EC Decision Date: 02/17/20 Decision Time: 15:21
[2020-02-17 13:36] LABS: Basophils % (A) 0 %; Eosinophils # (A) 0.2 k/uL (0-0.7); Eosinophils % (A) 4 %; HCT 37.2 % (39.0-53.0); Lymphocytes # (A) 0.5 k/uL (1.0-4.8); Lymphocytes % (A) 8 %; MCH 29.4 pg (25.0-35.0); MCHC 32.2 g/dL (31.0-37.0); MCV 91.1 fL (80.0-100.0); Mean Platelet Volume 7.3; Monocytes # (A) 0.3 k/uL (0-1.0); Monocytes % (A) 5 %; Neutrophils # (A) 5.3 k/uL (1.3-7.7); Neutrophils % (A) 83 %; Platelet Count 192 k/uL (150-450); RBC 4.09 m/uL (4.30-5.90); RDW 13.9 % (11.5-15.5); WBC 6.4 k/uL (3.8-10.6)
[2020-02-17 13:49] LABS: ALT 15 U/L (4-49); AST 29 U/L (17-59); Acetaminophen <10.0 ug/mL; African American GFR (CKD) 34 (>60 ml/min/1.73 sqM); Albumin 4.2 g/dL (3.5-5.0); Alcohol <10 mg/dL; Alkaline Phosphatase 63 U/L (38-126); Anion Gap 13 mmol/L; Blood Urea Nitrogen 25 mg/dL (9-20); Calcium 9.1 mg/dL (8.4-10.2); Carbon Dioxide 23 mmol/L (22-30); Chloride 106 mmol/L (98-107); Creatine Kinase 86 U/L (55-170); Glucose 152 mg/dL (74-99); Non-African American GFR(CKD) 30 (>60 ml/min/1.73 sqM); Potassium 3.9 mmol/L (3.5-5.1); Salicylate <1.0 mg/dL; Sodium 142 mmol/L (137-145); Total Bilirubin 1.6 mg/dL (0.2-1.3); Total Protein 6.4 g/dL (6.3-8.2)
[2020-02-17 13:50] LABS: INR 1.3 (<1.2); Partial Thromboplastin Time 30.4 sec (22.0-30.0); Prothrombin Time 12.8 sec (9.0-12.0)
[2020-02-17 13:59] LABS: Appearance,Urine Clear (Clear); Bilirubin,Urine Negative (Negative); Blood,Urine Negative (Negative); Color,Urine Yellow; Glucose,Urine (UA) Negative (Negative); Hyaline Casts,Urine 3 /lpf (0-2); Ketones,Urine Negative (Negative); Leukocyte Esterase,Urine Small (Negative); Mucus,Urine Rare /hpf; Nitrite,Urine Negative (Negative); PH, Urine 6.5 (5.0-8.0); Protein,Urine Trace (Negative); RBC,Urine <1 /hpf (0-5); Specific Gravity,Urine 1.017 (1.001-1.035); WBC,Urine 2 /hpf (0-5)
--- NOTE | 2020-02-17 14:11 | XR ---
EXAMINATION TYPE: XR chest 2V DATE OF EXAM: 02/17/2020 COMPARISON: 12/23/2019 HISTORY: Shortness of breath TECHNIQUE: Frontal and lateral views of the chest are obtained. FINDINGS: Scattered senescent parenchymal changes noted. Hyperinflation compatible with COPD. No evidence for infiltrate. No evidence for atelectasis. Heart size is stable. Mediastinal structures are stable and grossly unremarkable. No evidence for hilar prominence. Degenerative changes dorsal spine. IMPRESSION: 1. No evidence for acute pulmonary disease.
[2020-02-17] MEDS ORDERED: SODIUM CHLORIDE 0.9% 1,000 ML IV SCH (14:45)
--- NOTE | 2020-02-17 14:48 | CT ---
EXAMINATION TYPE: CT brain wo con DATE OF EXAM: 02/17/2020 COMPARISON: 12/17/2019 INDICATION: confusion/weakness DLP: 1158.4 mGycm, Automated exposure control for dose reduction was used. CONTRAST: None CT of the brain is performed utilizing 3 mm thick sections through the posterior fossa and 3 mm thick sections through the remaining calvarium. Study is performed within 24 hours of arrival to the hosp ital. No abnormal hyperdensity is present to suggest an acute intracranial hemorrhage. No mass lesion is evident. No acute infarcts are evident. Periventricular white matter hypodensity is evident compatible with mi crovascular ischemic change. Ventricles and sulci are prominent for the patient age. There is an air-fluid level within the left maxillary sinus. Correlate for acute left maxillary sinus itis. Prior paranasal sinus surgery is evident. IMPRESSIONS: 1. Atrophy with periventricular white matter changes. 2. No acute intracranial process evident. 3. Clinical correlation recommended for acute left maxillary sinusitis
[2020-02-17] MEDS ORDERED: NALOXONE 0.4 MG/ML 1 ML VIAL IV PRN (15:21)
[2020-02-17] MEDS ORDERED: MELATONIN 5 MG TABLET PO PRN (17:00)
--- NOTE | 2020-02-17 17:09 | P.HPIM ---
History of Present Illness H&P Date: 02/17/20 Chief Complaint: Increasing weakness History of presenting complaint: This is a 79-year-old patient of Dr. Mckinney. Chronic stable medical conditions include atrial fibrillation, diabetes, hard of hearing, hypertension, hyperlipidemia, osteoarthritis, CPAP uses for sleep apnea. He follows with out of [place]. Patient supposed to have MRI of the brain. And therefore supposed to have his ICD turned off. For last 3 disease being put on Coreg. Patient progressively been getting weaker and weaker for last 3-5 years. Has lost about 30 pounds. His tells him his gait has become more shuffling. He also getting tremors. Speech is sometimes slow. Seems to lean forward. Handwriting has become more spidery. There has been a diagnosis of possible normal pressure hydrocephalus on last admission. Patient lost to 3 days become gradually more weak. Tired. Review of systems: GEN.: Tired EYES: None HEENT: Decreased hearing NECK: None RESPIRATORY: As above CARDIOVASCULAR: [As above GASTROINTESTINAL: None GENITOURINARY: None MUSCULOSKELETAL: Pain in joints LYMPHATICS: None HEMATOLOGICAL: None PSYCHIATRY: Slightly forgetful NEUROLOGICAL: As above Social history: Lives with his . Patient stopped smoking in 1971 was. Smoked a pack a day for 14 years. Alcohol rarely. Family history: Hodgkin's lymphoma Physical examination: VITAL SIGNS: 98.2, 115, 18, 146/75, 98% room air GENERAL: BMI 28.4, laying in bed, awake tired EYES: [Pupils equal. Conjunctiva pale HEENT: External appearance of nose and ears normal, oral cavity grossly normal, decreased hearing. NECK: JVD unable to assess; masses not palpable. HEART: Heart sounds irregular, no edema. LUNGS: Respiratory rate normal, decreased breath sounds. ABDOMEN: Soft, nontender, liver spleen not palpable, no masses palpable. PSYCH: Alert and oriented x3; mood and affect normal. NEUROLOGICAL: Cranial nerves grossly intact; no facial asymmetry, power grossly intact. Tremors and activity. No rigidity. Decreased fine movements. LYMPHATICS: No lymph nodes palpable in the axilla and neck MUSCULAR schedule: Evidence of OA especially in the hands INVESTIGATIONS, reviewed in the clinical context: White count 6.4 hemoglobin 12 platelets 192 potassium 3.9 bun 25 creatinine 2.05 EKG tracing personally reviewed by me-atrial fibrillation rate 90s Chest x-ray film personally reviewed by me-cardiomegaly Previous testing: Creatinine 1.69 on December 27, 1.24 on December 22 Renal ultrasound from December 2019-unremarkable Computed tomography scan of the [id number] atrophic changes Assessment: -Acute kidney injury likely prerenal with creatinine going up from 1.24 now up to 2.05 -Suspect chronic kidney disease stage III acute from nephrosclerosis -chronic congestive heart failure from systolic dysfunction EF less than 20% -Persistent atrial fibrillation -Coronary artery disease -Diabetes mellitus type 2, on oral hypoglycemics -Essential hypertension -Hyperlipidemia -Primary osteoarthritis -Obstructive sleep apnea uses CPAP -Mild cognitive impairment -Normal pressure hydrocephalus -Anxiety depression -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 Plan: At this point to hold off patient's metformin, and Crestor, Lasix. Gently hydrate the patient. Other medications to continue. Follow Accu-Cheks. Fall precautions. Consult cardiology and neurology. Patient will need a MRI of the brain. Continue eliquis. Repeat labs in the morning. Past Medical History Past Medical History: Atrial Fibrillation, Heart Failure, CVA/TIA, Diabetes Mellitus, Hearing Disorder / Deafness, Hyperlipidemia, Hypertension, Osteoarthritis (OA), Sleep Apnea/CPAP/BIPAP Additional Past Medical History / Comment(s): see Dr Madrid H&P, ?CVA IN THE PAST (NO WEAKNESS OR PARALYSIS) , has unsteady gait but no assistive divice used, HX OF bleeding ULCER, dizziness-cause unknown, STATES HX OF A "HOLE IN HIS STOMACH ", diarrhea, "problem with liver-not sure what", Single chamber AICD 06/15/19 History of Any Multi-Drug Resistant Organisms: None Reported Past Surgical History: Appendectomy, Hernia Repair, Pacemaker, Tonsillectomy Additional Past Surgical History / Comment(s): JAYY INGUINAL HERNIA REPAIR X2 Past Anesthesia/Blood Transfusion Reactions: No Reported Reaction Past Psychological History: Anxiety, Depression Smoking Status: Former smoker Past Alcohol Use History: Rare Past Drug Use History: None Reported - Past Family History Father Family Medical History: Cancer Additional Family Medical History / Comment(s): HODGKIN'S Medications and Allergies Home Medications Medication Instructions Recorded Confirmed Type Glimepiride [Amaryl] 4 mg PO DAILY 06/24/14 02/17/20 History Simvastatin [Zocor] 40 mg PO HS 06/24/14 02/17/20 History Multivitamins, Thera [Multivitamin 1 tab PO DAILY 07/20/15 02/17/20 History (formulary)] Albuterol Nebulized [Ventolin 2.5 mg INHALATION RT-BID 05/20/18 02/17/20 History Nebulized] Montelukast [Singulair] 10 mg PO HS 05/20/18 02/17/20 History Cholecalciferol (Vitamin D3) 2,000 unit PO DAILY 02/05/19 02/17/20 History [Vitamin D3] amantadine HCL [Amantadine] 200 mg PO DAILY@1200 02/05/19 02/17/20 History Furosemide [Lasix] 20 mg PO DAILY 06/10/19 02/17/20 History Melatonin 10 mg PO HS PRN 06/10/19 02/17/20 History Opti Fiber 1 tab PO DAILY 06/10/19 02/17/20 History Apixaban [Eliquis] 2.5 mg PO BID 12/16/19 02/17/20 History Sacubitril/Valsartan [Entresto 24 1 tab PO BID 12/16/19 02/17/20 History mg-26 mg Tablet] metFORMIN HCL [metFORMIN HCL ER 1,000 mg PO AC-BID@0900,1200 12/16/19 02/17/20 History Osmotic] Amiodarone [Cordarone] 200 mg PO BID 02/17/20 02/17/20 History Finasteride [Proscar] 5 mg PO HS 02/17/20 02/17/20 History Loperamide HCl [Imodium A-D] 4 - 6 mg PO HS 02/17/20 02/17/20 History Metoprolol Tartrate [Lopressor] 100 mg PO BID 02/17/20 02/17/20 History [place]-3 Epa/Dha 2126mg 1 cap PO DAILY 02/17/20 02/17/20 History Tamsulosin [Flomax] 0.4 mg PO DAILY 02/17/20 02/17/20 History Allergies Allergy/AdvReac Type Severity Reaction Status Date / Time No Known Allergies Allergy Verified 02/17/20 16:15 Physical Exam Vitals: Vital Signs Temp Pulse Resp BP Pulse Ox 02/17/20 15:00 85 18 127/85 98 02/17/20 14:15 93 18 121/84 96 02/17/20 13:00 92 18 120/92 97 02/17/20 12:44 98.2 F 115 H 18 146/75 98 Intake and Output 02/17/20 02/17/20 02/17/20 06:59 14:59 22:59 Other: Weight 89.811 kg Results CBC & Chem 7: 02/17/20 13:22 02/17/20 13:22 Labs: Abnormal Lab Results - Last 24 Hours (Table) 02/17/20 02/17/20 02/17/20 Range/Units 13:22 13:22 13:22 RBC 4.09 L (4.30-5.90) m/uL Hgb 12.0 L (13.0-17.5) gm/dL Hct 37.2 L (39.0-53.0) % Lymphocytes # 0.5 L (1.0-4.8) k/uL PT 12.8 H (9.0-12.0) sec INR 1.3 H (<1.2) APTT 30.4 H (22.0-30.0) sec BUN (9-20) mg/dL Creatinine (0.66-1.25) mg/dL Glucose (74-99) mg/dL Total Bilirubin (0.2-1.3) mg/dL Urine Protein Trace H (Negative) Ur Leukocyte Esterase Small H (Negative) Hyaline Casts 3 H (0-2) /lpf Urine Mucus Rare H (None) /hpf 02/17/20 Range/Units 13:22 RBC (4.30-5.90) m/uL Hgb (13.0-17.5) gm/dL Hct (39.0-53.0) % Lymphocytes # (1.0-4.8) k/uL PT (9.0-12.0) sec INR (<1.2) APTT (22.0-30.0) sec BUN 25 H (9-20) mg/dL Creatinine 2.05 H (0.66-1.25) mg/dL Glucose 152 H (74-99) mg/dL Total Bilirubin 1.6 H (0.2-1.3) mg/dL Urine Protein (Negative) Ur Leukocyte Esterase (Negative) Hyaline Casts (0-2) /lpf Urine Mucus (None) /hpf
[2020-02-17] MEDS: ALBUTEROL NEBULIZED 2.5 MG/3 ML INHALATION SCH ×2 (19:30→20:31)
[2020-02-17] MEDS: MONTELUKAST 10 MG TAB PO SCH (20:22)
[2020-02-17] MEDS: AMIODARONE 200 MG TAB PO SCH (20:22)
[2020-02-17] MEDS: FINASTERIDE 5 MG TAB PO SCH (20:22)
[2020-02-17] MEDS: APIXABAN 2.5 MG TABLET PO SCH (20:22)
[2020-02-17] MEDS: SODIUM CHLORIDE 0.9% 1,000 ML IV SCH (20:22)
[2020-02-17 20:33] LABS: Glucose,Whole Blood 85 mg/dL (75-99)
[2020-02-18 06:14] LABS: Glucose,Whole Blood 60 mg/dL (75-99)
[2020-02-18 06:38] LABS: Glucose,Whole Blood 186 mg/dL (75-99)
[2020-02-18] MEDS: SODIUM CHLORIDE 0.9% 1,000 ML IV SCH ×2 (06:56→22:29)
[2020-02-18] MEDS: ALBUTEROL NEBULIZED 2.5 MG/3 ML INHALATION SCH ×2 (08:10→20:03)
[2020-02-18] MEDS: APIXABAN 2.5 MG TABLET PO SCH ×2 (08:43→21:16)
[2020-02-18] MEDS: AMIODARONE 200 MG TAB PO SCH ×2 (08:43→21:16)
[2020-02-18] MEDS: TAMSULOSIN 0.4 MG CAP.ER.24H PO SCH (08:43)
[2020-02-18 08:52] LABS: Basophils % (A) 0 %; Eosinophils # (A) 0.2 k/uL (0-0.7); Eosinophils % (A) 2 %; HGB 11.7 gm/dL (13.0-17.5); Lymphocytes # (A) 0.7 k/uL (1.0-4.8); Lymphocytes % (A) 9 %; MCH 29.8 pg (25.0-35.0); MCHC 32.6 g/dL (31.0-37.0); MCV 91.4 fL (80.0-100.0); Mean Platelet Volume 7.2; Monocytes # (A) 0.4 k/uL (0-1.0); Monocytes % (A) 5 %; Neutrophils # (A) 6.2 k/uL (1.3-7.7); Neutrophils % (A) 83 %; Platelet Count 178 k/uL (150-450); RBC 3.94 m/uL (4.30-5.90); RDW 14.1 % (11.5-15.5); WBC 7.5 k/uL (3.8-10.6)
[2020-02-18 09:02] LABS: Calcium 8.6 mg/dL (8.4-10.2); Potassium 3.7 mmol/L (3.5-5.1)
--- NOTE | 2020-02-18 11:05 | P.CRDCN ---
History of Present Illness Consult date: 02/18/20 Consult reason: atrial fibrillation Chief complaint: Weakness, falls History of present illness: This is a pleasant 79-year-old gentleman who follows with Dr. Morales in the office. 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 According to the patient, he has not been drinking much fluids at home. He's been feeling progressively more and more weak, he has had a couple episodes where his legs gave out on him and he fell to the ground. No syncopal episodes. Patient also states that his AICD has gone off at least 3 times in the past 3 weeks. His EKG on presentation here showed atrial fibrillation with a heart rate in the 90s, blood pressure 135/80 temperature 99.1. White blood cell count 6.4, hemoglobin 12.0, platelet count 192. Sodium 142, potassium 3.9, BUN 25 and creatinine 2.05. The patient's baseline creatinine is 1.1. Troponin 0.012. BNP level 3860. He is currently receiving IV fluids at 75 mL per hour. His chest x-ray did not reveal any acute change, CT of the brain did not reveal any acute intracranial process. Past Medical History Past Medical History: Atrial Fibrillation, Heart Failure, CVA/TIA, Diabetes Mellitus, Hearing Disorder / Deafness, Hyperlipidemia, Hypertension, Osteoarthritis (OA), Sleep Apnea/CPAP/BIPAP Additional Past Medical History / Comment(s): see Dr Madrid H&P, ?CVA IN THE PAST (NO WEAKNESS OR PARALYSIS) , has unsteady gait but no assistive divice used, HX OF bleeding ULCER, dizziness-cause unknown, STATES HX OF A "HOLE IN HIS STOMACH ", diarrhea, "problem with liver-not sure what", Single chamber AICD 06/15/19 History of Any Multi-Drug Resistant Organisms: None Reported Past Surgical History: Appendectomy, Hernia Repair, Pacemaker, Tonsillectomy Additional Past Surgical History / Comment(s): JAYY INGUINAL HERNIA REPAIR X2 Past Anesthesia/Blood Transfusion Reactions: No Reported Reaction Type of Cardiac Device: AICD Device Placement Date:: 06/15/2019 Past Psychological History: Anxiety, Depression Smoking Status: Former smoker Past Alcohol Use History: Rare Past Drug Use History: None Reported - Past Family History Father Family Medical History: Cancer Additional Family Medical History / Comment(s): HODGKIN'S Medications and Allergies Home Medications Medication Instructions Recorded Confirmed Type Glimepiride [Amaryl] 4 mg PO DAILY 06/24/14 02/17/20 History Simvastatin [Zocor] 40 mg PO HS 06/24/14 02/17/20 History Multivitamins, Thera [Multivitamin 1 tab PO DAILY 07/20/15 02/17/20 History (formulary)] Albuterol Nebulized [Ventolin 2.5 mg INHALATION RT-BID 05/20/18 02/17/20 History Nebulized] Montelukast [Singulair] 10 mg PO HS 05/20/18 02/17/20 History Cholecalciferol (Vitamin D3) 2,000 unit PO DAILY 02/05/19 02/17/20 History [Vitamin D3] amantadine HCL [Amantadine] 200 mg PO DAILY@1200 02/05/19 02/17/20 History Furosemide [Lasix] 20 mg PO DAILY 06/10/19 02/17/20 History Melatonin 10 mg PO HS PRN 06/10/19 02/17/20 History Opti Fiber 1 tab PO DAILY 06/10/19 02/17/20 History Apixaban [Eliquis] 2.5 mg PO BID 12/16/19 02/17/20 History Sacubitril/Valsartan [Entresto 24 1 tab PO BID 12/16/19 02/17/20 History mg-26 mg Tablet] metFORMIN HCL [metFORMIN HCL ER 1,000 mg PO AC-BID@0900,1200 12/16/19 02/17/20 History Osmotic] Amiodarone [Cordarone] 200 mg PO BID 02/17/20 02/17/20 History Finasteride [Proscar] 5 mg PO HS 02/17/20 02/17/20 History Loperamide HCl [Imodium A-D] 4 - 6 mg PO HS 02/17/20 02/17/20 History Metoprolol Tartrate [Lopressor] 100 mg PO BID 02/17/20 02/17/20 History [place]-3 Epa/Dha 2126mg 1 cap PO DAILY 02/17/20 02/17/20 History Tamsulosin [Flomax] 0.4 mg PO DAILY 02/17/20 02/17/20 History Allergies Allergy/AdvReac Type Severity Reaction Status Date / Time No Known Allergies Allergy Verified 02/17/20 16:15 Physical Exam Vitals: Vital Signs Temp Pulse Pulse Pulse Resp BP BP 02/18/20 08:40 26 H 02/18/20 08:20 112 H 02/18/20 08:12 108 H 114 H 02/18/20 08:04 99.1 F 114 H 26 H 135/80 02/18/20 04:00 99 F 96 18 135/99 02/18/20 00:00 97.6 F 97 97 18 132/75 02/17/20 20:32 102 H 02/17/20 20:00 97.3 F L 113 H 113 H 18 137/88 02/17/20 19:57 98.3 F 110 H 19 133/91 02/17/20 19:11 98.0 F 109 H 18 130/89 02/17/20 18:00 98.0 F 102 H 18 146/95 02/17/20 16:55 98.0 F 103 H 18 139/92 02/17/20 15:00 85 18 127/85 02/17/20 14:15 93 18 121/84 02/17/20 13:00 92 18 120/92 02/17/20 12:44 98.2 F 115 H 18 146/75 Pulse Ox 02/18/20 08:40 02/18/20 08:20 02/18/20 08:12 02/18/20 08:04 94 L 02/18/20 04:00 96 02/18/20 00:00 97 02/17/20 20:32 97 02/17/20 20:00 99 02/17/20 19:57 97 02/17/20 19:11 97 02/17/20 18:00 97 02/17/20 16:55 98 02/17/20 15:00 98 02/17/20 14:15 96 02/17/20 13:00 97 02/17/20 12:44 98 Intake and Output 02/17/20 02/18/20 02/18/20 22:59 06:59 14:59 Output Total 650 325 400 Balance -650 -325 -400 Output: Urine 650 325 400 Other: Voiding Method Indwelling Catheter Indwelling Catheter Indwelling Catheter Weight 89.811 kg 51 kg PHYSICAL EXAMINATION: GENERAL: 79-year-old gentleman in no acute distress at the time of my examination HEENT: Head is atraumatic, normocephalic. Pupils equal, round. Sclera anicteric. Conjunctiva are clear. Mucous membranes of the mouth are moist. Neck is supple. There is no elevated jugular venous pressure. No carotid brui t is heard. HEART EXAMINATION: Heart S1 and S2 irregularly irregular a systolic ejection murmur is heard at the base CHEST EXAMINATION: Lungs are clear to auscultation and precussion. No chest wall tenderness is noted on palpation or with deep breathing. ABDOMEN: Soft, nontender. Bowel sounds are heard. No organomegaly noted. EXTREMITIES: 2+ peripheral pulses with no evidence of peripheral edema and no calf tenderness noted. NEUROLOGIC patient is awake, alert and oriented 3 . Results 02/18/20 08:25 02/18/20 08:25 Cardiac Enzymes 02/17/20 02/17/20 Range/Units 13:22 13:22 AST 29 (17-59) U/L Troponin I <0.012 (0.000-0.034) ng/mL Coagulation 02/17/20 Range/Units 13:22 PT 12.8 H (9.0-12.0) sec APTT 30.4 H (22.0-30.0) sec CBC 02/17/20 02/18/20 Range/Units 13:22 08:25 WBC 6.4 7.5 (3.8-10.6) k/uL RBC 4.09 L 3.94 L (4.30-5.90) m/uL Hgb 12.0 L 11.7 L (13.0-17.5) gm/dL Hct 37.2 L 36.0 L (39.0-53.0) % Plt Count 192 178 (150-450) k/uL Comprehensive Metabolic Panel 02/17/20 02/18/20 Range/Units 13:22 08:25 Sodium 142 141 (137-145) mmol/L Potassium 3.9 3.7 (3.5-5.1) mmol/L Chloride 106 107 (98-107) mmol/L Carbon Dioxide 23 24 (22-30) mmol/L BUN 25 H 23 H (9-20) mg/dL Creatinine 2.05 H 1.82 H (0.66-1.25) mg/dL Glucose 152 H 111 H (74-99) mg/dL Calcium 9.1 8.6 (8.4-10.2) mg/dL AST 29 (17-59) U/L ALT 15 (4-49) U/L Alkaline Phosphatase 63 (38-126) U/L Total Protein 6.4 (6.3-8.2) g/dL Albumin 4.2 (3.5-5.0) g/dL Current Medications Generic Name Dose Route Start Last Admin Trade Name Freq PRN Reason Stop Dose Admin Albuterol Sulfate 2.5 mg 02/17/20 20:00 02/18/20 08:10 Albuterol Nebulized 2.5 Mg/3 Ml INHALATION 2.5 mg RT-BID TREVA Administration Amantadine HCl 200 mg 02/18/20 12:00 Amantadine Hcl 100 Mg Cap PO DAILY@1200 TREVA Amiodarone HCl 200 mg 02/17/20 21:00 02/18/20 08:43 Amiodarone 200 Mg Tab PO 200 mg BID TREVA Administration Apixaban 2.5 mg 02/17/20 21:00 02/18/20 08:43 Apixaban 2.5 Mg Tablet PO 2.5 mg BID TREVA Administration Finasteride 5 mg 02/17/20 21:00 02/17/20 20:22 Finasteride 5 Mg Tab PO 5 mg HS TREVA Administration Sodium Chloride 1,000 mls @ 75 mls/hr 02/17/20 17:15 02/18/20 06:56 Saline 0.9% IV 75 mls/hr .[id number] TREVA Administration Melatonin 10 mg 02/17/20 17:00 Melatonin 5 Mg Tablet PO HS PRN Insomnia Montelukast Sodium 10 mg 02/17/20 21:00 02/17/20 20:22 Montelukast 10 Mg Tab PO 10 mg HS TREVA Administration Naloxone HCl 0.2 mg 02/17/20 15:21 Naloxone 0.4 Mg/Ml 1 Ml Vial IV Q2M PRN Opioid Reversal Tamsulosin HCl 0.4 mg 02/18/20 09:00 02/18/20 08:43 Tamsulosin 0.4 Mg Cap.Er.24h PO 0.4 mg DAILY TREVA Administration Intake and Output 02/17/20 02/18/20 02/18/20 22:59 06:59 14:59 Output Total 650 325 400 Balance -650 -325 -400 Output: Urine 650 325 400 Other: Voiding Method Indwelling Catheter Indwelling Catheter Indwelling Catheter Weight 89.811 kg 51 kg 02/18/20 08:25 02/18/20 08:25 EKG Interpretations (text) EKG shows atrial fibrillation with a moderately controlled ventricular response Assessment and Plan Plan: Assessment and plan #1 chronic systolic congestive heart failure, patient is euvolemic at this time #2 chronic persistent atrial fibrillation, on Eliquis for anticoagulation, rate is under adequate control #3 nonischemic cardiomyopathy, status post single chamber ICD. ICD was interrogated, patient did have 3 AICD discharges, each time for atrial fibrillation with rapid ventricular response. This was also reviewed by Dr. Morales in the office and his most recent visit and patient was initiated on amiodarone at that time. #4 hyperlipidemia #5 hypertension #6 diabetes #7 mildly nonobstructive coronary artery disease #8 nicotine dependence #9 obstructive sleep apnea #10 acute on chronic renal insufficiency, creatinine 2.0 this admission Plan From cardiology's perspective, we would recommend to continue with the amiodarone as recently added in the office by Dr. Morales, along with the patient's medication including anticoagulation in the form of Eliquis. Patient is also currently receiving hydration at 75 mL per hour. We will check lytes BUN and creatinine again in the morning. DNP note has been reviewed, I agree with a documented findings and plan of care. Patient was seen and examined.
[2020-02-18 11:51] LABS: Glucose,Whole Blood 161 mg/dL (75-99)
[2020-02-18 15:08] VITALS: BMI 28.4
[2020-02-18] MEDS: METOPROLOL TARTRATE 50 MG TAB PO SCH (15:58)
[2020-02-18 16:52] LABS: Glucose,Whole Blood 96 mg/dL (75-99)
--- NOTE | 2020-02-18 18:17 | P.CNNES ---
History of Present Illness Consult date: 02/18/20 Requesting physician: Vani Saucedo Reason for Consult: Acute/chronic ataxia, frequent falls History of Present Illness: Patient is a 79-year-old male came to the hospital yesterday at 12:36 PM with reported weakness and confusion for past 3 days. His gait, tremors has got worse and therefore him to the hospital. He had similar issues in November and was found to have UTI and acute kidney injury. Patient states in the past 3-4 years he has not been able to perform activities, and due to as much as he used to do before. He attributed to his aging process. Patient also has developed some tremors in the last 3-4 years. It used to be noticeable occasionally. This year it has got worse and in the last 2 weeks the tremors have been very intolerable. It bothers him when he is using the computer, as while using the mouse, the pointer goes to a different box. He misses the pointer 25% times, as it goes either above or below. Patient also has memory for the last 6 months, slightly getting worse. He forgets words, and what he was told. Patient states that he used to walk around half a mile until 6 months ago when his walking started to getting further limited. In the last 2 weeks he has become so worse, that he cannot even go to the bathroom and has trouble getting out of bed. He admits to having leaking of urine but no urgency. He has chronic low back pain. Patient states that 6 months ago he had first bout of hallucination when he saw chipmunks in the house. The second event occurred about a month ago and then another time it happened 2 weeks ago. He is about 5 such instances of having hallucinations. Patient's vitals on arrival were 146/75, pulse rate 115, and temperature 98.2. Computed tomography scan of head showed atrophy and periventricular white matter changes. No acute intracranial process. I reviewed computed tomography scan of the head and previous MRI. No definitive evidence of normal pressure hydrocephalus. Acute left maxillary sinusitis. Chest x-ray showed no evidence of acute cardiopulmonary disease. EKG shows atrial fibrillation with PVCs or aberrantly conducted complexes. Left axis deviation. Patient had a nuclear medicine cisternogram performed on 09/04/2017, which was normal, with normal CSF flow and no scintigraphic evidence of NPH. Patient has history of atrial fibrillation, heart failure and defibrillator, diabetes, hyperlipidemia and hypertension, recently admitted on 12/16/2019 for generalized weakness, unsteady gait and visual hallucinations and frequent falls. His B12 was 527, methylmalonic acid was elevated 0.50, folate was normal > 24. TSH is mildly elevated 4.93 with normal free T4 1.36. Patient denies any tobacco use or alcohol. He has diabetes for 10 years. Review of Systems As mentioned above in detail. He does have back pain. Denies chest pain denies abdominal pain nausea vomiting diarrhea. He has memory loss, tremors. Gait difficulty. All other review of systems unremarkable. Past Medical History Past Medical History: Atrial Fibrillation, Heart Failure, CVA/TIA, Diabetes Mellitus, Hearing Disorder / Deafness, Hyperlipidemia, Hypertension, Osteoarthritis (OA), Sleep Apnea/CPAP/BIPAP Additional Past Medical History / Comment(s): see Dr Madrid H&P, ?CVA IN THE PAST (NO WEAKNESS OR PARALYSIS) , has unsteady gait but no assistive divice used, HX OF bleeding ULCER, dizziness-cause unknown, STATES HX OF A "HOLE IN HIS STOMACH ", diarrhea, "problem with liver-not sure what", Single chamber AICD 06/15/19 History of Any Multi-Drug Resistant Organisms: None Reported Past Surgical History: Appendectomy, Hernia Repair, Pacemaker, Tonsillectomy Additional Past Surgical History / Comment(s): JAYY INGUINAL HERNIA REPAIR X2 Past Anesthesia/Blood Transfusion Reactions: No Reported Reaction Type of Cardiac Device: AICD Device Placement Date:: 06/15/2019 Past Psychological History: Anxiety, Depression Smoking Status: Former smoker Past Alcohol Use History: Rare Past Drug Use History: None Reported - Past Family History Father Family Medical History: Cancer Additional Family Medical History / Comment(s): HODGKIN'S Medications and Allergies Home Medications Medication Instructions Recorded Confirmed Type Glimepiride [Amaryl] 4 mg PO DAILY 06/24/14 02/17/20 History Simvastatin [Zocor] 40 mg PO HS 06/24/14 02/17/20 History Multivitamins, Thera [Multivitamin 1 tab PO DAILY 07/20/15 02/17/20 History (formulary)] Albuterol Nebulized [Ventolin 2.5 mg INHALATION RT-BID 05/20/18 02/17/20 History Nebulized] Montelukast [Singulair] 10 mg PO HS 05/20/18 02/17/20 History Cholecalciferol (Vitamin D3) 2,000 unit PO DAILY 02/05/19 02/17/20 History [Vitamin D3] amantadine HCL [Amantadine] 200 mg PO DAILY@1200 02/05/19 02/17/20 History Furosemide [Lasix] 20 mg PO DAILY 06/10/19 02/17/20 History Melatonin 10 mg PO HS PRN 06/10/19 02/17/20 History Opti Fiber 1 tab PO DAILY 06/10/19 02/17/20 History Apixaban [Eliquis] 2.5 mg PO BID 12/16/19 02/17/20 History Sacubitril/Valsartan [Entresto 24 1 tab PO BID 12/16/19 02/17/20 History mg-26 mg Tablet] metFORMIN HCL [metFORMIN HCL ER 1,000 mg PO AC-BID@0900,1200 12/16/19 02/17/20 History Osmotic] Amiodarone [Cordarone] 200 mg PO BID 02/17/20 02/17/20 History Finasteride [Proscar] 5 mg PO HS 02/17/20 02/17/20 History Loperamide HCl [Imodium A-D] 4 - 6 mg PO HS 02/17/20 02/17/20 History Metoprolol Tartrate [Lopressor] 100 mg PO BID 02/17/20 02/17/20 History [place]-3 Epa/Dha 2126mg 1 cap PO DAILY 02/17/20 02/17/20 History Tamsulosin [Flomax] 0.4 mg PO DAILY 02/17/20 02/17/20 History Allergies Allergy/AdvReac Type Severity Reaction Status Date / Time No Known Allergies Allergy Verified 02/17/20 16:15 Physical Examination - Vital Signs Vital Signs: Vital Signs Temp Pulse Pulse Pulse Resp BP BP 02/18/20 08:40 26 H 02/18/20 08:20 112 H 02/18/20 08:12 108 H 114 H 02/18/20 08:04 99.1 F 114 H 26 H 135/80 02/18/20 04:00 99 F 96 18 135/99 02/18/20 00:00 97.6 F 97 97 18 132/75 02/17/20 20:32 102 H 02/17/20 20:00 97.3 F L 113 H 113 H 18 137/88 02/17/20 19:57 98.3 F 110 H 19 133/91 02/17/20 19:11 98.0 F 109 H 18 130/89 02/17/20 18:00 98.0 F 102 H 18 146/95 02/17/20 16:55 98.0 F 103 H 18 139/92 02/17/20 15:00 85 18 127/85 02/17/20 14:15 93 18 121/84 02/17/20 13:00 92 18 120/92 02/17/20 12:44 98.2 F 115 H 18 146/75 Pulse Ox 02/18/20 08:40 02/18/20 08:20 02/18/20 08:12 02/18/20 08:04 94 L 02/18/20 04:00 96 02/18/20 00:00 97 02/17/20 20:32 97 02/17/20 20:00 99 02/17/20 19:57 97 02/17/20 19:11 97 02/17/20 18:00 97 02/17/20 16:55 98 02/17/20 15:00 98 02/17/20 14:15 96 02/17/20 13:00 97 02/17/20 12:44 98 Intake and Output 02/17/20 02/18/20 02/18/20 22:59 06:59 14:59 Output Total 650 325 400 Balance -650 -325 -400 Output: Urine 650 325 400 Other: Voiding Method Indwelling Catheter Indwelling Catheter Indwelling Catheter Weight 89.811 kg 51 kg On examination patient is an elderly male, in no acute distress. Patient is alert and awake. Speech is mildly cerebellar dysarthric, mildly hesitant. No aphasia. Patient knows it is February 2020 and that he is in [facility] and name of the current president and his date of . On cranial examination pupils are round and reacting to light, visual whitehead are full on confrontation, extraocular muscles are intact with no nystagmus. Face is symmetric, tongue protrudes to the midline. A little elevation and sensation normal. Hearing is slightly decreased, shoulder shrug normal. On muscle strength testing the strength is normal in arms and legs distally and proximally. Tone is mildly increased in both arms. Patient has no significant tremors at rest. He has moderate tremor of outstretched hands, and also for [id number] testing bilaterally. Bulk of muscles is normal. He is bradykinetic. Patient has no ataxia for [id number] only tremulous. Patient has very significant difficulty standing up by himself, required help. Patient walks very unsteady, two assist, and high fall risk. There is no obvious bruit or murmur. Results - Laboratory Findings CBC and BMP: 02/18/20 08:25 02/18/20 08:25 Abnormal Lab Findings: Abnormal Labs 02/17/20 02/17/20 02/17/20 13:22 13:22 13:22 RBC 4.09 L Hgb 12.0 L Hct 37.2 L Lymphocytes # 0.5 L PT 12.8 H INR 1.3 H APTT 30.4 H BUN Creatinine Glucose POC Glucose (mg/dL) Total Bilirubin Urine Protein Trace H Ur Leukocyte Esterase Small H Hyaline Casts 3 H Urine Mucus Rare H 02/17/20 02/18/20 02/18/20 13:22 06:11 06:26 RBC Hgb Hct Lymphocytes # PT INR APTT BUN 25 H Creatinine 2.05 H Glucose 152 H POC Glucose (mg/dL) 60 L 186 H Total Bilirubin 1.6 H Urine Protein Ur Leukocyte Esterase Hyaline Casts Urine Mucus 02/18/20 02/18/20 08:25 08:25 RBC 3.94 L Hgb 11.7 L Hct 36.0 L Lymphocytes # 0.7 L PT INR APTT BUN 23 H Creatinine 1.82 H Glucose 111 H POC Glucose (mg/dL) Total Bilirubin Urine Protein Ur Leukocyte Esterase Hyaline Casts Urine Mucus Assessment and Plan Assessment: * 79-year-old male with few year history of progressive decline, with gait impairment, tremors, some cognitive impairment, dysarthria and episodes of hallucinations. No evidence of normal pressure hydrocephalus based upon computed tomography scan of head. His previous nuclear medicine cisternogram study was also negative for NPH on 09/01/2017. I suspect patient has probable Lewy body dementia versus multiple system atrophy. * Diabetes Plan: * Trial of Sinemet 25/100 half tablet twice a day for 3 days and then may go up to 1 tablet twice a day. Patients with Lewy body dementia are very susceptible to dopamine agonists and can produce hallucinations, therefore need to watch for any worsening of hallucinations. In that case, would stop Sinemet. These patients are more refractory to treatment with conventional antiparkinsonian medications. * Consider Exelon patch, if memory problem continues. * PT OT evaluate gait. * Patient may need short-term rehab. Time with Patient: Greater than 30
[2020-02-18 20:09] LABS: Glucose,Whole Blood 200 mg/dL (75-99)
[2020-02-18] MEDS: MONTELUKAST 10 MG TAB PO SCH (21:16)
[2020-02-18] MEDS: ATORVASTATIN 20 MG TAB PO SCH (21:16)
[2020-02-18] MEDS: LOPERAMIDE 2 MG CAP PO SCH (21:16)
[2020-02-18] MEDS: SACUBITRIL/VALSARTAN 24 MG-26 MG TABLET PO SCH (21:16)
[2020-02-18] MEDS: FINASTERIDE 5 MG TAB PO SCH (21:16)
--- NOTE | 2020-02-18 21:37 | P.PN ---
Progress Note - Text Progress Note Date: 02/18/20 Chief Complaint: Increasing weakness History of presenting complaint: This is a 79-year-old patient of Dr. Mckinney. Chronic stable medical conditions include atrial fibrillation, diabetes, hard of hearing, hypertension, hyperlipidemia, osteoarthritis, CPAP uses for sleep apnea. He follows with out of [place]. Patient supposed to have MRI of the brain. And therefore supposed to have his ICD turned off. For last 3 disease being put on Coreg. Patient progressively been getting weaker and weaker for last 3-5 years. Has lost about 30 pounds. His tells him his gait has become more shuffling. He also getting tremors. Speech is sometimes slow. Seems to lean forward. Handwriting has become more spidery. . Patient lost to 3 days become gradually more weak. Tired. Today-patient feeling a bit better. Laying down in bed. Tolerated at some diet. PTOT consulted. Review of systems: Was done for constitutional, cardiovascular, GI, pulmonary. Neurological relevant finding as above Active Medications Albuterol Sulfate (Albuterol Nebulized 2.5 Mg/3 Ml) 2.5 mg INHALATION RT-BID [facility] Last Admin: 02/18/20 20:03 Dose: 2.5 mg Documented by: Amantadine HCl (Amantadine Hcl 100 Mg Cap) 200 mg PO DAILY@1200 [facility] Last Admin: 02/18/20 11:57 Dose: 200 mg Documented by: Amiodarone HCl (Amiodarone 200 Mg Tab) 200 mg PO BID [facility] Last Admin: 02/18/20 21:16 Dose: 200 mg Documented by: Apixaban (Apixaban 2.5 Mg Tablet) 2.5 mg PO BID [facility] Last Admin: 02/18/20 21:16 Dose: 2.5 mg Documented by: Atorvastatin Calcium (Atorvastatin 20 Mg Tab) 20 mg PO [facility] Last Admin: 02/18/20 21:16 Dose: 20 mg Documented by: Cholecalciferol (Cholecalciferol 1,000 Unit Tab) 2,000 unit PO DAILY [facility] Finasteride (Finasteride 5 Mg Tab) 5 mg PO HS [facility] Last Admin: 02/18/20 21:16 Dose: 5 mg Documented by: Glimepiride (Glimepiride 4 Mg Tab) 4 mg PO DAILY [facility] Sodium Chloride (Saline 0.9%) 1,000 mls @ 75 mls/hr IV .[id number] [facility] Last Admin: 02/18/20 06:56 Dose: 75 mls/hr Documented by: Loperamide HCl (Loperamide 2 Mg Cap) 4 mg PO HS [facility] Last Admin: 02/18/20 21:16 Dose: 4 mg Documented by: Melatonin (Melatonin 5 Mg Tablet) 10 mg PO HS PRN PRN Reason: Insomnia Metformin HCl (Metformin 500 Mg Tab) 1,000 mg PO AC-BID@0900,1200 [facility] Metoprolol Tartrate (Metoprolol Tartrate 50 Mg Tab) 100 mg PO BID [facility] Last Admin: 02/18/20 15:58 Dose: 100 mg Documented by: Montelukast Sodium (Montelukast 10 Mg Tab) 10 mg PO HS [facility] Last Admin: 02/18/20 21:16 Dose: 10 mg Documented by: Multivitamins (Multivitamins, Thera 1 Each Tab) 1 each PO DAILY [facility] Naloxone HCl (Naloxone 0.4 Mg/Ml 1 Ml Vial) 0.2 mg IV Q2M PRN PRN Reason: Opioid Reversal Non-Formulary Medication ([place]-3 Epa/Dha 2126mg) 1 cap PO DAILY [facility] Non-Formulary Medication (Opti Fiber) 1 tab PO DAILY [facility] Sacubitril/Valsartan (Sacubitril/Valsartan 24 Mg-26 Mg Tablet) 1 each PO BID [facility] Last Admin: 02/18/20 21:16 Dose: 1 each Documented by: Tamsulosin HCl (Tamsulosin 0.4 Mg Cap.Er.24h) 0.4 mg PO DAILY [facility] Last Admin: 02/18/20 08:43 Dose: 0.4 mg Documented by: Physical examination: VITAL SIGNS: 97.3, 112, 18, 136/90, 97% on room air GENERAL: Laying in bed, awake EYES: [Pupils equal. Conjunctiva pale HEENT: External appearance of nose and ears normal, oral cavity grossly normal, decreased hearing. NECK: JVD unable to assess; masses not palpable. HEART: Heart sounds irregular, no edema. LUNGS: Respiratory rate normal, decreased breath sounds. ABDOMEN: Soft, nontender, liver spleen not palpable, no masses palpable. PSYCH: Alert and oriented x3; mood and affect normal. NEUROLOGICAL: Cranial nerves grossly intact; no facial asymmetry, power grossly intact. Tremors and activity. No rigidity. Decreased fine movements. MUSCULAR schedule: Evidence of OA especially in the hands INVESTIGATIONS, reviewed in the clinical context: White count 7.5 hemoglobin 11.7 bun 23 creatinine 1.8 to Previous testing White count 6.4 hemoglobin 12 platelets 192 potassium 3.9 bun 25 creatinine 2.05 EKG tracing personally reviewed by me-atrial fibrillation rate 90s Chest x-ray film personally reviewed by me-cardiomegaly Previous testing: Creatinine 1.69 on December 27, 1.24 on December 22 Renal ultrasound from December 2019-unremarkable Computed tomography scan of the bdyht-uaf-hliexls atrophic changes Assessment: -Acute kidney injury likely prerenal with creatinine going up from 1.24 now up to 2.05-slow to respond -Suspect chronic kidney disease stage III acute from nephrosclerosis -chronic congestive heart failure from systolic dysfunction EF less than 20% -Persistent atrial fibrillation -Coronary artery disease -Diabetes mellitus type 2, on oral hypoglycemics -Essential hypertension -Hyperlipidemia -Primary osteoarthritis -Obstructive sleep apnea uses CPAP -Mild cognitive impairment -Anxiety depression -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 With possible Lewy body dementia. -NPH diagnoses ruled out. Plan: Continue to hydrate the patient. PTOT consulted. Discussed with Dr. Castellanos. Start the patient on Sinemet 25 /100 one tablet twice a day. We agree the patient does not have NPH. Repeat labs in the morning.
[2020-02-18] MEDS: CARBIDOPA-LEVODOPA 25-100 MG 1 EACH TAB PO SCH (22:27)
[2020-02-19 06:07] LABS: Glucose,Whole Blood 99 mg/dL (75-99)
[2020-02-19] MEDS: TAMSULOSIN 0.4 MG CAP.ER.24H PO SCH (08:27)
[2020-02-19] MEDS: CARBIDOPA-LEVODOPA 25-100 MG 1 EACH TAB PO SCH ×2 (08:27→20:43)
[2020-02-19] MEDS: METOPROLOL TARTRATE 50 MG TAB PO SCH ×2 (08:27→20:43)
[2020-02-19] MEDS: metFORMIN 500 MG TAB PO SCH ×2 (08:27→13:04)
[2020-02-19] MEDS: AMIODARONE 200 MG TAB PO SCH ×2 (08:27→20:42)
[2020-02-19] MEDS: SODIUM CHLORIDE 0.9% 1,000 ML IV SCH ×2 (08:27→20:43)
[2020-02-19] MEDS: DHA PO SCH (08:28)
[2020-02-19] MEDS: APIXABAN 2.5 MG TABLET PO SCH ×2 (08:28→20:42)
[2020-02-19] MEDS: CHOLECALCIFEROL 1,000 UNIT TAB PO SCH (08:28)
[2020-02-19] MEDS: GLIMEPIRIDE 4 MG TAB PO SCH (08:28)
[2020-02-19] MEDS: SACUBITRIL/VALSARTAN 24 MG-26 MG TABLET PO SCH ×2 (08:28→20:42)
[2020-02-19] MEDS: MULTIVITAMINS, THERA 1 EACH TAB PO SCH (08:28)
[2020-02-19] MEDS: [UNRECOGNIZED DRUG - OTHER] PO SCH (08:28)
[2020-02-19] MEDS: OMEGA EPA PO SCH (08:28)
[2020-02-19 08:30] LABS: Calcium 8.6 mg/dL (8.4-10.2); Potassium 3.4 mmol/L (3.5-5.1)
[2020-02-19] MEDS: ALBUTEROL NEBULIZED 2.5 MG/3 ML INHALATION SCH ×2 (11:26→19:17)
[2020-02-19 11:43] LABS: Glucose,Whole Blood 136 mg/dL (75-99)
--- NOTE | 2020-02-19 11:44 | P.PN ---
Subjective This is a pleasant 79-year-old male past medical history significant for nonischemic cardiomyopathy status post AICD, chronic persistent atrial fibrillation, hypertension, dyslipidemia, diabetes mellitus, chronic nicotine dependence, history of CVA, obstructive sleep apnea chronic systolic heart failure. He follows in the office with Dr. Morales. He seen and examined sitting up in bed in no acute distress. He complains of feeling palpitations. He is concerned and nervous that his AICD may fire again. 145/91 heart rate 112 afebrile maintaining oxygen saturation on nasal cannula. laboratory data reviewed, sodium 144, potassium 3.4 and creatinine 1.57. Currently maintained on amiodarone 200 mg twice a day, Eliquis 2.5 mg twice a day, atorvastatin 20 mg daily, Lopressor 100 mg twice a day and entresto 24/26 mg twice a day. GENERAL: Well-appearing, well-nourished and in no acute distress. NECK: Supple without JVD or thyromegaly. LUNGS: Breath sounds clear to auscultation bilaterally. Respiration equal and unlabored. No wheezes, rales or rhonchi. HEART: Irregular rate and rhythm with systolic ejection murmur at the base, no rubs or gallops. S1 and S2 heard. EXTREMITIES: Normal range of motion, no edema. No clubbing or cyanosis. Peripheral pulses intact. ASSESSMENT Chronic persistent atrial fibrillation with variable ventricular rates Nonischemic cardiomyopathy status post AICD Status post AICD discharge secondary to A. fib with RVR Acute on chronic kidney disease Chronic systolic heart failure, clinically euvolemic Hypertension Dyslipidemia Diabetes mellitus PLAN Add small dose of digoxin 125 mcg to his regimen for heart rate control. We will continue to monitor heart rates. Nurse Practitioner note has been reviewed, I agree with a documented findings and plan of care. Patient was seen and examined. Objective - Vital Signs Vital signs: Vital Signs Temp 97.8 F 02/19/20 04:00 Pulse 112 H 02/19/20 04:00 Resp 18 02/19/20 04:00 BP 145/91 02/19/20 04:00 Pulse Ox 92 L 02/19/20 04:00 Intake & Output 02/18/20 02/19/20 02/19/20 18:59 06:59 18:59 Intake Total 1580 Output Total 800 2125 Balance 780 -2125 Weight 77.5 kg 74 kg Intake: Intake, IV Titration 600 Amount Sodium Chloride 0.9% 1, 600 000 ml @ 75 mls/hr IV . [id number] [facility] Rx#:[id number] Oral 980 Output: Urine 800 2125 Other: Voiding Method Indwelling Catheter Indwelling Catheter - Labs CBC & Chem 7: 02/18/20 08:25 02/19/20 07:10 Labs: Abnormal Lab Results - Last 24 Hours (Table) 02/18/20 02/18/20 02/19/20 Range/Units 11:49 20:07 07:10 Potassium 3.4 L (3.5-5.1) mmol/L Creatinine 1.57 H (0.66-1.25) mg/dL POC Glucose (mg/dL) 161 H 200 H (75-99) mg/dL
[2020-02-19] MEDS: DIGOXIN 125 MCG TAB PO SCH (13:04)
[2020-02-19 16:48] LABS: Glucose,Whole Blood 149 mg/dL (75-99)
--- NOTE | 2020-02-19 19:53 | P.PN ---
Progress Note - Text Progress Note Date: 02/19/20 Chief Complaint: Increasing weakness History of presenting complaint: This is a 79-year-old patient of Dr. Mckinney. Chronic stable medical conditions include atrial fibrillation, diabetes, hard of hearing, hypertension, hyperlipidemia, osteoarthritis, CPAP uses for sleep apnea. He follows with out of [place]. Patient supposed to have MRI of the brain. And therefore supposed to have his ICD turned off. For last 3 days being put on Coreg. Patient progressively been getting weaker and weaker for last 3-5 years. Has lost about 30 pounds. His tells him his gait has become more shuffling. He also getting tremors. Speech is sometimes slow. Seems to lean forward. Handwriting has become more spidery. . Patient lost to 3 days become gradually more weak. Tired. Admitted with a diagnosis of acute kidney injury, Parkinson-like disease, possible Lewy body dementia. Started on Sinemet. IV fluids. Today-'s feeling slowly better. Appetite is fluctuating. Some decrease in tremor. No PT OT available on the weekend Review of systems: Was done for constitutional, cardiovascular, GI, pulmonary. Neurological relevant finding as above Active Medications Albuterol Sulfate (Albuterol Nebulized 2.5 Mg/3 Ml) 2.5 mg INHALATION RT-BID [facility] Last Admin: 02/19/20 19:17 Dose: 2.5 mg Documented by: Amantadine HCl (Amantadine Hcl 100 Mg Cap) 200 mg PO DAILY@1200 [facility] Last Admin: 02/19/20 13:03 Dose: 200 mg Documented by: Amiodarone HCl (Amiodarone 200 Mg Tab) 200 mg PO BID [facility] Last Admin: 02/19/20 08:27 Dose: 200 mg Documented by: Apixaban (Apixaban 2.5 Mg Tablet) 2.5 mg PO BID [facility] Last Admin: 02/19/20 08:28 Dose: 2.5 mg Documented by: Atorvastatin Calcium (Atorvastatin 20 Mg Tab) 20 mg PO HS [facility] Last Admin: 02/18/20 21:16 Dose: 20 mg Documented by: Carbidopa/Levodopa (Carbidopa-Levodopa 25-100 Mg 1 Each Tab) 1 each PO BID [facility] Last Admin: 02/19/20 08:27 Dose: 1 each Documented by: Cholecalciferol (Cholecalciferol 1,000 Unit Tab) 2,000 unit PO DAILY [facility] Last Admin: 02/19/20 08:28 Dose: 2,000 unit Documented by: Digoxin (Digoxin 125 Mcg Tab) 125 mcg PO DAILY [facility] Last Admin: 02/19/20 13:04 Dose: 125 mcg Documented by: Finasteride (Finasteride 5 Mg Tab) 5 mg PO HS [facility] Last Admin: 02/18/20 21:16 Dose: 5 mg Documented by: Glimepiride (Glimepiride 4 Mg Tab) 4 mg PO DAILY [facility] Last Admin: 02/19/20 08:28 Dose: 4 mg Documented by: Sodium Chloride (Saline 0.9%) 1,000 mls @ 75 mls/hr IV .[id number] [facility] Last Admin: 02/19/20 08:27 Dose: 75 mls/hr Documented by: Loperamide HCl (Loperamide 2 Mg Cap) 4 mg PO HS [facility] Last Admin: 02/18/20 21:16 Dose: 4 mg Documented by: Melatonin (Melatonin 5 Mg Tablet) 10 mg PO HS PRN PRN Reason: Insomnia Metformin HCl (Metformin 500 Mg Tab) 1,000 mg PO AC-BID@0900,1200 [facility] Last Admin: 02/19/20 13:04 Dose: 1,000 mg Documented by: Metoprolol Tartrate (Metoprolol Tartrate 50 Mg Tab) 100 mg PO BID [facility] Last Admin: 02/19/20 08:27 Dose: 100 mg Documented by: Montelukast Sodium (Montelukast 10 Mg Tab) 10 mg PO HS [facility] Last Admin: 02/18/20 21:16 Dose: 10 mg Documented by: Multivitamins (Multivitamins, Thera 1 Each Tab) 1 each PO DAILY [facility] Last Admin: 02/19/20 08:28 Dose: 1 each Documented by: Naloxone HCl (Naloxone 0.4 Mg/Ml 1 Ml Vial) 0.2 mg IV Q2M PRN PRN Reason: Opioid Reversal Non-Formulary Medication ([place]-3 Epa/Dha 2126mg) 1 cap PO DAILY [facility] Last Admin: 02/19/20 08:28 Dose: Not Given Documented by: Non-Formulary Medication (Opti Fiber) 1 tab PO DAILY [facility] Last Admin: 02/19/20 08:28 Dose: Not Given Documented by: Sacubitril/Valsartan (Sacubitril/Valsartan 24 Mg-26 Mg Tablet) 1 each PO BID [facility] Last Admin: 02/19/20 08:28 Dose: 1 each Documented by: Tamsulosin HCl (Tamsulosin 0.4 Mg Cap.Er.24h) 0.4 mg PO DAILY [facility] Last Admin: 02/19/20 08:27 Dose: 0.4 mg Documented by: Physical examination: VITAL SIGNS: 98.4, 100, 18, 136/98 94% room air GENERAL: Laying in bed, awake EYES: [Pupils equal. Conjunctiva pale HEENT: decreased hearing. NECK: JVD unable to assess; masses not palpable. HEART: Heart sounds irregular, no edema. LUNGS: Respiratory rate normal, decreased breath sounds. ABDOMEN: Soft, nontender, liver spleen not palpable, no masses palpable. PSYCH: Alert and oriented x3; mood and affect normal. NEUROLOGICAL: Cranial nerves grossly intact; no facial asymmetry, power grossly intact. Tremors with activity. No rigidity. Mild improvement in fine movements. MUSCULAR schedule: Evidence of OA especially in the hands INVESTIGATIONS, reviewed in the clinical context: Potassium 3.4 creatinine 1.57 Previous testing White count 6.4 hemoglobin 12 platelets 192 potassium 3.9 bun 25 creatinine 2.05 EKG tracing personally reviewed by me-atrial fibrillation rate 90s Chest x-ray film personally reviewed by me-cardiomegaly Previous testing: Creatinine 1.69 on December 27, 1.24 on December 22 Renal ultrasound from December 2019-unremarkable Computed tomography scan of the arpze-tps-osghvoi atrophic changes Assessment: -Acute kidney injury likely prerenal with creatinine going up from 1.24 now up to 2. 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 With possible Lewy body dementia. -NPH diagnoses ruled out. Plan: Increase the Sinemet to 3 times a day. DC the IV fluids later tonight. Check labs in the morning. Follow
[2020-02-19] MEDS: MONTELUKAST 10 MG TAB PO SCH (20:42)
[2020-02-19] MEDS: ATORVASTATIN 20 MG TAB PO SCH (20:42)
[2020-02-19] MEDS: LOPERAMIDE 2 MG CAP PO SCH (20:42)
[2020-02-19] MEDS: FINASTERIDE 5 MG TAB PO SCH (20:43)
[2020-02-19 21:11] LABS: Glucose,Whole Blood 208 mg/dL (75-99)
[2020-02-20 06:21] LABS: Glucose,Whole Blood 84 mg/dL (75-99)
[2020-02-20 07:54] LABS: Calcium 8.5 mg/dL (8.4-10.2); Potassium 3.5 mmol/L (3.5-5.1)
[2020-02-20] MEDS ORDERED: AMIODARONE 200 MG TAB PO SCH (09:00)
[2020-02-20] MEDS: APIXABAN 2.5 MG TABLET PO SCH ×2 (09:30→21:21)
[2020-02-20] MEDS: [UNRECOGNIZED DRUG - OTHER] PO SCH (09:30)
[2020-02-20] MEDS: METOPROLOL TARTRATE 50 MG TAB PO SCH ×2 (09:30→21:21)
[2020-02-20] MEDS: SACUBITRIL/VALSARTAN 24 MG-26 MG TABLET PO SCH ×2 (09:30→21:21)
[2020-02-20] MEDS: MULTIVITAMINS, THERA 1 EACH TAB PO SCH (09:30)
[2020-02-20] MEDS: CARBIDOPA-LEVODOPA 25-100 MG 1 EACH TAB PO SCH ×3 (09:30→21:21)
[2020-02-20] MEDS: CHOLECALCIFEROL 1,000 UNIT TAB PO SCH (09:30)
[2020-02-20] MEDS: AMIODARONE 200 MG TAB PO SCH ×2 (09:30→21:21)
[2020-02-20] MEDS: DIGOXIN 125 MCG TAB PO SCH (09:30)
[2020-02-20] MEDS: metFORMIN 500 MG TAB PO SCH ×2 (09:30→11:33)
[2020-02-20] MEDS: GLIMEPIRIDE 4 MG TAB PO SCH (09:30)
[2020-02-20] MEDS: OMEGA EPA PO SCH (09:30)
[2020-02-20] MEDS: DHA PO SCH (09:30)
[2020-02-20] MEDS: TAMSULOSIN 0.4 MG CAP.ER.24H PO SCH (09:30)
[2020-02-20] MEDS: ALBUTEROL NEBULIZED 2.5 MG/3 ML INHALATION SCH ×2 (11:40→20:57)
--- NOTE | 2020-02-20 11:49 | P.PN ---
Subjective This is a pleasant 79-year-old male past medical history significant for nonischemic cardiomyopathy status post AICD, chronic persistent atrial fibrillation, hypertension, dyslipidemia, diabetes mellitus, chronic nicotine dependence, history of CVA, obstructive sleep apnea chronic systolic heart failure. He follows in the office with Dr. Morales. He seen and examined sitting up in bed in no acute distress. He states his palpitations have improved. He has no chest pain, shortness of breath, dizziness. Blood pressure 131/73 heart rate 84 afebrile maintaining oxygen saturation on room air. Laboratory data reviewed, sodium 142, potassium 3.5, creatinine 1.51. GENERAL: Well-appearing, well-nourished and in no acute distress. NECK: Supple without JVD or thyromegaly. LUNGS: Breath sounds clear to auscultation bilaterally. Respiration equal and unlabored. No wheezes, rales or rhonchi. HEART: Irregular rate and rhythm with systolic ejection murmur at the base, no rubs or gallops. S1 and S2 heard. EXTREMITIES: Normal range of motion, no edema. No clubbing or cyanosis. Peripheral pulses intact. ASSESSMENT Chronic persistent atrial fibrillation with variable ventricular rates Nonischemic cardiomyopathy status post AICD Status post AICD discharge secondary to A. fib with RVR Acute on chronic kidney disease Chronic systolic heart failure, clinically euvolemic Hypertension Dyslipidemia Diabetes mellitus PLAN Heart rates have improved on current regimen. Stable for discharge from a cardiac perspective. Follow-up with Dr. Morales in the office in one to 2 weeks. Nurse Practitioner note has been reviewed, I agree with a documented findings and plan of care. Patient was seen and examined. Objective - Vital Signs Vital signs: Vital Signs Temp 98.2 F 02/20/20 08:00 Pulse 84 02/20/20 08:00 Resp 20 02/20/20 08:00 BP 131/73 02/20/20 08:00 Pulse Ox 94 L 02/20/20 08:00 Intake & Output 02/19/20 02/20/20 02/20/20 18:59 06:59 18:59 Intake Total 1380 120 Output Total 1100 850 Balance 280 -850 120 Weight 75.5 kg Intake: Oral 1380 120 Output: Urine 1100 850 Other: Voiding Method Indwelling Catheter Indwelling Catheter - Labs CBC & Chem 7: 02/18/20 08:25 02/20/20 06:46 Labs: Abnormal Lab Results - Last 24 Hours (Table) 02/19/20 02/19/20 02/19/20 Range/Units 11:42 16:47 20:59 Chloride (98-107) mmol/L Creatinine (0.66-1.25) mg/dL POC Glucose (mg/dL) 136 H 149 H 208 H (75-99) mg/dL 02/20/20 Range/Units 06:46 Chloride 109 H (98-107) mmol/L Creatinine 1.51 H (0.66-1.25) mg/dL POC Glucose (mg/dL) (75-99) mg/dL
[2020-02-20 12:07] LABS: Glucose,Whole Blood 114 mg/dL (75-99)
[2020-02-20] MEDS: SODIUM CHLORIDE 0.9% 1,000 ML IV SCH (15:38)
[2020-02-20 17:01] LABS: Glucose,Whole Blood 141 mg/dL (75-99)
--- NOTE | 2020-02-20 19:52 | P.PN ---
Progress Note - Text Progress Note Date: 02/20/20 Chief Complaint: Increasing weakness History of presenting complaint: This is a 79-year-old patient of Dr. Mckinney. Chronic stable medical conditions include atrial fibrillation, diabetes, hard of hearing, hypertension, hyperlipidemia, osteoarthritis, CPAP uses for sleep apnea. He follows with out of [place]. Patient supposed to have MRI of the brain. And therefore supposed to have his ICD turned off. For last 3 days being put on Coreg. Patient progressively been getting weaker and weaker for last 3-5 years. Has lost about 30 pounds. His tells him his gait has become more shuffling. He also getting tremors. Speech is sometimes slow. Seems to lean forward. Handwriting has become more spidery. . Patient lost to 3 days become gradually more weak. Tired. Admitted with a diagnosis of acute kidney injury, Parkinson-like disease, possible Lewy body dementia. Started on Sinemet. IV fluids. Today-feeling better. Up in a chair. Appetite improving. Tremors present. Review of systems: Was done for constitutional, cardiovascular, GI, pulmonary. Neurological relevant finding as above Active Medications Albuterol Sulfate (Albuterol Nebulized 2.5 Mg/3 Ml) 2.5 mg INHALATION RT-BID [facility] Last Admin: 02/20/20 11:40 Dose: 2.5 mg Documented by: Amantadine HCl (Amantadine Hcl 100 Mg Cap) 200 mg PO DAILY@1200 [facility] Last Admin: 02/20/20 11:33 Dose: 200 mg Documented by: Amiodarone HCl (Amiodarone 200 Mg Tab) 200 mg PO BID [facility] Last Admin: 02/20/20 09:30 Dose: 200 mg Documented by: Apixaban (Apixaban 2.5 Mg Tablet) 2.5 mg PO BID [facility] Last Admin: 02/20/20 09:30 Dose: 2.5 mg Documented by: Atorvastatin Calcium (Atorvastatin 20 Mg Tab) 20 mg PO HS [facility] Last Admin: 02/19/20 20:42 Dose: 20 mg Documented by: Carbidopa/Levodopa (Carbidopa-Levodopa 25-100 Mg 1 Each Tab) 1 each PO TID [facility] Last Admin: 02/20/20 15:38 Dose: 1 each Documented by: Cholecalciferol (Cholecalciferol 1,000 Unit Tab) 2,000 unit PO DAILY [facility] Last Admin: 02/20/20 09:30 Dose: 2,000 unit Documented by: Digoxin (Digoxin 125 Mcg Tab) 125 mcg PO DAILY [facility] Last Admin: 02/20/20 09:30 Dose: 125 mcg Documented by: Finasteride (Finasteride 5 Mg Tab) 5 mg PO HS [facility] Last Admin: 02/19/20 20:43 Dose: 5 mg Documented by: Glimepiride (Glimepiride 4 Mg Tab) 4 mg PO DAILY [facility] Last Admin: 02/20/20 09:30 Dose: 4 mg Documented by: Sodium Chloride (Saline 0.9%) 1,000 mls @ 75 mls/hr IV .[id number] [facility] Last Admin: 02/20/20 15:38 Dose: 75 mls/hr Documented by: Loperamide HCl (Loperamide 2 Mg Cap) 4 mg PO HS [facility] Last Admin: 02/19/20 20:42 Dose: 4 mg Documented by: Melatonin (Melatonin 5 Mg Tablet) 10 mg PO HS PRN PRN Reason: Insomnia Metformin HCl (Metformin 500 Mg Tab) 1,000 mg PO AC-BID@0900,1200 [facility] Last Admin: 02/20/20 11:33 Dose: 1,000 mg Documented by: Metoprolol Tartrate (Metoprolol Tartrate 50 Mg Tab) 100 mg PO BID [facility] Last Admin: 02/20/20 09:30 Dose: 100 mg Documented by: Montelukast Sodium (Montelukast 10 Mg Tab) 10 mg PO HS [facility] Last Admin: 02/19/20 20:42 Dose: 10 mg Documented by: Multivitamins (Multivitamins, Thera 1 Each Tab) 1 each PO DAILY [facility] Last Admin: 02/20/20 09:30 Dose: 1 each Documented by: Naloxone HCl (Naloxone 0.4 Mg/Ml 1 Ml Vial) 0.2 mg IV Q2M PRN PRN Reason: Opioid Reversal Non-Formulary Medication ([place]-3 Epa/Dha 2126mg) 1 cap PO DAILY [facility] Last Admin: 02/20/20 09:30 Dose: Not Given Documented by: Non-Formulary Medication (Opti Fiber) 1 tab PO DAILY [facility] Last Admin: 02/20/20 09:30 Dose: Not Given Documented by: Sacubitril/Valsartan (Sacubitril/Valsartan 24 Mg-26 Mg Tablet) 1 each PO BID [facility] Last Admin: 02/20/20 09:30 Dose: 1 each Documented by: Tamsulosin HCl (Tamsulosin 0.4 Mg Cap.Er.24h) 0.4 mg PO DAILY [facility] Last Admin: 02/20/20 09:30 Dose: 0.4 mg Documented by: Physical examination: VITAL SIGNS: 98.2-84-20-131/73-94% on room air GENERAL: Sitting up in a chair, eating EYES: Pupils equal. Conjunctiva pale HEENT: decreased hearing. NECK: JVD unable to assess; masses not palpable. HEART: Heart sounds irregular, no edema. LUNGS: Respiratory rate normal, decreased breath sounds. ABDOMEN: Soft, nontender, liver spleen not palpable, no masses palpable. PSYCH: Alert and oriented x3; mood and affect normal. NEUROLOGICAL: Cranial nerves grossly intact; no facial asymmetry, power grossly intact. Tremors with activity. No rigidity. improvement in fine movements. MUSCULAR schedule: Evidence of OA especially in the hands INVESTIGATIONS, reviewed in the clinical context: Potassium 3.5 creatinine 1.51 Previous testing White count 6.4 hemoglobin 12 platelets 192 potassium 3.9 bun 25 creatinine 2.05 EKG tracing personally reviewed by me-atrial fibrillation rate 90s Chest x-ray film personally reviewed by me-cardiomegaly Previous testing: Creatinine 1.69 on December 27, 1.24 on December 22 Renal ultrasound from December 2019-unremarkable Computed tomography scan of the [place] atrophic changes Assessment: -Acute kidney injury likely prerenal with creatinine going up from 1.24 now up to 2. 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 With possible Lewy body dementia. -NPH diagnoses ruled out. Plan: Continue with gentle hydration tomorrow morning. Repeat labs in the morning. Awake input from PTOT. WESLEY Potts catheter. Discussed with the patient.
[2020-02-20 20:39] LABS: Glucose,Whole Blood 128 mg/dL (75-99)
[2020-02-20] MEDS: FINASTERIDE 5 MG TAB PO SCH (21:21)
[2020-02-20] MEDS: LOPERAMIDE 2 MG CAP PO SCH (21:21)
[2020-02-20] MEDS: ATORVASTATIN 20 MG TAB PO SCH (21:21)
[2020-02-20] MEDS: MONTELUKAST 10 MG TAB PO SCH (21:21)
[2020-02-21] MEDS: SODIUM CHLORIDE 0.9% 1,000 ML IV SCH ×2 (05:49→11:27)
[2020-02-21 05:58] LABS: Glucose,Whole Blood 93 mg/dL (75-99)
[2020-02-21] MEDS: ALBUTEROL NEBULIZED 2.5 MG/3 ML INHALATION SCH ×2 (08:09→20:37)
[2020-02-21 08:19] LABS: Calcium 8.7 mg/dL (8.4-10.2); Potassium 3.5 mmol/L (3.5-5.1)
[2020-02-21] MEDS: METOPROLOL TARTRATE 50 MG TAB PO SCH ×2 (08:19→22:23)
[2020-02-21] MEDS: TAMSULOSIN 0.4 MG CAP.ER.24H PO SCH (08:19)
[2020-02-21] MEDS: MULTIVITAMINS, THERA 1 EACH TAB PO SCH (08:19)
[2020-02-21] MEDS: CARBIDOPA-LEVODOPA 25-100 MG 1 EACH TAB PO SCH (08:19)
[2020-02-21] MEDS: DIGOXIN 125 MCG TAB PO SCH (08:19)
[2020-02-21] MEDS: SACUBITRIL/VALSARTAN 24 MG-26 MG TABLET PO SCH ×2 (08:19→22:21)
[2020-02-21] MEDS: metFORMIN 500 MG TAB PO SCH ×2 (08:19→11:26)
[2020-02-21] MEDS: APIXABAN 2.5 MG TABLET PO SCH ×2 (08:20→22:23)
[2020-02-21] MEDS: CHOLECALCIFEROL 1,000 UNIT TAB PO SCH (08:20)
[2020-02-21] MEDS: OMEGA EPA PO SCH (08:20)
[2020-02-21] MEDS: DHA PO SCH (08:20)
[2020-02-21] MEDS: [UNRECOGNIZED DRUG - OTHER] PO SCH (08:20)
[2020-02-21] MEDS: GLIMEPIRIDE 4 MG TAB PO SCH (08:20)
[2020-02-21] MEDS: AMIODARONE 200 MG TAB PO SCH ×2 (08:20→22:22)
--- NOTE | 2020-02-21 10:26 | P.PN ---
Subjective Progress Note Date: 02/21/20 History of present illness This is a pleasant 79-year-old gentleman who follows with Dr. Morales in the office. 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 According to the patient, he has not been drinking much fluids at home. He's been feeling progressively more and more weak, he has had a couple episodes where his legs gave out on him and he fell to the ground. No syncopal episodes. Patient also states that his AICD has gone off at least 3 times in the past 3 weeks. His EKG on presentation here showed atrial fibrillation with a heart rate in the 90s, blood pressure 135/80 temperature 99.1. White blood cell count 6.4, hemoglobin 12.0, platelet count 192. Sodium 142, potassium 3.9, BUN 25 and creatinine 2.05. The patient's baseline creatinine is 1.1. Troponin 0.012. BNP level 3860. His chest x-ray did not reveal any acute change, CT of the brain did not reveal any acute intracranial process. 02/21/2020 Patient was seen and examined this morning, overall doing well. Anticipating discharge home today. Blood pressure 118/70 with a heart rate in the 80s to 90s, 97% on room air. Sodium 140, potassium 3.5, BUN 15, creatinine 1.2. Objective - Vital Signs Vital signs: Vital Signs Temp 98.2 F 02/21/20 08:00 Pulse 88 02/21/20 08:27 Resp 20 02/21/20 08:00 BP 118/73 02/21/20 08:00 Pulse Ox 97 02/21/20 08:00 Intake & Output 02/20/20 02/21/20 02/21/20 18:59 06:59 18:59 Intake Total 480 125 Output Total 450 700 275 Balance 30 -700 -150 Weight 68.5 kg Intake: Oral 480 125 Output: Urine 450 700 275 Other: Voiding Method Indwelling Catheter Urinal Toilet Urinal # Voids 2 - Exam PHYSICAL EXAMINATION: GENERAL: 79-year-old gentleman in no acute distress at the time of my examination HEENT: Head is atraumatic, normocephalic. Pupils equal, round. Sclera anicteric. Conjunctiva are clear. Mucous membranes of the mouth are moist. Neck is supple. There is no elevated jugular venous pressure. No carotid bruit is heard. HEART EXAMINATION: Heart S1 and S2 irregularly irregular a systolic ejection murmur is heard at the base CHEST EXAMINATION: Lungs are clear to auscultation and precussion. No chest wall tenderness is noted on palpation or with deep breathing. ABDOMEN: Soft, nontender. Bowel sounds are heard. No organomegaly noted. EXTREMITIES: 2+ peripheral pulses with no evidence of peripheral edema and no calf tenderness noted. NEUROLOGIC patient is awake, alert and oriented 3 - Labs CBC & Chem 7: 02/18/20 08:25 02/21/20 06:41 Labs: Abnormal Lab Results - Last 24 Hours (Table) 02/20/20 02/20/20 02/20/20 Range/Units 12:05 16:43 20:33 Creatinine (0.66-1.25) mg/dL POC Glucose (mg/dL) 114 H 141 H 128 H (75-99) mg/dL 02/21/20 Range/Units 06:41 Creatinine 1.28 H (0.66-1.25) mg/dL POC Glucose (mg/dL) (75-99) mg/dL Assessment and Plan Plan: Assessment and plan #1 chronic systolic congestive heart failure, patient is euvolemic at this time #2 chronic persistent atrial fibrillation, on Eliquis for anticoagulation, rate is under adequate control #3 nonischemic cardiomyopathy, status post single chamber ICD. ICD was interrogated, patient did have 3 AICD discharges, each time for atrial fibrillation with rapid ventricular response. This was also reviewed by Dr. Morales in the office and his most recent visit and patient was initiated on amiodarone at that time. #4 hyperlipidemia #5 hypertension #6 diabetes #7 mildly nonobstructive coronary artery disease #8 nicotine dependence #9 obstructive sleep apnea #10 acute on chronic renal insufficiency, creatinine 2.0 this admission Plan From cardiology's perspective, patient may be able to be discharged home today. We'll make him a follow-up appointment with Dr. Morales in the office 2 weeks post discharge. DNP note has been reviewed, I agree with a documented findings and plan of care. Patient was seen and examined.
[2020-02-21 11:57] LABS: Glucose,Whole Blood 114 mg/dL (75-99)
--- NOTE | 2020-02-21 15:38 | P.CONS ---
History of Present Illness - Chief Complaint Medical debility - History of Present Illness I had the opportunity to see patient for inpatient rehab consultation with regard to medical debility. [facility] Seen by neurology for known chronic ataxia. Seen by cardiology for nonischemic cardiomyopathy and arrhythmia. Laboratories chest x-ray negative. Head CT with atrophy, periventricular white matter change and possible left maxillary sinusitis. PT reports minimal assistance for bed mobility 2 person maximal assistance to stand, transfer and gait 6 feet with roller walker. Sitting and standing balance poor. OT reports maximal assistance for upper dressing and two-person total assistance for lower dressing, bathing, toileting. Previous functional history as elicited from patient: Unsure how old he was being age 79-year-old right-handed white male who is lives and 2 floor home with . Patient retired. does cooking, laundry, driving. Patient describes independent with sponge bath known dressing. Uses 4 wheeled walker fo r gait. Denies tobacco or alcohol. State PMD Dr. Mckinney but H&P indicates Dr. Valiente. Family history father with Hodgkin's lymphoma. Review of Systems Review of systems: ENT: Denies sneezes or discharge. Eyes: Denies discharge or photophobia. Cardiac: Denies chest pain or palpitation. Pulmonary: Denies cough or shortness of breath. Gastrointestinal: Denies nausea, emesis, constipation, diarrhea. Genitourinary: Denies discharge or frequency. Musculoskeletal: Denies muscle or bone aches. Neurologic: Generalized weakness and admits to dizziness and confusion.. Endocrine: Denies shakes or sweats. Oncology: Denies cancers. Dermatologic: Denies rash, itching, pruritus. ALLERGY/immunology: Denies sneezes, rashes. Past Medical History Past Medical History: Atrial Fibrillation, Heart Failure, CVA/TIA, Diabetes Mellitus, Hearing Disorder / Deafness, Hyperlipidemia, Hypertension, Osteoarthritis (OA), Sleep Apnea/CPAP/BIPAP Additional Past Medical History / Comment(s): see Dr Madrid H&P, ?CVA IN THE PAST (NO WEAKNESS OR PARALYSIS) , has unsteady gait but no assistive divice used, HX OF bleeding ULCER, dizziness-cause unknown, STATES HX OF A "HOLE IN HIS STOMACH ", diarrhea, "problem with liver-not sure what", Single chamber AICD 06/15/19 History of Any Multi-Drug Resistant Organisms: None Reported Past Surgical History: Appendectomy, Hernia Repair, Pacemaker, Tonsillectomy Additional Past Surgical History / Comment(s): JAYY INGUINAL HERNIA REPAIR X2 Past Anesthesia/Blood Transfusion Reactions: No Reported Reaction Type of Cardiac Device: AICD Device Placement Date:: 06/15/2019 Past Psychological History: Anxiety, Depression Smoking Status: Former smoker Past Alcohol Use History: Rare Past Drug Use History: None Reported - Past Family History Father Family Medical History: Cancer Additional Family Medical History / Comment(s): HODGKIN'S Medications and Allergies Home Medications Medication Instructions Recorded Confirmed Type Glimepiride [Amaryl] 4 mg PO DAILY 06/24/14 02/17/20 History Simvastatin [Zocor] 40 mg PO HS 06/24/14 02/17/20 History Multivitamins, Thera [Multivitamin 1 tab PO DAILY 07/20/15 02/17/20 History (formulary)] Albuterol Nebulized [Ventolin 2.5 mg INHALATION RT-BID 05/20/18 02/17/20 History Nebulized] Montelukast [Singulair] 10 mg PO HS 05/20/18 02/17/20 History Cholecalciferol (Vitamin D3) 2,000 unit PO DAILY 02/05/19 02/17/20 History [Vitamin D3] amantadine HCL [Amantadine] 200 mg PO DAILY@1200 02/05/19 02/17/20 History Furosemide [Lasix] 20 mg PO DAILY 06/10/19 02/17/20 History Melatonin 10 mg PO HS PRN 06/10/19 02/17/20 History Opti Fiber 1 tab PO DAILY 06/10/19 02/17/20 History Apixaban [Eliquis] 2.5 mg PO BID 12/16/19 02/17/20 History Sacubitril/Valsartan [Entresto 24 1 tab PO BID 12/16/19 02/17/20 History mg-26 mg Tablet] metFORMIN HCL [metFORMIN HCL ER 1,000 mg PO AC-BID@0900,1200 12/16/19 02/17/20 History Osmotic] Amiodarone [Cordarone] 200 mg PO BID 02/17/20 02/17/20 History Finasteride [Proscar] 5 mg PO HS 02/17/20 02/17/20 History Loperamide HCl [Imodium A-D] 4 - 6 mg PO HS 02/17/20 02/17/20 History Metoprolol Tartrate [Lopressor] 100 mg PO BID 02/17/20 02/17/20 History [place]-3 Epa/Dha 2126mg 1 cap PO DAILY 02/17/20 02/17/20 History Tamsulosin [Flomax] 0.4 mg PO DAILY 02/17/20 02/17/20 History Allergies Allergy/AdvReac Type Severity Reaction Status Date / Time No Known Allergies Allergy Verified 02/17/20 16:15 Physical Exam Vitals: Vital Signs Temp Pulse Pulse Resp BP Pulse Ox 02/21/20 11:30 75 18 140/88 95 02/21/20 11:29 83 20 02/21/20 08:27 88 02/21/20 08:11 80 02/21/20 08:00 98.2 F 93 18 118/73 97 02/21/20 04:00 98.2 F 87 18 139/104 95 02/21/20 00:00 96 18 144/85 95 02/20/20 21:05 77 02/20/20 20:57 77 02/20/20 20:00 98.5 F 115 H 18 139/91 96 02/20/20 16:00 98.2 F 85 20 149/89 95 Intake and Output 02/21/20 02/21/20 02/21/20 06:59 14:59 22:59 Intake Total 365 Output Total 700 275 Balance -700 90 Intake: Oral 365 Output: Urine 700 275 Other: Voiding Method Urinal Toilet Urinal # Voids 2 1 # Bowel Movements 0 Weight 68.5 kg Skin: Atrophic, intact. General: Thin build and comfortable appearance. Head: Normocephalic, atraumatic. Eyes: Symmetric. Pupils equal round. Ears: Symmetric. Hearing within normal limits. Mouth: Clear. Neck: Supple. Carotid without bruit. Cardiac: Regular rate and rhythm. Lungs: Clear anteriorly and posteriorly. Abdomen: Soft active nontender. Extremities: Normal tone. Neurological: Mental status: Alert, cooperative, pleasant. Cranial nerves: Symmetric facial tone and trapezius. Motor: Can actively elevate off of bed all 4 limbs. Sensation: Intact throughout. DTRs: Symmetric and equal throughout. Mobility: Did not attempt to sit or stand on my own. Received phone call from family. Results CBC & Chem 7: 02/18/20 08:25 02/21/20 06:41 Labs: Abnormal Lab Results - Last 24 Hours (Table) 02/20/20 02/20/20 02/21/20 Range/Units 16:43 20:33 06:41 Creatinine 1.28 H (0.66-1.25) mg/dL POC Glucose (mg/dL) 141 H 128 H (75-99) mg/dL 02/21/20 Range/Units 11:54 Creatinine (0.66-1.25) mg/dL POC Glucose (mg/dL) 114 H (75-99) mg/dL Assessment and Plan Plan: Impression: 1. Medical debility. 2. Non-ischemic cardiac myopathy with arrhythmia, atrial fibrillation. 3. Hypertension. 4. Diabetes. 5. Sleep apnea. 6. Dyslipidemia. 7. Osteoarthritis. 8. CHF. 9. History of stroke now with gait ataxia. Comments and plan: At this time PT and OT are ongoing but rehab prognosis guarded. Balance poor and patient currently two-person assist. At this time, I'm unsure what if anything is actually no problem and this potential diagnosis for inpatient rehab.
--- NOTE | 2020-02-21 15:53 | P.PN ---
Subjective Progress Note Date: 02/21/20 Patient was seen for a follow-up. Patient's was also present today. He states he is feeling little better, although he feels slightly weak. Tremors have improved. Denies any side effect of Sinemet. PT worked with him for about 15 minutes, was having difficulty getting out of bed. He was able to take 3-4 steps with their help and then sat down in the recliner. Patient tells me that he was able to walk by himself in the hallway, which is completely incorrect. He has not been able to walk by himself, has been requiring help for walking since in the hospital. Patient's states that he was doing fine before 02/16/2020, when he even went to his credit negotiator in [facility]. Patient was able to walk to the office and come back to his car without any assistive device, by himself. He came home, and sat by the computer and usually sits there for a few hours. Once he was done, he couldn't get out of chair. His managed to help him get up. He could hardly go from his bed to the recliner. Next a he got worse, therefore she brought him to the hospital. Patient's states that he usually walks with a walker inside his home, but outside he does not use any device. He does walk with a shuffle for last 5 years. He is able to go one flight of stairs hanging onto the side rail. He does have problem with balance and falls, but the symptoms have gotten much worse recently since last Friday as described. Patient has history of tremor for the last 2-3 years, but has been manageable. She states that his tremors aren't with intention and posture, not at rest. Patient follows up with neurologist at [place]. Objective - Vital Signs Vital signs: Vital Signs Temp 98.2 F 02/21/20 08:00 Pulse 75 02/21/20 11:30 Resp 18 02/21/20 11:30 BP 140/88 02/21/20 11:30 Pulse Ox 95 02/21/20 11:30 Intake & Output 02/20/20 02/21/20 02/21/20 18:59 06:59 18:59 Intake Total 480 365 Output Total 450 700 275 Balance 30 -700 90 Weight 68.5 kg Intake: Oral 480 365 Output: Urine 450 700 275 Other: Voiding Method Indwelling Catheter Urinal Toilet Urinal # Voids 2 1 # Bowel Movements 0 - Exam Patient's mental status, is stable. Speech and language functions are normal, mild slurring noted, as was noticed before. Cranial nerves are normal. Muscle strength reveals normal strength in the arms and legs. Tone is mildly increased. Patient has mild tremors of outstretched hands, mild to moderate tremor for [id number] testing. No obvious tremor at rest. Bulk of muscles is normal. Gait deferred. I observed a few large amplitude myoclonic jerks of his arms. - Labs CBC & Chem 7: 02/18/20 08:25 02/21/20 06:41 Labs: Abnormal Lab Results - Last 24 Hours (Table) 02/20/20 02/20/20 02/21/20 Range/Units 16:43 20:33 06:41 Creatinine 1.28 H (0.66-1.25) mg/dL POC Glucose (mg/dL) 141 H 128 H (75-99) mg/dL 02/21/20 Range/Units 11:54 Creatinine (0.66-1.25) mg/dL POC Glucose (mg/dL) 114 H (75-99) mg/dL Assessment and Plan Assessment: * 79-year-old male with few year history of progressive decline, with gait impairment, tremors, some cognitive impairment, dysarthria and episodes of hallucinations. No evidence of normal pressure hydrocephalus based upon computed tomography scan of head. His previous nuclear medicine cisternogram study was also negative for NPH on 09/01/2017. Rule out Lewy body dementia versus multiple system atrophy. * Acute gait imbalance, worsening of underlying tremors, likely due to metabolic encephalopathy. This likely resulted from dehydration and acute renal insufficiency. * Diabetes Plan: * Patient's provided a different history. Patient has some gait imbalance, but has rapidly got worse since last Friday on 02/16/2020. Patient's curr ent worsening is likely related to acute metabolic encephalopathy, with metabolic tremor. Would hold off on Sinemet at this time due to concern about hallucinations/delusions with it. It may be considered as an outpatient, once his encephalopathy has resolved. * PT OT evaluate gait. * Patient may need short-term rehab. * We will follow him while in the hospital.,
[2020-02-21 16:57] LABS: Glucose,Whole Blood 107 mg/dL (75-99)
--- NOTE | 2020-02-21 17:24 | P.PN ---
Progress Note - Text Progress Note Date: 02/21/20 Chief Complaint: Increasing weakness History of presenting complaint: This is a 79-year-old patient of Dr. Mckniney. Chronic stable medical conditions include atrial fibrillation, diabetes, hard of hearing, hypertension, hyperlipidemia, osteoarthritis, CPAP uses for sleep apnea. He follows with out of [place]. Patient supposed to have MRI of the brain. And therefore supposed to have his ICD turned off. For last 3 days being put on Coreg. Patient progressively been getting weaker and weaker for last 3-5 years. Has lost about 30 pounds. His tells him his gait has become more shuffling. He also getting tremors. Speech is sometimes slow. Seems to lean forward. Handwriting has become more spidery. . Patient lost to 3 days become gradually more weak. Tired. Admitted with a diagnosis of acute kidney injury, Parkinson-like disease, possible Lewy body dementia. Started on Sinemet. IV fluids. [place] to be encephalopathic. On presentation improved. Today-feeling improved. Eating better. Confusion much improved. Patient's w cristian at the bedside. Still feels weak. Review of systems: Was done for constitutional, cardiovascular, GI, pulmonary. Neurological relevant finding as above Active Medications Albuterol Sulfate (Albuterol Nebulized 2.5 Mg/3 Ml) 2.5 mg INHALATION RT-BID [facility] Last Admin: 02/21/20 08:09 Dose: 2.5 mg Documented by: Amantadine HCl (Amantadine Hcl 100 Mg Cap) 200 mg PO DAILY@1200 [facility] Last Admin: 02/21/20 11:26 Dose: 200 mg Documented by: Amiodarone HCl (Amiodarone 200 Mg Tab) 200 mg PO BID [facility] Last Admin: 02/21/20 08:20 Dose: 200 mg Documented by: Apixaban (Apixaban 2.5 Mg Tablet) 2.5 mg PO BID [facility] Last Admin: 02/21/20 08:20 Dose: 2.5 mg Documented by: Atorvastatin Calcium (Atorvastatin 20 Mg Tab) 20 mg PO HS [facility] Last Admin: 02/20/20 21:21 Dose: 20 mg Documented by: Cholecalciferol (Cholecalciferol 1,000 Unit Tab) 2,000 unit PO DAILY [facility] Last Admin: 02/21/20 08:20 Dose: 2,000 unit Documented by: Digoxin (Digoxin 125 Mcg Tab) 125 mcg PO DAILY [facility] Last Admin: 02/21/20 08:19 Dose: 125 mcg Documented by: Finasteride (Finasteride 5 Mg Tab) 5 mg PO HS [facility] Last Admin: 02/20/20 21:21 Dose: 5 mg Documented by: Glimepiride (Glimepiride 4 Mg Tab) 4 mg PO DAILY [facility] Last Admin: 02/21/20 08:20 Dose: 4 mg Documented by: Loperamide HCl (Loperamide 2 Mg Cap) 4 mg PO HS [facility] Last Admin: 02/20/20 21:21 Dose: 4 mg Documented by: Melatonin (Melatonin 5 Mg Tablet) 10 mg PO HS PRN PRN Reason: Insomnia Metformin HCl (Metformin 500 Mg Tab) 1,000 mg PO AC-BID@0900,1200 [facility] Last Admin: 02/21/20 11:26 Dose: 1,000 mg Documented by: Metoprolol Tartrate (Metoprolol Tartrate 50 Mg Tab) 100 mg PO BID [facility] Last Admin: 02/21/20 08:19 Dose: 100 mg Documented by: Montelukast Sodium (Montelukast 10 Mg Tab) 10 mg PO HS [facility] Last Admin: 02/20/20 21:21 Dose: 10 mg Documented by: Multivitamins (Multivitamins, Thera 1 Each Tab) 1 each PO DAILY [facility] Last Admin: 02/21/20 08:19 Dose: 1 each Documented by: Naloxone HCl (Naloxone 0.4 Mg/Ml 1 Ml Vial) 0.2 mg IV Q2M PRN PRN Reason: Opioid Reversal Non-Formulary Medication ([place]-3 Epa/Dha 2126mg) 1 cap PO DAILY [facility] Last Admin: 02/21/20 08:20 Dose: Not Given Documented by: Non-Formulary Medication (Opti Fiber) 1 tab PO DAILY [facility] Last Admin: 02/21/20 08:20 Dose: Not Given Documented by: Sacubitril/Valsartan (Sacubitril/Valsartan 24 Mg-26 Mg Tablet) 1 each PO BID [facility] Last Admin: 02/21/20 08:19 Dose: 1 each Documented by: Tamsulosin HCl (Tamsulosin 0.4 Mg Cap.Er.24h) 0.4 mg PO DAILY [facility] Last Admin: 02/21/20 08:19 Dose: 0.4 mg Documented by: Physical examination: VITAL SIGNS: 98.2, 93, 18, 118/73, 97% room air GENERAL: Sitting up in a chair, eating EYES: Pupils equal. Conjunctiva pale HEENT: decreased hearing. NECK: JVD unable to assess; masses not palpable. HEART: Heart sounds irregular, no edema. LUNGS: Respiratory rate normal, decreased breath sounds. ABDOMEN: Soft, nontender, liver spleen not palpable, no masses palpable. PSYCH: Alert and oriented x3; mood and affect normal. NEUROLOGICAL: Cranial nerves grossly intact; no facial asymmetry, power grossly intact. Less tremor No rigidity. improvement in fine movements. MUSCULAR schedule: Evidence of OA especially in the hands INVESTIGATIONS, reviewed in the clinical context: Creatinine 1.28 Previous testing White count 6.4 hemoglobin 12 platelets 192 potassium 3.9 bun 25 creatinine 2.05 EKG tracing personally reviewed by me-atrial fibrillation rate 90s Chest x-ray film personally reviewed by me-cardiomegaly Previous testing: Creatinine 1.69 on December 27, 1.24 on December 22 Renal ultrasound from December 2019-unremarkable Computed tomography scan of the [id number] atrophic changes Assessment: -Acute kidney injury likely prerenal with creatinine going up from 1.24 now up to 2. 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 Castellanos from neurology. We want to revisit this diagnosis. Decided this point to discontinue the Sinemet and see how he does. At this is worsening by tomorrow then we may have to resume the Sinemet. -NPH diagnoses ruled out. Plan: Spend a lot of time with the patient and regarding the current diagnosis and treatment. Patient and had several cardiology questions. We will have cardiology team address the same. As discussed with Dr. Castellanos will DC the Sinemet for now. Saline also being discontinued. Check labs in the morning. Consult Dr. Roberson. Looking for patient to go to inpatient rehab. Total time spent about 45 minutes with over 30 minutes of discussion.
[2020-02-21 20:52] LABS: Glucose,Whole Blood 75 mg/dL (75-99)
[2020-02-21] MEDS: LOPERAMIDE 2 MG CAP PO SCH (22:22)
[2020-02-21] MEDS: FINASTERIDE 5 MG TAB PO SCH (22:23)
[2020-02-21] MEDS: MONTELUKAST 10 MG TAB PO SCH (22:23)
[2020-02-21] MEDS: ATORVASTATIN 20 MG TAB PO SCH (22:23)
[2020-02-22 06:24] LABS: Glucose,Whole Blood 132 mg/dL (75-99)
[2020-02-22] MEDS: ALBUTEROL NEBULIZED 2.5 MG/3 ML INHALATION SCH (07:55)
[2020-02-22] MEDS: metFORMIN 500 MG TAB PO SCH ×2 (08:45→12:24)
[2020-02-22] MEDS: CHOLECALCIFEROL 1,000 UNIT TAB PO SCH (08:45)
[2020-02-22] MEDS: AMIODARONE 200 MG TAB PO SCH (08:45)
[2020-02-22] MEDS: MULTIVITAMINS, THERA 1 EACH TAB PO SCH (08:45)
[2020-02-22] MEDS: TAMSULOSIN 0.4 MG CAP.ER.24H PO SCH (08:45)
[2020-02-22] MEDS: METOPROLOL TARTRATE 50 MG TAB PO SCH (08:45)
[2020-02-22] MEDS: DIGOXIN 125 MCG TAB PO SCH (08:45)
[2020-02-22] MEDS: APIXABAN 2.5 MG TABLET PO SCH (08:45)
[2020-02-22] MEDS: GLIMEPIRIDE 4 MG TAB PO SCH (08:46)
[2020-02-22] MEDS: SACUBITRIL/VALSARTAN 24 MG-26 MG TABLET PO SCH (08:46)
[2020-02-22] MEDS: DHA PO SCH (08:49)
[2020-02-22] MEDS: OMEGA EPA PO SCH (08:49)
[2020-02-22] MEDS: [UNRECOGNIZED DRUG - OTHER] PO SCH (08:51)
[2020-02-22 11:56] LABS: Glucose,Whole Blood 91 mg/dL (75-99)
[2020-02-22 12:56] VITALS: PULSE 90; RESP 16
--- NOTE | 2020-02-22 14:07 | P.PN ---
Subjective Progress Note Date: 02/22/20 History of present illness This is a pleasant 79-year-old gentleman who follows with Dr. Morales in the office. 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 According to the patient, he has not been drinking much fluids at home. He's been feeling progressively more and more weak, he has had a couple episodes where his legs gave out on him and he fell to the ground. No syncopal episodes. Patient also states that his AICD has gone off at least 3 times in the past 3 weeks. His EKG on presentation here showed atrial fibrillation with a heart rate in the 90s, blood pressure 135/80 temperature 99.1. White blood cell count 6.4, hemoglobin 12.0, platelet count 192. Sodium 142, potassium 3.9, BUN 25 and creatinine 2.05. The patient's baseline creatinine is 1.1. Troponin 0.012. BNP level 3860. His chest x-ray did not reveal any acute change, CT of the brain did not reveal any acute intracranial process. 02/21/2020 Patient was seen and examined this morning, overall doing well. Anticipating discharge home today. Blood pressure 118/70 with a heart rate in the 80s to 90s, 97% on room air. Sodium 140, potassium 3.5, BUN 15, creatinine 1.2. 02/22/2020 Patient seen and examined this morning, doing well overall. Ambulated in the [place] with physical therapy today. Anticipating discharge to rehab today. Blood pressure 120/78 with a heart rate in the 90s, 95% on room air. No lab data today. Objective - Vital Signs Vital signs: Vital Signs Temp 98.1 F 02/22/20 12:00 Pulse 90 02/22/20 12:00 Resp 16 02/22/20 12:00 BP 129/79 02/22/20 12:00 Pulse Ox 95 02/22/20 12:00 Intake & Output 02/21/20 02/22/20 02/22/20 18:59 06:59 18:59 Intake Total 601 240 Output Total 825 850 225 Balance -224 -850 15 Weight 61 kg Intake: Oral 601 240 Output: Urine 825 850 225 Other: Voiding Method Toilet Toilet Toilet Urinal Urinal Urinal # Voids 1 1 # Bowel Movements 0 0 - Exam PHYSICAL EXAMINATION: GENERAL: 79-year-old gentleman in no acute distress at the time of my examination HEENT: Head is atraumatic, normocephalic. Pupils equal, round. Sclera anicteric. Conjunctiva are clear. Mucous membranes of the mouth are moist. Neck is supple. There is no elevated jugular venous pressure. No carotid bruit is heard. HEART EXAMINATION: Heart S1 and S2 irregularly irregular a systolic ejection murmur is heard at the base CHEST EXAMINATION: Lungs are clear to auscultation and precussion. No chest wall tenderness is noted on palpation or with deep breathing. ABDOMEN: Soft, nontender. Bowel sounds are heard. No organomegaly noted. EXTREMITIES: 2+ peripheral pulses with no evidence of peripheral edema and no calf tenderness noted. NEUROLOGIC patient is awake, alert and oriented 3 - Labs CBC & Chem 7: 02/18/20 08:25 02/21/20 06:41 Labs: Abnormal Lab Results - Last 24 Hours (Table) 02/21/20 02/22/20 Range/Units 16:47 06:23 POC Glucose (mg/dL) 107 H 132 H (75-99) mg/dL Assessment and Plan Plan: Assessment and plan #1 chronic systolic congestive heart failure, patient is euvolemic at this time #2 chronic persistent atrial fibrillation, on Eliquis for anticoagulation, rate is under adequate control #3 nonischemic cardiomyopathy, status post single chamber ICD. ICD was inter rogated, patient did have 3 AICD discharges, each time for atrial fibrillation with rapid ventricular response. This was also reviewed by Dr. Morales in the office and his most recent visit and patient was initiated on amiodarone at that time. #4 hyperlipidemia #5 hypertension #6 diabetes #7 mildly nonobstructive coronary artery disease #8 nicotine dependence #9 obstructive sleep apnea #10 acute on chronic renal insufficiency, creatinine 2.0 this admission Plan From cardiology's perspective, patient may be able to be discharged home today. We'll make him a follow-up appointment with Dr. Morales in the office 2 weeks post discharge. DNP note has been reviewed, I agree with a documented findings and plan of care. Patient was seen and examined.
--- NOTE | 2020-02-22 15:48 | P.PN ---
Subjective Progress Note Date: 02/22/20 Patient was seen for a follow-up. Patient's was not present today. He states he is feeling little better, although he feels slightly weak. Continues to have some tremors. Patient states that he was able to walk in the hallway by himself. Later on he states that PT was present although they were not doing much assist. According to PT notes, patient required moderate assist to get out of bed. Mild assist with walking. He has difficulty maneuvering and turning. He has poor safety awareness. He was able to walk 250 feet with them. 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 Patient was able to walk to the office and come back to his car without any assistive device, by himself. He came home, and sat by the computer and usually sits there for a few hours. Once he was done, he couldn't get out of chair. His managed to help him get up. He could hardly go from his bed to the recliner. Next a he got worse, therefore she brought him to the hospital. Patient's states that he usually walks with a walker inside his home, but outside he does not use any device. He does walk with a shuffle for last 5 years. He is able to go one flight of stairs hanging onto the side rail. He does have problem with balance and falls, but the symptoms have gotten much worse recently since last Friday as described. Patient has history of tremor for the last 2-3 years, but has been manageable. She states that his tremors aren't with intention and posture, not at rest. Patient follows up with neurologist at [place]. Objective - Vital Signs Vital signs: Vital Signs Temp 98.1 F 02/22/20 12:00 Pulse 90 02/22/20 12:00 Resp 16 02/22/20 12:00 BP 129/79 02/22/20 12:00 Pulse Ox 95 02/22/20 12:00 Intake & Output 02/21/20 02/22/20 02/22/20 18:59 06:59 18:59 Intake Total 601 720 Output Total 825 161 625 Balance -224 -850 95 Weight 61 kg Intake: Oral 601 720 Output: Urine 825 850 625 Other: Voiding Method Toilet Toilet Toilet Urinal Urinal Urinal # Voids 1 1 # Bowel Movements 0 0 - Exam Patient's mental status, is stable. Speech and language functions are normal, mild slurring noted, as was noticed before. His voice is slightly tremulous. Cranial nerves are normal. Muscle strength reveals normal strength in the arms and legs. Tone is mildly increased with some clasp knifing. Patient has mild tremors of outstretched hands, mild to moderate tremor for [id number] testing. No obvious tremor at rest. Bulk of muscles is normal. Gait deferred. - Labs CBC & Chem 7: 02/18/20 08:25 02/21/20 06:41 Labs: Abnormal Lab Results - Last 24 Hours (Table) 02/21/20 02/22/20 Range/Units 16:47 06:23 POC Glucose (mg/dL) 107 H 132 H (75-99) mg/dL Assessment and Plan Assessment: * 79-year-old male with few year history of progressive decline, with gait imp airment, tremors, some cognitive impairment, dysarthria and episodes of hallucinations. No evidence of normal pressure hydrocephalus based upon computed tomography scan of head. His previous nuclear medicine cisternogram study was also negative for NPH on 09/01/2017. Possible Lewy body dementia v ersus multiple system atrophy. * Acute gait imbalance, worsening of underlying tremors, likely due to metabolic encephalopathy. This likely resulted from dehydration and acute renal insufficiency. * Diabetes Plan: * Patient has history of gait imbalance for a couple years, but has rapidly got worse since last Friday on 02/16/2020. Patient's current worsening is likely related to acute metabolic encephalopathy, with metabolic tremor. No Parkinson's disease. With his shuffling, he may have parkinsonism. At present would hold off on Sinemet due to concern about cam lucinations/delusions with it. It may be considered as an outpatient, once his encephalopathy has resolved. * PT OT evaluate gait. * Patient may need short-term rehab. * Patient recommended to follow up with his neurologist after discharge from rehab facility.
--- NOTE | 2020-02-22 15:50 | P.DS ---
Providers Date of admission: 02/17/20 15:21 Expected date of discharge: 02/22/20 Attending physician: Khanh Chapa Consults: 02/17/20 15:22 Consult Physician Urgent Consulting Provider: [facility] Consult Reason/Comments: defibrillator discharge, afib Do you want consulting provider notified?: Yes Consult Physician Urgent Consulting Provider: Flavia Cisneros Consult Reason/Comments: acute/chronic ataxia, frequent falls Do you want consulting provider notified?: Yes 02/21/20 13:08 Consult Physician Routine Consulting Provider: Lico Roberson Consult Reason/Comments: rehab Do you want consulting provider notified?: Yes [facility] Course: Chief Complaint: Increasing weakness History of presenting complaint: This is a 79-year-old patient of Dr. Mckinney. Chronic stable medical conditions include atrial fibrillation, diabetes, hard of hearing, hypertension, hyperlipidemia, osteoarthritis, CPAP uses for sleep apnea. He follows with out of [place]. Patient supposed to have MRI of the brain. And therefore supposed to have his ICD turned off. For last 3 days being put on Coreg. Patient progressively been getting weaker and weaker for last 3-5 years. Has lost about 30 pounds. His tells him his gait has become more shuffling. He also getting tremors. Speech is sometimes slow. Seems to lean forward. Handwriting has become more spidery. . Patient lost to 3 days become gradually more weak. Tired. Admitted with a diagnosis of acute kidney injury, , possible Lewy body dementia, as discussed with Dr. Castellanos from neurology.. Started on Sinemet. IV fluids. Stanton to be encephalopathic. On presentation improved. Sinemet discontinued at Parkinson's like disease diagnosis discarded. Today-patient walked in the hallway support. With physical therapy. Accepted at inpatient rehab. Discussed with patient at length. Discussed with licensed master social worker. Discussion and discharge planning more than 35 minutes Consultation: Dr. Castellanos from neurology [facility] Physical examination: VITAL SIGNS: 98.1, 90, 16, 129/79, 95% on room air GENERAL: Sitting up, comfortable EYES: Pupils equal. Conjunctiva pale HEENT: decreased hearing. NECK: JVD unable to assess; masses not palpable. HEART: Heart sounds irregular, no edema. LUNGS: Respiratory rate normal, decreased breath sounds. ABDOMEN: Soft, nontender, liver spleen not palpable, no masses palpable. PSYCH: Alert and oriented x3; mood and affect normal. NEUROLOGICAL: Cranial nerves grossly intact; no facial asymmetry, power grossly intact. Less tremor No rigidity. improvement in fine movements. MUSCULAR schedule: Evidence of OA especially in the hands INVESTIGATIONS, reviewed in the clinical context: Creatinine 1.28 COVID 19-P/Cr-not detected Previous testing White count 6.4 hemoglobin 12 platelets 192 potassium 3.9 bun 25 creatinine 2.05 EKG tracing personally reviewed by me-atrial fibrillation rate 90s Chest x-ray film personally reviewed by me-cardiomegaly Previous testing: Creatinine 1.69 on December 27, 1.24 on December 22 Renal ultrasound from December 2019-unremarkable Computed tomography scan of the [id number] atrophic changes Assessment: -Acute kidney injury likely prerenal with creatinine going up from 1.24 now up to 2. - chronic kidney disease stage III from nephrosclerosis -chronic congestive heart failure from systolic dysfunction EF less than 20% -Persistent atrial fibrillation -Coronary artery disease -Diabetes mellitus type 2, on oral hypoglycemics -Essential hypertension -Hyperlipidemia -Primary osteoarthritis -Obstructive sleep apnea uses CPAP -Mild cognitive impairment -Anxiety depression - possible Lewy body dementia.-Discussed with Dr. Castellanos from neurology. -NPH diagnoses ruled out. Disposition: [facility] Patient Condition at Discharge: Stable Plan - Discharge Summary Discharge Rx Participant: Yes New Discharge Prescriptions: New Digoxin [Lanoxin] 125 mcg PO DAILY tab Atorvastatin [Lipitor] 20 mg PO HS tab Continue Glimepiride [Amaryl] 4 mg PO DAILY Multivitamins, Thera [Multivitamin (formulary)] 1 tab PO DAILY Montelukast [Singulair] 10 mg PO HS Albuterol Nebulized [Ventolin Nebulized] 2.5 mg INHALATION RT-BID Cholecalciferol (Vitamin D3) [Vitamin D3] 2,000 unit PO DAILY amantadine HCL [Amantadine] 200 mg PO DAILY@1200 Opti Fiber 1 tab PO DAILY Melatonin 10 mg PO HS PRN PRN Reason: Insomnia Apixaban [Eliquis] 2.5 mg PO BID metFORMIN HCL [metFORMIN HCL ER Osmotic] 1,000 mg PO AC-BID@0900,1200 Sacubitril/Valsartan [Entresto 24 mg-26 mg Tablet] 1 tab PO BID [place]-3 Epa/Dha 2125mg 1 cap PO DAILY Amiodarone [Cordarone] 200 mg PO BID Loperamide HCl [Imodium A-D] 4 - 6 mg PO HS Tamsulosin [Flomax] 0.4 mg PO DAILY Finasteride [Proscar] 5 mg PO HS Metoprolol Tartrate [Lopressor] 100 mg PO BID Discontinued Simvastatin [Zocor] 40 mg PO HS Furosemide [Lasix] 20 mg PO DAILY Discharge Medication List Glimepiride [Amaryl] 4 mg PO DAILY 06/24/14 [History] Multivitamins, Thera [Multivitamin (formulary)] 1 tab PO DAILY 07/20/15 [History] Albuterol Nebulized [Ventolin Nebulized] 2.5 mg INHALATION RT-BID 05/20/18 [History] Montelukast [Singulair] 10 mg PO HS 05/20/18 [History] Cholecalciferol (Vitamin D3) [Vitamin D3] 2,000 unit PO DAILY 02/05/19 [History] amantadine HCL [Amantadine] 200 mg PO DAILY@1200 02/05/19 [History] Melatonin 10 mg PO HS PRN 06/10/19 [History] Opti Fiber 1 tab PO DAILY 06/10/19 [History] Apixaban [Eliquis] 2.5 mg PO BID 12/16/19 [History] Sacubitril/Valsartan [Entresto 24 mg-26 mg Tablet] 1 tab PO BID 12/16/19 [History] metFORMIN HCL [metFORMIN HCL ER Osmotic] 1,000 mg PO AC-BID@0900,1200 12/16/19 [History] Amiodarone [Cordarone] 200 mg PO BID 02/17/20 [History] Finasteride [Proscar] 5 mg PO HS 02/17/20 [History] Loperamide HCl [Imodium A-D] 4 - 6 mg PO HS 02/17/20 [History] Metoprolol Tartrate [Lopressor] 100 mg PO BID 02/17/20 [History] [place]-3 Epa/Dha 2126mg 1 cap PO DAILY 02/17/20 [History] Tamsulosin [Flomax] 0.4 mg PO DAILY 02/17/20 [History] Atorvastatin [Lipitor] 20 mg PO HS tab 02/22/20 [Rx] Digoxin [Lanoxin] 125 mcg PO DAILY tab 02/22/20 [Rx] Follow up Appointment(s)/Referral(s): own-neurologistdr [Other] - 1 Week Meghana Morales MD [STAFF PHYSICIAN] - 2 Weeks Filipe Mckinney MD [Primary Care Provider] - As Needed William Cui DO [STAFF PHYSICIAN] - 1-2 Days [facility], [NON-STAFF] - Patient Instructions/Handouts: Acute Kidney Injury (DC), Fall Prevention for Older Adults (DC), Tremors (DC) Activity/Diet/Wound Care/Special Instructions: bmp-cbc - 3 days
[2020-02-22 16:30] VITALS: BP 152/92; TEMP 97.5
[2020-02-22 16:49] LABS: Glucose,Whole Blood 77 mg/dL (75-99)
== END 2020-02-22 18:17 | DRG 682 ==
LOC: EC 12:36 → 3SCARD 15:21
PROVIDERS: ADMIT Hospitalist; ATTEND Hospitalist
DX: N17.9 Acute kidney failure, unspecified (principal); G93.41 Metabolic encephalopathy; I13.0 Hypertensive heart and chronic kidney disease with heart failure and stage 1 through stage 4 chronic kidney disease, or unspecified chronic kidney disease; I42.8 Other cardiomyopathies; I48.19 Other persistent atrial fibrillation; I50.22 Chronic systolic (congestive) heart failure; R44.3 Hallucinations, unspecified; G31.83 Neurocognitive disorder with Lewy bodies; F02.80 Dementia in other diseases classified elsewhere, unspecified severity, without behavioral disturbance, psychotic disturbance, mood disturbance, and anxiety; H91.90 Unspecified hearing loss, unspecified ear; Z20.828 Contact with and (suspected) exposure to other viral communicable diseases; E11.22 Type 2 diabetes mellitus with diabetic chronic kidney disease; E78.5 Hyperlipidemia, unspecified; E86.0 Dehydration; Z87.891 Personal history of nicotine dependence; F41.8 Other specified anxiety disorders; F32.9 Major depressive disorder, single episode, unspecified; G47.33 Obstructive sleep apnea (adult) (pediatric); Z99.89 Dependence on other enabling machines and devices; G89.29 Other chronic pain; M54.9 Dorsalgia, unspecified; I25.10 Atherosclerotic heart disease of native coronary artery without angina pectoris; J01.00 Acute maxillary sinusitis, unspecified; M19.042 Primary osteoarthritis, left hand; M19.041 Primary osteoarthritis, right hand; R29.6 Repeated falls; Z91.81 History of falling; R27.0 Ataxia, unspecified; I49.3 Ventricular premature depolarization; N18.3 Chronic kidney disease, stage 3 (moderate); Z87.440 Personal history of urinary (tract) infections; Z79.01 Long term (current) use of anticoagulants; Z79.84 Long term (current) use of oral hypoglycemic drugs; Z79.899 Other long term (current) drug therapy; Z80.7 Family history of other malignant neoplasms of lymphoid, hematopoietic and related tissues; Z86.73 Personal history of transient ischemic attack (TIA), and cerebral infarction without residual deficits; Z95.810 Presence of automatic (implantable) cardiac defibrillator; Z90.49 Acquired absence of other specified parts of digestive tract; Z90.89 Acquired absence of other organs; Z87.11 Personal history of peptic ulcer disease
CPT/HCPCS: 36415; 70450; 71046; 80048; 80053; 80320; 80329; 81001; 82140; 82550; 83520; 83880; 84484; 85025; 85610; 85730; 87502; 93005; 94640; 94760; 96360; 96361; 99285

== ENCOUNTER → 2020-04-12 | Outpatient (CLI) | payer MEDICARE | END | disposition home or self-care (01) | LOC: LABMAIN 13:51 → RADCTMAIN 13:51 | PROVIDERS: ATTEND Psychiatry & Neurology Neurology | DX: R93.7 Abnormal findings on diagnostic imaging of other parts of musculoskeletal system (principal) | CPT/HCPCS: 82565; 84520 ==

== ENCOUNTER → 2020-04-18 | Outpatient (CLI) | payer MEDICARE ==
--- NOTE | 2020-04-18 15:07 | CT ---
EXAMINATION TYPE: CT abdomen pelvis wo con DATE OF EXAM: 04/18/2020 COMPARISON: Lumbar MRI 04/03/2020 HISTORY: Abnormal MR Lspine. Low back pain CT DLP: 705 mGycm Automated exposure control for dose reduction was used. TECHNIQUE: Helical acquisition of images from the lung bases through the pelvis. Patient received or al contrast only. FINDINGS: There is a lead in the right ventricle. Lack of contrast could compromise sensitivity. LUNG BASES: No significant abnormality is appreciated. AORTA: No significant abnormality is appreciated. LIVER/GB: No significant abnormality is appreciated. PANCREAS: No significant abnormality is seen. SPLEEN: No significant abnormality is seen. ADRENALS: No significant abnormality is seen. KIDNEYS: Large exophytic cyst at the lower pole the left kidney measures 13.4 x 11.7 x 12.8 cm. Houns field unit measurements are consistent with water density. REPRODUCTIVE ORGANS: Prostate appears prominently.. URINARY BLADDER: Circumferential bladder wall thickening is present possibly due to chronic bladder outlet obstruction, correlate.. BOWEL: Diverticular changes associated with the sigmoid colon, descending colon. FREE AIR: No Free Air is visible. ASCITES: None visible. PELVIC ADENOPATHY: None visualized. RETROPERITONEAL ADENOPATHY: No Retroperitoneal Adenopathy visible. OSSEOUS STRUCTURES: Degenerative disc changes, facet arthropathy noted in the visualized spine, poss ibly diffuse idiopathic skeletal hyperostosis change in the thoracic spine. IMPRESSION: FINDINGS LIKELY REPRESENT SIMPLE HEPATIC CYST LOWER POLE LEFT KIDNEY. NONCONTRAST EXAM.
== END | disposition home or self-care (01) ==
LOC: RADCTMAIN 09:56
PROVIDERS: ATTEND Psychiatry & Neurology Neurology
DX: R93.7 Abnormal findings on diagnostic imaging of other parts of musculoskeletal system (principal)
CPT/HCPCS: 74176; 82565; 84520

== ENCOUNTER 2020-09-18 12:54 | Day surgery (SDC) | payer MEDICARE ==
[2020-09-13 15:01] VITALS: BMI 33.3
--- NOTE | 2020-09-18 09:47 | P.HPIHPCON ---
History of Present Illness H&P Date: 09/18/20 Chief Complaint: BPH 79 year-old male with history of BPH, he has failed medical therapy. Surgical options were discussed with him. underwent a cystoscopy which showed bilateral obstructive prostate lateral lobes. Discussed with him the option of a TURP vs Urolift, Discuss risk and benefit of each approach. He agreed to proceed with urolift. Discussed with him the risk which includes but not limited to bleeding, infection, persistent symptoms, need of additional operation. He understood all the risk and agreed to proceed Consent for Procedure: I have explained the operation/procedure to the patient, including the risks, benefits, side effects, alternative therapies (including not receiving the proposed treatment or service), the likelihood of the patient achieving his/her goals, and potential recuperation problems for the procedure/sedation/analgesia, as well as any blood products, if indicated. I also explained to the patient the risks, benefits and side effects of the alternatives, as well as the risks related to not receiving the proposed procedure, care, treatment, or services. Past Medical History Past Medical History: Atrial Fibrillation, CVA/TIA, Diabetes Mellitus, Hearing Disorder / Deafness, Hyperlipidemia, Hypertension, Osteoarthritis (OA), Prostate Disorder, Sleep Apnea/CPAP/BIPAP Additional Past Medical History / Comment(s): ?CVA IN THE PAST (NO WEAKNESS OR PARALYSIS), states has difficulty remembering words at times, has unsteady gait but no assistive device used, HX OF bleeding ULCER, states irregular heart rate, denies heart failure, edema, Single chamber AICD 06/15/19 History of Any Multi-Drug Resistant Organisms: None Reported Past Surgical History: Appendectomy, Hernia Repair, Pacemaker, Tonsillectomy Additional Past Surgical History / Comment(s): JAYY INGUINAL HERNIA REPAIR X2, jayy cataracts Past Anesthesia/Blood Transfusion Reactions: No Reported Reaction Type of Cardiac Device: AICD Device Placement Date:: 06/15/2019 Smoking Status: Former smoker - Past Family History Father Family Medical History: Cancer Additional Family Medical History / Comment(s): HODGKIN'S Medications and Allergies Home Medications Medication Instructions Recorded Confirmed Type Glimepiride [Amaryl] 4 mg PO DAILY 06/24/14 09/13/20 History Multivitamins, Thera [Multivitamin 1 tab PO DAILY 07/20/15 09/13/20 History (formulary)] Albuterol Nebulized [Ventolin 2.5 mg INHALATION RT-BID 05/20/18 09/13/20 History Nebulized] Montelukast [Singulair] 10 mg PO HS 05/20/18 09/13/20 History Apixaban [Eliquis] 2.5 mg PO BID 12/16/19 09/13/20 History Sacubitril/Valsartan [Entresto 24 1 tab PO BID 12/16/19 09/13/20 History mg-26 mg Tablet] Amiodarone [Cordarone] 100 mg PO BID 02/17/20 09/13/20 History Finasteride [Proscar] 5 mg PO HS 02/17/20 09/13/20 History Metoprolol Tartrate [Lopressor] 100 mg PO BID 02/17/20 09/13/20 History [place]-3 Epa/Dha 2126mg 1 cap PO DAILY 02/17/20 09/13/20 History Tamsulosin [Flomax] 0.4 mg PO BID 02/17/20 09/13/20 History Atorvastatin [Lipitor] 20 mg PO HS tab 02/22/20 09/13/20 Rx Levothyroxine Sodium [Synthroid] 88 mcg PO HS 09/13/20 09/13/20 History Torsemide [Demadex] 20 mg PO DAILY 09/13/20 09/13/20 History Allergies Allergy/AdvReac Type Severity Reaction Status Date / Time No Known Allergies Allergy Verified 09/13/20 14:49 Surgical - Exam - General well developed, well nourished, no distress, no pain - Eyes PERRL, normal ocular movement - ENT normal nares, normal mucosa - Abdomen Abdomen: soft, non tender - Psychiatric oriented to time, oriented to person, oriented to place Assessment and Plan Assessment: 79 yo hx of BPH -OR for Urolift
[~2020-09-18 12:54] MED LIST changes: +LACTATED RINGERS 1,000 ML IV SCH; +LIDOCAINE 1% (10MG/ML) FOR IV START INTRADERMA PRN; -SODIUM CHLORIDE 0.9% 1,000 ML IV SCH; -ceFAZolin 1,000 MG in SODIUM CHLORIDE 0.9% IRRIGATIO 250 ML IRRIGATION ONE; +fentaNYL (PF) 50 MCG/ML 2 ML AMP IV PRN
[2020-09-18 13:47] VITALS: TEMP 97.3
[2020-09-18] MEDS ORDERED: ONDANSETRON 4 MG/2 ML VIAL ONE (13:55)
[2020-09-18 13:56] LABS: Glucose,Whole Blood 184 mg/dL (75-99)
[2020-09-18] MEDS ORDERED: ONDANSETRON 4 MG/2 ML VIAL IVP ONE (14:00)
[2020-09-18] MEDS ORDERED: DEXAMETHASONE SOD PHOSPHATE 4 MG/ML 1 ML VIAL IVP ONE (14:01)
[2020-09-18] MEDS ORDERED: MIDAZOLAM 2 MG/2 ML VIAL ONE (14:17)
[2020-09-18] MEDS ORDERED: fentaNYL (PF) 50 MCG/ML 2 ML AMP ONE (14:17)
[2020-09-18] MEDS ORDERED: PROPOFOL 10 MG/ML 20 ML VIAL IV ONE (14:17)
[2020-09-18] MEDS ORDERED: SUCCINYLCHOLINE CHLORIDE 100 MG/5 ML SYR IV ONE (14:17)
[2020-09-18 15:14] LABS: Glucose,Whole Blood 170 mg/dL (75-99)
--- NOTE | 2020-09-18 15:41 | P.OP ---
Date of Procedure: 09/18/20 Preoperative Diagnosis: BPH Postoperative Diagnosis: Same Procedure(s) Performed: Cystoscopy, Urolift6 Implants: Urolift implants X 6 Anesthesia: LOGANA Surgeon: Adalberto Lrasen Estimated Blood Loss (ml): 1 Pathology: none sent Condition: stable Disposition: PACU Indications for Procedure: 79 year-old male with history of BPH, he has failed medical therapy. Surgical options were discussed with him. underwent a cystoscopy which showed bilateral obstructive prostate lateral lobes. Discussed with him the option of a TURP vs Urolift, Discuss risk and benefit of each approach. He agreed to proceed with urolift. Discussed with him the risk which includes but not limited to bleeding, infection, persistent symptoms, need of additional operation. He understood all the risk and agreed to proceed Operative Findings: Bilateral obstructive lateral lobes Description of Procedure: Patient was brought to the operating room, general anesthesia was induced. He was prepped and draped in sterile fashion a placed in dorsal lithotomy position. Cystoscopy fitted with 20-Liberian sheath was inserted per urethra, cystoscopy was performed which showed no abnormality within the bladder, of note patient had bilateral obstructive lateral lobes. Attention was then carried to the urolift implants. A total of 6 implants were placed, 3 on the right side, and 3 on the left side. Implants were placed distal to the bladder neck, but proximal to the Veru. Repeat cystoscopy showed no evidence of implant perforation into the bladder. Repeat cystoscopy also demonstrated an open anterior channel within the prostate. There was no evidence of bleeding, bladder was emptied at end of the case. Patient tolerated the procedure well was taken to PACU in stable condition
[2020-09-18 15:54] VITALS: RESP 16
[2020-09-18 16:07] VITALS: PULSE 69
[2020-09-18 16:12] VITALS: BP 162/93
== END 2020-09-18 16:37 | disposition home or self-care (01) ==
LOC: OR 12:54
PROVIDERS: ATTEND Urology
DX: N40.0 Benign prostatic hyperplasia without lower urinary tract symptoms (principal); I48.91 Unspecified atrial fibrillation; Z86.73 Personal history of transient ischemic attack (TIA), and cerebral infarction without residual deficits; E11.9 Type 2 diabetes mellitus without complications; H91.90 Unspecified hearing loss, unspecified ear; E78.5 Hyperlipidemia, unspecified; I10 Essential (primary) hypertension; M19.90 Unspecified osteoarthritis, unspecified site; G47.30 Sleep apnea, unspecified; Z99.89 Dependence on other enabling machines and devices; R26.81 Unsteadiness on feet; Z95.810 Presence of automatic (implantable) cardiac defibrillator; Z87.11 Personal history of peptic ulcer disease; Z90.89 Acquired absence of other organs; Z98.890 Other specified postprocedural states; Z98.42 Cataract extraction status, left eye; Z98.41 Cataract extraction status, right eye; Z79.01 Long term (current) use of anticoagulants; Z79.84 Long term (current) use of oral hypoglycemic drugs; Z79.899 Other long term (current) drug therapy
CPT/HCPCS: 52441; 52442 ×5; L8699; J2250; J1100; J0690; J2405; J3010; J0330; J2704